=== PATIENT | female | born 1985 | race Caucasian/White ===

== ENCOUNTER 2018-02-13 19:49 | Emergency (ER) | payer MEDICAID, SELFPAY ==
[2018-02-13 19:51] VITALS: BP 155/85; PULSE 111; RESP 18; TEMP 36.6; O2SAT 100
[2018-02-13 19:52] VITALS: BP 155/85; PULSE 109; RESP 18; TEMP 36.6; O2SAT 100; BMI 23.8
[2018-02-13] MEDS: Clindamycin HCl 150 MG Capsule 450 MG PO (20:43)
[2018-02-13] MEDS: HYDROcodone Bitartrate/Apap 5/325 Tablet PO (20:43)
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
[2018-02-13 20:57] VITALS: BP 139/92; PULSE 92; RESP 18; O2SAT 100
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
--- NOTE | 2018-02-13 21:01 | ED.DEP ---
ED Disposition - Plan for ED Patient: Chief Complaint: Dental Instructions: ED Tooth Pain Prescriptions: Naproxen [Naprosyn] 500 mg PO BID #14 tab Clindamycin [Cleocin] 300 mg PO 4X/DAY #80 cap Referrals: Rui Garner DO [Primary Care Provider] -
== END 2018-02-13 21:05 | disposition home or self-care (01) ==
LOC: ED 20:38
PROVIDERS: Emergency Provider Emergency Medicine; Family Provider Student in an Organized Health Care Education/Training Program; PCP Student in an Organized Health Care Education/Training Program
DX: K08.89 Other specified disorders of teeth and supporting structures (principal); R51 Headache; S02.5XXA Fracture of tooth (traumatic), initial encounter for closed fracture; X58.XXXA Exposure to other specified factors, initial encounter; Y93.9 Activity, unspecified; Y92.9 Unspecified place or not applicable; R09.81 Nasal congestion
CPT/HCPCS: 99283

== ENCOUNTER 2018-06-10 18:51 | Emergency (ER) | payer MEDICAID, SELFPAY ==
[2018-06-10 18:52] VITALS: BP 134/77; PULSE 107; RESP 17; TEMP 36.7; O2SAT 97; BMI 28.2
--- NOTE | 2018-06-10 19:17 | ED.DCSUM_ITS ---
- ER Visit Summary Date of Service: 06/10/18 Chief Complaint: Dental pain History of Present Illness: The patient is a 33 F who presents with left lower dental pain that has been getting worse over the past week. Patient states she saw her dentist who prescribed clindamycin and took x-rays. Patient states she has a follow-up appointment on June 27. Patient states the pain has been getting worse. Patient admits to hot and cold sensitivity. Patient admits to some swelling over the gums. Patient denies any fevers or chills. Patient admits to occasional nausea and vomiting due to the pain. Physical Examination: Vital signs are stable. Patient is afebrile. Patient is in no acute distress. Oral mucosa is pink and moist. Oropharynx is clear. Neck is supple. Trachea is midline. There is no JVD noted. There is a large dental carry noted over the left lower second molar. There is tenderness noted over this tooth. There is some gingival edema around this tooth. There is no sublingual edema or erythema. There is no sublingual or submandibular adenopathy noted. Heart was regular rate and rhythm. Lungs are clear and equal bilateral. The remaining physical exam is within normal limits. Emergency Department Course and Treatment: Cavit temporary filling was applied to the cavity on the left lower second molar. Patient felt better after this. Patient was instructed to continue her clindamycin as prescribed. Patient was instructed to follow-up with her dentist as scheduled. Patient understood and was agreeable with the plan. All questions were answered. Disposition: Discharge home Impression: Odontalgia This note was generated with [employer] dictation software. It may contain incorrect words, spelling, and punctuation that were not noted in review of the chart prior to signing ED Disposition - Plan for ED Patient: Disposition: Home or Assisted Living Diagnosis: Odontalgia Instructions: ED Cavity Dental Referrals: Rui Garner DO [Primary Care Provider] -
== END 2018-06-10 20:07 | disposition home or self-care (01) ==
PROVIDERS: Emergency Provider Emergency Medicine; Family Provider Student in an Organized Health Care Education/Training Program; PCP Student in an Organized Health Care Education/Training Program
DX: K02.9 Dental caries, unspecified (principal); J45.909 Unspecified asthma, uncomplicated; Z72.0 Tobacco use
CPT/HCPCS: 99282

== ENCOUNTER 2018-08-12 13:43 | Emergency (ER) | payer MEDICAID, SELFPAY ==
[2018-08-12 13:44] VITALS: BP 141/70; PULSE 86; RESP 16; TEMP 36.4; BMI 28.6
--- NOTE | 2018-08-12 13:56 | ED.VIS.GEN ---
History of Present Illness Chief Complaint: Cold Sx Informant: Patient Onset: Weeks - Onset 1 week ago Context: Sudden Onset Timing: Continuous - With regards to wheezing Quality: Productive cough, posttussive vomiting, dyspnea and wheezing Location: Chest Current Severity: Mild Maximum Severity: Moderate Worsened by: Dyspnea on exertion Relieved by: Nothing Associated Symptoms: Headache with severe cough followed by vomiting Narrative: Patient is a 33-year-old woman who is a smoker 1 pack/day who presents with respiratory symptoms started 1 week ago. She reports productive cough of colored sputum, wheezing, rattling in her chest, rib and chest pain after coughing with severe headache and vomiting. She denies documented fever. She denies ocular, visual or auditory symptoms. She denies rhinorrhea, nasal congestion, postnasal drainage. - Past Medical History (1) No significant past medical history Status: Acute Past Medical History - Allergies and Home Meds Allergies/Adverse Reactions: Allergies Penicillins [PCN] Allergy (Verified 08/12/18 14:20) Swelling tramadol HCl [From [facility]] Adverse Reaction (Verified 08/12/18 14:20) Other Primary Care Physician: Rui Garner DO [Primary Care Provider] - Prior records reviewed: Yes Past Medical History: None Surgical History: noncontributory Lives: Alone Smoking Status: Current every day smoker Alcohol: Rare Drugs: - - Review of old records history of methamphetamine use Review of Systems General: Denies: Chills, Fever, Malaise, Subjective, Sweats Eyes: Denies: Visual changes - bilaterally, Diplopia ENT: Denies: Rhinorrhea, Sore throat Cardiovascular: Denies: Chest pain, Palpitations Respiratory: Reports: Dyspnea, Cough, Sputum, Dyspnea on exertion. Denies: Orthopnea, Paroxysmal nocturnal dyspnea Musculoskeletal: Denies: Myalgias, Arthralgias, Neck pain, Back pain, Swelling, Extremity Pain, -, - Skin: Denies: Rash, Wounds Neurological: Reports: Headache. Denies: Weakness, Parasthesia, Numbness, -, - Hematologic: Denies: Easy bruising, Easy bleeding Allergy: Denies: Uticaria, Swelling of the mouth Physical Exam Vital Signs/Narrative: Vital Signs Temp Pulse Resp BP 08/12/18 13:44 97.6 F L 86 16 141/70 H Inital Vital Signs reviewed: Yes General: Well nourished, Well developed, No Acute Distress Head: Normocephalic, Atraumatic Eyes: Perrl, EOMI. Negative for: Pale conjunctiva, Scleral icterus, - ENT: Moist mucous membranes, No rhinorrhea, TM's clear Neck: Supple, Nontender, No lymphadenopathy, No JVD, - Cardiovascular: Regular rate, Regular rhythm, No murmurs, Normal S1, Normal S2 Respiratory: Chest nontender, Rales - Bilaterally at the bases, Wheezing - Expiratory throughout Abdomen: Soft, Nontender, Nondistended, Normal bowel sounds, No masses. Negative for: Hepatomegaly, Splenomegaly, Mass, Pulsatile mass Rectal: Deferred Extremities: Nontender, No edema Skin: Normal color, No rash Neurological: Alert, Oriented x3, Cranial nerves II-XII grossly intact, Normal Strength, Normal Sensation, Normal DTR, Normal Gait Psychological: Normal affect, Normal Mood Diagnostic/Tx/Re-eval Chest X-Ray - ED: 2 View, Read by ED Physician, Normal, Heart, Lungs, Mediastinum, Bony Structures, No Acute Disease - Medical Decision Making Chest x-ray was obtained to assess for pneumonia. Patient was treated with DuoNeb, albuterol and 60 mill grams of prednisone p.o. Will reassess after treatment and x-ray. Patient was reassessed at 1 4: 2 5. She is wheeze free. Will discharge prescription for Proventil MDI and doxycycline. ED Disposition - Plan for ED Patient: Disposition: Home or Assisted Living Diagnosis: Purulent bronchitis, Acute bronchospasm Instructions: ED Upper Resp Infec Abx Tx Prescriptions: Albuterol Inhaler [Ventolin Hfa] 2 puff INHALATION Q4H PRN PRN #1 inhaler PRN Reason: Wheezing Doxycycline 100 mg PO BID #14 cap Referrals: Rui Garner DO [Primary Care Provider] - 3-5 Days if not improving Additional Instructions: It is in your best interest to quit smoking.
[2018-08-12] MEDS: Albuterol 2.5 MG/3 ML VIAL.NEB. INHALATION (14:08)
[2018-08-12] MEDS: Ipratropium/Albuterol Sulfate 3 ML AMPUL.NEB INHALATION (14:08)
[2018-08-12 14:11] VITALS: PULSE 92; RESP 18
--- NOTE | 2018-08-12 14:21 | RAD_ITS ---
STUDY: X-RAY CHEST REASON FOR EXAM: Female, 33 years old. Productive cough with rales. TECHNIQUE: Frontal and lateral views of the chest. COMPARISON: April 12, 2014 FINDINGS: The lungs are clear and expanded. There is no demonstrated pleural abnormality. Normal size heart. Normal mediastinum and mohan. Normal visualized pulmonary arteries. Normal visualized aortic arch and descending thoracic aorta. Normal visualized thoracic spine. Normal visualized ribs, clavicles, and shoulders. There is no demonstrated abnormality of the visualized soft tissue structures of the upper abdomen. RAD/Chest PA and Lateral IMPRESSION: No interval change and no acute finding. Electronically Signed: Jai Spears MD at 14:39 EDT , Service support ,
[2018-08-12] MEDS: predniSONE 20 MG Tablet 60 MG PO (14:29)
== END 2018-08-12 14:43 | disposition home or self-care (01) ==
LOC: ED 14:37
PROVIDERS: Emergency Provider Emergency Medicine; Family Provider Student in an Organized Health Care Education/Training Program; PCP Student in an Organized Health Care Education/Training Program
DX: J41.1 Mucopurulent chronic bronchitis (principal); J98.01 Acute bronchospasm; F17.200 Nicotine dependence, unspecified, uncomplicated
CPT/HCPCS: 71046; 94640; 99282

== ENCOUNTER 2018-09-12 18:22 | Emergency (ER) | payer MEDICAID, SELFPAY ==
[2018-09-12 18:23] VITALS: BP 110/72; PULSE 85; RESP 16; TEMP 36.6; O2SAT 96; BMI 28.1
--- NOTE | 2018-09-12 18:57 | ED.VIS.GEN ---
History of Present Illness Chief Complaint: Constipation Informant: Patient Onset: Weeks - Onset 2 weeks ago Context: Sudden Onset Timing: Continuous Quality: Trouble moving bowels Location: Not applicable Current Severity: Mild Maximum Severity: Moderate Worsened by: Opiates Relieved by: Improved with laxative Associated Symptoms: no nausea vomiting. Positive flatus Narrative: Patient is a 33-year-old woman who was started on Suboxone 2 weeks ago. She presents because of abdominal discomfort and difficulty moving her bowels. She was taking laxative. She was not prescribed bulking agent. She has no vomiting and positive flatus. No other symptoms. Prior similar symptoms: No Recent Illness/Hospitalization: Yes - Past Medical History (1) History of opiate therapy Status: Acute Past Medical History - Allergies and Home Meds Allergies/Adverse Reactions: Allergies Penicillins [PCN] Allergy (Verified 09/12/18 18:26) Swelling tramadol HCl [From [facility]] Adverse Reaction (Verified 09/12/18 18:26) Other Primary Care Physician: Rui Garner DO [Primary Care Provider] - Prior records reviewed: Yes Surgical History: noncontributory Lives: Alone Smoking Status: Current every day smoker Drugs: - - History of opiate use Review of Systems General: Denies: Chills, Fever, Sweats Cardiovascular: Denies: Chest pain, Palpitations Respiratory: Denies: Dyspnea, Cough, Dyspnea on exertion Gastrointestinal: Reports: Abdominal pain, Diarrhea - Laxative use, Constipation - Since starting Suboxone. Denies: Nausea, Vomiting, Melena, Hematochezia Genitourinary: Denies: Dysuria, Hematuria, Frequency Musculoskeletal: Denies: Myalgias, Arthralgias, Neck pain, Back pain Hematologic: Denies: Easy bruising, Easy bleeding Physical Exam Vital Signs/Narrative: Vital Signs Temp Pulse Resp BP Pulse Ox 09/12/18 18:23 98 F 85 16 110/72 96 Inital Vital Signs reviewed: Yes General: Well nourished, Well developed, No Acute Distress Head: Normocephalic, Atraumatic Eyes: Perrl, EOMI. Negative for: Pale conjunctiva, Scleral icterus, - ENT: Moist mucous membranes, No rhinorrhea Neck: Supple, Nontender, No lymphadenopathy, No JVD, - Cardiovascular: Regular rate, Regular rhythm, No murmurs, Normal S1, Normal S2 Respiratory: No distress, CTA bilaterally, Chest nontender Abdomen: Soft, Nontender, Nondistended, Normal bowel sounds, No masses, - - Healed scars with no evidence of hernia. Rectal: Deferred Back: Nontender, Normal Inspection Skin: Normal color, No rash Neurological: Alert, Oriented x3, Cranial nerves II-XII grossly intact, Normal Strength, Normal Sensation Psychological: Normal affect, Normal Mood Diagnostic/Tx/Re-eval - Medical Decision Making Patient's history and physical consistent with obstipation secondary to opiate use. She was instructed to discontinue the laxative and take MiraLAX 3 times a day. Patient requested prescription since she has an insurance card that will pay for it. ED Disposition - Plan for ED Patient: Disposition: Home or Assisted Living Diagnosis: Constipation due to opioid therapy Instructions: ED Constipation Prescriptions: Polyethylene Glycol 3350 [Miralax] 765 gm PO TID #1 cap Referrals: Rui Garner DO [Primary Care Provider] - As Needed
--- NOTE | 2018-09-12 19:12 | ED.RN ---
DISCHARGE INSTRUCTIONS GIVEN TO AND REVIEWED WITH PATIENT, PATIENT DENIES QUESTIONS OR CONCERNS AND VOICES UNDERSTANDING OF DISCHARGE INSTRUCTIONS. PT AMBULATES OUT OF ROOM WITHOUT DIFFICULTY.
== END 2018-09-12 19:13 | disposition home or self-care (01) ==
LOC: ED 19:10
PROVIDERS: Emergency Provider Emergency Medicine; Family Provider Student in an Organized Health Care Education/Training Program; PCP Student in an Organized Health Care Education/Training Program
DX: K59.00 Constipation, unspecified (principal); T40.2X5A Adverse effect of other opioids, initial encounter; Y92.9 Unspecified place or not applicable; F17.200 Nicotine dependence, unspecified, uncomplicated
CPT/HCPCS: 99282

== ENCOUNTER 2019-06-23 19:03 | Emergency (ER) | payer MEDICAID, SELFPAY ==
[2019-06-23 19:04] VITALS: BP 121/69; PULSE 88; RESP 17; TEMP 36.7; O2SAT 98; BMI 25.9
--- NOTE | 2019-06-23 20:08 | ED.VIS.GEN ---
History of Present Illness Chief Complaint: Med Refill Narrative: Patient presenting for evaluation for medication refill. Patient reports that she is out of her albuterol nebulized treatments, and is unable to get a refill until sometime in the next couple of weeks. She reports that she has been having some wheezing and shortness of breath because of this. She is requesting if we can give her a albuterol inhaler to help with this. She denies any increase in her asthma symptoms, chest pain, fevers, cough. Review of systems otherwise negative. Past Medical History - Allergies and Home Meds Allergies/Adverse Reactions: Allergies Penicillins [PCN] Allergy (Verified 06/23/19 19:03) Swelling tramadol HCl [From [facility]] Adverse Reaction (Verified 06/23/19 19:03) Other Primary Care Physician: Rui Garner DO [Primary Care Provider] - Past Medical History: - - Asthma Surgical History: noncontributory Smoking Status: Current every day smoker Review of Systems General: Denies: Fever ENT: Denies: Bilateral ear pain Cardiovascular: Denies: Chest pain Respiratory: Reports: - - Wheezing. Denies: Dyspnea, Cough Gastrointestinal: Denies: Vomiting Skin: Denies: Rash Physical Exam Vital Signs/Narrative: Vital Signs Temp Pulse Resp BP Pulse Ox 06/23/19 19:04 98.1 F 88 17 121/69 H 98 Inital Vital Signs reviewed: Yes General: Well nourished, Well developed, No Acute Distress Head: Normocephalic, Atraumatic Eyes: EOMI ENT: Moist mucous membranes Neck: Supple Cardiovascular: Regular rate Respiratory: No distress Extremities: Nontender Skin: Normal color Neurological: Alert, Oriented x3 Psychological: Normal affect Diagnostic/Tx/Re-eval - Medical Decision Making Patient presented for a medication refill. She has a benign exam. Patient was provided with albuterol inhaler. ED Disposition - Plan for ED Patient: Disposition: Home or Assisted Living Diagnosis: Medication refill Instructions: Med Refill Referrals: Rui Garner DO [Primary Care Provider] - As Needed
[2019-06-23 20:33] VITALS: RESP 18
== END 2019-06-23 20:34 | disposition home or self-care (01) ==
PROVIDERS: Emergency Provider Emergency Medicine; PCP Student in an Organized Health Care Education/Training Program
DX: Z76.0 Encounter for issue of repeat prescription (principal); J45.909 Unspecified asthma, uncomplicated; F17.200 Nicotine dependence, unspecified, uncomplicated
CPT/HCPCS: 99283

== ENCOUNTER 2019-07-16 14:26 | Emergency (ER) | payer MEDICAID, SELFPAY ==
[2019-07-16 14:28] VITALS: BP 128/84; PULSE 90; RESP 15; TEMP 37.1; O2SAT 98; BMI 26.9
--- NOTE | 2019-07-16 14:38 | ED.VIS.GEN ---
History of Present Illness Chief Complaint: Back Narrative: Patient is a 34-year-old female who presents with lower back pain. This began after lifting some heavy boxes. She complains of pain isolated to the lower back which is worse with movement. She denies fever, abdominal pain, prior back surgery, urinary retention, fecal incontinence, radiation of pain to the legs, paresthesias or weakness. Past Medical History - Allergies and Home Meds Allergies/Adverse Reactions: Allergies Penicillins [PCN] Allergy (Verified 07/16/19 14:27) Swelling tramadol HCl [From Ultram] Adverse Reaction (Verified 07/16/19 14:27) Other Primary Care Physician: Rui Garner DO [Primary Care Provider] - Past Medical History: - - Hypothyroidism Surgical History: noncontributory Smoking Status: Current every day smoker Review of Systems All systems negative except as indicated General: Denies: Fever Eyes: Denies: Visual changes - bilaterally ENT: Denies: Bilateral ear pain Cardiovascular: Denies: Chest pain Respiratory: Denies: Dyspnea Gastrointestinal: Denies: Abdominal pain, Nausea, Vomiting, Diarrhea, Constipation Musculoskeletal: Reports: Back pain. Denies: Myalgias, Arthralgias Skin: Denies: Rash Neurological: Denies: Headache Physical Exam Vital Signs/Narrative: Vital Signs Temp Pulse Resp BP Pulse Ox 07/16/19 14:28 98.8 F 90 15 128/84 H 98 Inital Vital Signs reviewed: Yes General: Well nourished Head: Normocephalic Eyes: EOMI ENT: Moist mucous membranes Cardiovascular: Regular rate Respiratory: No distress Abdomen: Soft, Nontender Back: - - Patient has bilateral paraspinal lumbar tenderness, no midline tenderness, negative straight leg raise bilaterally in the supine position Extremities: Nontender, No edema Skin: Normal color Neurological: Alert, Normal Strength, Normal Sensation Psychological: Normal affect Diagnostic/Tx/Re-eval - Medical Decision Making Patient's presentation is consistent with lumbosacral strain. She was prescribed naproxen and Flexeril. She was advised on supportive care. She understands to return for new or worsening symptoms. Patient was discharged. ED Disposition - Plan for ED Patient: Disposition: Home or Assisted Living Diagnosis: Lumbosacral strain Instructions: ED LUMBAR SPRAIN/STRAIN Prescriptions: cycloBENZAPRine HCl [Flexeril] 10 mg PO TID PRN #20 tab PRN Reason: Muscle Spasm Prescription Printed Naproxen [Naprosyn] 500 mg PO BID #20 tab Prescription Printed Referrals: Rui Garner DO [Primary Care Provider] -
[2019-07-16 15:02] VITALS: RESP 16
== END 2019-07-16 15:04 | disposition home or self-care (01) ==
LOC: ED 14:45
PROVIDERS: Emergency Provider Emergency Medicine; PCP Student in an Organized Health Care Education/Training Program
DX: S39.012A Strain of muscle, fascia and tendon of lower back, initial encounter (principal); X50.0XXA Overexertion from strenuous movement or load, initial encounter; Y93.9 Activity, unspecified; Y99.9 Unspecified external cause status; E03.9 Hypothyroidism, unspecified; F17.200 Nicotine dependence, unspecified, uncomplicated; Z88.0 Allergy status to penicillin; Z79.899 Other long term (current) drug therapy
CPT/HCPCS: 99282

== ENCOUNTER 2019-07-29 23:26 | Emergency (ER) | payer MEDICAID, SELFPAY ==
[2019-07-29 23:27] VITALS: BP 125/79; PULSE 83; RESP 20; TEMP 35.9; O2SAT 95; BMI 25.6
--- NOTE | 2019-07-29 23:46 | ED.VIS.GI ---
History of Present Illness Chief Complaint: Abd Pain Informant: Patient - Abdominal Pain/Flank Pain Onset: Today Timing: Waxes and wanes Location: Epigastric Current Severity: Gone Maximum Severity: Severe Worsened by: Food Relieved by: - - after vomiting, sx resolved - Nausea/Vomiting/Emesis GI Symptom: Nausea, Vomiting Onset: Today Quality: Nonbilious. Negative for: Blood streaks, Coffee ground, Hematemesis - Diarrhea/Melena/Hematochezia GI Symptom: Negative for: Diarrhea, Melena, Hematochezia Associated Symptoms: Negative for: Dysuria, Frequency, Hematuria, Urgency Narrative: Have any epigastric discomfort along with some mild nausea off and on throughout the day today. She has had this a couple of times in the past, but never became as bad as it did tonight after she ate some pizza. After vomiting, her symptoms then slowly resolved. Now she is asymptomatic. Prior similar symptoms: Yes - unk cause - Past Medical History (1) Asthma Status: Chronic (2) History of opiate therapy Status: Chronic (3) Depression with anxiety Status: Chronic (4) Hypothyroidism Status: Chronic Past Medical History - Allergies and Home Meds Allergies/Adverse Reactions: Allergies Penicillins [PCN] Allergy (Verified 07/29/19 23:27) Swelling tramadol HCl [From [facility]] Adverse Reaction (Verified 07/29/19 23:27) Other Primary Care Physician: Rui Garner DO [Primary Care Provider] - Surgical History: noncontributory Lives: Spouse/ Significant Other Smoking Status: Current every day smoker Drugs: None - Ex-IV drug user. Currently on Suboxone. Review of Systems General: Denies: Chills, Fever, Sweats Eyes: Denies: Visual changes - bilaterally, Diplopia ENT: Denies: Rhinorrhea, Sore throat Cardiovascular: Denies: Chest pain, Palpitations Respiratory: Reports: - - Chronic wheezing, unchanged. Denies: Dyspnea, Cough, Dyspnea on exertion Gastrointestinal: Reports: Abdominal pain, Nausea, Vomiting. Denies: Diarrhea, Melena, Hematochezia Genitourinary: Denies: Dysuria, Hematuria, Frequency Musculoskeletal: Denies: Neck pain, Back pain, Extremity Pain Skin: Denies: Rash, Wounds Neurological: Denies: Headache, Weakness, Numbness Physical Exam Vital Signs/Narrative: Vital Signs Temp Pulse Resp BP Pulse Ox 07/29/19 23:27 96.6 F L 83 20 H 125/79 H 95 Inital Vital Signs reviewed: Yes General: Well nourished, Well developed, No Acute Distress Head: Normocephalic, Atraumatic Eyes: Perrl, EOMI ENT: Moist mucous membranes, No rhinorrhea Neck: Supple, Nontender, No lymphadenopathy Cardiovascular: Regular rate, Regular rhythm, No murmurs. Negative for: Tachycardia Respiratory: No distress, Chest nontender, Wheezing. Negative for: Rales, Rhonchi Abdomen: Soft, Nontender, Nondistended, Normal bowel sounds Back: Nontender, Normal Inspection. Negative for: CVA tenderness Extremities: Nontender, No edema Skin: Normal color, No rash, No Trauma Neurological: Alert, Oriented x3, Cranial nerves II-XII grossly intact, Normal Strength, Normal Sensation, Normal Gait Psychological: Normal affect, Normal Mood Diagnostic/Tx/Re-eval Laboratory Results 07/29/19 07/29/19 07/29/19 23:35 23:35 23:35 WBC 9.7 RBC 5.33 Hgb 13.4 Hct 41.6 MCV 78.0 L MCH 25.1 L MCHC 32.2 RDW Std Deviation 43.3 RDW Coeff of Hernandez 15.4 H Plt Count 358 MPV 9.6 Immature Gran % (Auto) 0.200 Neut % (Auto) 51.8 Lymph % (Auto) 33.8 [place] % (Auto) 8.1 Eos % (Auto) 5.6 H Baso % (Auto) 0.5 Absolute Neuts (auto) 5.0 Absolute Lymphs (auto) 3.27 Nucleated RBC % 0 Sodium 139 Potassium 3.7 Chloride 107 Carbon Dioxide 26.0 Anion Gap 6 BUN 11 Creatinine 0.51 L Estim Creat Clear Calc 127.36 Est GFR (MDRD) Af Amer 178 Est GFR (MDRD) Non-Af 147 BUN/Creatinine Ratio 21.7 H Glucose 88 Calcium 8.8 Total Bilirubin 0.30 AST 14 L ALT 15 Alkaline Phosphatase 69 Total Protein 7.1 Albumin 3.5 Globulin 3.6 Albumin/Globulin Ratio 1.0 Lipase 31 L Serum , Qual NEGATIVE - Medical Decision Making Patient was amenable to getting some labs to further stratify her symptoms even though they were gone. Nurses at already drawn blood. It is all unremarkable with no leukocytosis, elevated liver enzymes, elevated lipase, her is negative, and I did a bedside [id number] ultrasound of her gallbladder and right kidney, all of which was unremarkable with a negative sonographic Davis's and no stones, grossly normal gallbladder wall and no pericholecystic fluid. Patient is still asymptomatic after results are obtained and she is discharged on an H2 kenan to empirically treat for a spectrum of [id number] upper GI disorders, and advised to follow-up with her doctor. She is comfortable with that plan. ED Disposition - Plan for ED Patient: Disposition: Home or Assisted Living Diagnosis: Acute gastritis without bleeding Instructions: ED PEPTIC ULCER vs GASTRITIS Prescriptions: Famotidine 40 mg PO DAILY #30 tab Transmission Status: Pending to [employer] [facility] [facility][id number] Referrals: Rui Garner DO [Primary Care Provider] - 1 Week if not improving
[2019-07-29 23:52] LABS: Absolute Lymphocyte Count 3.27 X10^3/uL (0.83-4.51); Basophil# 0.05 X10^3/uL; Basophil% 0.5 % (0-1); Eosinophil# 0.54 X10^3/uL; Eosinophils% 5.6 % (0-5); Hematocrit 41.6 % (37-47); Hemoglobin 13.4 g/dL (12.0-15.0); Lymphocyte # 3.27 X10^3/ul (4.0); Lymphocyte % 33.8 % (19-41); Mean Corp Hgb Conc 32.2 g/dL (32-36); Mean Corpuscular Hgb 25.1 pg (27.0-32.0); Mean Platelet Vol. 9.6 fl (6.2-12.0); Monocyte# 0.78 X10^3/uL; Monocyte% 8.1 % (0-10); NRBC Flagged by Analyzer 0 % (0-5); Neutrophil # 5.02 X10^3/uL (2.7-7.7); Neutrophil % 51.8 % (47-70); Platelet Count 358 K/mm3 (150-450); RBC Distribution Width CV 15.4 % (11.6-14.6); RBC Distribution Width SD 43.3 fl (35.1-43.9); Red Blood Count 5.33 M/mm3 (4.2-5.4); White Blood Count 9.7 K/mm3 (4.4-11.0)
[2019-07-29 23:55] LABS: Internal QC Validated? YES +Cl - CLEAR BKGD
[2019-07-29 23:57] LABS: Pregnancy, Serum, hCG Quali. NEGATIVE Negative
[2019-07-30 00:04] LABS: AST(SGOT) 14 U/L (15-37); Alanine Aminotransfer ALT/SGPT 15 U/L (13-56); Albumin, Serum 3.5 g/dL (3.2-5.0); Alkaline Phosphatase 69 U/L (45-117); Anion Gap 6 (5-15); BUN 11 mg/dL (7-18); BUN/Creat Ratio 21.7 RATIO (10-20); Calcium,Total 8.8 mg/dL (8.5-10.1); Chloride 107 mmol/L (98-107); Creatinine, Serum 0.51 mg/dL (0.55-1.02); EST Glomerular Filtration Rate 147 mL/min (>60); Est Glom Filt Rate - Afr Amer 178 mL/min (>60); Estimated Creatinine Clearance 127.36 ml/min; Globulin 3.6 g/dL (2.2-4.2); Glucose 88 mg/dL (74-106); Lipase 31 U/L (73-393); Potassium 3.7 mmol/L (3.5-5.1); Protein, Total 7.1 g/dL (6.4-8.2); Sodium Level 139 mmol/L (136-145)
[2019-07-30 00:19] VITALS: BP 95/64; PULSE 86; RESP 16; O2SAT 97
[2019-07-30] MEDS: Famotidine 20 MG Tablet 40 MG PO (00:20)
== END 2019-07-30 00:41 | disposition home or self-care (01) ==
PROVIDERS: Emergency Provider Emergency Medicine; PCP Student in an Organized Health Care Education/Training Program
DX: K29.00 Acute gastritis without bleeding (principal); J45.909 Unspecified asthma, uncomplicated; E03.9 Hypothyroidism, unspecified; F32.9 Major depressive disorder, single episode, unspecified; F41.9 Anxiety disorder, unspecified; F17.200 Nicotine dependence, unspecified, uncomplicated; Z88.0 Allergy status to penicillin; Z79.899 Other long term (current) drug therapy
CPT/HCPCS: 80053; 83690; 84703; 85025; 99283; A4216

== ENCOUNTER 2019-09-29 16:16 | Emergency (ER) | payer MEDICAID, SELFPAY ==
[2019-09-29 16:18] VITALS: BP 136/101; PULSE 82; RESP 18; TEMP 36.9; O2SAT 99; BMI 26.9
--- NOTE | 2019-09-29 16:30 | ED.VIS.GEN ---
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 Unknown last tetanus. Past Medical History - Allergies and Home Meds Allergies/Adverse Reactions: Allergies Penicillins [PCN] Allergy (Verified 09/29/19 16:20) Swelling tramadol HCl [From Ultram] Adverse Reaction (Verified 09/29/19 16:20) Other Primary Care Physician: Rui Garner DO [Primary Care Provider] - 1 Week Surgical History: noncontributory Smoking Status: Current every day smoker Review of Systems General: Denies: Chills, Fever, Sweats Eyes: Denies: Visual changes - bilaterally, Diplopia ENT: Denies: Rhinorrhea, Sore throat Cardiovascular: Denies: Chest pain, Palpitations Respiratory: Denies: Dyspnea, Cough, Dyspnea on exertion Gastrointestinal: Denies: Abdominal pain, Nausea, Vomiting, Diarrhea, Melena, Hematochezia Genitourinary: Denies: Dysuria, Hematuria, Frequency Musculoskeletal: Reports: Extremity Pain. Denies: Back pain Skin: Denies: Rash, Wounds Neurological: Denies: Headache, Weakness, Numbness Physical Exam Vital Signs/Narrative: Vital Signs Temp Pulse Resp BP Pulse Ox 09/29/19 16:18 98.5 F 82 18 136/101 H 99 Inital Vital Signs reviewed: Yes General: Well nourished, Well developed, No Acute Distress Head: Normocephalic, Atraumatic Eyes: Perrl, EOMI ENT: Moist mucous membranes, No rhinorrhea Neck: Supple, Nontender Cardiovascular: Regular rate, Regular rhythm, No murmurs Respiratory: No distress, CTA bilaterally, Chest nontender Abdomen: Soft, Nontender, Nondistended, Normal bowel sounds Back: Nontender, Normal Inspection Extremities: No edema, Tenderness - There is a 3.5 cm linear laceration along the medial volar surface of the left thumb. It is gaping. Skin: Normal color, No rash Neurological: Alert, Oriented x3, Cranial nerves II-XII grossly intact, Normal Strength, Normal Sensation Psychological: Normal affect, Normal Mood Diagnostic/Tx/Re-eval - Medical Decision Making Patient is adamant that she not get stitches. She understands the higher risk of poor wound healing and longer duration that it will take to heal. We will put some Steri-Strips on a thumb spica splint. ED Disposition - Plan for ED Patient: Disposition: Home or Assisted Living Diagnosis: Finger laceration Instructions: ED Laceration Hand Referrals: Rui Garner DO [Primary Care Provider] - 1 Week
[2019-09-29] MEDS: Diphth,Pertuss(Acell),Tet Vac 0.5 ML Vial IM (17:27)
== END 2019-09-29 17:34 | disposition home or self-care (01) ==
LOC: ED 16:48
PROVIDERS: Emergency Provider Emergency Medicine; PCP Student in an Organized Health Care Education/Training Program
DX: S61.012A Laceration without foreign body of left thumb without damage to nail, initial encounter (principal); W27.8XXA Contact with other nonpowered hand tool, initial encounter; Y93.9 Activity, unspecified; Y92.9 Unspecified place or not applicable; Y99.9 Unspecified external cause status; Z23 Encounter for immunization; F17.200 Nicotine dependence, unspecified, uncomplicated; Z79.899 Other long term (current) drug therapy; Z88.0 Allergy status to penicillin
CPT/HCPCS: 90715; 99284

== ENCOUNTER → 2020-01-20 17:50 | Outpatient (CLI) | payer MEDICAID, SELFPAY | PROVIDERS: PCP Student in an Organized Health Care Education/Training Program; Referring Provider Registered Nurse; Visit Provider Registered Nurse | DX: Z20.828 Contact with and (suspected) exposure to other viral communicable diseases (principal) | CPT/HCPCS: 87635; C9803; U0003 ==

== ENCOUNTER 2020-08-16 15:17 | Emergency (ER) | payer MEDICAID, SELFPAY ==
[2020-08-16 15:17] VITALS: BP 130/67; PULSE 70; RESP 16; TEMP 37; O2SAT 100
[2020-08-16 15:18] VITALS: BP 130/67; PULSE 81; RESP 16; TEMP 37; O2SAT 100; BMI 27.1
--- NOTE | 2020-08-16 15:39 | EX.ED.DYSGE1 ---
HPI History of Present Illness Chief Complaint: Abd Pain Informant: patient Narrative Narrative: 35-year-old female G3, P2 at 14 weeks intrauterine presents with upper abdominal pain nausea and vomiting. She states that she had some pizza rolls with garlic butter sauce at about 45 minutes later began to have nausea vomiting and pain. She states that she has not had any difficulties eating over the past year. She currently sees Dr. Cote for RN [facility]. No diarrhea. No fevers. No history of pancreatitis. She states this has been going well. She notes that the pain is epigastric right upper quadrant right back right middle back but also a little bit onto the left side PFSH PFSH Home Medications albuterol sulfate [Ventolin Hfa] 2 puff INHALATION Q6H PRN PRN 01/24/13 [History Last Taken 09/13/14 18:00] albuterol sulfate 2.5 mg IH TID 07/29/19 [History Last Taken Unknown] mometasone-formoterol 2 puff IH BID 07/29/19 [History Last Taken Unknown] buprenorphine-naloxone 1 film SUBLINGUAL DAILY 08/16/20 [History Last Taken Unknown] Allergy/AdvReac Type Severity Reaction Status Date / Time Penicillins [PCN] Allergy Swelling Verified 09/29/19 16:20 tramadol HCl [From Ultram] AdvReac Other Verified 09/29/19 16:20 no surgical history (Noncontributory) Social History (Updated 08/16/20 @ 15:[address] Louie Cavanaugh, DO) household members: family Smoking Status: Current every day smoker ROS ROS ED Constitutional Constitutional ED: Denies chills or weight loss Eyes Eyes: Denies change in vision or diplopia ENT ENT ED: Denies ear pain, rhinorrhea or sore throat Cardiovascular Cardiovascular: Denies chest pain, orthopnea, palpitations or racing heartbeat Respiratory/Chest Respiratory/Chest: Denies cough, dyspnea or orthopnea Gastrointestinal Gastrointestinal: Reports abdominal pain, nausea and vomiting; Denies diarrhea Genitourinary Genitourinary ED: Denies dysuria, hematuria or urinary frequency Musculoskeletal Musculoskeletal: Denies arthralgias or myalgias Integumentary Denies abscess or rash Neurologic Neurologic: Denies headache(s) or weakness Psychiatric Psychiatric: Denies anxiety, depression, suicidal ideation or suicidal thoughts Endocrine Endocrinology: Denies polydipsia, polyphagia or polyuria Allergic/Immunologic Allergic/Immunologic ED: Denies mouth swelling, tongue swelling or urticaria EXAM Physical Exam Const Vital Signs: 08/16/20 15:17 08/16/20 15:18 Temperature 98.6 F 98.6 F Temperature Source Temporal Temporal Pulse Rate 70 81 Respiratory Rate 16 16 Blood Pressure 130/67 H 130/67 H Blood Pressure Mean 88 88 Pulse Ox 100 100 Oxygen Delivery Method Room Air Room Air Positive well nourished and well developed General Appearance ED: well developed HEENT Reports normocephalic, head/scalp atraumatic and moist mucous membranes Eyes PERRL and EOMs intact bilaterally Neck no lymphadenopathy, supple and no JVD Resp normal respiratory effort and clear to auscultation bilaterally Cardio regular rate, regular rhythm and no murmurs GI normal to inspection, nondistended, normoactive bowel sounds and non-tender Palpation: soft Back/Spine no CVA tenderness and normal ROM Extremity normal to inspection General Extremety ED: Negative for edema General Extremity: Negative for edema Neuro oriented x3 and CN's II-XII intact bilaterally Sensorium / Orientation: alert Motor Exam: strength 5/5 throughout Psych mental status grossly normal Mood & Affect: Negative for depressed or tearful Skin no rashes or lesions noted and no wounds MDM MDM MDM Narrative Medical decision making narrative: Bedside ultrasound shows a single live intrauterine with a heart rate of 143. Excellent movement. I took a look at her gallbladder I do not see any pericholecystic fluid. The gallbladder is distended. There appears to be some small amount of sludge. There is no tenderness over the gallbladder on ultrasound. Patient's blood work is negative. There was 1+ bacteria in the urine which was sent for culture. Patient's had no further vomiting. No further abdominal pain. I discussed the possibility of developing gallbladder disease. She will observe herself and if she is getting recurrent pain and vomiting with meals she will talk to her doctors or return here. Lab Data Labs: Laboratory Results - last 24 hr 08/16/20 08/16/20 08/16/20 15:28 15:28 16:17 WBC 9.6 RBC 4.82 Hgb 12.2 Hct 39.3 MCV 81.5 MCH 25.3 L MCHC 31.0 L RDW Std Deviation 44.3 H RDW Coeff of Hernandez 14.7 H Plt Count 299 MPV 10.0 Immature Gran % (Auto) 0.300 Neut % (Auto) 73.5 H Lymph % (Auto) 19.9 [place] % (Auto) 3.8 Eos % (Auto) 2.3 Baso % (Auto) 0.2 Absolute Neuts (auto) 7.1 Absolute Lymphs (auto) 1.91 Nucleated RBC % 0 Sodium 138 Potassium 3.6 Chloride 108 H Carbon Dioxide 23.0 Anion Gap 7 BUN 7 Creatinine 0.51 L Estim Creat Clear Calc 120.61 Est GFR (MDRD) Af Amer 174 Est GFR (MDRD) Non-Af 144 BUN/Creatinine Ratio 13.7 Glucose 97 Calcium 8.9 Total Bilirubin 0.60 AST 23 ALT 19 Alkaline Phosphatase 78 Total Protein 6.9 Albumin 3.0 L Globulin 3.9 Albumin/Globulin Ratio 0.8 L Lipase 40 L Urine Color Yellow Urine Clarity Sl. Cloudy Urine pH 8.0 Ur Specific [place] 1.015 Urine Protein Negative Urine Glucose (UA) Normal Urine Ketones Negative Urine Occult Blood Negative Urine Nitrite Negative Urine Bilirubin Negative Urine Urobilinogen 4 H Ur Leukocyte Esterase 100 H Urine RBC 0 SEEN Urine WBC 0-5 SEEN Ur Squamous Epith Cells 0-5 SEEN Urine Bacteria 1+ Urine Mucus 0 SEEN Discharge Plan Triage Chief Complaint: Abd Pain ED Provider: Louie Cavanaugh Dx/Rx/DC Orders Clinical Impression: Abdominal pain affecting , Vomiting Instructions: ED Vomiting (Adult) Prescriptions: No Action albuterol sulfate [Ventolin HFA] 1 INHALER inhaler 2 puff inhalation Q6H PRN PRN (Reason: Bronchodialation) RF: 0 albuterol sulfate 2.5 MG/3 ML solution for nebulization 2.5 mg IH TID RF: 0 mometasone-formoterol 13 GM HFA aerosol inhaler 2 puff IH BID RF: 0 buprenorphine-naloxone 8-2 mg film 1 film sublingual DAILY RF: 0 Primary Care Provider: Rui Garner Referrals: Rui Garner DO [Primary Care Provider] - As Needed Marge Cote MD [STAFF PHYSICIAN] - Keep Ольга appointment Activity Restrictions/Additional Instructions: If you develop recurrent abdominal pain and vomiting with meals you should speak with your doctors regarding possible surgical referral or further gallbladder work-up. Disposition Disposition: Home, self care
[2020-08-16 15:44] LABS: Absolute Lymphocyte Count 1.91 X10^3/uL (0.83-4.51); Absolute Neutrophil Count 7.1 X10^3/uL (2.0-7.7); Basophil# 0.02 X10^3/uL; Basophil% 0.2 % (0-1); Eosinophil# 0.22 X10^3/uL; Eosinophils% 2.3 % (0-5); Hematocrit 39.3 % (37-47); Hemoglobin 12.2 g/dL (12.0-15.0); Lymphocyte # 1.91 X10^3/ul (0.83-4.51); Lymphocyte % 19.9 % (19-41); Mean Corpuscular Hgb 25.3 pg (27.0-32.0); Mean Corpuscular Volume 81.5 fL (81-99); Monocyte# 0.36 X10^3/uL; Monocyte% 3.8 % (0-10); NRBC Flagged by Analyzer 0 % (0-5); Neutrophil # 7.06 X10^3/uL (2.7-7.7); Neutrophil % 73.5 % (47-70); Platelet Count 299 K/mm3 (150-450); RBC Distribution Width CV 14.7 % (11.6-14.6); RBC Distribution Width SD 44.3 fl (35.1-43.9); Red Blood Count 4.82 M/mm3 (4.2-5.4); White Blood Count 9.6 K/mm3 (4.4-11.0)
[2020-08-16] MEDS: Mag Hydrox/Al Hydrox/Simeth 30 ML UDC PO (15:56)
[2020-08-16] MEDS: 0.9% Normal Saline 1,000 ML 1000 ML IV (15:56)
[2020-08-16] MEDS: Ondansetron 4 MG/2 ML Vial IV (15:56)
[2020-08-16 16:01] LABS: ALB/GLOB Ratio 0.8 RATIO (0.9-2.4); AST(SGOT) 23 U/L (15-37); Alanine Aminotransfer ALT/SGPT 19 U/L (13-56); Alkaline Phosphatase 78 U/L (45-117); Anion Gap 7 (5-15); BUN 7 mg/dL (7-18); BUN/Creat Ratio 13.7 RATIO (10-20); Calcium,Total 8.9 mg/dL (8.5-10.1); Chloride 108 mmol/L (98-107); Creatinine, Serum 0.51 mg/dL (0.55-1.02); EST Glomerular Filtration Rate 144 mL/min (>60); Est Glom Filt Rate - Afr Amer 174 mL/min (>60); Estimated Creatinine Clearance 120.61 ml/min; Globulin 3.9 g/dL (2.2-4.2); Glucose 97 mg/dL (74-106); Lipase 40 U/L (73-393); Potassium 3.6 mmol/L (3.5-5.1); Protein, Total 6.9 g/dL (6.4-8.2); Sodium Level 138 mmol/L (136-145)
[2020-08-16 16:23] LABS: Mucous, Urine 0 SEEN /hpf (<or=2+); Red Blood Cells-Urine 0 SEEN /hpf (0-5)
[2020-08-16 16:28] LABS: Color, Urine Yellow (Yellow); Glucose, Dipstick Normal (Normal); Ketone-Dipstick Negative (Negative); Leukocyte Esterase-Dipstick 100 /ul (Negative); Nitrite-Dipstick Negative (Negative); Occult Blood-Urine Negative /ul (Negative); Protein-Dipstick Negative (Negative); Specific Gravity, Urine 1.015 (1.002-1.030); Urine Bilirubin Dipstick Negative (Negative); Urine Clarity Sl. Cloudy (Clear); Urine Urobilinogen 4 mg/dl (Normal)
[2020-08-16 16:35] LABS: Bacteria 1+ /hpf (None Seen); Squamous Epithelial Cells - UA 0-5 SEEN /hpf (5-10); White Blood Cells 0-5 SEEN /hpf (0-5)
[2020-08-16 17:47] VITALS: RESP 14
== END 2020-08-16 17:49 | disposition home or self-care (01) ==
PROVIDERS: Emergency Provider Emergency Medicine; PCP Student in an Organized Health Care Education/Training Program
DX: O26.892 Other specified pregnancy related conditions, second trimester (principal); R10.13 Epigastric pain; R10.11 Right upper quadrant pain; O21.9 Vomiting of pregnancy, unspecified; O09.522 Supervision of elderly multigravida, second trimester; O99.332 Smoking (tobacco) complicating pregnancy, second trimester; F17.200 Nicotine dependence, unspecified, uncomplicated; Z3A.14 14 weeks gestation of pregnancy; Z79.51 Long term (current) use of inhaled steroids
CPT/HCPCS: 80053; 81001; 83690; 85025; 87086; 87088; 96361; 96374; 99283; J7030; A4216; J2405

== ENCOUNTER 2021-01-01 16:00 | Outpatient (CLI) | payer MEDICAID, SELFPAY ==
[2021-01-01 16:11] VITALS: BMI 30.9
[2021-01-01 16:20] VITALS: BP 121/72; PULSE 70; PULSE 75; TEMP 36.4; O2SAT 99
--- NOTE | 2021-01-02 02:42 | OB.TRI.NOTE ---
HPI - General HPI Narrative WILLIE JONES, is a 35 F at 34.4 weeks gestation who presents to triage with decreased movement. Patient reports that she hasn't felt much movement today. Denies any loss of fluid or vaginal bleeding. Maternal Data Information ZULEMA Calculator Estimated Delivery Date Method Current WG Current Estimate 02/08/21 Manual 34w 5d PFSH PFSH Home Medications albuterol sulfate [Ventolin Hfa] 2 puff INHALATION Q6H PRN PRN 01/24/13 [History Last Taken 09/13/14 18:00] albuterol sulfate 2.5 mg IH TID 07/29/19 [History Last Taken Unknown] mometasone-formoterol 2 puff IH BID 07/29/19 [History Last Taken Unknown] buprenorphine-naloxone 1 film SUBLINGUAL DAILY 08/16/20 [History Last Taken 01/01/21 09:00] Allergy/AdvReac Type Severity Reaction Status Date / Time Penicillins [PCN] Allergy Swelling Verified 01/01/21 16:15 tramadol HCl [From Ultram] AdvReac Other Verified 01/01/21 16:15 Social History household members: family Smoking Status: Current every day smoker History Elective abortions Hx Para 1 Spontaneous abortions Hx # Term Pregnancies Ectopic pregnancies Hx # Pregnancies Multiple births # of living children ROS Eyes Eyes: Denies blurry vision Cardiovascular Cardiovascular: Reports none; Denies chest pain at rest, chest pain with activity or dizziness Respiratory/Chest Respiratory/Chest: Denies cough or dyspnea Gastrointestinal Gastrointestinal: Reports none and other; Denies diarrhea or vomiting Genitourinary Genitourinary: Denies dysuria Musculoskeletal Musculoskeletal: Reports none Integumentary Integumentary: Reports none; Denies rash Neurologic Neurologic: Denies dizziness, headache(s) or other visual disturbances Psychiatric Psychiatric: Reports none Physical Exam Const alert and no apparent distress General Appearance: cooperative Orientation / Consciousness: awake Exam Limitations: no limitations HEENT normocephalic Eyes General Eye: normal appearance of both eyes Neck full ROM Chest inspection of chest normal Resp normal respiratory effort and normal air movement Effort and Inspection: symmetric chest movement Auscultation: clear to auscultation bilaterally Cardio regular rate GI soft to palpation, non-tender and non-distended Inspection: and other Back/Spine normal ROM Extremity full ROM, normal capillary refill and no calf tenderness Skin no rashes or lesions noted Neuro oriented x3 and CN's II-XII intact bilaterally Psych mental status grossly normal NST FHR Rate Baby A Baseline: 130 Variability:: Moderate Accelerations:: 15 x 15 Decelerations:: None NST Reactive:: Yes FHR Category:: Category I Uterine Activity:: irritability Assessment & Plan (1) 34 weeks gestation of : (2) Decreased movement: QUALIFIERS: Fetus number: single or unspecified fetus Trimester: third trimester Qualified Code(s): O36.8130 - Decreased movements, third trimester, not applicable or unspecified PLAN: NST reactive Cat. 1 tracing Patient feeling movement upon arrival to unit D/C home with follow up in office PTL and kick counts reviewed
== END 2021-01-01 16:55 | disposition home or self-care (01) ==
LOC: WPOUT 16:06 → WP 16:07
PROVIDERS: PCP Student in an Organized Health Care Education/Training Program; Visit Provider Advanced Practice Midwife
DX: O36.8130 Decreased fetal movements, third trimester, not applicable or unspecified (principal); O09.523 Supervision of elderly multigravida, third trimester; O99.333 Smoking (tobacco) complicating pregnancy, third trimester; F17.200 Nicotine dependence, unspecified, uncomplicated; Z3A.34 34 weeks gestation of pregnancy
CPT/HCPCS: 59025; 59050; 99218; G0378

== ENCOUNTER 2021-01-29 15:16 | Outpatient (CLI) | payer MEDICAID, SELFPAY ==
[2021-01-29 15:30] VITALS: BP 143/83; PULSE 76
[2021-01-29 15:34] VITALS: TEMP 36.4
[2021-01-29 15:42] VITALS: BMI 31.1
--- NOTE | 2021-01-30 17:25 | OB.TRI.HP_ITS ---
HPI - General HPI Narrative WILLIE JONES, is a 35 F 3 para 2 who presented for the office for prolonged monitoring. She had nonreactive nonstress test. She has had good movement. She denies any vaginal bleeding or leaking of fluid. She denied any regular contractions. complicated today by opioid use d isorder and she is being treated with Suboxone. She has a history of depression, abnormal Pap smears, she is of advanced maternal age. Maternal Data Information ZULEMA Calculator Estimated Delivery Date Method Current WG Current Estimate 02/08/21 Manual 38w 5d Final ZULEMA: 02/08/21 Gestational age: 38 4/7 PFSH PFSH Home Medications albuterol sulfate [Ventolin Hfa] 2 puff INHALATION Q6H PRN PRN 01/24/13 [History Last Taken 01/29/21 03:00 2 puffs] albuterol sulfate 2.5 mg IH TID 07/29/19 [History Last Taken Unknown] mometasone-formoterol 2 puff IH BID 07/29/19 [History Last Taken 01/29/21 03:00 2 puffs] buprenorphine HCl [Subutex] 12 mg SUBLINGUAL DAILY 01/29/21 [History Last Taken 01/29/21 07:30] magnesium hydroxide [Milk of Magnesia] 800 mg PO PRN PRN 01/29/21 [History Last Taken 01/29/21 11:30 800 mg] prenat.vits,hilaria,[id number] [ Vitamin] 1 tab PO DAILY 01/29/21 [History Last Taken 01/29/21 07:30 1 tab] Allergy/AdvReac Type Severity Reaction Status Date / Time Penicillins [PCN] Allergy Swelling Verified 01/01/21 16:15 tramadol HCl [From Ultram] AdvReac Other Verified 01/01/21 16:15 Social History household members: family Smoking Status: Current every day smoker History Elective abortions Hx Para 1 Spontaneous abortions Hx # Term Pregnancies Ectopic pregnancies Hx # Pregnancies Multiple births # of living children NST FHR Rate Baby A Baseline: 130 Variability:: Moderate Accelerations:: 15 x 15 Decelerations:: None NST Reactive:: Yes FHR Category:: Category I Uterine Activity:: irreg ctxs Assessment & Plan (1) Opioid use disorder, moderate, dependence: (2) 38 weeks gestation of : (3) Non-reactive NST (non-stress test): PLAN: Nonstress test was nonreactive in the office. Reactive here. Category 1 after prolonged monitoring. Patient was discharged home with kick counts and plan for induction at 39+ gestational weeks. Patient is comfortable this plan. (4) Supervision of other high risk pregnancies, third trimester:
== END 2021-01-29 17:05 | disposition home or self-care (01) ==
LOC: WPOUT 15:27 → WP 15:28
PROVIDERS: PCP Student in an Organized Health Care Education/Training Program; Referring Provider Obstetrics & Gynecology; Visit Provider Obstetrics & Gynecology
DX: O36.8330 Maternal care for abnormalities of the fetal heart rate or rhythm, third trimester, not applicable or unspecified (principal); O09.523 Supervision of elderly multigravida, third trimester; O99.323 Drug use complicating pregnancy, third trimester; F11.20 Opioid dependence, uncomplicated; O99.333 Smoking (tobacco) complicating pregnancy, third trimester; F17.200 Nicotine dependence, unspecified, uncomplicated; Z3A.38 38 weeks gestation of pregnancy
CPT/HCPCS: 59025; 59050; 99218; G0378

== ENCOUNTER 2021-02-03 09:44 | Inpatient (IN) | payer MEDICAID, SELFPAY ==
[2021-02-03] VITALS (30 sets, daily range): BP systolic 104–161; BP diastolic 53–84; PULSE 61–86; RESP 18; TEMP 36.1–37.2; O2SAT 96–100; BMI 30.9
[2021-02-03] MEDS: Lactated Ringers 1,000 ML 50 ML IV (10:30)
[2021-02-03] MEDS: Oxytocin 30 units/NS 500 ml 30 UNITS/500 ML IV.SOLN IV (10:56)
[2021-02-03 11:12] LABS: Absolute Lymphocyte Count 1.79 X10^3/uL (0.83-4.51); Absolute Neutrophil Count 4.9 X10^3/uL (2.0-7.7); Basophil# 0.02 X10^3/uL; Basophil% 0.3 % (0-1); Eosinophil# 0.13 X10^3/uL; Eosinophils% 1.8 % (0-5); Hematocrit 34.7 % (37-47); Hemoglobin 10.7 g/dL (12.0-15.0); Lymphocyte # 1.79 X10^3/ul (0.83-4.51); Lymphocyte % 24.5 % (19-41); Mean Corp Hgb Conc 30.8 g/dL (32-36); Mean Corpuscular Hgb 25.1 pg (27.0-32.0); Mean Corpuscular Volume 81.3 fL (81-99); Mean Platelet Vol. 10.5 fl (6.2-12.0); Monocyte# 0.43 X10^3/uL; Monocyte% 5.9 % (0-10); NRBC Flagged by Analyzer 0 % (0-5); Platelet Count 200 K/mm3 (150-450); RBC Distribution Width SD 43.4 fl (35.1-43.9); Red Blood Count 4.27 M/mm3 (4.2-5.4); White Blood Count 7.3 K/mm3 (4.4-11.0)
[2021-02-03 11:27] LABS: Amphetamine Urine VISTA NEGATIVE (<1000 ng/mL); Barbiturate Urine VISTA NEGATIVE (< 200 ng/mL); Benzodiazepine Urine VISTA NEGATIVE (< 200 ng/mL); Cocaine Urine VISTA NEGATIVE (< 300 ng/mL); Ecstacy Urine VISTA NEGATIVE (< 500 ng/mL); Methadone Urine VISTA NEGATIVE (< 300 ng/mL); PCP Urine VISTA NEGATIVE (< 25 ng/mL); THC Urine VISTA NEGATIVE (< 50 ng/mL); Vista UDS pH Range 6
[2021-02-03] MEDS: Lactated Ringers 500 ML 999 ML IV (12:42)
[2021-02-03] MEDS: fentaNYL-bupivacaine (epidural) 100 ML BAG EPIDURAL (13:53)
[2021-02-03] MEDS: Lactated Ringers 1,000 ML 200 ML IV (15:52)
[2021-02-03] MEDS: Oxytocin 30 units/NS 500 ml 30 UNITS/500 ML IV.SOLN 334 UNITS IV (18:35)
--- NOTE | 2021-02-03 18:57 | EX.PCM.OBRPT ---
Maternal Data Information ZULEMA Calculator Estimated Delivery Date Method Current WG Current Estimate 02/08/21 Manual 39w 2d Final ZULEMA: 02/08/21 Final ZULEMA Source: [place] <20 weeks Gestational age: 39 2/7 Vaginal Delivery Maternal Presentation Maternal Presentation: Medically Indicated Induction Type of Induction: Pitocin and Amniotomy Medical Reason for Induction: - (opiod use disorder) Operative Information Date of Procedure: 02/03/21 Pre-Operative Diagnosis: labor Post-Operative Diagnosis: same Surgery / Procedure Performed: Spontaneous Vaginal Delivery Type of Anesthesia: Epidural Drain: Hendrix to straight drain Estimated Blood Loss: 200 Time of Delivery: 18:33 Findings Description of Procedure: A vigorous [female] infant was delivered [NETTA] over an intact perineum. The remainder the was delivered with maternal pushing and gentle traction only in less than 15 seconds. The Pitocin infusion was initiated for active management of the third stage. The cord was clamped and cut [after 1 minute]. The infant was attended to by the waiting nursing staff. The placenta was delivered spontaneously and intact. The cervix and vagina were intact. Sponge and needle counts were correct. A vaginal sweep was completed by me. Presentation: NETTA Amniotic Membrane Rupture Type: Artificial Amniotic Fluid Description: Clear Placental Delivery Description: Spontaneous Placenta Disposition: [facility] Cord Vessel Description: 3 Vessels Cord Entanglement: None Infant A Gender: Female (Zion vaughn) (1 minute): 8 (5 minute): 9 Delayed Cord Clamping: Yes Post Vaginal Delivery Medications Given After Delivery: IV Pitocin Episiotomy Description: None Laceration: None Complication Complications: None
--- NOTE | 2021-02-03 19:01 | PCM.HP.OB ---
HPI - General General Date of Admission: 02/03/21 HPI Narrative WILLIE JONES, is a 36 F who presents for induction of labor. complicated to date by opiod use disorder, on subutex. She has a history of abnormal Paps, a previous LEEP of the cervix. She has advanced maternal age. She has a history of depression and tobacco and cannabis use. History of asthma and headaches she has a remote history of chlamydia. Maternal Data Information ZULEMA Calculator Estimated Delivery Date Method Current WG Current Estimate 02/08/21 Manual 39w 2d Final ZULEMA: 02/08/21 Gestational age: 39 2/7 PFSH PFS Medical History (Updated 02/03/21 @ 11:33 by Marianne Crook) ADD (attention deficit disorder) Adjustment disorder with mixed anxiety and depressed mood AMA (advanced maternal age) multigravida 35+ Anxiety Asthma Chlamydia Chronic low back pain Depression Dysthymia Fatigue History of gonorrhea History of methamphetamine abuse Insomnia Migraine PCOS (polycystic ovarian syndrome) complicated by subutex maintenance, antepartum Restless leg syndrome Sciatica Thyroid disorder Home Medications albuterol sulfate [Ventolin Hfa] 2 puff INHALATION Q6H PRN PRN 01/24/13 [History Last Taken 01/29/21 03:00 2 puffs] albuterol sulfate 2.5 mg IH TID 07/29/19 [History Last Taken Unknown] mometasone-formoterol 2 puff IH BID 07/29/19 [History Last Taken 01/29/21 03:00 2 puffs] buprenorphine HCl [Subutex] 12 mg SUBLINGUAL DAILY 01/29/21 [History Last Taken 01/29/21 07:30] magnesium hydroxide [Milk of Magnesia] 800 mg PO PRN PRN 01/29/21 [History Last Taken 01/29/21 11:30 800 mg] prenat.vits,hilaria,[id number] [ Vitamin] 1 tab PO DAILY 01/29/21 [History Last Taken 01/29/21 07:30 1 tab] Allergy/AdvReac Type Severity Reaction Status Date / Time Penicillins [PCN] Allergy Swelling Verified 01/01/21 16:15 tramadol HCl [From Ultram] AdvReac Other Verified 01/01/21 16:15 Surgical History (Updated 02/03/21 @ 11:33 by Marianne Crook) H/O Achilles tendon repair H/O carpal tunnel repair H/O LEEP History of abdominal surgery Social History household members: family Smoking Status: Current every day smoker History Elective abortions Hx Para 2 Spontaneous abortions Hx # Term Pregnancies Ectopic pregnancies Hx # Pregnancies Multiple births # of living children NST FHR Rate Baby A Baseline: normal Variability:: Moderate ROS Constitutional Constitutional: Denies fatigue, fever(s) or malaise Eyes Eyes: Denies change in vision ENT HEENT: Denies dizziness or headache(s) Cardiovascular Cardiovascular: Denies chest pain, dyspnea or lightheadedness Respiratory/Chest Respiratory/Chest: Denies cough or dyspnea Gastrointestinal Gastrointestinal: Denies change in bowel habits Genitourinary Genitourinary: Denies burning urination or genital lesions Integumentary Integumentary: Denies rash Neurologic Neurologic: Denies confusion, dizziness, headache(s), numbness or weakness Vital Signs Vital Signs Vital Signs: Weight Weight: 78.5 kg Body Mass Index (BMI) 30.9 Physical Exam Const alert and no apparent distress General Appearance: cooperative HEENT normocephalic Resp normal respiratory effort Cardio regular rate GI soft to palpation GI Narrative: gravid, nontender, appropriate for gestational age Extremity no calf tenderness General Extremity: edema Skin no wounds Rashes: No rashes noted Psych activity/motor behavior normal Labs Labs Labs: Blood Type A POSITIVE Antibody Screen NEGATIVE Hct 34.7 % (37-47) L Hgb 10.7 g/dL (12.0-15.0) L Rhogam given: No
[2021-02-03] MEDS: Albuterol 2.5 MG/3 ML VIAL.NEB. INHALATION (20:24)
--- NOTE | 2021-02-03 21:20 | NURSING ---
report given to Juliana Lake RN who is assuming care of pt at this time
[2021-02-04] VITALS: BP 123/73; PULSE 81; RESP 16; TEMP 36.8
[2021-02-04 03:30] VITALS: BP 130/69; PULSE 90; RESP 16; TEMP 36.6
[2021-02-04] MEDS: Ibuprofen 600 MG Tablet PO (08:14)
[2021-02-04 08:44] VITALS: BP 119/76; PULSE 79; RESP 16; TEMP 36.6
[2021-02-04] MEDS: BUPRENORPHINE HCL 8 MG TAB.SUBL 12 MG SL (09:55)
--- NOTE | 2021-02-04 09:55 | PN.OBGYN_ITS ---
Subjective Subjective C/o some pain in her vagina and vulva. Some cramping. Average lochia Objective Data Objective Data Vital Signs: Vital Signs Temp Pulse Resp BP 97.9 F 79 16 119/76 02/04/21 08:44 02/04/21 08:44 02/04/21 08:44 02/04/21 08:44 Oxygen Delivery Method Room Air Weight: 78.5 kg Body Mass Index (BMI) 30.9 Intake & Output: Intake and Output for Last 24 Hours 02/02/21 02/03/21 02/04/21 23:59 23:59 23:59 Intake Total 2258.96 / 2258.96 Output Total 850 / 850 Balance 1408.96 / 1408.96 Lab / Micro Data Result Diagrams: 02/03/21 10:30 Labs: Laboratory Results - last 24 hr 02/03/21 10:30: WBC 7.3, RBC 4.27, Hgb 10.7 L, Hct 34.7 L, MCV 81.3, MCH 25.1 L, MCHC 30.8 L, RDW Std Deviation 43.4, RDW Coeff of Hernandez 15.0 H, Plt Count 200, MPV 10.5, Immature Gran % (Auto) 0.500, Neut % (Auto) 67.0, Lymph % (Auto) 24.5, [place] % (Auto) 5.9, Eos % (Auto) 1.8, Baso % (Auto) 0.3, Absolute Neuts (auto) 4.9, Absolute Lymphs (auto) 1.79, Nucleated RBC % 0 02/03/21 10:30: Blood Type A POSITIVE, Antibody Screen NEGATIVE 02/03/21 10:35: Urine Opiates Screen NEGATIVE, Urine Methadone Screen NEGATIVE, Ur Barbiturates Screen NEGATIVE, Ur Phencyclidine Scrn NEGATIVE, Ur Amphetamines Screen NEGATIVE, U Methamphetamin-MDMA NEGATIVE, U Benzodiazepines Scrn NEGATIVE, Urine Cocaine Screen NEGATIVE, U Cannabinoids Screen NEGATIVE, Ur Drug Screen Comment Physical Exam Const alert and no apparent distress Narrative: Fundus firm, below umbilicus. day #1. Patient is doing well. is bottlefeeding and doing well. Is getting NAOMI scoring. Routine care.
[2021-02-04] MEDS: FORMOTEROL AD INHALATION ×2 (10:33→21:54)
[2021-02-04] MEDS: MOMETASONE INHALATION ×2 (10:33→21:54)
[2021-02-04 12:35] VITALS: BP 123/67; PULSE 86; RESP 16; TEMP 36.4
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
--- NOTE | 2021-02-04 16:30 | CASEMGMT ---
Social Work Labor and Delivery Unit Called Dr. Iggy Crowley's nurse at [facility]. Message left requesting a phone call back to collaborate and verify mother of baby's adherence to treatment. This com writer would like to be able to let children services know this information. Called [facility] and spoke with Lula Bishop in the intake department, , extension [phone]. Referral due to substance exposed in utero. Reported that Subutex is reported to be prescribed by Dr. Parkinson, and that this com writer has a call into Dr. Parkinson's nurse to verify adherence to treatment. Additional concerns reported regarding the father of baby also having history of addiction issues, and reportedly sober from illicit substances for the last month. Brief maternal and history is provided, including this family having reported history of children services, with children being removed from the home a couple of years ago. Updated that will be monitored for withdrawal for 7 days. Referral will be taken to group screening for determination regarding referral. This com writer requested a call if case is open for investigation, so that can update the mother of baby. Plan: We will continue to follow and assist during mother babies and infants stay in the hospital. Will collaborate with children services as indicated. We will make early Headstart referral prior to, or at time of infant's discharge. -GANESH Paiz, RFID DEVELOPER *This note was generated with [email or web address] software. It may contain incorrect words, spelling, and punctuation that were not noted in review of the chart prior to signing*
[2021-02-04 17:10] VITALS: BP 136/78; PULSE 73; RESP 16; TEMP 36.4
[2021-02-04] MEDS: Acetaminophen 500 MG Tablet 1000 MG PO (17:28)
[2021-02-04 21:13] VITALS: BP 130/66; PULSE 82; RESP 16; TEMP 36.3
[2021-02-05 02:20] VITALS: BP 100/51; PULSE 71; RESP 14; TEMP 36.6
[2021-02-05 08:45] VITALS: BP 113/86; PULSE 77; RESP 12; TEMP 36.6
--- NOTE | 2021-02-05 08:49 | PCM.PN.OB ---
Subjective Subjective Patient seen at bedside. Feeling good. Having some pain in left hip area when ambulating/ weight bearing. Voiding without difficulty. Lochia decreased. Bottle feeding infant. Objective Data Objective Data Vital Signs: Vital Signs Temp Pulse Resp BP 97.9 F 71 14 100/51 L 02/05/21 02:20 02/05/21 02:20 02/05/21 02:20 02/05/21 02:20 Oxygen Delivery Method Room Air Weight: 173 lb 1.006 oz Body Mass Index (BMI) 30.9 Intake & Output: Intake and Output for Last 24 Hours 02/03/21 02/04/21 02/05/21 23:59 23:59 23:59 Intake Total 2258.96 / 2258.96 Output Total 850 / 850 Balance 1408.96 / 1408.96 Lab / Micro Data Result Diagrams: 02/03/21 10:30 ROS Eyes Eyes: Denies blurry vision, change in vision or spots in vision ENT HEENT: Denies dizziness or headache(s) Cardiovascular Cardiovascular: Denies abdominal pain, chest pain or dyspnea Respiratory/Chest Respiratory/Chest: Denies cough, dyspnea, shortness of breath at rest or shortness of breath with exertion Gastrointestinal Gastrointestinal: Denies abdominal pain, diarrhea or vomiting Genitourinary Genitourinary: Denies change in urinary stream, difficulty urinating or dysuria Musculoskeletal Musculoskeletal: Reports none Integumentary Integumentary: Denies rash Neurologic Neurologic: Denies dizziness, headache(s), memory loss or weakness Physical Exam Const alert and no apparent distress General Appearance: cooperative and comfortable Exam Limitations: no limitations HEENT normocephalic Eyes General Eye: normal appearance of both eyes Neck full ROM General: normal visual inspection Chest Chest: symmetrical chest wall rise Resp normal respiratory effort and normal air movement Effort and Inspection: symmetric chest movement Auscultation: clear to auscultation bilaterally Cardio regular rate and regular rhythm GI normal to inspection, nondistended, normoactive bowel sounds Back/Spine normal ROM Extremity full ROM and no calf tenderness General Extremity: normal exam except as noted Skin no rashes or lesions noted Neuro CN's II-XII intact bilaterally Psych mental status grossly normal Assessment & Plan (1) Opioid use disorder, moderate, dependence: (2) (spontaneous vaginal delivery): (3) complicated by subutex maintenance, antepartum: COMMENT: for 01/2021 PLAN: PPD Day 2 Pain control Routine care Subutex PO continued NAOMI scoring- Patient desires hotel status D/C home with follow up in office
[2021-02-05] MEDS: Acetaminophen 500 MG Tablet 1000 MG PO (08:55)
--- NOTE | 2021-02-05 09:19 | CASEMGMT ---
Social Work Labor and Delivery Unit Received phone call from Dr. Iggy Crowley's nurse at [facility], who confirms that the mother of baby has been adherent to outpatient treatment with Dr. Parkinson, has been appropriate, attends all appointments, cooperative, and no concerns about adherence with medication assisted treatment. -GANESH Paiz, RN HOME CARE *This note was generated with [employer] software. It may contain incorrect words, spelling, and punctuation that were not noted in review of the chart prior to signing*
[2021-02-05] MEDS: BUPRENORPHINE HCL 8 MG TAB.SUBL 12 MG SL (10:25)
[2021-02-05 15:00] VITALS: BP 131/73; PULSE 78; RESP 16; TEMP 36.4; O2SAT 98
--- NOTE | 2021-02-05 19:48 | PCM.DC ---
Discharge Instructions Diet Discharge Diet: No restrictions Activity May resume sexual activity in: 6-8 weeks Weight Bearing Status: Weight bearing as tolerated Dressing / Incision Call your doctor if you observe: Fever of 101 or Higher, Inability to urinate, Using more than 1 pad per hour, Shortness of breath, Chest pain, Calf discomfort and Uncontrolled pain Follow Up Care When: 2 weeks virtual visit/ 6 weeks in office Test Results: Test results from this visit will be discussed in further detail at your follow-up appointment, if applicable. Discharge Plan Admission Admit Date/Time: 02/03/21 09:44 Primary Reason for Your Visit: labor and delivery Attending Provider: Marge Cote Primary Care Provider: Rui Garner Instructions Patient Instructions: After a Vaginal Discharge Orders/Prescriptions Prescriptions: No Action albuterol sulfate [Ventolin HFA] 1 INHALER inhaler 2 puff inhalation Q6H PRN PRN (Reason: Bronchodialation) RF: 0 albuterol sulfate 2.5 MG/3 ML solution for nebulization 2.5 mg IH TID RF: 0 mometasone-formoterol 13 GM HFA aerosol inhaler 2 puff IH BID RF: 0 buprenorphine HCl [Subutex] 8 mg Tablet, Sublingual 12 mg SUBLINGUAL DAILY RF: 0 Milk of Magnesia 800 mg/5 mL Suspension 800 mg PO PRN PRN (Reason: Constipation) RF: 0 Vitamin Tablet 1 tab PO DAILY RF: 0 Referrals / Follow Up: Rui Garner DO [Primary Care Provider] - Disposition Disposition (needs filled in before D/C Order can be placed): Home, Self Care
== END 2021-02-05 17:30 | disposition home or self-care (01) | DRG 560 ==
PROVIDERS: Admitting Provider Obstetrics & Gynecology; PCP Student in an Organized Health Care Education/Training Program; Visit Provider Obstetrics & Gynecology
DX: O99.324 Drug use complicating childbirth (principal); F11.20 Opioid dependence, uncomplicated; O99.334 Smoking (tobacco) complicating childbirth; F17.200 Nicotine dependence, unspecified, uncomplicated; J45.909 Unspecified asthma, uncomplicated; Z88.0 Allergy status to penicillin; Z3A.39 39 weeks gestation of pregnancy; Z37.0 Single live birth
CPT/HCPCS: 59025; 59050; 80307; 85025; 86850; 86900; 86901; 94640; 99218; J7120; G0378

== ENCOUNTER 2021-03-29 05:38 | Emergency (ER) | payer MEDICAID, SELFPAY ==
[2021-03-29 05:40] VITALS: BP 118/95; PULSE 96; RESP 16; TEMP 36.7; O2SAT 100; BMI 28.0
--- NOTE | 2021-03-29 05:58 | EDS_ITS ---
HPI HPI - GI History of Present Illness Chief Complaint: Abd Pain Detail of Chief Complaint: Upper abdominal pain Informant: patient Abdominal Pain/Flank Pain Onset: Today Context: Sudden Onset Timing: Continuous Quality: Burning Location: Epigastric Current Severity: Mild Maximum Severity: Mild Worsened by: Nothing Relieved by: Nothing Nausea/Vomiting/Emesis GI Symptom: Negative for Nausea and Vomiting Diarrhea/Melena/Hematochezia GI Symptom: Negative for Diarrhea, Melena and Hematochezia Associated Symptoms Associated Symptoms: Negative for Dysuria, Frequency, Hematuria and Urgency Narrative Narrative: 36-year-old female status post delivery February 03. Patient is a history of drug abuse, anxiety polycystic ovarian syndrome. is a very small baby she had a bowel surgery. She cannot be more specific than that. has been doing well recently. She had no complications of her . She was a vaginal delivery at 39 weeks or so. States that 330 this morning she was awoken with epigastric abdominal pain. Denies nausea or vomiting. Denies diarrhea or fever. Denies dysuria or melena. No constipation. Bowel movement last 24 hours. Said she had similar pain in this before was treated with what sounds like a GI cocktail and improved. States the pain does go into her back. No history of pancreatitis. Believes she still has her gallbladder and her appendix. Denies any dysuria. Prior similar symptoms: Yes Recent Illness/Hospitalization: No PFSH [facility] Medical History ADD (attention deficit disorder) Adjustment disorder with mixed anxiety and depressed mood AMA (advanced maternal age) multigravida 35+ Anxiety Asthma Chlamydia Chronic low back pain Depression Dysthymia Fatigue History of gonorrhea History of methamphetamine abuse Insomnia Migraine Opioid use disorder, moderate, dependence PCOS (polycystic ovarian syndrome) complicated by subutex maintenance, antepartum Restless leg syndrome Sciatica (spontaneous vaginal delivery) Thyroid disorder Home Medications albuterol sulfate [Ventolin Hfa] 2 puff INHALATION Q6H PRN PRN 01/24/13 [History Last Taken 01/29/21 03:00 2 puffs] buprenorphine HCl [Subutex] 12 mg SUBLINGUAL DAILY 01/29/21 [History Last Taken 01/29/21 07:30] prenat.vits,hilaria,[id number] [ Vitamin] 1 tab PO DAILY 01/29/21 [History Last Taken 01/29/21 07:30 1 tab] buprenorphine-naloxone 03/29/21 [History Last Taken Unknown] pantoprazole [Protonix] 40 mg PO DAILY 30 Days #30 tab 03/29/21 [Rx Last Taken Unknown] Allergy/AdvReac Type Severity Reaction Status Date / Time Penicillins [PCN] Allergy Swelling Verified 03/29/21 05:39 tramadol HCl [From Ultram] AdvReac Other Verified 03/29/21 05:39 Surgical History H/O Achilles tendon repair H/O carpal tunnel repair H/O LEEP History of abdominal surgery Social History household members: family Smoking Status: Current every day smoker tobacco type: e-cigarettes ROS ROS ED ROS Narrative Abdominal pain. Review of Systems ROS Unobtainable: Denies due to encephalopathy Constitutional Constitutional ED: Denies fever(s) ENT ENT ED: Denies ear pain Cardiovascular Cardiovascular: Denies chest pain Respiratory/Chest Respiratory/Chest: Denies cough or dyspnea Gastrointestinal Gastrointestinal: Reports abdominal pain; Denies constipation, diarrhea, melena, nausea or vomiting Genitourinary Genitourinary ED: Denies dysuria Musculoskeletal Musculoskeletal: Denies myalgias Integumentary Denies rash Neurologic Neurologic: Denies headache(s) Psychiatric Psychiatric: Denies depression Endocrine Endocrinology: Denies polyuria Hematologic/Lymphatic Hematologic/Lymphatic: Denies easy bruising Allergic/Immunologic Allergic/Immunologic ED: Denies urticaria EXAM Physical Exam Narrative Exam Narrative: 36-year-old female no acute distress. Vital signs stable afebrile. HEENT exam unremarkable. Neck nontender no lymphadenopathy. Lungs clear to auscultation bilaterally. Heart regular rhythm rate about 95 no murmur. Chest wall nontender. Abdomen soft nondistended normal bowel sounds no peritoneal signs. Mild tenderness to epigastric region. No Davis sign. No McBurney's point tenderness. No hernia or mass. No signs of obstruction. Moving all 4 extremities. Calves nontender no edema. Back nontender. Neurologically she is awake and alert. Const Vital Signs: 03/29/21 05:40 Temperature 98.1 F Temperature Source Oral Pulse Rate 96 Respiratory Rate 16 Blood Pressure 118/95 H Blood Pressure Mean 102 Pulse Ox 100 Oxygen Delivery Method Room Air Positive well nourished and well developed; Negative for obese, cachectic, contractures or unkempt General Appearance ED: well developed and NAD; Negative for unkempt, cachectic, contractures or pallor Nutritional Appearance: Negative for cachectic or obese HEENT Reports moist mucous membranes normocephalic and atraumatic Eyes PERRL and EOMs intact bilaterally Neck no lymphadenopathy, supple and no JVD General: Negative for tenderness Resp normal respiratory effort and clear to auscultation bilaterally Auscultation: Negative for rales, rhonchi or wheezes Cardio regular rate, regular rhythm, S1 normal heart sound, S2 normal heart sound and no murmurs GI non-distended and no masses; Negative for non-tender GI Narrative: Epigastric tenderness. Inspection: Negative for abdominal distention Auscultation: normoactive bowel sounds; Negative for hyperactive bowel sounds or hypoactive bowel sounds Palpation: soft and tender; Negative for guarding, rigid or rebound tenderness present Back/Spine no CVA tenderness General Back: Negative for CVA tenderness Cervical Spine: Negative for cervical spine tenderness Extremity full ROM General Extremety ED: Negative for edema or tenderness General Extremity: Negative for edema Neuro moves all extremities Sensorium / Orientation: alert, oriented to person, oriented to place and oriented to time; Negative for orientation impaired, confused, lethargic or mary anne porous Motor Exam: strength 5/5 throughout Psych mental status grossly normal and thought process normal Appearance: Negative for unkempt Skin no wounds General Skin Exam: Negative for jaundice or pallor Lesions: no lesions Rashes: no rashes MDM MDM MDM Narrative Medical decision making narrative: Middle-aged female with epigastric abdominal pain. Treated GI cocktail and Pepcid. Labs are being obtained. This time medically she needs imaging. Repeat exam at 7:25 AM patient doing okay. Abdomen is benign no peritoneal signs. Still epigastric tenderness. She is okay to be discharged home placed on Protonix and outpatient follow-up. Lab Data Attestation: I reviewed the patient's lab results. Lab results narrative: CBC shows a white count 8. Hemoglobin 12.9. Platelets 338. BMP unremarkable. Normal gap. Normal creatinine. Liver enzymes normal. Serum test negative. Lipase unremarkable at 52. Labs: Laboratory Results - last 24 hr 03/29/21 03/29/21 03/29/21 06:35 06:35 06:35 WBC 8.7 RBC 5.28 Hgb 12.9 Hct 42.3 MCV 80.1 L MCH 24.4 L MCHC 30.5 L RDW Std Deviation 41.5 RDW Coeff of Hernandez 14.2 Plt Count 338 MPV 9.5 Immature Gran % (Auto) 0.300 Neut % (Auto) 63.7 Lymph % (Auto) 26.0 [place] % (Auto) 6.7 Eos % (Auto) 2.8 Baso % (Auto) 0.5 Absolute Neuts (auto) 5.5 Absolute Lymphs (auto) 2.25 Nucleated RBC % 0 Sodium 140 Potassium 3.9 Chloride 108 H Carbon Dioxide 26.0 Anion Gap 6 BUN 11 Creatinine 0.70 Estim Creat Clear Calc 87.03 Est GFR (MDRD) Af Amer 121 Est GFR (MDRD) Non-Af 100 BUN/Creatinine Ratio 15.8 Glucose 108 H Calcium 9.4 Total Bilirubin 0.40 AST 61 H ALT 36 Alkaline Phosphatase 72 Total Protein 7.3 Albumin 3.3 Globulin 4.0 Albumin/Globulin Ratio 0.8 L Lipase 52 L Serum , Qual NEGATIVE Discharge Plan Triage Chief Complaint: Abd Pain ED Provider: Ariel Longo Dx/Rx/DC Orders Clinical Impression: Abdominal pain, Gastritis Instructions: ED Gastritis (Adult) Prescriptions: New pantoprazole [Protonix] 40 mg tablet,delayed release (DR/EC) 40 mg PO DAILY 30 Days Qty: 30 RF: 0 No Action albuterol sulfate [Ventolin HFA] 1 INHALER inhaler 2 puff inhalation Q6H PRN PRN (Reason: Bronchodialation) RF: 0 buprenorphine HCl [Subutex] 8 mg Tablet, Sublingual 12 mg SUBLINGUAL DAILY RF: 0 Vitamin Tablet 1 tab PO DAILY RF: 0 buprenorphine-naloxone 8-2 mg film RF: 0 Primary Care Provider: Rui Garner Referrals: Rui Garner DO [Primary Care Provider] - 1-2 Days if not improving Activity Restrictions/Additional Instructions: Protonix daily. This should help decrease the pain and acid in your stomach. Your labs are normal today. This may be secondary to gastritis which is inflammation in your stomach. Return if increasing pain, fever intractable vomiting or black or bloody stool or throwing up blood. Follow-up with your doctor if not improving. Disposition Disposition: Home, Self Care
[2021-03-29] MEDS: Mag Hydrox/Al Hydrox/Simeth 30 ML UDC PO (06:12)
[2021-03-29] MEDS: Famotidine 20 MG Tablet 40 MG PO (06:12)
--- NOTE | 2021-03-29 06:45 | ED.RN ---
While DENNY Mathew was in patients room starting IV, patient had been requesting another GI cocktail due to pain being so bad. Upon walking into room, patient was vomiting. This RN notified Dr. Longo. Patient not given 2nd GI cocktail at this time.
[2021-03-29 06:47] LABS: Absolute Lymphocyte Count 2.25 X10^3/uL (0.83-4.51); Absolute Neutrophil Count 5.5 X10^3/uL (2.0-7.7); Basophil# 0.04 X10^3/uL; Basophil% 0.5 % (0-1); Eosinophil# 0.24 X10^3/uL; Eosinophils% 2.8 % (0-5); Hematocrit 42.3 % (37-47); Hemoglobin 12.9 g/dL (12.0-15.0); Lymphocyte # 2.25 X10^3/ul (0.83-4.51); Mean Corp Hgb Conc 30.5 g/dL (32-36); Mean Corpuscular Hgb 24.4 pg (27.0-32.0); Mean Corpuscular Volume 80.1 fL (81-99); Mean Platelet Vol. 9.5 fl (6.2-12.0); Monocyte# 0.58 X10^3/uL; Monocyte% 6.7 % (0-10); NRBC Flagged by Analyzer 0 % (0-5); Neutrophil # 5.51 X10^3/uL (2.7-7.7); Neutrophil % 63.7 % (47-70); Platelet Count 338 K/mm3 (150-450); RBC Distribution Width CV 14.2 % (11.6-14.6); RBC Distribution Width SD 41.5 fl (35.1-43.9); Red Blood Count 5.28 M/mm3 (4.2-5.4); White Blood Count 8.7 K/mm3 (4.4-11.0)
[2021-03-29 06:58] LABS: ALB/GLOB Ratio 0.8 RATIO (0.9-2.4); AST(SGOT) 61 U/L (15-37); Alanine Aminotransfer ALT/SGPT 36 U/L (13-56); Albumin, Serum 3.3 g/dL (3.2-5.0); Alkaline Phosphatase 72 U/L (45-117); Anion Gap 6 (5-15); BUN 11 mg/dL (7-18); BUN/Creat Ratio 15.8 RATIO (10-20); Calcium,Total 9.4 mg/dL (8.5-10.1); Chloride 108 mmol/L (98-107); EST Glomerular Filtration Rate 100 mL/min (>60); Est Glom Filt Rate - Afr Amer 121 mL/min (>60); Estimated Creatinine Clearance 87.03 ml/min; Glucose 108 mg/dL (74-106); Lipase 52 U/L (73-393); Potassium 3.9 mmol/L (3.5-5.1); Protein, Total 7.3 g/dL (6.4-8.2); Sodium Level 140 mmol/L (136-145)
[2021-03-29 07:18] LABS: Internal QC Validated? YES +Cl - CLEAR BKGD; Pregnancy, Serum, hCG Quali. NEGATIVE Negative
== END 2021-03-29 07:36 | disposition home or self-care (01) ==
PROVIDERS: Emergency Provider Emergency Medicine; PCP Student in an Organized Health Care Education/Training Program
DX: K29.70 Gastritis, unspecified, without bleeding (principal); R10.13 Epigastric pain; J45.909 Unspecified asthma, uncomplicated; F19.11 Other psychoactive substance abuse, in remission; E28.2 Polycystic ovarian syndrome; F43.23 Adjustment disorder with mixed anxiety and depressed mood; F41.9 Anxiety disorder, unspecified; F17.290 Nicotine dependence, other tobacco product, uncomplicated; Z79.899 Other long term (current) drug therapy
CPT/HCPCS: 80053; 83690; 84703; 85025; 99283; A4216

== ENCOUNTER 2021-05-28 10:06 | Emergency (ER) | payer MEDICAID, SELFPAY ==
[2021-05-28 10:07] VITALS: BP 130/81; PULSE 87; RESP 17; TEMP 35.6; O2SAT 97; BMI 29.2
--- NOTE | 2021-05-28 10:35 | EDS_ITS ---
HPI History of Present Illness Chief Complaint: Foreign Body Narrative Narrative: 36-year-old female presenting with a splinter in her right index finger on the distal palmar surface.Patient states she tried soaking it until it was soft and tried to remove it. She has tried digging at it without being able to remove it. She states it is painful. She is not any bleeding. No erythema. There are some mild swelling. [facility] Medical History ADD (attention deficit disorder) Adjustment disorder with mixed anxiety and depressed mood AMA (advanced maternal age) multigravida 35+ Anxiety Asthma Chlamydia Chronic low back pain Depression Dysthymia Fatigue History of gonorrhea History of methamphetamine abuse Insomnia Migraine Opioid use disorder, moderate, dependence PCOS (polycystic ovarian syndrome) complicated by subutex maintenance, antepartum Restless leg syndrome Sciatica (spontaneous vaginal delivery) Thyroid disorder Home Medications albuterol sulfate [Ventolin Hfa] 2 puff INHALATION Q6H PRN PRN 01/24/13 [History Last Taken 01/29/21 03:00 2 puffs] buprenorphine HCl [Subutex] 12 mg SUBLINGUAL DAILY 01/29/21 [History Last Taken 01/29/21 07:30] prenat.vits,hilaria,[id number] [ Vitamin] 1 tab PO DAILY 01/29/21 [History Last Taken 01/29/21 07:30 1 tab] buprenorphine-naloxone 03/29/21 [History Last Taken Unknown] pantoprazole [Protonix] 40 mg PO DAILY 30 Days #30 tab 03/29/21 [Rx Last Taken Unknown] Allergy/AdvReac Type Severity Reaction Status Date / Time Penicillins [PCN] Allergy Swelling Verified 05/28/21 10:06 tramadol HCl [From Ultram] AdvReac Other Verified 05/28/21 10:06 Surgical History H/O Achilles tendon repair H/O carpal tunnel repair H/O LEEP History of abdominal surgery Social History household members: family Smoking Status: Current every day smoker tobacco type: cigarettes and e- cigarettes ROS ROS ED Constitutional Constitutional ED: Denies chills or fever(s) Eyes Eyes: Denies blurry vision or diplopia ENT ENT ED: Denies rhinorrhea or sore throat Cardiovascular Cardiovascular: Denies chest pain or palpitations Respiratory/Chest Respiratory/Chest: Denies cough, dyspnea or sputum Gastrointestinal Gastrointestinal: Denies abdominal pain, nausea or vomiting Genitourinary Genitourinary ED: Denies dysuria or hematuria Musculoskeletal Musculoskeletal: Denies myalgias or neck pain Integumentary Reports other Details: Splinter in right index finger Neurologic Neurologic: Denies headache(s) or paresthesias Psychiatric Psychiatric: Denies anxiety or depression EXAM Physical Exam Const Vital Signs: 05/28/21 10:07 Temperature 96.0 F L Temperature Source Temporal Pulse Rate 87 Respiratory Rate 17 Blood Pressure 130/81 H Blood Pressure Mean 97 Pulse Ox 97 Oxygen Delivery Method Room Air Positive well nourished General Appearance ED: NAD HEENT Reports moist mucous membranes normocephalic and atraumatic Eyes PERRL and EOMs intact bilaterally Resp normal respiratory effort and clear to auscultation bilaterally Cardio regular rate and regular rhythm Skin Skin Narrative: There is a small splinter in the distal aspect of the index finger. There is no surrounding erythema or induration. There is a superficial abrasion lateral to this on the tip of the finger which is not associated with the splinter. Right hand neurovascular intact brisk cap refill to all 5 fingers. MDM MDM MDM Narrative Medical decision making narrative: Patient's thumb was cleaned and I attempted to inject lidocaine without epinephrine into index finger at which point the patient became very nervous and did not want to have the splinter removed. She states that she does not like needles. She states that she will soak her finger and monitor for signs of infection. I counseled her that this would likely come out on its own without intervention. She is counseled that if she has worsening of her pain or starts to have infection to come back to emergency room. Impression: 1. Foreign body right index finger Discharge Plan Triage Chief Complaint: Foreign Body ED Provider: Dinesh Hawkins Dx/Rx/DC Orders Instructions: ED Foreign Body Soft Tissue Prescriptions: No Action albuterol sulfate [Ventolin HFA] 1 INHALER inhaler 2 puff inhalation Q6H PRN PRN (Reason: Bronchodialation) RF: 0 buprenorphine HCl [Subutex] 8 mg Tablet, Sublingual 12 mg SUBLINGUAL DAILY RF: 0 Vitamin Tablet 1 tab PO DAILY RF: 0 buprenorphine-naloxone 8-2 mg film RF: 0 pantoprazole [Protonix] 40 mg tablet,delayed release (DR/EC) 40 mg PO DAILY 30 Days Qty: 30 RF: 0 Primary Care Provider: Rui Garner Referrals: Rui Garner DO [Primary Care Provider] - Disposition Disposition: Home, Self Care
[2021-05-28] MEDS: Lidocaine 1% (20 ml mdv) 20 ML Vial INFILT (10:40)
== END 2021-05-28 11:50 | disposition home or self-care (01) ==
PROVIDERS: Emergency Provider Student in an Organized Health Care Education/Training Program; PCP Student in an Organized Health Care Education/Training Program; Visit Provider Student in an Organized Health Care Education/Training Program
DX: S60.450A Superficial foreign body of right index finger, initial encounter (principal); W45.8XXA Other foreign body or object entering through skin, initial encounter; J45.909 Unspecified asthma, uncomplicated; F17.210 Nicotine dependence, cigarettes, uncomplicated
CPT/HCPCS: 99283

== ENCOUNTER 2021-07-18 06:30 | Emergency (ER) | payer MEDICAID, SELFPAY ==
[2021-07-18 06:30] VITALS: BP 124/76; PULSE 78; RESP 18; TEMP 36.4; O2SAT 100; BMI 28.9
--- NOTE | 2021-07-18 06:43 | EDS_ITS ---
HPI HPI - GI History of Present Illness Chief Complaint: Nausea/Vomiting/Diarrhea Informant: patient Abdominal Pain/Flank Pain Onset: Today Context: Sudden Onset Timing: Continuous Quality: Cramping Location: Epigastric Worsened by: Movement Relieved by: Nothing Nausea/Vomiting/Emesis GI Symptom: Positive for Nausea and Vomiting Onset: Today Quality: Positive for Nonbilious; Negative for Blood streaks, Coffee ground and Hematemesis Diarrhea/Melena/Hematochezia GI Symptom: Positive for Diarrhea; Negative for Melena and Hematochezia Onset: Today Stool Quality: Positive for Watery Narrative Narrative: Patient presents with nausea, vomiting, and diarrhea that began today. Patient states it began when she woke up at 5 AM today. Patient states her pain is over the epigastric area and radiates into her back. Patient describes her pain as cramping. Patient states it is worse whenever she moves. Patient states that she is just vomiting of stomach contents. Patient denies any hematemesis or coffee-ground emesis. Patient states her diarrhea is watery. Patient denies any melena or hematochezia. Patient denies any urinary complaints. Patient admits to some subjective chills and sweats. Patient denies any fevers. [facility] Medical History ADD (attention deficit disorder) Adjustment disorder with mixed anxiety and depressed mood AMA (advanced maternal age) multigravida 35+ Anxiety Asthma Chlamydia Chronic low back pain Depression Dysthymia Fatigue History of gonorrhea History of methamphetamine abuse Insomnia Migraine Opioid use disorder, moderate, dependence PCOS (polycystic ovarian syndrome) complicated by subutex maintenance, antepartum Restless leg syndrome Sciatica (spontaneous vaginal delivery) Thyroid disorder Home Medications albuterol sulfate [Ventolin Hfa] 2 puff INHALATION Q6H PRN PRN 01/24/13 [History Last Taken 01/29/21 03:00 2 puffs] buprenorphine HCl [Subutex] 12 mg SUBLINGUAL DAILY 01/29/21 [History Last Taken 01/29/21 07:30] pantoprazole [Protonix] 40 mg PO DAILY 30 Days #30 tab 03/29/21 [Rx Last Taken Unknown] ondansetron 4 mg PO Q8H PRN PRN #10 tab 07/18/21 [Rx Last Taken Unknown] Allergy/AdvReac Type Severity Reaction Status Date / Time Penicillins [PCN] Allergy Swelling Verified 07/18/21 06:34 tramadol HCl [From Ultram] AdvReac Other Verified 07/18/21 06:34 Surgical History H/O Achilles tendon repair H/O carpal tunnel repair H/O LEEP History of abdominal surgery Social History household members: family Smoking Status: Current every day smoker tobacco type: cigarettes and e- cigarettes ROS ROS ED Constitutional Constitutional ED: Reports chills, subjective and sweats; Denies fever(s) Eyes Eyes: Denies blurry vision or change in vision ENT ENT ED: Denies rhinorrhea or sore throat Cardiovascular Cardiovascular: Denies chest pain or palpitations Respiratory/Chest Respiratory/Chest: Denies cough or dyspnea Gastrointestinal Gastrointestinal: Reports abdominal pain, diarrhea, nausea and vomiting Genitourinary Genitourinary ED: Denies dysuria or hematuria Musculoskeletal Musculoskeletal: Denies back pain or neck pain Integumentary Denies abscess or rash Neurologic Neurologic: Denies headache(s) or weakness Allergic/Immunologic Allergic/Immunologic ED: Denies mouth swelling or urticaria EXAM Physical Exam Const Vital Signs: 07/18/21 06:30 Temperature 97.6 F L Temperature Source Temporal Pulse Rate 78 Respiratory Rate 18 Blood Pressure 124/76 H Blood Pressure Mean 92 Pulse Ox 100 Oxygen Delivery Method Room Air Positive well nourished and well developed General Appearance ED: well developed and NAD HEENT Reports moist mucous membranes Neck supple and no JVD Resp normal respiratory effort and clear to auscultation bilaterally Cardio regular rate, regular rhythm and no murmurs GI normal to inspection, nondistended, normoactive bowel sounds and non-distended Auscultation: normoactive bowel sounds Palpation: soft and tender epigastric; Negative for guarding or rebound tenderness present Extremity normal to inspection and full ROM General Extremety ED: Negative for edema or tenderness General Extremity: Negative for edema Neuro oriented x3, CN's II-XII intact bilaterally and no sensory deficits noted Sensorium / Orientation: alert Motor Exam: strength 5/5 throughout Psych mental status grossly normal Skin no rashes or lesions noted MDM MDM MDM Narrative Medical decision making narrative: Patient was given IV fluids, morphine, and Zofran. CBC was within normal limits. Comprehensive metabolic profile was essentially within normal limits. Lipase was normal. Urinalysis is ordered and is pending. Lab Data Attestation: I reviewed the patient's lab results. Labs: Laboratory Results - last 24 hr 07/18/21 07/18/21 06:47 06:47 WBC 9.8 RBC 5.14 Hgb 12.5 Hct 39.1 MCV 76.1 L MCH 24.3 L MCHC 32.0 RDW Std Deviation 40.3 RDW Coeff of Hernandez 14.6 Plt Count 328 MPV 10.3 Immature Gran % (Auto) 0.200 Neut % (Auto) 57.1 Lymph % (Auto) 34.8 [place] % (Auto) 5.6 Eos % (Auto) 2.0 Baso % (Auto) 0.3 Absolute Neuts (auto) 5.6 Absolute Lymphs (auto) 3.42 Nucleated RBC % 0 Differential Comment SCANNED Sodium 140 Potassium 4.1 Chloride 113 H Carbon Dioxide 24.0 Anion Gap 3 L BUN 12 Creatinine 0.66 Estim Creat Clear Calc 92.30 Est GFR (MDRD) Af Amer 130 Est GFR (MDRD) Non-Af 108 BUN/Creatinine Ratio 18.3 Glucose 96 Calcium 8.9 Total Bilirubin 0.40 AST 53 H ALT 29 Alkaline Phosphatase 69 Total Protein 7.1 Albumin 3.2 Globulin 3.9 Albumin/Globulin Ratio 0.8 L Lipase 92 Discharge Plan Triage Chief Complaint: Nausea/Vomiting/Diarrhea ED Provider: Sergio Sanford Dx/Rx/DC Orders Clinical Impression: Epigastric abdominal pain, Nausea vomiting and diarrhea Instructions: ED Epigastric Pain Uncertain Cause, ED Vomiting and Diarrhea ... Prescriptions: New ondansetron [ondansetron] 4 MG tablet 4 mg PO Q8H PRN PRN (Reason: Nausea) Qty: 10 RF: 0 No Action albuterol sulfate [Ventolin HFA] 1 INHALER inhaler 2 puff inhalation Q6H PRN PRN (Reason: Bronchodialation) RF: 0 buprenorphine HCl [Subutex] 8 mg Tablet, Sublingual 12 mg SUBLINGUAL DAILY RF: 0 pantoprazole [Protonix] 40 mg tablet,delayed release (DR/EC) 40 mg PO DAILY 30 Days Qty: 30 RF: 0 Stand Alone Forms: ED Work / School Excuse Primary Care Provider: Rui Garner Referrals: Rui Garner DO [Primary Care Provider] - 3-5 Days Disposition Disposition: Home, Self Care
[2021-07-18 06:58] LABS: Absolute Lymphocyte Count 3.42 X10^3/uL (0.83-4.51); Absolute Neutrophil Count 5.6 X10^3/uL (2.0-7.7); Basophil# 0.03 X10^3/uL; Basophil% 0.3 % (0-1); Hematocrit 39.1 % (37-47); Hemoglobin 12.5 g/dL (12.0-15.0); Lymphocyte # 3.42 X10^3/ul (0.83-4.51); Lymphocyte % 34.8 % (19-41); Mean Corpuscular Hgb 24.3 pg (27.0-32.0); Mean Corpuscular Volume 76.1 fL (81-99); Mean Platelet Vol. 10.3 fl (6.2-12.0); Monocyte# 0.55 X10^3/uL; Monocyte% 5.6 % (0-10); NRBC Flagged by Analyzer 0 % (0-5); Neutrophil # 5.62 X10^3/uL (2.7-7.7); Neutrophil % 57.1 % (47-70); POSITIVE COUNT YES; Platelet Count 328 K/mm3 (150-450); RBC Distribution Width CV 14.6 % (11.6-14.6); RBC Distribution Width SD 40.3 fl (35.1-43.9); Red Blood Count 5.14 M/mm3 (4.2-5.4); White Blood Count 9.8 K/mm3 (4.4-11.0)
[2021-07-18 07:07] LABS: Differential Indicated SCAN CRITERIA MET
[2021-07-18] MEDS: Ondansetron 4 MG/2 ML Vial IV (07:12)
[2021-07-18] MEDS: 0.9% Normal Saline 1,000 ML 1000 ML IV (07:12)
[2021-07-18 07:22] LABS: Differential Comment SCANNED
[2021-07-18 07:26] LABS: ALB/GLOB Ratio 0.8 RATIO (0.9-2.4); AST(SGOT) 53 U/L (15-37); Alanine Aminotransfer ALT/SGPT 29 U/L (13-56); Albumin, Serum 3.2 g/dL (3.2-5.0); Alkaline Phosphatase 69 U/L (45-117); Anion Gap 3 (5-15); BUN 12 mg/dL (7-18); BUN/Creat Ratio 18.3 RATIO (10-20); Calcium,Total 8.9 mg/dL (8.5-10.1); Chloride 113 mmol/L (98-107); Creatinine, Serum 0.66 mg/dL (0.55-1.02); EST Glomerular Filtration Rate 108 mL/min (>60); Est Glom Filt Rate - Afr Amer 130 mL/min (>60); Globulin 3.9 g/dL (2.2-4.2); Glucose 96 mg/dL (74-106); Lipase 92 U/L (73-393); Potassium 4.1 mmol/L (3.5-5.1); Protein, Total 7.1 g/dL (6.4-8.2); Sodium Level 140 mmol/L (136-145)
[2021-07-18 08:46] LABS: Bacteria 0 SEEN /hpf (None Seen); Mucous, Urine 0 SEEN /hpf (<or=2+)
[2021-07-18 09:03] LABS: Color, Urine Yellow (Yellow); Glucose, Dipstick Normal (Normal); Ketone-Dipstick Negative (Negative); Leukocyte Esterase-Dipstick 100 /ul (Negative); Nitrite-Dipstick Negative (Negative); Occult Blood-Urine 250 /ul (Negative); Protein-Dipstick 15 mg/dl (Negative); Urine Clarity Sl. Cloudy (Clear); Urine Urobilinogen 4 mg/dl (Normal)
[2021-07-18 09:10] LABS: Urine Bilirubin Dipstick 1 mg/dL (Negative)
[2021-07-18 09:12] LABS: Calcium Oxalate Crystals Ur 1+ /hpf (<or=2+); Red Blood Cells-Urine 5-10 SEEN /hpf (0-5); Squamous Epithelial Cells - UA 5-10 SEEN /hpf (5-10); White Blood Cells 0-5 SEEN /hpf (0-5)
[2021-07-18 09:30] VITALS: RESP 16
== END 2021-07-18 09:31 | disposition home or self-care (01) ==
PROVIDERS: Emergency Provider Emergency Medicine; PCP Student in an Organized Health Care Education/Training Program; Visit Provider Emergency Medicine
DX: R11.2 Nausea with vomiting, unspecified (principal); R19.7 Diarrhea, unspecified; R10.13 Epigastric pain; J45.909 Unspecified asthma, uncomplicated; F17.210 Nicotine dependence, cigarettes, uncomplicated; Z79.899 Other long term (current) drug therapy
CPT/HCPCS: 80053; 81001; 83690; 85025; 96361; 96374; 96375; 99282; J7030; A4216; J2405

== ENCOUNTER 2021-08-30 05:12 | Emergency (ER) | payer MEDICAID, SELFPAY ==
[2021-08-30 05:13] VITALS: BP 143/93; PULSE 77; RESP 15; TEMP 36.1; O2SAT 99; BMI 28.8
--- NOTE | 2021-08-30 05:31 | EDS_ITS ---
HPI History of Present Illness Chief Complaint: Abd Pain Informant: patient Narrative Narrative: Patient presents with epigastric abdominal pain. She has dry heaves but no actual vomiting. No diarrhea. She states the pain is burning. This is her gastritis that is acting up. She states its acted up 5 or 6 times. She is on Protonix in the morning and 40 mg but forgot to take it this day. She did not eat any foods that she thinks bothered it. No chest pain or trouble breathing. She has been moving her bowels normally. No blood in the stool. She does not have anything for nausea or vomiting at home now. [facility] Medical History ADD (attention deficit disorder) Adjustment disorder with mixed anxiety and depressed mood AMA (advanced maternal age) multigravida 35+ Anxiety Asthma Chlamydia Chronic low back pain Depression Dysthymia Fatigue History of gonorrhea History of methamphetamine abuse Insomnia Migraine Opioid use disorder, moderate, dependence PCOS (polycystic ovarian syndrome) complicated by subutex maintenance, antepartum Restless leg syndrome Sciatica (spontaneous vaginal delivery) Thyroid disorder Home Medications albuterol sulfate [Ventolin Hfa] 2 puff INHALATION Q6H PRN PRN 01/24/13 [History Last Taken 01/29/21 03:00 2 puffs] buprenorphine HCl [Subutex] 12 mg SUBLINGUAL DAILY 01/29/21 [History Last Taken 01/29/21 07:30] pantoprazole [Protonix] 40 mg PO DAILY 30 Days #30 tab 03/29/21 [Rx Last Taken Unknown] ondansetron 4 mg PO Q8H PRN PRN #10 tab 07/18/21 [Rx Last Taken Unknown] ondansetron 4 mg PO Q8H PRN #10 tab 08/30/21 [Rx Last Taken Unknown] sucralfate [Carafate] 1 g PO TID #15 tab 08/30/21 [Rx Last Taken Unknown] Allergy/AdvReac Type Severity Reaction Status Date / Time Penicillins [PCN] Allergy Swelling Verified 08/30/21 05:16 tramadol HCl [From Ultram] AdvReac Other Verified 08/30/21 05:16 Surgical History H/O Achilles tendon repair H/O carpal tunnel repair H/O LEEP History of abdominal surgery Social History household members: family Smoking Status: Former smoker ROS ROS ED Constitutional Constitutional ED: Denies chills or fever(s) Eyes Eyes: Denies blurry vision ENT ENT ED: Denies rhinorrhea or sore throat Cardiovascular Cardiovascular: Denies chest pain or palpitations Respiratory/Chest Respiratory/Chest: Denies cough or dyspnea Gastrointestinal Gastrointestinal: Reports abdominal pain, nausea and other Details: See history of present illness. Positive dry heaves but no actual vomiting so far. ; Denies constipation, diarrhea, melena or vomiting Genitourinary Genitourinary ED: Denies dysuria Musculoskeletal Musculoskeletal: Denies back pain Integumentary Denies rash Neurologic Neurologic: Denies headache(s) Endocrine Endocrinology: Denies polyuria Allergic/Immunologic Allergic/Immunologic ED: Denies urticaria EXAM Physical Exam Const Vital Signs: 08/30/21 05:13 Temperature 96.9 F L Temperature Source Oral Pulse Rate 77 Respiratory Rate 15 Blood Pressure 143/93 H Blood Pressure Mean 109 Pulse Ox 99 Oxygen Delivery Method Room Air Positive well nourished General Appearance ED: NAD; Negative for cyanotic or diaphoretic HEENT Reports moist mucous membranes Eyes General Eye ED: Negative for pale conjunctiva or scleral icterus Neck no JVD Chest Wall inspection of chest normal Resp normal respiratory effort Auscultation: Negative for rales, rhonchi or wheezes Cardio regular rate and regular rhythm GI normal to inspection, nondistended, normoactive bowel sounds and non-distended GI Narrative: Very minimal epigastric isolated tenderness but no rebound or guarding. Well-healed prior scars. Palpation: soft Back/Spine no CVA tenderness Extremity General Extremety ED: Negative for tenderness Neuro Sensorium / Orientation: alert Psych mental status grossly normal Skin no rashes or lesions noted MDM MDM MDM Narrative Medical decision making narrative: Patient has had these episodes multiple times. She did miss medications that help keep them calm. We initially tried just to give IM meds to see if we can get her better. She still felt bad. At this point were going to give IV meds and IV fluids. She is on Suboxone. I verified with online prescribing reference that she is still currently on that. Therefore, I do not think narcotics will be of benefit for her. We will send off blood work at this time to make sure we do not see any marked abnormalities. We will try to get her better. We are pending these results at this time. If I do not get these back, patient will be turned over to the oncoming physician pending results. I think if her results are overall normal, she is stable to go home. Certainly, if there are abnormalities or clinical change worsening the patient is possible she may need to stay. Discharge Plan Triage Chief Complaint: Abd Pain ED Provider: Baldo Roberts Dx/Rx/DC Orders Clinical Impression: Acute epigastric pain, History of gastritis Instructions: ED Gastritis (Adult), ED Epigastric Pain Uncertain Cause Prescriptions: New ondansetron 4 mg tablet,disintegrating 4 mg PO Q8H PRN (Reason: nausea and vomiting) Qty: 10 RF: 0 sucralfate [Carafate] 1 gram tablet 1 g PO TID Qty: 15 RF: 0 No Action albuterol sulfate [Ventolin HFA] 1 INHALER inhaler 2 puff inhalation Q6H PRN PRN (Reason: Bronchodialation) RF: 0 buprenorphine HCl [Subutex] 8 mg Tablet, Sublingual 12 mg SUBLINGUAL DAILY RF: 0 pantoprazole [Protonix] 40 mg tablet,delayed release (DR/EC) 40 mg PO DAILY 30 Days Qty: 30 RF: 0 ondansetron [ondansetron] 4 MG tablet 4 mg PO Q8H PRN PRN (Reason: Nausea) Qty: 10 RF: 0 Primary Care Provider: Rui Garner Referrals: Rui Garner, [Primary Care Provider] - 1-2 Days if not improving
[2021-08-30] MEDS: Mag Hydrox/Al Hydrox/Simeth 30 ML UDC PO ×2 (05:49→07:46)
[2021-08-30] MEDS: proMETHazine 25 MG/ML Syringe 12.5 MG IM (05:51)
[2021-08-30] MEDS: Dicyclomine 20 MG/2 ML Vial IM (05:53)
[2021-08-30 07:12] LABS: Absolute Lymphocyte Count 1.11 X10^3/uL (0.83-4.51); Absolute Neutrophil Count 9.1 X10^3/uL (2.0-7.7); Basophil# 0.03 X10^3/uL; Basophil% 0.3 % (0-1); Eosinophil# 0.12 X10^3/uL; Eosinophils% 1.1 % (0-5); Hematocrit 38.4 % (37-47); Hemoglobin 11.6 g/dL (12.0-15.0); Lymphocyte # 1.11 X10^3/ul (0.83-4.51); Lymphocyte % 10.2 % (19-41); Mean Corp Hgb Conc 30.2 g/dL (32-36); Mean Corpuscular Volume 79.3 fL (81-99); Mean Platelet Vol. 9.6 fl (6.2-12.0); Monocyte# 0.44 X10^3/uL; NRBC Flagged by Analyzer 0 % (0-5); Neutrophil # 9.13 X10^3/uL (2.7-7.7); Platelet Count 306 K/mm3 (150-450); RBC Distribution Width CV 14.6 % (11.6-14.6); RBC Distribution Width SD 42.2 fl (35.1-43.9); Red Blood Count 4.84 M/mm3 (4.2-5.4); White Blood Count 10.9 K/mm3 (4.4-11.0)
[2021-08-30 07:29] LABS: ALB/GLOB Ratio 0.9 RATIO (0.9-2.4); AST(SGOT) 43 U/L (15-37); Alanine Aminotransfer ALT/SGPT 33 U/L (13-56); Albumin, Serum 3.3 g/dL (3.2-5.0); Alkaline Phosphatase 97 U/L (45-117); Anion Gap 7 (5-15); BUN 11 mg/dL (7-18); BUN/Creat Ratio 18.3 RATIO (10-20); Calcium,Total 8.7 mg/dL (8.5-10.1); Chloride 109 mmol/L (98-107); EST Glomerular Filtration Rate 119 mL/min (>60); Est Glom Filt Rate - Afr Amer 144 mL/min (>60); Estimated Creatinine Clearance 101.53 ml/min; Globulin 3.6 g/dL (2.2-4.2); Glucose 127 mg/dL (74-106); Lipase 52 U/L (73-393); Potassium 3.4 mmol/L (3.5-5.1); Protein, Total 6.9 g/dL (6.4-8.2); Sodium Level 141 mmol/L (136-145)
--- NOTE | 2021-08-30 07:33 | ED.RN ---
Attempt x 2 for an iv from this nurse attempt x [address] Roberts aware and is changing pts meds to PO
[2021-08-30] MEDS: Pantoprazole Sodium 40 MG Tablet PO (07:41)
[2021-08-30] MEDS: Ondansetron ODT 4 MG Tablet PO (07:41)
[2021-08-30] MEDS: LORazepam 0.5 MG Tablet PO (08:22)
== END 2021-08-30 08:37 | disposition home or self-care (01) ==
PROVIDERS: Emergency Provider Emergency Medicine; PCP Student in an Organized Health Care Education/Training Program; Visit Provider Emergency Medicine
DX: R10.13 Epigastric pain (principal); J45.909 Unspecified asthma, uncomplicated; F41.9 Anxiety disorder, unspecified; Z79.899 Other long term (current) drug therapy; Z87.891 Personal history of nicotine dependence; Z87.19 Personal history of other diseases of the digestive system
CPT/HCPCS: 80053; 83690; 85025; 96372; 99283; J7030; A4216; J2405; J3490

== ENCOUNTER 2021-11-07 16:36 | Emergency (ER) | payer MEDICAID, SELFPAY ==
[2021-11-07 16:37] VITALS: BP 115/86; PULSE 88; RESP 16; TEMP 36.2; O2SAT 98; BMI 29.7
--- NOTE | 2021-11-07 17:07 | ED.VIS.DENTA ---
HPI History of Present Illness Chief Complaint: Dental Informant: patient Onset/Context/Timing Onset: Days (2) Context: Gradual Onset (After tooth broke while eating) Timing: Continuous Quality: Throbbing Location: Right mandibular molar Current Severity: Moderate Maximum Severity: Moderate Worsened by: Eating Relieved by: - (Nothing has not tried medicines) Associated Symptoms Assocated Symptom - Dental: Negative for fever, jaw swelling or face swelling Narrative Narrative: Patient had a root canal and a right mandibular molar, a cap was advised but she could not afford it and insurance would not cover it. This was remotely. Now that tooth fractured, and something possibly the filling came out, couple days ago. Ever since then it has been really hurting. She denies any discharge, bleeding, swelling, abscess, fevers or chills. Cannot get into see her dentist until January. Additionally, she feels like in the last day or 2 she has had a white discharge and some vaginal itching and feel like she has a yeast infection. No recent antibiotics or steroids. [facility] Medical History ADD (attention deficit disorder) Adjustment disorder with mixed anxiety and depressed mood AMA (advanced maternal age) multigravida 35+ Anxiety Asthma Chlamydia Chronic low back pain Depression Dysthymia Fatigue History of gonorrhea History of methamphetamine abuse Insomnia Migraine Opioid use disorder, moderate, dependence PCOS (polycystic ovarian syndrome) complicated by subutex maintenance, antepartum Restless leg syndrome Sciatica (spontaneous vaginal delivery) Thyroid disorder Home Medications albuterol sulfate 90 mcg/actuation aerosol inhaler (Ventolin HFA) 2 puff inhalation Q6H PRN PRN Bronchodialation 01/24/13 [History Last Taken 01/29/21 03:00 2 puffs] buprenorphine HCl 8 mg sublingual tablet 12 mg sublingual DAILY Check with primary doctor 01/29/21 [History Last Taken 01/29/21 07:30] pantoprazole 40 mg tablet,delayed release (Protonix) 40 mg PO DAILY 30 days #30 tabs 03/29/21 [Rx Last Taken Unknown] sucralfate 1 gram tablet (Carafate) 1 g PO TID #15 tabs 08/30/21 [Rx Last Taken Unknown] clindamycin HCl 150 mg capsule 300 mg PO 4X/DAY #80 CAPSULES 11/07/21 [Rx Last Taken Unknown] fluconazole 150 mg tablet 150 mg PO .once #1 TAB 11/07/21 [Rx Last Taken Unknown] Allergy/AdvReac Type Severity Reaction Status Date / Time Penicillins [PCN] Allergy Swelling Verified 11/07/21 16:37 tramadol HCl [From Ultram] AdvReac Other Verified 11/07/21 16:37 Surgical History H/O Achilles tendon repair H/O carpal tunnel repair H/O LEEP History of abdominal surgery Social History household members: family Smoking Status: Former smoker ROS ROS ED Constitutional Constitutional ED: Denies chills or fever(s) Eyes Eyes: Denies change in vision or double vision ENT ENT ED: Reports dental pain; Denies sinus pain or throat swelling Cardiovascular Cardiovascular: Denies chest pain or palpitations Respiratory/Chest Respiratory/Chest: Denies cough or dyspnea Gastrointestinal Gastrointestinal: Denies abdominal pain, diarrhea, melena, nausea or vomiting Genitourinary Genitourinary ED: Reports vaginal discharge; Denies dysuria or vaginal bleeding Integumentary Denies abscess or rash Neurologic Neurologic: Denies headache(s), paresthesias or weakness EXAM Physical Exam Const Vital Signs: 11/07/21 16:37 Temperature 97.2 F L Temperature Source Temporal Pulse Rate 88 Respiratory Rate 16 Blood Pressure 115/86 H Blood Pressure Mean 95 Pulse Ox 98 Oxygen Delivery Method Room Air Positive well nourished and well developed General Appearance ED: well developed and NAD HEENT HEENT Narrative: Fractured tooth #31, which is tender. Most of the tooth is down to the gumline, there is no blood or discharge. There is no associated abscess or gingivitis. No trismus. Face and Sinus: sinuses nontender Throat: posterior oropharynx normal Eyes PERRL and EOMs intact bilaterally Neck no lymphadenopathy and supple Resp normal respiratory effort Speculum Exam - Vagina: vaginal discharge; Negative for vaginal bleeding Neuro oriented x3 and CN's II-XII intact bilaterally Sensorium / Orientation: alert Gait (Neuro): normal gait Psych mental status grossly normal and thought process normal Skin no rashes or lesions noted and no wounds MDM MDM MDM Narrative Medical decision making narrative: Allergic to penicillin. Will prescribe her clindamycin. She knows the increase chances of antibiotic associated diarrhea. She eats yogurt every day which should help prevent that. Will prescribe her fluconazole, I checked her medications and it should not interact, in addition to the antibiotics. Given Naprosyn here for pain. Discharge Plan Triage Chief Complaint: Dental ED Provider: Ronal Muhammad Dx/Rx/DC Orders Clinical Impression: Fracture of tooth, Odontalgia Instructions: ED Dental Pain Prescriptions: New clindamycin HCl 150 MG capsule 300 mg PO 4X/DAY Qty: 80 0RF fluconazole 150 mg tablet 150 mg PO .once Qty: 1 0RF Continued albuterol sulfate [Ventolin HFA] 1 INHALER inhaler 2 puff inhalation Q6H PRN PRN (Reason: Bronchodialation) buprenorphine HCl 8 mg Tablet, Sublingual 12 mg SUBLINGUAL DAILY pantoprazole [Protonix] 40 mg tablet,delayed release (DR/EC) 40 mg PO DAILY 30 Days Qty: 30 0RF sucralfate [Carafate] 1 gram tablet 1 g PO TID Qty: 15 0RF Discontinued ondansetron [ondansetron] 4 MG tablet 4 mg PO Q8H PRN PRN (Reason: Nausea) Qty: 10 0RF ondansetron 4 mg tablet,disintegrating 4 mg PO Q8H PRN (Reason: nausea and vomiting) Qty: 10 0RF Primary Care Provider: Rui Garner Referrals: Rui Garner, [Primary Care Provider] - Dentist,Your [STAFF PHYSICIAN] - As soon as possible Disposition Disposition: Home, Self Care
[2021-11-07] MEDS: Naproxen 250 MG Tablet 500 MG PO (17:18)
[2021-11-07] MEDS: Clindamycin HCl 150 MG Capsule 300 MG PO (17:19)
== END 2021-11-07 17:20 | disposition home or self-care (01) ==
PROVIDERS: Emergency Provider Emergency Medicine; PCP Student in an Organized Health Care Education/Training Program; Visit Provider Emergency Medicine
DX: S02.5XXA Fracture of tooth (traumatic), initial encounter for closed fracture (principal); X58.XXXA Exposure to other specified factors, initial encounter; N89.8 Other specified noninflammatory disorders of vagina; F98.8 Other specified behavioral and emotional disorders with onset usually occurring in childhood and adolescence; F43.23 Adjustment disorder with mixed anxiety and depressed mood; J45.909 Unspecified asthma, uncomplicated; Z79.899 Other long term (current) drug therapy; Z87.891 Personal history of nicotine dependence
CPT/HCPCS: 99283

== ENCOUNTER 2021-12-27 12:58 | Emergency (ER) | payer MEDICAID, SELFPAY ==
[2021-12-27 12:59] VITALS: BP 129/84; PULSE 75; RESP 16; TEMP 36.8; O2SAT 98; BMI 29.5
--- NOTE | 2021-12-27 13:51 | US_ITS ---
STUDY: ABDOMINAL ULTRASOUND - RIGHT UPPER QUADRANT REASON FOR VISIT: Female, 36 years old RUQ pain -- CHRONIC EPIGASTRIC PAIN, WORSE TODAY TECHNIQUE: Ultrasound evaluation of the right upper quadrant was performed with real-time and static suazo-scale imaging. TECHNICAL QUALITY: Adequate. COMPARISON: None. FINDINGS: Liver: The liver measures 16 cm. There is normal echogenicity of the liver. The bile ducts are within normal limits. There is hepatic color flow. The direction of portal flow is hepatopetal. There is no demonstrated mass lesion. Gallbladder: Normal distended gallbladder. The gallbladder wall measures 2.0 mm. There is a negative sonographic Davis''s sign. There is no pericholecystic fluid. There are no gallstones. Common Bile Duct (C.B.D.): The common bile duct measures 5 mm. Pancreas: Normal size of the head, body and tail of the pancreas. There is normal echogenicity of the pancreas. There is no demonstrated pancreatic mass or cyst. Right Kidney: Normal size of the right kidney. The right kidney measures 11 cm x 6 cm x 4.3 cm. Normal renal cortex. The right cortex measures 1.8 cm. There is no demonstrated renal mass or cyst. There is no right hydronephrosis. US/Gallbladder IMPRESSION: Normal right upper quadrant ultrasound examination. Electronically Signed: Samm Russo MD at 15:03 EDT ,
[2021-12-27 13:55] LABS: Mucous, Urine 0 SEEN /hpf (<or=2+); Red Blood Cells-Urine 0 SEEN /hpf (0-5)
[2021-12-27 13:57] LABS: Color, Urine Yellow (Yellow); Glucose, Dipstick Normal (Normal); Ketone-Dipstick 50 mg/dl (Negative); Leukocyte Esterase-Dipstick 500 /ul (Negative); Nitrite-Dipstick Negative (Negative); Occult Blood-Urine Negative /ul (Negative); Protein-Dipstick 15 mg/dl (Negative); Urine Bilirubin Dipstick Negative (Negative); Urine Clarity Sl. Cloudy (Clear); Urine Urobilinogen Normal (Normal)
[2021-12-27] MEDS: Mag Hydrox/Al Hydrox/Simeth 30 ML UDC PO (14:01)
[2021-12-27 14:03] LABS: Bacteria 1+ /hpf (None Seen); Internal QC Validated? YES +Cl - CLEAR BKGD; Pregnancy, Urine Negative Negative; Squamous Epithelial Cells - UA 0-5 SEEN /hpf (5-10); White Blood Cells 25-50 SEEN /hpf (0-5)
[2021-12-27 14:12] LABS: AST(SGOT) 15 U/L (15-37); Alanine Aminotransfer ALT/SGPT 18 U/L (13-56); Albumin, Serum 3.4 g/dL (3.2-5.0); Alkaline Phosphatase 72 U/L (45-117); Anion Gap 8 (5-15); BUN 15 mg/dL (7-18); BUN/Creat Ratio 24.4 RATIO (10-20); Chloride 108 mmol/L (98-107); Creatinine, Serum 0.61 mg/dL (0.55-1.02); EST Glomerular Filtration Rate 116 mL/min (>60); Est Glom Filt Rate - Afr Amer 140 mL/min (>60); Estimated Creatinine Clearance 99.87 ml/min; Globulin 3.5 g/dL (2.2-4.2); Glucose 101 mg/dL (74-106); Lipase 67 U/L (73-393); Potassium 4.1 mmol/L (3.5-5.1); Protein, Total 6.9 g/dL (6.4-8.2); Sodium Level 138 mmol/L (136-145)
[2021-12-27 14:50] LABS: Absolute Lymphocyte Count 1.91 X10^3/uL (0.83-4.51); Absolute Neutrophil Count 11.4 X10^3/uL (2.0-7.7); Basophil# 0.02 X10^3/uL; Basophil% 0.1 % (0-1); Eosinophils% 0.7 % (0-5); Hematocrit 38.7 % (37-47); Lymphocyte # 1.91 X10^3/ul (0.83-4.51); Lymphocyte % 13.5 % (19-41); Mean Corpuscular Hgb 23.6 pg (27.0-32.0); Mean Platelet Vol. 9.1 fl (6.2-12.0); Monocyte# 0.65 X10^3/uL; Monocyte% 4.6 % (0-10); NRBC Flagged by Analyzer 0 % (0-5); Neutrophil # 11.36 X10^3/uL (2.7-7.7); Neutrophil % 80.7 % (47-70); Platelet Count 347 K/mm3 (150-450); RBC Distribution Width CV 15.1 % (11.6-14.6); RBC Distribution Width SD 41.7 fl (35.1-43.9); Red Blood Count 5.09 M/mm3 (4.2-5.4); White Blood Count 14.1 K/mm3 (4.4-11.0)
--- NOTE | 2021-12-27 15:08 | EDS_ITS ---
HPI HPI - GI History of Present Illness Chief Complaint: Abd Pain Informant: patient Narrative Narrative: Patient is a 36-year-old female with history of recurrent episodes of epigastric abdominal pain presenting with worsening epigastric abdominal pain. Patient states it started last night around 10 PM after she ate beef jerky. She states she has been compliant with her Prilosec, Pepcid and Carafate. She notes that she has a burning pain in her epigastric region and then gets cramping and gurgling/bubbling sounds in her upper abdomen. She has some associated nausea but no vomiting. She had a normal bowel movement yesterday. She denies any blood in her stool. She is never seen GI. She states that when she was in the ER about a year ago she was diagnosed with sludge and does not know that associated with anything. Patient's had multiple ER visits for this pain. She denies any caffeine use. She denies any marijuana use. She uses a vape pen. Has a history of a surgery as a baby where her got was twisted and they had to take out a section and put it back in. [facility] Medical History ADD (attention deficit disorder) Adjustment disorder with mixed anxiety and depressed mood AMA (advanced maternal age) multigravida 35+ Anxiety Asthma Chlamydia Chronic low back pain Depression Dysthymia Fatigue History of gonorrhea History of methamphetamine abuse Insomnia Migraine Opioid use disorder, moderate, dependence PCOS (polycystic ovarian syndrome) complicated by subutex maintenance, antepartum Restless leg syndrome Sciatica (spontaneous vaginal delivery) Thyroid disorder Home Medications albuterol sulfate 90 mcg/actuation aerosol inhaler (Ventolin HFA) 2 puff inhalation Q6H PRN PRN Bronchodialation 01/24/13 [History Last Taken 01/29/21 03:00 2 puffs] buprenorphine HCl 8 mg sublingual tablet 12 mg sublingual DAILY Check with primary doctor 01/29/21 [History Last Taken 01/29/21 07:30] pantoprazole 40 mg tablet,delayed release (Protonix) 40 mg PO DAILY 30 days #30 tabs 03/29/21 [Rx Last Taken Unknown] sucralfate 1 gram tablet (Carafate) 1 g PO TID #15 tabs 08/30/21 [Rx Last Taken Unknown] clindamycin HCl 150 mg capsule 300 mg PO 4X/DAY #80 CAPSULES 11/07/21 [Rx Last Taken Unknown] fluconazole 150 mg tablet 150 mg PO .once #1 TAB 11/07/21 [Rx Last Taken Unknown] nitrofurantoin monohydrate/macrocrystals 100 mg capsule (Macrobid) 100 mg PO Q12H 5 days #10 caps 12/27/21 [Rx Last Taken Unknown] Allergy/AdvReac Type Severity Reaction Status Date / Time Penicillins [PCN] Allergy Swelling Verified 12/27/21 12:59 tramadol HCl [From Ultram] AdvReac Other Verified 12/27/21 12:59 Surgical History H/O Achilles tendon repair H/O carpal tunnel repair H/O LEEP History of abdominal surgery Social History household members: family Smoking Status: Former smoker ROS ROS ED Constitutional Constitutional ED: Denies chills or fever(s) ENT ENT ED: Denies sore throat Cardiovascular Cardiovascular: Denies chest pain Respiratory/Chest Respiratory/Chest: Denies cough Gastrointestinal Gastrointestinal: Reports abdominal pain and nausea; Denies constipation, diarrhea or vomiting Musculoskeletal Musculoskeletal: Denies arthralgias or myalgias Integumentary Denies rash Neurologic Neurologic: Denies headache(s) or weakness EXAM Physical Exam Const Vital Signs: 12/27/21 12:59 Temperature 98.3 F Temperature Source Temporal Pulse Rate 75 Respiratory Rate 16 Blood Pressure 129/84 H Blood Pressure Mean 99 Pulse Ox 98 Oxygen Delivery Method Nasal Cannula Positive well nourished and well developed General Appearance ED: well developed and NAD HEENT Reports moist mucous membranes Eyes PERRL and EOMs intact bilaterally Neck supple Resp normal respiratory effort and clear to auscultation bilaterally Cardio regular rate, regular rhythm and no murmurs GI non-distended and no masses Auscultation: normoactive bowel sounds Palpation: soft and tender epigastric, RUQ and Davis's sign; Negative for guarding or rigid Extremity full ROM Neuro moves all extremities Motor Exam: Negative for general weakness Psych mental status grossly normal and thought process normal Skin no wounds MDM MDM MDM Narrative Medical decision making narrative: Patient is evaluated for worsening epigastric abdominal pain. She has an ongoing issue with what sounds like stomach acid. She is never seen GI so is not clear if she truly has GERD versus H. pylori versus gastritis/peptic ulcer disease. Patient is given a GI cocktail with significant provement of her symptoms. Her vital signs are normal. Her CBC is remarkable for a leukocytosis of 14.1 but no left shift and her CMP is normal. Urinalysis does show 500 leukoesterase with 25-50 white blood cells and 1+ bacteria. On further discus natalie patient notes that she been having increased nocturnal urination and some burning with urination. She will be treated with Macrobid and urine culture sent. Right upper quadrant ultrasound obtained which is normal. Patient is given referral for GI. She is counseled that she can try taking Maalox at home on top of her regular regiment. Counseled to follow-up with her primary care doctor about possible H. pylori studies until she can see GI. She verbalizes agreement of this plan. Discharged home in stable condition. Lab Data Labs: Laboratory Results - last 24 hr 12/27/21 12/27/21 12/27/21 13:30 13:30 13:30 WBC Cancelled Corrected WBC Cancelled RBC Cancelled Hgb Cancelled Hct Cancelled MCV Cancelled MCH Cancelled MCHC Cancelled RDW Std Deviation Cancelled RDW Coeff of Hernandez Cancelled Plt Count Cancelled MPV Cancelled Immature Gran % (Auto) Cancelled Neut % (Auto) Cancelled Lymph % (Auto) Cancelled [place] % (Auto) Cancelled Eos % (Auto) Cancelled Baso % (Auto) Cancelled Absolute Neuts (auto) Cancelled Absolute Lymphs (auto) Cancelled Total Counted Cancelled Neutrophils % (Manual) Cancelled Band Neutrophils % Cancelled Lymphocytes % (Manual) Cancelled Monocytes % (Manual) Cancelled Eosinophils % (Manual) Cancelled Basophils % (Manual) Cancelled Metamyelocytes % Cancelled Myelocytes % Cancelled Promyelocytes % Cancelled Blast Cells % Cancelled Plasma Cell % (Manual) Cancelled Other Cells % Cancelled Nucleated RBC % Cancelled Nucleated RBCs/100 WBC Cancelled Differential Comment Cancelled Diff Path Review Cancelled Hypersegmented Neuts Cancelled Atypical Lymphocytes Cancelled Reactive Lymphocytes Cancelled Smudge Cells Cancelled Toxic Granulation Cancelled Toxic Vacuolation Cancelled Dohle Bodies Cancelled Lazarus Rods Cancelled Platelet Estimate Cancelled Plt Morphology Comment Cancelled RBC Morphology Cancelled Polychromasia Cancelled Hypochromasia Cancelled Poikilocytosis Cancelled Basophilic Stippling Cancelled Anisocytosis Cancelled Microcytosis Cancelled Macrocytosis Cancelled Spherocytes Cancelled Sickle Cells Cancelled Target Cells Cancelled Tear Drop Cells Cancelled Ovalocytes Cancelled Stomatocytes Cancelled [place] Bodies Cancelled Pradeep Cells Cancelled Bite Cells Cancelled Crenated Cell Cancelled Acanthocytes (Spur) Cancelled Rouleaux Cancelled Schistocytes Cancelled Sodium 138 Potassium 4.1 Chloride 108 H Carbon Dioxide 22.0 Anion Gap 8 BUN 15 Creatinine 0.61 Estim Creat Clear Calc 99.87 Est GFR (MDRD) Af Amer 140 Est GFR (MDRD) Non-Af 116 BUN/Creatinine Ratio 24.4 H Glucose 101 Calcium 9.0 Total Bilirubin 0.30 AST 15 ALT 18 Alkaline Phosphatase 72 Total Protein 6.9 Albumin 3.4 Globulin 3.5 Albumin/Globulin Ratio 1.0 Lipase 67 L Urine Color Yellow Urine Clarity Sl. Cloudy Urine pH 6.0 Ur Specific [place] 1.020 Urine Protein 15 H Urine Glucose (UA) Normal Urine Ketones 50 H Urine Occult Blood Negative Urine Nitrite Negative Urine Bilirubin Negative Urine Urobilinogen Normal Ur Leukocyte Esterase 500 H Urine RBC 0 SEEN Urine WBC 25-50 SEEN Ur Squamous Epith Cells 0-5 SEEN Urine Bacteria 1+ Urine Mucus 0 SEEN Urine Test Negative 12/27/21 14:44 WBC 14.1 H Corrected WBC RBC 5.09 Hgb 12.0 Hct 38.7 MCV 76.0 L MCH 23.6 L MCHC 31.0 L RDW Std Deviation 41.7 RDW Coeff of Hernandez 15.1 H Plt Count 347 MPV 9.1 Immature Gran % (Auto) 0.400 Neut % (Auto) 80.7 H Lymph % (Auto) 13.5 L [place] % (Auto) 4.6 Eos % (Auto) 0.7 Baso % (Auto) 0.1 Absolute Neuts (auto) 11.4 H Absolute Lymphs (auto) 1.91 Total Counted Neutrophils % (Manual) Band Neutrophils % Lymphocytes % (Manual) Monocytes % (Manual) Eosinophils % (Manual) Basophils % (Manual) Metamyelocytes % Myelocytes % Promyelocytes % Blast Cells % Plasma Cell % (Manual) Other Cells % Nucleated RBC % 0 Nucleated RBCs/100 WBC Differential Comment Diff Path Review Hypersegmented Neuts Atypical Lymphocytes Reactive Lymphocytes Smudge Cells Toxic Granulation Toxic Vacuolation Dohle Bodies Lazarus Rods Platelet Estimate Plt Morphology Comment RBC Morphology Polychromasia Hypochromasia Poikilocytosis Basophilic Stippling Anisocytosis Microcytosis Macrocytosis Spherocytes Sickle Cells Target Cells Tear Drop Cells Ovalocytes Stomatocytes [place] Bodies [place] Cells Bite Cells Crenated Cell Acanthocytes (Spur) Rouleaux Schistocytes Sodium Potassium Chloride Carbon Dioxide Anion Gap BUN Creatinine Estim Creat Clear Calc Est GFR (MDRD) Af Amer Est GFR (MDRD) Non-Af BUN/Creatinine Ratio Glucose Calcium Total Bilirubin AST ALT Alkaline Phosphatase Total Protein Albumin Globulin Albumin/Globulin Ratio Lipase Urine Color Urine Clarity Urine pH Ur Specific [place] Urine Protein Urine Glucose (UA) Urine Ketones Urine Occult Blood Urine Nitrite Urine Bilirubin Urine Urobilinogen Ur Leukocyte Esterase Urine RBC Urine WBC Ur Squamous Epith Cells Urine Bacteria Urine Mucus Urine Test Radiography Diagnostic Testing: Clinical Impression(s) from Imaging Studies Gallbladder Ultrasound 12/27/21 13:51 IMPRESSION: Normal right upper quadrant ultrasound examination. Electronically Signed: Samm Russo MD at 15:03 EDT , Discharge Plan Triage Chief Complaint: Abd Pain ED Provider: Adriana Elias Dx/Rx/DC Orders Clinical Impression: Abdominal pain, epigastric, Urinary tract infection Instructions: ED Cystitis Female Adult, ED Epigastric Pain Uncertain Cause Prescriptions: New nitrofurantoin monohyd/m-cryst [Macrobid] 100 mg capsule 100 mg PO Q12H 5 Days Qty: 10 0RF Rx Instructions: must administer with a meal/food No Action albuterol sulfate [Ventolin HFA] 1 INHALER inhaler 2 puff inhalation Q6H PRN PRN (Reason: Bronchodialation) buprenorphine HCl 8 mg Tablet, Sublingual 12 mg SUBLINGUAL DAILY pantoprazole [Protonix] 40 mg tablet,delayed release (DR/EC) 40 mg PO DAILY 30 Days Qty: 30 0RF sucralfate [Carafate] 1 gram tablet 1 g PO TID Qty: 15 0RF clindamycin HCl 150 MG capsule 300 mg PO 4X/DAY Qty: 80 0RF fluconazole 150 mg tablet 150 mg PO .once Qty: 1 0RF Primary Care Provider: Rui Garner Referrals: Rui Garner DO [Primary Care Provider] - Friend,DO Khang [Med Staff - Active Staff] - As soon as possible Activity Restrictions/Additional Instructions: Maalox is one of the medications that is in a GI cocktail he can get ove [id number]. Please follow-up with your primary care doctor if you cannot get into GI within a reasonable time to discuss further testing and evaluation for your ongoing upper abdominal pain. Disposition Disposition: Home, Self Care
[2021-12-27 15:31] VITALS: RESP 16
== END 2021-12-27 15:31 | disposition home or self-care (01) ==
PROVIDERS: Emergency Provider Emergency Medicine; PCP Student in an Organized Health Care Education/Training Program; Visit Provider Emergency Medicine
DX: N39.0 Urinary tract infection, site not specified (principal); R10.13 Epigastric pain; R11.0 Nausea; Z87.891 Personal history of nicotine dependence
CPT/HCPCS: 76705; 80053; 81001; 81025; 83690; 85025; 87086; 87088; 99283; A4216

== ENCOUNTER 2021-12-31 13:45 | Emergency (ER) | payer MEDICAID, SELFPAY ==
[2021-12-31 13:46] VITALS: BP 120/77; PULSE 79; RESP 16; TEMP 36.3; O2SAT 99; BMI 28.7
[2021-12-31] MEDS: predniSONE 20 MG Tablet 60 MG PO (14:43)
[2021-12-31] MEDS: DiphenhydrAMINE 25 MG Capsule 50 MG PO (14:43)
--- NOTE | 2021-12-31 14:56 | EDS_ITS ---
HPI History of Present Illness Chief Complaint: Rash Narrative Narrative: 36-year-old female who denies significant past medical history presents with pain, swelling, and redness to her left inner thigh that began yesterday morning. She felt sharp pain in her left thigh, almost as if an insect had stung or bit her. She then started complaining of burning pain in her left thigh. She has not taken anything for it. She did not actually see an insect or centipede, or spider. She has had increasing redness to her left inner thigh along with swelling and tenderness to palpation. She denies any fevers or chills. No nausea or vomiting. No other symptoms. No shortness of breath or throat closing. [facility] Medical History ADD (attention deficit disorder) Adjustment disorder with mixed anxiety and depressed mood AMA (advanced maternal age) multigravida 35+ Anxiety Asthma Chlamydia Chronic low back pain Depression Dysthymia Fatigue History of gonorrhea History of methamphetamine abuse Insomnia Migraine Opioid use disorder, moderate, dependence PCOS (polycystic ovarian syndrome) complicated by subutex maintenance, antepartum Restless leg syndrome Sciatica (spontaneous vaginal delivery) Thyroid disorder Home Medications albuterol sulfate 90 mcg/actuation aerosol inhaler (Ventolin HFA) 2 puff inhalation Q6H PRN PRN Bronchodialation 01/24/13 [History Last Taken 01/29/21 03:00 2 puffs] buprenorphine HCl 8 mg sublingual tablet 12 mg sublingual DAILY Check with primary doctor 01/29/21 [History Last Taken 01/29/21 07:30] pantoprazole 40 mg tablet,delayed release (Protonix) 40 mg PO DAILY 30 days #30 tabs 03/29/21 [Rx Last Taken Unknown] sucralfate 1 gram tablet (Carafate) 1 g PO TID #15 tabs 08/30/21 [Rx Last Taken Unknown] clindamycin HCl 150 mg capsule 300 mg PO 4X/DAY #80 CAPSULES 11/07/21 [Rx Last Taken Unknown] fluconazole 150 mg tablet 150 mg PO .once #1 TAB 11/07/21 [Rx Last Taken Unknown] nitrofurantoin monohydrate/macrocrystals 100 mg capsule (Macrobid) 100 mg PO Q12H 5 days #10 caps 12/27/21 [Rx Last Taken Unknown] prednisone 20 mg tablet 40 mg PO DAILY #14 tabs 12/31/21 [Rx Last Taken Unknown] Allergy/AdvReac Type Severity Reaction Status Date / Time Penicillins [PCN] Allergy Swelling Verified 12/31/21 13:45 tramadol HCl [From Ultram] AdvReac Other Verified 12/31/21 13:45 Surgical History H/O Achilles tendon repair H/O carpal tunnel repair H/O LEEP History of abdominal surgery Social History household members: family Smoking Status: Former smoker ROS ROS ED ROS Narrative Constitutional: No fever, no chills. HEENT: No sore throat. No neck pain. No loss of vision. No rhinorrhea. Cardiovascular: No chest pain. No palpitations. No pedal edema. Respiratory: No cough, no shortness of breath. Abdominal: No abdominal pain. No nausea. No vomiting. Genitourinary: No dysuria. No hematuria. Musculoskeletal: No myalgias. No arthralgias. Redness, swelling, and burning p ain in left inner thigh. Neurologic: No headaches. No dizziness. No lightheadedness. Skin: No rash. No change in color. Psychiatric: No depression. No anxiety. EXAM Physical Exam Narrative Exam Narrative: Afebrile. Vital signs noted. HEENT: Normocephalic. Atraumatic. PERRL, EOMI. Neck soft and supple. No point tenderness or step off. Cardiovascular: Regular rate and rhythm. No murmurs, rubs, or gallops appreciated. Respiratory: No tachypnea. Lungs clear to auscultation bilaterally. Gastrointestinal: Abdomen soft, nontender, with normoactive bowel sounds. No rebound or guarding. Neurological: Awake. Alert. Nonfocal, nonlateralizing. Skin: No rash. Mild erythema consistent with localized reaction/allergic reaction to insect sting. Mild tenderness. No fluctuance. No pallor. Musculoskeletal: No pedal edema. Full range of motion extremities. Const Vital Signs: 12/31/21 13:46 Temperature 97.4 F L Temperature Source Temporal Pulse Rate 79 Respiratory Rate 16 Blood Pressure 120/77 Blood Pressure Mean 91 Pulse Ox 99 Oxygen Delivery Method Room Air MDM MDM MDM Narrative Medical decision making narrative: I do feel that this is more of a localized allergic reaction to an insect bite/sting. I do not feel that it is a cellulitic process that requires antibiotics. She was given her first dose of Benadryl 50 mg orally here along with a loading dose of prednisone 60 mg orally. She was given a prescription for prednisone and a burst for the next week. She will use [id number] Benadryl as needed. Follow-up with her primary care provider. I feel she be discharged safely home. I do not feel epinephrine is indicated and as this is a localized reaction, I feel that she can be discharged without a prescription for an epinephrine pen. Disposition is discharged home in stable condition. Return instructions are reviewed. Discharge Plan Triage Chief Complaint: Rash ED Provider: Mark Love Dx/Rx/DC Orders Clinical Impression: Allergic reaction to insect bite, Pain in left thigh Instructions: ED BEE STING General Allergic Rxn, ED Erythema Prescriptions: New prednisone 20 mg tablet 40 mg PO DAILY Qty: 14 0RF No Action albuterol sulfate [Ventolin HFA] 1 INHALER inhaler 2 puff inhalation Q6H PRN PRN (Reason: Bronchodialation) buprenorphine HCl 8 mg Tablet, Sublingual 12 mg SUBLINGUAL DAILY pantoprazole [Protonix] 40 mg tablet,delayed release (DR/EC) 40 mg PO DAILY 30 Days Qty: 30 0RF sucralfate [Carafate] 1 gram tablet 1 g PO TID Qty: 15 0RF clindamycin HCl 150 MG capsule 300 mg PO 4X/DAY Qty: 80 0RF fluconazole 150 mg tablet 150 mg PO .once Qty: 1 0RF nitrofurantoin monohyd/m-cryst [Macrobid] 100 mg capsule 100 mg PO Q12H 5 Days Qty: 10 0RF Rx Instructions: must administer with a meal/food Primary Care Provider: Rui Garner Referrals: Rui Garner DO [Primary Care Provider] - 3-5 Days if not improving Disposition Disposition: Home, Self Care
[2021-12-31 15:04] VITALS: BP 120/77; PULSE 79; RESP 18
== END 2021-12-31 15:06 | disposition home or self-care (01) ==
PROVIDERS: Emergency Provider Emergency Medicine; PCP Student in an Organized Health Care Education/Training Program; Visit Provider Emergency Medicine
DX: T78.49XA Other allergy, initial encounter (principal); S70.362A Insect bite (nonvenomous), left thigh, initial encounter; W57.XXXA Bitten or stung by nonvenomous insect and other nonvenomous arthropods, initial encounter; M79.652 Pain in left thigh; E07.9 Disorder of thyroid, unspecified; F43.23 Adjustment disorder with mixed anxiety and depressed mood; J45.909 Unspecified asthma, uncomplicated; Z79.899 Other long term (current) drug therapy; Z87.891 Personal history of nicotine dependence
CPT/HCPCS: 99283

== ENCOUNTER 2022-07-21 10:24 | Emergency (ER) | payer MEDICAID, SELFPAY ==
[2022-07-21 10:25] VITALS: BP 144/102; PULSE 96; RESP 16; TEMP 35.5; O2SAT 100; BMI 26.5
--- NOTE | 2022-07-21 10:33 | RAD_ITS ---
STUDY: X-RAY - RIGHT FOOT CLINICAL: Female, 37 years old. Foot pain following recent injury. TECHNIQUE: 3 view(s) of the foot. COMPARISON: None. FINDINGS: Calcaneal spurs. Normal visualized subtalar, talonavicular, calcaneocuboid, tarsal and tarsometatarsal articulations. Normal metatarsi. Normal metatarsophalangeal joint of the great toe. Normal tibial and fibular sesamoid bones. Normal interphalangeal joint of the great toe. Normal phalanges of the great toe. Normal second through fifth metatarsophalangeal joints. Normal interphalangeal joints and phalanges of the lesser toes. Diffuse dorsal soft tissue swelling. RAD/Foot min 3 Views IMPRESSION: Soft tissue swelling. Electronically Signed: Samm Russo MD at 11:34 EDT ,
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
[2022-07-21] MEDS: Ibuprofen 600 MG Tablet PO (10:47)
== END 2022-07-21 11:54 | disposition home or self-care (01) ==
PROVIDERS: Emergency Provider Emergency Medicine; PCP Student in an Organized Health Care Education/Training Program; Referring Provider Emergency Medicine; Visit Provider Emergency Medicine
DX: S90.31XA Contusion of right foot, initial encounter (principal); W22.09XA Striking against other stationary object, initial encounter; Z79.899 Other long term (current) drug therapy; Z87.891 Personal history of nicotine dependence
CPT/HCPCS: 73630; 99283

== ENCOUNTER 2023-04-24 18:41 | Emergency (ER) | payer MEDICAID, SELFPAY ==
[2023-04-24 18:41] VITALS: BP 130/90; PULSE 92; RESP 18; TEMP 35.5; O2SAT 100; BMI 24.7
--- OUTSIDE RECORDS SUMMARY | 2023-04-24 20:28 | XMS RPT_ITS | CCD ---
Author Name Unknown Address [id number] [place] [address] Organization [facility] Care Team Providers Care Screen Machine Operator Name Role Phone Rui Magaña DO Primary Care Provider [phone] RUI MAGAÑA Primary Care Unavailable RUI MAGAÑA Primary Care Unavailable SAMIRA BOUDREAUX Attending Unavailable RUI MAGAÑA Primary Care Unavailable RUI MAGAÑA Primary Care Unavailable RUI MAGAÑA Primary Care Unavailable ANDRESSA BAUTISTA Attending Unavailable RUI MAGAÑA Primary Care Unavailable Allergies Allergy Classification Reported Allergen(s) Allergy Type Date of Onset Reaction(s) Facility (11 sources) Penicillins; Translations: [PENICILLINS] Propensity to adverse reactions to drug 200 5 Swelling, Itching [facility] Work Phone: (20 sources) traMADol; Translations: [TRAMADOL HCL] Drug Allergy 6 [facility] Work Phone: (20 sources) Penicillins Propensity to adverse reactions to drug 200 5 Swelling, Itching [facility] Work Phone: Medications Current Medications Medication Drug Class(es) Dates Sig (Normalized) Sig (Original) azithromycin 250 mg oral tablet (3 sources) Macrolide Antimicrobial Start: 03-04-2022 End: 03-09-2022 azithromycin (ZITHROMAX Z-PATRICK) 250 mg tablet Indications: Sore throat , Persistent cough , Wheezing , Myalgia Take 2 tablets day one, then, 1 tablet daily until gone. 6 tablet 0 03/04/2022 03/09/2022 Active Completed/Discontinued Medications Medication Drug Class(es) Dates Sig (Normalized) Sig (Original) [id number] 200 actuat albuterol 0.09 mg/actuat metered dose inhaler (20 sources) beta2-Adrenergic Agonist Start: 03-14-2023 take 2 puff(s) by inhalation every four hours as needed for wheezing albuterol HFA (PROVENTIL HFA) 90 mcg/actuation inhaler Indications: COVID-19 virus infection , Mild intermittent asthma, uncomplicated Inhale 2 Puffs as instructed every 4 hours as needed for wheezing/shortness of breath for up to 5 days. 6.7 g 0 03/14/2023 Active Problems Active Problems Problem Classification Problem Date Documented Da te Episodic/Chronic Adjustment disorders (20 sources) Adjustment disorder; Translations: [Adjustment disorder with other symptoms] Onset: 06-30-2010 06-30-2010 Chronic Anxiety disorders (20 sources) Mixed anxiety and depressive disorder; Translations: [Other specified anxiety disorders] Onset: 02-08-2006 06-02-2021 Chronic Asthma (20 sources) Unspecified asthma, uncomplicated; Translations: [Asthma, unspecified type, unspecified] Onset: 01-19-2005 01-19-2005 Chronic Chronic obstructive pulmonary disease and bronchiectasis (2 sources) Asthma-chronic obstructive pulmonary disease overlap syndrome; Translations: [Chronic obstructive pulmonary disease, unspecified] Chronic Disorders usually diagnosed in infancy, childhood, or adolescence (20 sources) Attention deficit hyperactivity disorder, predominantly inattentive type; Translations: [Other specified behavioral and emotional disorders with onset usually occurring in childhood and adolescence] Onset: 01-19-2005 04-12-2021 Chronic Gastritis and duodenitis (11 sources) Chronic gastritis; Translations: [Unspecified chronic gastritis without bleeding] Chronic Headache; including migraine (20 sources) Migraine; Translations: [Migraine, unspecified, not intractable, without status migrainosus] Onset: 02-13-2007 02-13-2007 Chronic Immunizations and screening for infectious disease (2 sources) Patient encounter status; Translations: [Encounter for immunization] Episodic Mood disorders (20 sources) Dysthymia; Translations: [Dysthymic disorder] Onset: 06-20-2018 06-20-2018 Chronic Nutritional deficiencies (20 sources) Vitamin D deficiency; Translations: [Vitamin D deficiency, unspecified] Onset: 08-04-2021 Chronic Other connective tissue disease (1 source) Muscle pain; Translations: [Myalgia, unspecified site] Episodic Other ear and sense organ disorders (1 source) Bilateral earache; Translations: [Otalgia, bilateral] Episodic Other endocrine disorders (20 sources) Polycystic ovary syndrome; Translations: [Polycystic ovarian syndrome] Onset: 06-08-2009 06-08-2009 Chronic Other female genital disorders (1 source) Vulval irritation; Translations: [Other specified noninflammatory disorders of vulva and perineum] Episodic Other gastrointestinal disorders (1 source) Chronic constipation; Translations: [Other constipation] Episodic Other hereditary and degenerative nervous system conditions (20 sources) Restless legs; Translations: [Restless legs syndrome] Onset: 08-27-2013 08-27-2013 Chronic Other lower respiratory disease (2 sources) Persistent cough; Translations: [Persistent cough] Episodic Other lower respiratory disease (1 source) Wheezing; Translations: [Wheezing] Episodic Other nervous system disorders (20 sources) Disturbance of attention; Translations: [Attention and concentration deficit] Onset: 06-02-2021 06-02-2021 Chronic Other upper respiratory infections (3 sources) Sore throat symptom; Translations: [Acute pharyngitis, unspecified] Episodic Skin and subcutaneous tissue infections (1 source) Abscess of face; Translations: [Cutaneous abscess of face] Episodic Substance-related disorders (20 sources) History of methamphetamine abuse; Translations: [Other stimulant abuse, in remission] Onset: 06-20-2018 06-20-2018 Chronic Thyroid disorders (20 sources) Acquired hypothyroidism; Translations: [Hypothyroidism, unspecified] Onset: 08-04-2021 Chronic Unclassified (1 source) APPOINTMENT CANCELLED Viral infection (1 source) Disease caused by 2019-nCoV; Translations: [COVID-19] Episodic Past or Other Problems Problem Classification Problem Date Documented Da te Episodic/Chronic Disorders of teeth and jaw (20 sources) Dental caries; Translations: [Dental caries, unspecified] Onset: 06-02-2021 06-02-2021 Episodic Malaise and fatigue (20 sources) Fatigue; Translations: [Other fatigue] Onset: 08-27-2013 08-27-2013 Episodic Other infections; including parasitic (20 sources) History of chlamydial infection; Translations: [Personal history of other infectious and parasitic diseases] Onset: 02-27-2014 04-12-2021 Episodic Other nutritional; endocrine; and metabolic disorders (20 sources) H/O: thyroid disorder; Translations: [Personal history of other endocrine, nutritional and metabolic disease] Onset: 06-18-2020 06-18-2020 Episodic Residual codes; unclassified (20 sources) Insomnia; Translations: [Insomnia, unspecified] Onset: 05-09-2006 05-09-2006 Episodic Screening and history of mental health and substance abuse codes (20 sources) H/O: depression; Translations: [Personal history of other mental and behavioral disorders] Onset: 06-18-2020 06-18-2020 Episodic Spondylosis; intervertebral disc disorders; other back problems (20 sources) Chronic low back pain; Translations: [Chronic low back pain] Onset: 09-23-2014 09-23-2014 Episodic Results Test Name Value Interpretation Reference Range Facil ity Vital Signs Date Time Vital Sign Value Performing Clinician Winteri ritesh 05-13-2022 13:41-0500 Diastolic blood pressure 82 mm[Hg] Samira Boudreaux APRN.SULFIDE HEAD OPERATOR Work Phone: [facility] 05-13-2022 13:41-0500 Heart rate 93 /min Samira Boudreaux ORDER MANAGER.SULFIDE HEAD OPERATOR Work Phone: [facility] 05-13-2022 13:41-0500 Respiratory rate 18 /min Samira Boudreaux APRN.SULFIDE HEAD OPERATOR Work Phone: [facility] 05-13-2022 13:41-0500 SaO2% (BldA) [Mass fraction] 99 % Samira Boudreaux ORDER MANAGER.SULFIDE HEAD OPERATOR Work Phone: [facility] 05-13-2022 13:41-0500 Systolic blood pressure 124 mm[Hg] Samira Boudreaux ORDER MANAGER.SULFIDE HEAD OPERATOR Work Phone: [facility] 03-04-2022 14:46-0500 Body temperature 97.9 [degF] Andressa Bautista ORDER MANAGER.SULFIDE HEAD OPERATOR Work Phone: [facility] 03-04-2022 14:46-0500 Diastolic blood pressure 64 mm[Hg] Andressa Bautista ORDER MANAGER.SULFIDE HEAD OPERATOR Work Phone: [facility] 03-04-2022 14:46-0500 Heart rate 110 /min Andressa Michele ORDER MANAGER.SULFIDE HEAD OPERATOR Work Phone: [facility] 03-04-2022 14:46-0500 SaO2% (BldA) [Mass fraction] 97 % Andressa Michele ORDER MANAGER.SULFIDE HEAD OPERATOR Work Phone: [facility] 03-04-2022 14:46-0500 Systolic blood pressure 100 mm[Hg] Andressa Pulidoman ORDER MANAGER.SULFIDE HEAD OPERATOR Work Phone: [facility] 10-19-2021 10:25-0400 Body temperature 97.7 [degF] Rui Magaña DO Work Phone: [facility] 10-19-2021 10:25-0400 Body weight 72.58 kg Rui Magaña DO Work Phone: [facility] 10-19-2021 10:25-0400 Diastolic blood pressure 56 mm[Hg] Rui Magaña DO Work Phone: [facility] 10-19-2021 10:25-0400 Heart rate 76 /min Rui Magaña DO Work Phone: [facility] 10-19-2021 10:25-0400 Respiratory rate 16 /min Rui Magaña DO Work Phone: [facility] 10-19-2021 10:25-0400 Systolic blood pressure 96 mm[Hg] Rui Magaña DO Work Phone: [facility] 10-01-2021 10:17-0400 Body weight 70.31 kg Samira Hakushal ORDER MANAGER.SULFIDE HEAD OPERATOR Work Phone: [facility] 10-01-2021 10:17-0400 Diastolic blood pressure 82 mm[Hg] Samira Haagen ORDER MANAGER.SULFIDE HEAD OPERATOR Work Phone: [facility] 10-01-2021 10:17-0400 Heart rate 93 /min Samira Haagen ORDER MANAGER.SULFIDE HEAD OPERATOR Work Phone: [facility] 10-01-2021 10:17-0400 Respiratory rate 18 /min Samira Haagen ORDER MANAGER.SULFIDE HEAD OPERATOR Work Phone: [facility] 10-01-2021 10:17-0400 SaO2% (BldA) [Mass fraction] 98 % Samira Boudreaux ORDER MANAGER.SULFIDE HEAD OPERATOR Work Phone: [facility] 10-01-2021 10:17-0400 Systolic blood pressure 110 mm[Hg] Samira Boudreaux ORDER MANAGER.SULFIDE HEAD OPERATOR Work Phone: [facility] 08-02-2021 10:35-0400 Body temperature 99 [degF] Rui Magaña DO Work Phone: [facility] 08-02-2021 10:35-0400 Body weight 70.76 kg Rui Magaña DO Work Phone: [facility] 08-02-2021 10:35-0400 Diastolic blood pressure 60 mm[Hg] Rui Magaña DO Work Phone: [facility] 08-02-2021 10:35-0400 Heart rate 64 /min Rui Magaña DO Work Phone: [facility] 08-02-2021 10:35-0400 Respiratory rate 16 /min Rui Magaña DO Work Phone: [facility] 08-02-2021 10:35-0400 Systolic blood pressure 100 mm[Hg] Rui Magaña DO Work Phone: [facility] Encounters Encounter Date Encounter Type Care Provider Facility Start: 04-14-2023 ambulatory RUI L MAGAÑA Facil ity:[facility] Start: 04-05-2023 End: 04-05-2023 ambulatory RUI L MAGAÑA Facility:[facility] Start: 04-05-2023 End: 04-05-2023 ambulatory Jolie Avrey ORDER MANAGER.SULFIDE HEAD OPERATOR Work Phone: Telemedicine Procedures Date Procedure Procedure Detail Performing Clinician Start: 03-04-2022 STREP A MOLECULAR (POC) Andressa Bautista ORDER MANAGER.SULFIDE HEAD OPERATOR Work Phone: Start: 11-17-2021 [employer] COVI D-19 VACCINE, AGE 12+ YR (SUÁREZ TOP) Jessica Bernardo MD Work Phone: Start: 08-24-2021 [employer] COVI D-19 VACCINE, AGE 12+ YR (SUÁREZ TOP) Jessica Bernardo MD Work Phone: Plan of Treatment Date Care Activity Detail Author Start: 12-09-2030 Urine microalbumin profile [facility] Start: 06-08-2025 HPV TESTING HPV TESTING [facility] Start: 06-08-2025 PAP TESTING PAP TESTING [facility] Start: 06-08-2025 Screening for malign ant neoplasm of cervix [facility] Start: 05-13-2023 ANNUAL PCP TEAM EXHAUST AND MUFFLER FITTER NELIA DISEASE VISIT ANNUAL PCP TEAM CHRONIC DISEASE VISIT [facility] Start: 03-04-2023 ANNUAL PCP TEAM EXHAUST AND MUFFLER FITTER NELIA DISEASE VISIT ANNUAL PCP TEAM CHRONIC DISEASE VISIT [facility] Start: 01-12-2023 ANNUAL PCP TEAM EXHAUST AND MUFFLER FITTER NELIA DISEASE VISIT ANNUAL PCP TEAM CHRONIC DISEASE VISIT [facility] Start: 12-20-2022 End: 09-15-2023 Basic metabolic 2000 panel - Serum or Plasma BASIC METABOLIC PNL Lab Routine Hypothyroidism, acquired Expected: 12/20/2022 (Approximate), Expires: 09/15/2023 [facility] Work Phone: Immunizations Immunization Date Immunization Notes Care Provider Shaquille nash 11-17-2021 COVID-19 vaccine, ag e 12+ yr ([facility]BIONTE[employer] - SUÁREZ TOP) Nurse [facility] 08-24-2021 COVID-19 vaccine, ag e 12+ yr (PFIZER-BIONTECH - SUÁREZ TOP) Nurse [facility] 12-09-2020 tetanus toxoid, redu moreno diphtheria toxoid, and acellular pertussis vaccine, adsorbed Frank Zurawick ORDER MANAGER.SULFIDE HEAD OPERATOR Work Phone: [facility] Work Phone: 09-29-2019 tetanus toxoid, redu moreno diphtheria toxoid, and acellular pertussis vaccine, adsorbed Frank Zurawick ORDER MANAGER.SULFIDE HEAD OPERATOR Work Phone: [facility] Work Phone: 07-10-2014 tetanus toxoid, redu moreno diphtheria toxoid, and acellular pertussis vaccine, adsorbed Frank Zurawick ORDER MANAGER.SULFIDE HEAD OPERATOR Work Phone: [facility] Work Phone: 02-27-2006 influenza virus vaccine, unspecified formulation Frank Gregoryelza ORDER MANAGER.SULFIDE HEAD OPERATOR Work Phone: [facility] Work Phone: 08-28-2005 tetanus and diphther ia toxoids, adsorbed, preservative free, for adult use (2 Lf of tetanus toxoid and 2 Lf of diphtheria toxoid) Frank Marques ORDER MANAGER.SULFIDE HEAD OPERATOR Work Phone: [facility] Work Phone: Payers Date Payer Category Payer Medicaid [id number] 2007 Medicaid [employer] [facility] MEDICAID [id number] 2007-Present [phone] [address] [place] [address] Medicaid [id number] 2007 Medicaid [id number] 2007 Medicaid [id number] Social History Date Type Detail Facility Start: 09-08-2020 End: 03-04-2022 Tobacco smoking status NHIS Ex-smoker [facility] History of tobacco use Cigarette Smoker [facility] Start: 09-08-2020 End: 03-04-2022 Tobacco use and exposure Smokeless tobacco non-user [facility] Start: 04-27-2021 End: 05-13-2022 Alcohol intake Ex-drinker (finding) [facility] Start: 01-20-2020 End: 01-11-2022 History SDOH Alcohol Frequency 1 [facility] Start: 06-18-2020 History SDOH Alcohol Comment quit drinking 5 years ago [facility] Start: 01-20-2020 End: 02-03-2020 History SDOH Social Connections Phone 5 [facility] Start: 01-20-2020 End: 02-03-2020 History SDOH Social Connections Yazdanism 3 [facility] Start: 02-03-2020 End: 01-11-2022 History SDOH Social Connections Meetings 2 [facility] Start: 02-03-2020 History SDOH Physica l Activity DPW 4 [facility] Start: 01-20-2020 Education 10 [facility] Start: 06-18-2020 End: 03-04-2022 Tobacco Comment vaping with Nicotine [facility] Start: 1985 Sex Assigned At Female [facility] Start: 06-14-2021 End: 03-04-2022 Exposure to SARS-CoV-2 (event) Not sure [facility] History of tobacco use Current smoker [facility] Start: 01-01-2022 End: 01-11-2022 Exposure to SARS-CoV-2 (event) Unable to assess [facility] Work Phone: Start: 05-13-2022 End: 03-30-2023 History of Social function [facility] Start: 05-13-2022 End: 03-30-2023 Tobacco use panel [facility] Adult Depression Screening Assessment 6 [facility] In the past 12 month s, was there a time when you were not able to pay the mortgage or rent on time? No [facility] The thought of shiv alejandra myself has occurred to me Never [facility] Work Phone: Start: 08-12-2018 Gender identity Identifies as female gender (finding) [facility] Start: 06-11-2020 Sexual orientation Heterosexual (jose valdivia) [facility] How many standard drinks containing alcohol do you have on a typical day? 1 or 2 [facility] How hard is it for y ou to pay for the very basics like food, housing, medical care, and heating Somewhat hard [facility] Work Phone: Do you feel stress - tense, restless, nervous, or anxious, or unable to sleep at night because your mind is troubled all the time - these days [OSQ] Very much [facility] (I/We) worried lukas er (my/our) food would run out before (I/we) got money to buy more. Often true [facility] Work Phone: The food that (I/we) bought just didn't last, and (I/we) didn't have money to get more. Sometimes true [facility] Work Phone: Clinical Notes 11-25-2020 to 04-05-2023 Patient InstructionsJolie Avery APRN.SULFIDE HEAD OPERATOR - 04/05/2023 12:18 PM ESTTelephone Encounter - Monet Wilkins LPN - 02/23/2023 9:53 AM ESTTelephone Encounter - Monet Wilkins LPN - 02/22/2023 7:05 PM EST Note Date & Type Note Facility 04-05-2023 Note HNO ID: [id number] Author: Jolie Avery APRN.SARAI Service: ? Author Type: Nurse Practitioner Type: Progress Notes Filed: 04/05/2023 12:29 PM Note Text: Telemedicine Visit - Distance Health Virtual Visit Note Patient seen on [employer] Video Visit platform. Location of patient: [place] I have communicated my name and active licensure. The patient's identity and physical location were verified at the time of this visit. Either the patient or their legal service liaison representative has been informed of the risks and benefits of -- and alternatives to -- treatment through a remote evaluation and consents to proceed with the evaluation remotely. History of Present Illness Bijal Johnston is a 38 year old year old female who presents for the past 3 days with symptoms that are:constant. Symptoms include: Positive for Cough, PND, and Sore throat, Negative for Fever Oral intake: Yes Tobacco use: No Second hand smoke exposure: No Recent exposure to strep:No Sick contacts: NA Recent travel: NA OTC meds/remedies that patient has tried: Inhalers. PAST MEDICAL HISTORY Diagnosis Date abnormal pap Abn. 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 mention of hyperactivity 01/19/2005 Chlamydia Chronic low back pain Depression Encounter for insertion or removal of intrauterine contraceptive device 03/17/2006 Mirena Gonorrhea History of methamphetamine use + urine tox and pain panel 10/01/15 and 10/20/2015, no longer RX controlled Rx see phone note 10/28/2015 Hypothyroidism, acquired 08/04/2021 Infertility, female Migraine PMH - PAST MEDICAL HISTORY OF HGSIL Trauma Unspecified asthma(493.90) 01/19/2005 PAST SURGICAL HISTORY Procedure Laterality Date CONIZATION CERVIX W/WO DANDC RPR ELTRD EXC 11/18 LEEP-Cervix INSERT INTRAUTERINE DEVICE 03/17/2006 Mirena, removed 11/2011 NEUROPLASTY AND/TRANSPOS MEDIAN NRV CARPAL TUNNE 06/2011 Carpal tunnel decomp left PAST SURGICAL HISTORY OF 1984 BOWEL BLOCKAGE PAST SURGICAL HISTORY OF 1991 SPASTIC HEEL CORD LEFT CALF PAST SURGICAL HISTORY OF toe nail removed REPAIR PRIMARY OPEN/PRQ RUPTURED ACHILLES TENDON 05/01/2009 left achilles FAMILY HISTORY Problem Relation Age of Onset Psychiatry Mother schizophrenia/Bipolar No Known Problems Father No Known Problems Sister Diabetes Maternal Grandmother Cancer Maternal Grandfather Schizophrenia Maternal Grandfather Dementia Paternal Grandmother Cancer Paternal Grandfather ADD/ADHD Son Depression Son ADD/ADHD Son Social History Tobacco Use Smoking status: Former Years: 15 Types: Cigarettes Smokeless tobacco: Never Tobacco comments: vaping with Nicotine Vaping Use Vaping Use: current everyday user Substance Use Topics Alcohol use: Not Currently Comment: quit drinking 5 years ago Drug use: Not Currently Comment: Past history of marijuana, crack, and cocaine Current Outpatient Medications Medication Sig predniSONE (DELTASONE) 20 mg tablet Take 2 tablets by mouth once daily for 5 days. benzonatate (TESSALON PERLES) 100 mg capsule Take 1 capsule by mouth three times a day as needed for cough. guaiFENesin (MUCINEX) 600 mg 12 hr tablet Take 1 tablet by mouth two times a day. cetirizine (ZYRTEC) 10 mg tablet Take 1 tablet by mouth once daily. fluticasone (FLONASE ALLERGY RELIEF) 50 mcg/actuation nasal spray Use 1 [place] in each nostril once daily. benzocaine-menthol (CEPACOL) 15-3.6 mg lozg Use 1 Lozenge as instructed every 2 hours as needed. ipratropium-albuterol (DUONEB) 0.5 mg-3 mg(2.5 mg base)/3 mL nebu Inhale 3 mL as instructed every 4 hours as needed for wheezing/shortness of breath for up to 10 days. albuterol HFA (PROVENTIL HFA) 90 mcg/actuation inhaler Inhale 2 Puffs as instructed every 4 hours as needed for wheezing/shortness of breath for up to 5 days. rOPINIRole (REQUIP) 1 mg tablet Take 1 tablet by mouth three times a day. omeprazole (PRILOSEC) 20 mg capsule take 2 capsules by mouth once daily , 1/2 HOUR BEFORE BREAKFAST levothyroxine (SYNTHROID) 112 mcg tablet Take 1 tablet by mouth daily before breakfast. FLUoxetine (PROZAC) 40 mg capsule Take 1 capsule by mouth once daily. cholecalciferol, Vitamin D3, (VITAMIN D3) 1,250 mcg (50,000 unit) cap capsule Take 1 capsule by mouth one time a week. tiotropium bromide (SPIRIVA RESPIMAT) 2.5 mcg/actuation inhaler Inhale 2 Puffs as instructed once daily. sucralfate (CARAFATE) 1 gram tablet Take 1 tablet by mouth before meals and at bedtime. mometasone-formoterol (DULERA) 200-5 mcg/actuation inhaler inhale 2 puffs as directed twice a day ipratropium-albuterol (DUONEB) 0.5 mg-3 mg(2.5 mg base)/3 mL nebu Inhale 3 mL as instructed every 6 hours as needed (dyspnea or wheezing). albuterol (PROVENTIL) 2.5 mg /3 mL (0.083 %) nebulizer solution Use 3 mL via nebulizer every 4 hours as needed for wheezing/shortness of breath. Use over 5-15minutes. JENCYCLA 0.35 mg (more content not included)... [facility] 04-05-2023 Instructions Jolie Avery APRN.[facility] - 04/05/2023 12:29 PM EST I Feel So Sick, Don t I Need Antibiotics? Did you know. . . There s only a 1 in 4000 chance that an antibiotic will help most acute upper respiratory infections. But there s a 1 in 4 chance of diarrhea and a 1 in 50 chance of a skin reaction and a 1 in 1000 chance it ll cause an ER visit due to some side effect. Antibiotics can also lead to more resistant infections that are harder to treat. Bottom line: There s little to no benefit to taking antibiotics for most acute upper respiratory tract infections...and the downsides are real. Viruses cannot be treated by antibiotics. Viruses cause most upper respiratory infections, which include head colds, sore throats, bronchitis, and sinus infections. The common cold and influenza do not respond to antibiotics. Less than 10 percent of acute bronchitis cases are caused by bacteria. Most cases of acute ear infections also resolve without antibiotics. Sore throats (pharyngitis) are usually caused by viruses as well. Antibiotics are not recommended unless you have strep throat and only about 15 to 30 percent of pharyngitis cases in children and up to 10 percent of cases in adults are due to strep throat. Almost all cases of acute bacterial sinusitis resolve without antibiotics. There are a few situations in which antibiotics are needed, however. See your health care provider if you have a decreased immune system due to cancer, or if you are taking steroids, have HIV, or have had an organ transplant, or if your symptoms worsen or last longer than 7 to 10 days. Most often you should use the [id number] symptomatic treatment/s that your health care provider has recommended. These would include analgesic products such as acetaminophen (Tylenol ), decongestants, antihistamines, salt water gargles, drinking warm tea, and other methods to help treat the symptoms. Also remember that your best defense against getting the flu is to get a flu shot, but this does not, unfortunately, protect you against the many other viruses out in the environment that cause the other kinds of illnesses other than the actual influenza. documented in this encounter [facility] 04-05-2023 History of Present illness Narrative Telemedicine Visit - Distance Health Virtual Visit Note Patient seen on [employer] Video Visit platform. Location of patient: [place] I have communicated my name and active licensure. The patient's identity and physical location were verified at the time of this visit. Either the patient or their legal service liaison representative has been informed of the risks and benefits of -- and alternatives to -- treatment through a remote evaluation and consents to proceed with the evaluation remotely. History of Present Illness Bijal Johnston is a 38 year old year old female who presents for the past 3 days with symptoms that are:constant. Symptoms include: Positive for Cough, PND, and Sore throat, Negative for Fever Oral intake: Yes Tobacco use: No Second hand smoke exposure: No Recent exposure to strep:No Sick contacts: NA Recent travel: NA OTC meds/remedies that patient has tried: Inhalers. PAST MEDICAL HISTORY Diagnosis Date abnormal pap Abn. 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 mention of hyperactivity 01/19/2005 Chlamydia Chronic low back pain Depression Encounter for insertion or removal of intrauterine contraceptive device 03/17/2006 Mirena Gonorrhea History of methamphetamine use + urine tox and pain panel 10/01/15 and 10/20/2015, no longer RX controlled Rx see phone note 10/28/2015 Hypothyroidism, acquired 08/04/2021 Infertility, female Migraine PMH - PAST MEDICAL HISTORY OF HGSIL Trauma Unspecified asthma(493.90) 01/19/2005 PAST SURGICAL HISTORY Procedure Laterality Date CONIZATION CERVIX W/WO D&C RPR ELTRD EXC 11/18 LEEP-Cervix INSERT INTRAUTERINE DEVICE 03/17/2006 Mirena, removed 11/2011 NEUROPLASTY &/TRANSPOS MEDIAN NRV CARPAL TUNNE 06/2011 Carpal tunnel decomp left PAST SURGICAL HISTORY OF 1984 BOWEL BLOCKAGE PAST SURGICAL HISTORY OF 1991 SPASTIC HEEL CORD LEFT CALF PAST SURGICAL HISTORY OF toe nail removed REPAIR PRIMARY OPEN/PRQ RUPTURED ACHILLES TENDON 05/01/2009 left achilles FAMILY HISTORY Problem Relation Age of Onset Psychiatry Mother schizophrenia/Bipolar No Known Problems Father No Known Problems Sister Diabetes Maternal Grandmother Cancer Maternal Grandfather Schizophrenia Maternal Grandfather Dementia Paternal Grandmother Cancer Paternal Grandfather ADD/ADHD Son Depression Son ADD/ADHD Son Social History Tobacco Use Smoking status: Former Years: 15 Types: Cigarettes Smokeless tobacco: Never Tobacco comments: vaping with Nicotine Vaping Use Vaping Use: current everyday user Substance Use Topics Alcohol use: Not Currently Comment: quit drinking 5 years ago Drug use: Not Currently Comment: Past history of marijuana, crack, and cocaine Current Outpatient Medications Medication Sig predniSONE (DELTASONE) 20 mg tablet Take 2 tablets by mouth once daily for 5 days. benzonatate (TESSALON PERLES) 100 mg capsule Take 1 capsule by mouth three times a day as needed for cough. guaiFENesin (MUCINEX) 600 mg 12 hr tablet Take 1 tablet by mouth two times a day. cetirizine (ZYRTEC) 10 mg tablet Take 1 tablet by mouth once daily. fluticasone (FLONASE ALLERGY RELIEF) 50 mcg/actuation nasal spray Use 1 [place] in each nostril once daily. benzocaine-menthol (CEPACOL) 15-3.6 mg lozg Use 1 Lozenge as instructed every 2 hours as needed. ipratropium-albuterol (DUONEB) 0.5 mg-3 mg(2.5 mg base)/3 mL nebu Inhale 3 mL as instructed every 4 hours as needed for wheezing/shortness of breath for up to 10 days. albuterol HFA (PROVENTIL HFA) 90 mcg/actuation inhaler Inhale 2 Puffs as instructed every 4 hours as needed for wheezing/shortness of breath for up to 5 days. rOPINIRole (REQUIP) 1 mg tablet Take 1 tablet by mouth three times a day. omeprazole (PRILOSEC) 20 mg capsule take 2 capsules by mouth once daily , 1/2 HOUR BEFORE BREAKFAST levothyroxine (SYNTHROID) 112 mcg tablet Take 1 tablet by mouth daily before breakfast. FLUoxetine (PROZAC) 40 mg capsule Take 1 capsule by mouth once daily. cholecalciferol, Vitamin D3, (VITAMIN D3) 1,250 mcg (50,000 unit) cap capsule Take 1 capsule by mouth one time a week. tiotropium bromide (SPIRIVA RESPIMAT) 2.5 mcg/actuation inhaler Inhale 2 Puffs as instructed once daily. sucralfate (CARAFATE) 1 gram tablet Take 1 tablet by mouth before meals and at bedtime. mometasone-formoterol (DULERA) 200-5 mcg/actuation inhaler inhale 2 puffs as directed twice a day ipratropium-albuterol (DUONEB) 0.5 mg-3 mg(2.5 mg base)/3 mL nebu Inhale 3 mL as instructed every 6 hours as needed (dyspnea or wheezing). albuterol (PROVENTIL) 2.5 mg /3 mL (0.083 %) nebulizer solution Use 3 mL via nebulizer every 4 hours as needed for wheezing/shortness of breath. Use over 5-15minutes. JENCYCLA 0.35 mg tablet take 1 tablet by mouth once daily mometasone-formoterol (DULERA) 200-5 mcg/actuation inhaler inhale 2 puffs as directed twice a day SUMAtriptan (IMITREX) 20 mg/actuation nasal spray Use 1 [place] in the nose once daily as needed for migraine headache (see administration instructions). famotidine (PEPCID) 20 mg tablet Take 1 tablet by mouth once daily as needed. ondansetron orally disintegrating (ZOFRAN ODT) 4 mg disintegrating tablet Take 1 tablet by mouth every 6 hours as needed for nausea/vomiting. fluticasone-salmeterol (ADVAIR DISKUS) 250-50 mcg/dose inhaler Inhale 1 Puff as instructed twice daily. Rinse and gargle mouth with water after each use. fluticasone (FLONASE) 50 mcg/actuation nasal spray Use 2 Sprays in each nostril once daily. Rinse mouth after use. No current facility-administered medications for this visit. ALLERGIES Allergen Reactions Penicillins Swelling, Itching Ultram [Tramadol Hc* made me paranoid Video Exam (Examination performed via Video enabled technology) General appearance: Alert, oriented, pleasant, in NAD :Yes Ill appearing :No Lethargic appearing :No Eyes: Sclera clear :Yes Conjunctiva without erythema :Yes Ears: Tragus / outer ear tenderness by self palpation :No Oropharynx: normal, no erythema Frontal sinus tenderness by self palpation;No Maxillary sinus tenderness by self palpation :No Tender cervical adenopathy by self palpation :No Respiratory distress :No Coughing noted :Yes Audible wheezing noted :No ASSESSMENT/PLAN: 1. Viral URI with cough - ICD9: 465.9, ICD10: J06.9 - Discussed viral etiology and rationale for treatment. - Symptomatic treatment with prn analgesia - Supportive care with fluids and rest - Follow up in 7 days if symptoms persist or sooner if worsening of symptoms IN PERSON - PREDNISONE 20 MG TABLET - BENZONATATE 100 MG CAPSULE - GUAIFENESIN ER 600 MG TABLET, EXTENDED RELEASE 12 HR - CETIRIZINE 10 MG TABLET -Allergy medication (Claritin, Zyrtec, Falguni-generic is fine) to dry up drainage -Nasal saline to flush out bacteria -Mucinex (generic is fine) 1200 mg twice daily to help with cough and to thin out mucus -http://[email or web address]/pa [email or web address]-[email or web address]/. This link shares information about when antibiotics may help and when they may not. - Red flags discussed for need for in person care - All questions answered Jolie Avery APRN.SULFIDE HEAD OPERATOR If you let us know who your primary care provider is, we will send them a notification of today s visit through our electronic medical records system. Since not all providers have access to our notifications, we strongly encourage you to share the following record of today s visit with your primary care provider at your next visit. This will help in providing you the best care. If you do not have an established Primary Care physician and would like to continue care with a [facility] Virtual Primary Care physician, please ask your provider to place a Establish Primary Care order. Use [employer] to manage your care, wherever you are, 07/11, on your mobile device or computer. [facility] connects you to [facility] so you can access all your health information in one place and also schedule and request virtual appointments with primary care providers. documented in this encounter [facility] 03-14-2023 Note HNO ID: [id number] Author: Mahsa Mcwilliams APRN.CNP Service: ? Author Type: Nurse Practitioner Type: Progress Notes Filed: 03/14/2023 1:30 PM Note Text: Telemedicine Evaluation for COVID-19 Infection [employer] was used for evaluation of this patient. Location of patient: [place] I have communicated my name and active licensure. The patient's identity and physical location were verified at the time of this visit. Either the patient or their legal service liaison representative has been informed of the risks and benefits of -- and alternatives to -- treatment through a remote evaluation and consents to proceed with the evaluation remotely. SUBJECTIVE Bijal Johnston is a 38 year old female who presents with POSITIVE COVID TEST 03/13/2023 COVID SXS STARTED:03/11/2023 SXS INCLUDE:sinus congestion, flu like, cloudy head, no taste, cough, ?fever feels hot and cold, SOME SOB W/ ACTIVITY OTC meds/remedies that patient has tried: ADVIL . COVID test: YES COVID VACCINE YES High risk category assessment ASTHMA DEPRESSION Exposures: Sick contacts? No Contact with anyone confirmed or probable COVID-19 infection in the last 14 days? No Family with confirmed COVID-19 infection? No Traveled or resided in an area with sustained or ongoing community transmission of COVID-19? No OBJECTIVE VIDEO EXAM (if available) GENERAL APPEARANCE Alert, oriented, pleasant, in NAD :Yes Ill appearing :Yes Lethargic appearing :No HEENT: Eyes: Sclera clear :Yes Conjunctiva without erythema :Yes Frontal sinus tenderness by self palpation;Yes Maxillary sinus tenderness by self palpation :No Ears: Tragus / outer ear tenderness by self palpation :Yes Tender cervical adenopathy by self palpation :Yes Oropharynx: normal, no erythema PULMONARY Respiratory distress :No Coughing noted: WET/ HARSH Audible wheezing noted: YES, ASTHMA MEDS ARE OUT --------- ------- LABS: Glucose (mg/dL) Date Value 06/01/2021 79 Potassium (mmol/L) Date Value 06/01/2021 4.6 Sodium (mmol/L) Date Value 06/01/2021 138 Chloride (mmol/L) Date Value 06/01/2021 105 CO2 (mmol/L) Date Value 06/01/2021 21 Creatinine (mg/dL) Date Value 06/01/2021 0.75 BUN (mg/dL) Date Value 06/01/2021 14 Anion Gap (mmol/L) Date Value 06/01/2021 12 Calcium (mg/dL) Date Value 06/01/2021 9.6 Protein, Total (g/dL) Date Value 06/01/2021 6.8 Albumin (g/dL) Date Value 06/01/2021 4.4 Bilirubin, Total (mg/dL) Date Value 06/01/2021 0.2 Alkaline Phosphatase (U/L) Date Value 06/01/2021 60 AST (U/L) Date Value 06/01/2021 17 ALT (U/L) Date Value 06/01/2021 11 Glucose (mg/dL) Date Value 06/01/2021 79 Potassium (mmol/L) Date Value 06/01/2021 4.6 Sodium (mmol/L) Date Value 06/01/2021 138 Chloride (mmol/L) Date Value 06/01/2021 105 CO2 (mmol/L) Date Value 06/01/2021 21 Creatinine (mg/dL) Date Value 06/01/2021 0.75 BUN (mg/dL) Date Value 06/01/2021 14 Anion Gap (mmol/L) Date Value 06/01/2021 12 Calcium (mg/dL) Date Value 06/01/2021 9.6 GFR: >60 HX OF LIVER DISEASE: NONE ASSESSMENT/PLAN ASSESSMENT/PLAN: 1. COVID-19 virus infection - ICD9: 079.89, ICD10: U07.1 (primary diagnosis) LABS REVIEWED PT MEETS ANTI-VIRAL TX GUIDELINES - NIRMATRELVIR 300 MG (150 MG X2)-RITONAVIR 100 MG TABLET,DOSE PACK - BENZONATATE 100 MG CAPSULE - IPRATROPIUM BROMIDE 42 MCG (0.06 %) NASAL SPRAY - FLUTICASONE PROPIONATE 50 MCG/ACTUATION NASAL SPRAY,SUSPENSION - BENZOCAINE 15 MG-MENTHOL 3.6 MG LOZENGES - [id number] M 2 MG-30 MG-10 MG/5 ML ORAL SYRUP - IPRATROPIUM 0.5 MG-ALBUTEROL 3 MG (2.5 MG BASE)/3 ML NEBULIZATION SOLN - ALBUTEROL SULFATE HFA 90 MCG/ACTUATION AEROSOL INHALER 2. Acute cough - ICD9: 786.2, ICD10: R05.1 - BENZONATATE 100 MG CAPSULE - IPRATROPIUM BROMIDE 42 MCG (0.06 %) NASAL SPRAY - BENZOCAINE 15 MG-MENTHOL 3.6 MG LOZENGES - [id number] M 2 MG-30 MG-10 MG/5 ML ORAL SYRUP 3. Mild intermittent asthma, uncomplicated - ICD9: 493.90, ICD10: J45.20 - Mild persistent asthma MEDS REFILLED - IPRATROPIUM 0.5 MG-ALBUTEROL 3 MG (2.5 MG BASE)/3 ML NEBULIZATION SOLN - ALBUTEROL SULFATE HFA 90 MCG/ACTUATION AEROSOL INHALER Discussed three main options with patient with known COVID-19: Supportive and symptomatic care with increased fluids, rest, and OTC measures to control symptoms. Oral Antiviral therapies for COVID-19 plus Supportive and symptomatic care with increased fluids, rest, and OTC measures to control symptoms. s/e discussed; contraindications discussed; fact sheet attached Monoclonal Antibodies plus Supportive and symptomatic care with increased fluids, rest, and OTC measures to control symptoms. Pt selects option: 1-2 (more content not included)... [facility] 02-23-2023 Miscellaneous Notes Letter sent to pts home address needs appointment before script can be filled. Attempted to call p[t again one number states all curcuits are busy now ,other number has been disconnected. Will try one more time hen sent letter. Venkata--05/13/22 Nov--nothing scheduled Last refill--08/31/22 8.8g with 5 refills Last labs--10/04/21 Attempted to call pt states subscriber in no longer in service. Other number states all cercuits are busy now. Will need to try back patient needs an appointment prior to filling. Patient has been identified by name and date of : Yes Requested Prescriptions Pending Prescriptions Disp Refills mometasone-formoterol (DULERA) 200-5 mcg/actuation inhaler 8.8 g 5 Sig: inhale 2 puffs as directed twice a day RX INSTRUCTIONS: Pharmacy initiated this request. No need to notify patient. Ale Morin documented in this encounter [facility] 02-10-2023 Miscellaneous Notes VENKATA 05/13/22 NOV no upcoming appt Patient has been identified by name and date of : Yes Requested Prescriptions Pending Prescriptions Disp Refills rOPINIRole (REQUIP) 1 mg tablet 90 tablet 2 Sig: Take 1 tablet by mouth three times a day. omeprazole (PRILOSEC) 20 mg capsule 60 capsule 0 Sig: take 2 capsules by mouth once daily , 1/2 HOUR BEFORE BREAKFAST levothyroxine (SYNTHROID) 112 mcg tablet 30 tablet 0 Sig: Take 1 tablet by mouth daily before breakfast. FLUoxetine (PROZAC) 40 mg capsule 90 capsule 1 Sig: Take 1 capsule by mouth once daily. cholecalciferol, Vitamin D3, (VITAMIN D3) 1,250 mcg (50,000 unit) cap capsule 4 capsule 3 Sig: Take 1 capsule by mouth one time a week. RX INSTRUCTIONS: Pharmacy initiated this request. No need to notify patient. Angelica Parnell documented in this encounter [facility] 12-20-2022 Miscellaneous Notes The following approved medication requests have been transmitted electronically. Requested Prescriptions Signed Prescriptions Disp Refills levothyroxine (SYNTHROID) 112 mcg tablet 30 tablet 0 Sig: Take 1 tablet by mouth daily before breakfast. Authorizing Provider: ELLA DAHL omeprazole (PRILOSEC) 20 mg capsule 60 capsule 0 Sig: take 2 capsules by mouth once daily , 1/2 HOUR BEFORE BREAKFAST Authorizing Provider: ELLA DAHL PA-C Patient has been identified by name and date of : Pharmacy phones for refill(s): Requested Prescriptions Pending Prescriptions Disp Refills levothyroxine (SYNTHROID) 112 mcg tablet 30 tablet 0 Sig: Take 1 tablet by mouth daily before breakfast. omeprazole (PRILOSEC) 20 mg capsule 60 capsule 0 Sig: take 2 capsules by mouth once daily , 1/2 HOUR BEFORE BREAKFAST Date of last office visit in primary care: 03/04/2022, no future appt scheduled , pharmacy aware patient needs to schedule appt Last 2 Encounter Wt Readings: Date: Wt: 03/04/2022 0 kg () 10/19/2021 72.6 kg (160 lb) Previous labs/tests for medication: Thyroid: TSH Date Value 08/02/2021 4.420 mIU/L 06/01/2021 41.400 uU/mL Please advise. Thank you. Lorenza Doan LPN documented in this encounter [facility] 11-23-2022 Miscellaneous Notes Venkata--05/13/22 Nov--nothing scheduled Last refill--levothyroxin- 10/20/22 30 with 0 refills Omeprazole--10/20/22 60 with 0 refills Ropinirole--08/31/22 90 with 2 refills Last labs--08/02/21 [facility] called and is requesting medications for patient. Patient is overdue on labs. Patient notified on 10/03/2022 that she was overdue on labs and that she needed to come in and get labs done for further refills. TC patient to remind patient to come and get labs done. Left a voicemail for patient to call back and speak with a triage nurse regarding labs. Last Office Visit: 03/04/2022 Future Office Visit: None Requested Prescriptions Pending Prescriptions Disp Refills rOPINIRole (REQUIP) 1 mg tablet 90 tablet 2 Sig: Take 1 tablet by mouth three times daily. omeprazole (PRILOSEC) 20 mg capsule 60 capsule 0 Sig: take 2 capsules by mouth once daily , 1/2 HOUR BEFORE BREAKFAST levothyroxine (SYNTHROID) 112 mcg tablet 30 tablet 0 Sig: Take 1 tablet by mouth daily before breakfast. Date of Last Labs: 08/02/2021 documented in this encounter [facility] 10-25-2022 Miscellaneous Notes The following approved medication requests have been transmitted electronically. Requested Prescriptions Pending Prescriptions Disp Refills cholecalciferol, Vitamin D3, (VITAMIN D3) 1,250 mcg (50,000 unit) cap capsule 4 capsule 3 Sig: Take 1 capsule by mouth one time a week. tiotropium bromide (SPIRIVA RESPIMAT) 2.5 mcg/actuation inhaler 1 Each 11 Sig: Inhale 2 Puffs as instructed once daily. Elbert Go APRN.SARAI Patient has been identified by name and date of : Pharmacy phones for refill(s): Requested Prescriptions Pending Prescriptions Disp Refills cholecalciferol, Vitamin D3, (VITAMIN D3) 1,250 mcg (50,000 unit) cap capsule 4 capsule 3 Sig: Take 1 capsule by mouth one time a week. tiotropium bromide (SPIRIVA RESPIMAT) 2.5 mcg/actuation inhaler 1 Each 11 Sig: Inhale 2 Puffs as instructed once daily. Date of last office visit in primary care: 05/13/2022, no future appt scheduled Last 2 Encounter Wt Readings: Date: Wt: 03/04/2022 0 kg () 10/19/2021 72.6 kg (160 lb) Previous labs/tests for medication: Blood Pressure: BUN (mg/dL) Date Value 06/01/2021 14 Sodium (mmol/L) Date Value 06/01/2021 138 Last 1 Encounter BP Readings: Date: BP: 05/13/2022 124/82 Please advise. Thank you. Lorenza Doan LPN documented in this encounter [facility] 10-20-2022 Miscellaneous Notes Patient last visit 03/04/22 Follow up appointment scheduled none Lor Elliott Ma Patient has been identified by name and date of : Yes, Provider [place] Date 10-20-22 Time 4:56 pm Pharmacy phones for refill(s): Requested Prescriptions Pending Prescriptions Disp Refills omeprazole (PRILOSEC) 20 mg capsule 60 capsule 0 Sig: take 2 capsules by mouth once daily , 1/2 HOUR BEFORE BREAKFAST levothyroxine (SYNTHROID) 112 mcg tablet 30 tablet 0 Sig: Take 1 tablet by mouth daily before breakfast. Date of last office visit with pcp: 05-13-22. Next appt: none. Phoned patient on both phone numbers to schedule appt and labs. No answer. Message states service unavailable, please try calling again later. Last 2 Encounter Wt Readings: Date: Wt: 03/04/2022 0 kg () 10/19/2021 72.6 kg (160 lb) Previous labs/tests for medication: Thyroid: TSH Date Value 08/02/2021 4.420 mIU/L 06/01/2021 41.400 uU/mL Blood Pressure: BUN (mg/dL) Date Value 06/01/2021 14 Sodium (mmol/L) Date Value 06/01/2021 138 Last 1 Encounter BP Readings: Date: BP: 05/13/2022 124/82 Blood Counts: WBC (k/uL) Date Value 06/01/2021 9.25 RBC (m/uL) Date Value 06/01/2021 5.08 Hematocrit (%) Date Value 06/01/2021 40.5 Hemoglobin (g/dL) Date Value 06/01/2021 12.2 Platelet Count (k/uL) Date Value 06/01/2021 343 Liver Function: ALT (U/L) Date Value 06/01/2021 11 AST (U/L) Date Value 06/01/2021 17 Please advise. Thank you. Dipesh Thompson RN documented in this encounter [facility] 10-03-2022 Miscellaneous Notes Notified pt of such. Left a message for pt to call the office and ask to speak to a nurse. Keyanna Brooke LPN She is overdue for labs by over a year. Only receiving 30 days of medication with no refills. The following approved medication requests have been transmitted electronically. Requested Prescriptions Signed Prescriptions Disp Refills sucralfate (CARAFATE) 1 gram tablet 120 tablet 5 Sig: Take 1 tablet by mouth before meals and at bedtime. Authorizing Provider: RUI MAGAÑA Ordering User: ANDRESSA BAUTISTA levothyroxine (SYNTHROID) 112 mcg tablet 30 tablet 0 Sig: Take 1 tablet by mouth daily before breakfast. Authorizing Provider: RUI MAGAÑA Ordering User: ANDRESSA BAUTISTA APRN.SULFIDE HEAD OPERATOR Patient has been identified by name and date of : Yes, Provider Date Time Pharmacy phones for refill(s): Requested Prescriptions Pending Prescriptions Disp Refills sucralfate (CARAFATE) 1 gram tablet 120 tablet 5 Sig: Take 1 tablet by mouth before meals and at bedtime. levothyroxine (SYNTHROID) 112 mcg tablet 30 tablet 5 Sig: Take 1 tablet by mouth daily before breakfast. Date of last office visit with pcp: 10/19/21 No future OV scheduled Date of last office visit in primary care: 03/04/22 Last 2 Encounter Wt Readings: Date: Wt: 03/04/2022 0 kg () 10/19/2021 72.6 kg (160 lb) Previous labs/tests for medication: Thyroid: TSH Date Value 08/02/2021 4.420 mIU/L 06/01/2021 41.400 uU/mL Please advise. Thank you. Mile Salas RN documented in this encounter [facility] 08-04-2022 Miscellaneous Notes Patient has been identified by name and date of : Yes, Dionne Magaña Date 08-04-22 Time 4:55 pm Pharmacy phones for refill(s): Requested Prescriptions Pending Prescriptions Disp Refills omeprazole (PRILOSEC) 20 mg capsule 90 capsule 1 Sig: take 2 capsules by mouth once daily , 1/2 HOUR BEFORE BREAKFAST Date of last office visit with pcp: 05-13-22. Next appt: none Last 2 Encounter Wt Readings: Date: Wt: 03/04/2022 0 kg () 10/19/2021 72.6 kg (160 lb) Previous labs/tests for medication: Blood Pressure: BUN (mg/dL) Date Value 06/01/2021 14 Sodium (mmol/L) Date Value 06/01/2021 138 Last 1 Encounter BP Readings: Date: BP: 05/13/2022 124/82 Liver Function: ALT (U/L) Date Value 06/01/2021 11 AST (U/L) Date Value 06/01/2021 17 Please advise. Thank you. Dipesh Thompson RN documented in this encounter [facility] 07-08-2022 Miscellaneous Notes Patient has been identified by name and date of : Yes, Inna Potter RN Date 07/08/2022 Time 10:21 am Pharmacy phones for refill(s): Requested Prescriptions Pending Prescriptions Disp Refills cholecalciferol, Vitamin D3, (VITAMIN D3) 1,250 mcg (50,000 unit) cap capsule 4 capsule 3 Sig: Take 1 capsule by mouth one time a week. Date of last office visit with pcp: 05/13/2022 Future appt: 07/13/2022 Last 2 Encounter Wt Readings: Date: Wt: 03/04/2022 0 kg () 10/19/2021 72.6 kg (160 lb) Previous labs/tests for medication: Blood Pressure: BUN (mg/dL) Date Value 06/01/2021 14 Sodium (mmol/L) Date Value 06/01/2021 138 Last 1 Encounter BP Readings: Date: BP: 05/13/2022 124/82 Liver Function: ALT (U/L) Date Value 06/01/2021 11 AST (U/L) Date Value 06/01/2021 17 Please advise. Thank you. Inna Potter RN documented in this encounter [facility] 06-09-2022 Miscellaneous Notes Patient has been identified by name and date of : Yes, Provider Dr. Magaña Date 06-09-22 Time 4:31 pm Pharmacy phones for refill(s): Requested Prescriptions Pending Prescriptions Disp Refills rOPINIRole (REQUIP) 1 mg tablet 90 tablet 2 Sig: Take 1 tablet by mouth three times daily. Date of last office visit with pcp: 05-13-22. Next appt: 07-13-22 Last 2 Encounter Wt Readings: Date: Wt: 03/04/2022 0 kg () 10/19/2021 72.6 kg (160 lb) Previous labs/tests for medication: Blood Pressure: BUN (mg/dL) Date Value 06/01/2021 14 Sodium (mmol/L) Date Value 06/01/2021 138 Last 1 Encounter BP Readings: Date: BP: 05/13/2022 124/82 Liver Function: ALT (U/L) Date Value 06/01/2021 11 AST (U/L) Date Value 06/01/2021 17 Please advise. Thank you. Dipesh Thompson RN documented in this encounter [facility] 05-13-2022 Note HNO ID: [id number] Author: Samira Boudreaux APRN.SULFIDE HEAD OPERATOR Service: ? Author Type: Nurse Practitioner Type: Progress Notes Filed: 05/13/2022 3:54 PM Note Text: This is a 37 year old female who presents today with: Patient presents with: Acute Visit: Vaginal irritation x 1 week; recently changed soaps HISTORY OF PRESENT ILLNESS: Bijal Johnston is a 37 year old female. Patient presents with: Acute Visit: Vaginal irritation x 1 week; recently changed soaps Pt presents today with complaint of vulvar itching. Started about a week ago. Refers that vulva is sore/raw. + itch. Denies any vaginal discharge/odor. No internal itching. No new sexual partners. No concerns of STDs. Admits that she did change products. Usually uses sensitive skin products, but did change to a scented summer's cheng about a week ago. PAST MEDICAL HISTORY: PAST MEDICAL HISTORY Diagnosis Date abnormal pap Abn. 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 mention of hyperactivity 01/19/2005 Chlamydia Chronic low back pain Depression Encounter for insertion or removal of intrauterine contraceptive device 03/17/2006 Mirena Gonorrhea History of methamphetamine use + urine tox and pain panel 10/01/15 and 10/20/2015, no longer RX controlled Rx see phone note 10/28/2015 Hypothyroidism, acquired 08/04/2021 Infertility, female Migraine PMH - PAST MEDICAL HISTORY OF HGSIL Trauma Unspecified asthma(493.90) 01/19/2005 PAST SURGICAL HISTORY Procedure Laterality Date CONIZATION CERVIX W/WO DANDC RPR ELTRD EXC 11/18 LEEP-Cervix INSERT INTRAUTERINE DEVICE 03/17/2006 Mirena, removed 11/2011 NEUROPLASTY AND/TRANSPOS MEDIAN NRV CARPAL TUNNE 06/2011 Carpal tunnel decomp left PAST SURGICAL HISTORY OF 1984 BOWEL BLOCKAGE PAST SURGICAL HISTORY OF 1991 SPASTIC HEEL CORD LEFT CALF PAST SURGICAL HISTORY OF toe nail removed REPAIR PRIMARY OPEN/PRQ RUPTURED ACHILLES TENDON 05/01/2009 left achilles ALLERGIES Penicillins and Ultram [Tramadol Hcl] MEDICATIONS Current Outpatient Medications Medication Sig sucralfate (CARAFATE) 1 gram tablet Take 1 tablet by mouth before meals and at bedtime. levothyroxine (SYNTHROID) 112 mcg tablet Take 1 tablet by mouth daily before breakfast. omeprazole (PRILOSEC) 20 mg capsule take 2 capsules by mouth once daily , 1/2 HOUR BEFORE BREAKFAST cholecalciferol, Vitamin D3, (VITAMIN D3) 1,250 mcg (50,000 unit) cap capsule Take 1 capsule by mouth one time a week. FLUoxetine (PROZAC) 40 mg capsule Take 1 capsule by mouth once daily. rOPINIRole (REQUIP) 1 mg tablet Take 1 tablet by mouth three times daily. ipratropium-albuterol (DUONEB) 0.5 mg-3 mg(2.5 mg base)/3 mL nebu Inhale 3 mL as instructed every 6 hours as needed (dyspnea or wheezing). albuterol (PROVENTIL) 2.5 mg /3 mL (0.083 %) nebulizer solution Use 3 mL via nebulizer every 4 hours as needed for wheezing/shortness of breath. Use over 5-15minutes. JENCYCLA 0.35 mg tablet take 1 tablet by mouth once daily mometasone-formoterol (DULERA) 200-5 mcg/actuation inhaler inhale 2 puffs as directed twice a day mometasone-formoterol (DULERA) 200-5 mcg/actuation inhaler inhale 2 puffs as directed twice a day SUMAtriptan (IMITREX) 20 mg/actuation nasal spray Use 1 [place] in the nose once daily as needed for migraine headache (see administration instructions). tiotropium bromide (SPIRIVA RESPIMAT) 2.5 mcg/actuation inhaler Inhale 2 Puffs as instructed once daily. famotidine (PEPCID) 20 mg tablet Take 1 tablet by mouth once daily as needed. ondansetron orally disintegrating (ZOFRAN ODT) 4 mg disintegrating tablet Take 1 tablet by mouth every 6 hours as needed for nausea/vomiting. fluticasone-salmeterol (ADVAIR DISKUS) 250-50 mcg/dose inhaler Inhale 1 Puff as instructed twice daily. Rinse and gargle mouth with water after each use. fluticasone (FLONASE) 50 mcg/actuation nasal spray Use 2 Sprays in each nostril once daily. Rinse mouth after use. No current facility-administered medications for this visit. FAMILY HISTORY Problem Relation Age of Onset Psychiatry Mother schizophrenia/Bipolar No Known Problems Father No Known Problems Sister Diabetes Maternal Grandmother Cancer Maternal Grandfather Schizophrenia Maternal Grandfather Dementia Paternal Grandmother Cancer Paternal Grandfather ADD/ADHD Son Depression Son ADD/ADHD Son Social History Tobacco Use Smoking status: Former Years: 16.00 Types: Cigarettes Smokeless tobacco: Never Tobacco comments: vaping with Nicotine Vaping Use Vaping Use: current everyday user Substance Use Topics Alcohol use: Not Currently Comment: quit drinking 5 years ago Drug use: Not Currently Comment: Past history of marijuana, crack, and cocaine EXAM: BP 124/82 Pulse 93 Resp 18 LMP 10/11/2021 (Exact Date) SpO2 99% PHYSICAL EXAM: General Appearance: Well appearing, alert, in no acute distress, well-hydrat (more content not included)... [facility] 05-13-2022 Instructions Samira Boudreaux APRN.SARAI - 05/13/2022 2:00 PM EST Go back to the sensitive products. Hydrocortisone as needed. documented in this encounter [facility] 05-13-2022 History of Present illness Narrative This is a 37 year old female who presents today with: Patient presents with: Acute Visit: Vaginal irritation x 1 week; recently changed soaps HISTORY OF PRESENT ILLNESS: Bijal Johnston is a 37 year old female. Patient presents with: Acute Visit: Vaginal irritation x 1 week; recently changed soaps Pt presents today with complaint of vulvar itching. Started about a week ago. Refers that vulva is sore/raw. + itch. Denies any vaginal discharge/odor. No internal itching. No new sexual partners. No concerns of STDs. Admits that she did change products. Usually uses sensitive skin products, but did change to a scented summer's cheng about a week ago. PAST MEDICAL HISTORY: PAST MEDICAL HISTORY Diagnosis Date abnormal pap Abn. 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 mention of hyperactivity 01/19/2005 Chlamydia Chronic low back pain Depression Encounter for insertion or removal of intrauterine contraceptive device 03/17/2006 Mirena Gonorrhea History of methamphetamine use + urine tox and pain panel 10/01/15 and 10/20/2015, no longer RX controlled Rx see phone note 10/28/2015 Hypothyroidism, acquired 08/04/2021 Infertility, female Migraine PMH - PAST MEDICAL HISTORY OF HGSIL Trauma Unspecified asthma(493.90) 01/19/2005 PAST SURGICAL HISTORY Procedure Laterality Date CONIZATION CERVIX W/WO D&C RPR ELTRD EXC 11/18 LEEP-Cervix INSERT INTRAUTERINE DEVICE 03/17/2006 Mirena, removed 11/2011 NEUROPLASTY &/TRANSPOS MEDIAN NRV CARPAL TUNNE 06/2011 Carpal tunnel decomp left PAST SURGICAL HISTORY OF 1984 BOWEL BLOCKAGE PAST SURGICAL HISTORY OF 1991 SPASTIC HEEL CORD LEFT CALF PAST SURGICAL HISTORY OF toe nail removed REPAIR PRIMARY OPEN/PRQ RUPTURED ACHILLES TENDON 05/01/2009 left achilles ALLERGIES Penicillins and Ultram [Tramadol Hcl] MEDICATIONS Current Outpatient Medications Medication Sig sucralfate (CARAFATE) 1 gram tablet Take 1 tablet by mouth before meals and at bedtime. levothyroxine (SYNTHROID) 112 mcg tablet Take 1 tablet by mouth daily before breakfast. omeprazole (PRILOSEC) 20 mg capsule take 2 capsules by mouth once daily , 1/2 HOUR BEFORE BREAKFAST cholecalciferol, Vitamin D3, (VITAMIN D3) 1,250 mcg (50,000 unit) cap capsule Take 1 capsule by mouth one time a week. FLUoxetine (PROZAC) 40 mg capsule Take 1 capsule by mouth once daily. rOPINIRole (REQUIP) 1 mg tablet Take 1 tablet by mouth three times daily. ipratropium-albuterol (DUONEB) 0.5 mg-3 mg(2.5 mg base)/3 mL nebu Inhale 3 mL as instructed every 6 hours as needed (dyspnea or wheezing). albuterol (PROVENTIL) 2.5 mg /3 mL (0.083 %) nebulizer solution Use 3 mL via nebulizer every 4 hours as needed for wheezing/shortness of breath. Use over 5-15minutes. JENCYCLA 0.35 mg tablet take 1 tablet by mouth once daily mometasone-formoterol (DULERA) 200-5 mcg/actuation inhaler inhale 2 puffs as directed twice a day mometasone-formoterol (DULERA) 200-5 mcg/actuation inhaler inhale 2 puffs as directed twice a day SUMAtriptan (IMITREX) 20 mg/actuation nasal spray Use 1 [place] in the nose once daily as needed for migraine headache (see administration instructions). tiotropium bromide (SPIRIVA RESPIMAT) 2.5 mcg/actuation inhaler Inhale 2 Puffs as instructed once daily. famotidine (PEPCID) 20 mg tablet Take 1 tablet by mouth once daily as needed. ondansetron orally disintegrating (ZOFRAN ODT) 4 mg disintegrating tablet Take 1 tablet by mouth every 6 hours as needed for nausea/vomiting. fluticasone-salmeterol (ADVAIR DISKUS) 250-50 mcg/dose inhaler Inhale 1 Puff as instructed twice daily. Rinse and gargle mouth with water after each use. fluticasone (FLONASE) 50 mcg/actuation nasal spray Use 2 Sprays in each nostril once daily. Rinse mouth after use. No current facility-administered medications for this visit. FAMILY HISTORY Problem Relation Age of Onset Psychiatry Mother schizophrenia/Bipolar No Known Problems Father No Known Problems Sister Diabetes Maternal Grandmother Cancer Maternal Grandfather Schizophrenia Maternal Grandfather Dementia Paternal Grandmother Cancer Paternal Grandfather ADD/ADHD Son Depression Son ADD/ADHD Son Social History Tobacco Use Smoking status: Former Years: 16.00 Types: Cigarettes Smokeless tobacco: Never Tobacco comments: vaping with Nicotine Vaping Use Vaping Use: current everyday user Substance Use Topics Alcohol use: Not Currently Comment: quit drinking 5 years ago Drug use: Not Currently Comment: Past history of marijuana, crack, and cocaine EXAM: BP 124/82 Pulse 93 Resp 18 LMP 10/11/2021 (Exact Date) SpO2 99% PHYSICAL EXAM: General Appearance: Well appearing, alert, in no acute distress, well-hydrated, well nourished.. Skin: Skin color, texture, turgor normal, no suspicious rashes or lesions. Head: Normocephalic, no masses, lesions, tenderness or abnormalities. Eyes: Anicteric sclera. Extraocular movements are intact. . Neurologic: Gait normal. - mild scattered redness over vulva. No open areas/lesions. No discharge noted. ASSESSMENT/PLAN: 1. Vulvar irritation - ICD9: 624.8, ICD10: N90.89 Likely from change in products. She has already discontinued the new product. Continue sensitive skin products. Hydrocortisone prn. Discussed treatment plan and patient voices understanding. Patient's questions answered appropriately. Medications and potential side effects were discussed and patient voices understanding. Return to the office as scheduled or as needed for worsening/no improvement. Samira Boudreaux APRN.CNP The patient indicates understanding of these issues and agrees with the plan. This note was partially generated using [employer] recognition system. Note was reviewed for accuracy. There may be minor misspellings or grammar miscues with [employer] voice recognition. documented in this encounter [facility] 03-21-2022 Miscellaneous Notes Last Office Visit: 03/04/2022 Requested Prescriptions Pending Prescriptions Disp Refills omeprazole (PRILOSEC) 20 mg capsule 90 capsule 1 Sig: take 2 capsules by mouth once daily , 1/2 HOUR BEFORE BREAKFAST cholecalciferol, Vitamin D3, (VITAMIN D3) 1,250 mcg (50,000 unit) cap capsule 4 capsule 3 Sig: Take 1 capsule by mouth one time a week. FLUoxetine (PROZAC) 40 mg capsule 90 capsule 1 Sig: Take 1 capsule by mouth once daily. rOPINIRole (REQUIP) 1 mg tablet 90 tablet 2 Sig: Take 1 tablet by mouth three times daily. sucralfate (CARAFATE) 1 gram tablet 120 tablet 0 Sig: Take 1 tablet by mouth before meals and at bedtime. Date of Last Labs: documented in this encounter [facility] 03-04-2022 History of Present illness Narrative Chief Complaint Patient presents with: Cough Sore Throat HPI Bijal Johnston is a 37 year old female who presents here today for Above Complaints.. Per virtual appointment with myself this morning 03/04/2022: Had COVID at the end of December. Hasn't slept very well for the past 4 days. Is coughing a lot, worse at nighttime. Throat and ears hurt from coughing so much. Productive cough-mucous greenish yellow and is thick. Took Robitussin-not helpful at all. No fever. Willing to come into the office today for in-person assessment. Now: Most of the same sx. Notices some wheezing at times. Past medical history, appointments, medications, allergies reviewed. Previous Medical History PAST MEDICAL HISTORY Diagnosis Date abnormal pap Abn. 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 mention of hyperactivity 01/19/2005 Chlamydia Chronic low back pain Depression Encounter for insertion or removal of intrauterine contraceptive device 03/17/2006 Mirena Gonorrhea History of methamphetamine use + urine tox and pain panel 10/01/15 and 10/20/2015, no longer RX controlled Rx see phone note 10/28/2015 Hypothyroidism, acquired 08/04/2021 Infertility, female Migraine PMH - PAST MEDICAL HISTORY OF HGSIL Trauma Unspecified asthma(493.90) 01/19/2005 Previous Surgical History PAST SURGICAL HISTORY Procedure Laterality Date CONIZATION CERVIX W/WO D&C RPR ELTRD EXC 11/18 LEEP-Cervix INSERT INTRAUTERINE DEVICE 03/17/2006 Mirena, removed 11/2011 NEUROPLASTY &/TRANSPOS MEDIAN NRV CARPAL TUNNE 06/2011 Carpal tunnel decomp left PAST SURGICAL HISTORY OF 1984 BOWEL BLOCKAGE PAST SURGICAL HISTORY OF 1991 SPASTIC HEEL CORD LEFT CALF PAST SURGICAL HISTORY OF toe nail removed REPAIR PRIMARY OPEN/PRQ RUPTURED ACHILLES TENDON 05/01/2009 left achilles Family History FAMILY HISTORY Problem Relation Age of Onset Psychiatry Mother schizophrenia/Bipolar No Known Problems Father No Known Problems Sister Diabetes Maternal Grandmother Cancer Maternal Grandfather Schizophrenia Maternal Grandfather Dementia Paternal Grandmother Cancer Paternal Grandfather ADD/ADHD Son Depression Son ADD/ADHD Son Patient Allergies ALLERGIES Allergen Reactions Penicillins Swelling, Itching Ultram [Tramadol Hc* made me paranoid Current Medications Current Outpatient Medications on File Prior to Visit Medication Sig ipratropium-albuterol (DUONEB) 0.5 mg-3 mg(2.5 mg base)/3 mL nebu Inhale 3 mL as instructed every 6 hours as needed (dyspnea or wheezing). sucralfate (CARAFATE) 1 gram tablet Take 1 tablet by mouth before meals and at bedtime. JENCYCLA 0.35 mg tablet take 1 tablet by mouth once daily mometasone-formoterol (DULERA) 200-5 mcg/actuation inhaler inhale 2 puffs as directed twice a day albuterol HFA (VENTOLIN HFA) 90 mcg/actuation inhaler Inhale 2 Puffs as instructed every 4 hours as needed for wheezing/shortness of breath. rOPINIRole (REQUIP) 1 mg tablet Take 1 tablet by mouth three times daily. levothyroxine (SYNTHROID) 112 mcg tablet Take 1 tablet by mouth daily before breakfast. omeprazole (PRILOSEC) 20 mg capsule take 2 capsules by mouth once daily , 1/2 HOUR BEFORE BREAKFAST mometasone-formoterol (DULERA) 200-5 mcg/actuation inhaler inhale 2 puffs as directed twice a day cholecalciferol, Vitamin D3, (VITAMIN D3) 1,250 mcg (50,000 unit) cap capsule Take 1 capsule by mouth one time a week. SUMAtriptan (IMITREX) 20 mg/actuation nasal spray Use 1 [place] in the nose once daily as needed for migraine headache (see administration instructions). tiotropium bromide (SPIRIVA RESPIMAT) 2.5 mcg/actuation inhaler Inhale 2 Puffs as instructed once daily. FLUoxetine (PROZAC) 40 mg capsule Take 1 capsule by mouth once daily. famotidine (PEPCID) 20 mg tablet Take 1 tablet by mouth once daily as needed. ondansetron orally disintegrating (ZOFRAN ODT) 4 mg disintegrating tablet Take 1 tablet by mouth every 6 hours as needed for nausea/vomiting. fluticasone-salmeterol (ADVAIR DISKUS) 250-50 mcg/dose inhaler Inhale 1 Puff as instructed twice daily. Rinse and gargle mouth with water after each use. fluticasone (FLONASE) 50 mcg/actuation nasal spray Use 2 Sprays in each nostril once daily. Rinse mouth after use. No current facility-administered medications on file prior to visit. Social History Social History Tobacco Use Smoking status: Former Years: 16.00 Types: Cigarettes Smokeless tobacco: Never Tobacco comments: vaping with Nicotine Vaping Use Vaping Use: current everyday user Substance Use Topics Alcohol use: Not Currently Comment: quit drinking 5 years ago Drug use: Not Currently Comment: Past history of marijuana, crack, and cocaine Review of Symptoms REVIEW OF SYSTEMS See HPI, otherwise negative EXAM: BP 100/64 (BP Site: Left Arm, BP Position: Sitting, BP Cuff Size: Regular Adult) Pulse 110 Temp 36.6 C (97.9 F) (Temporal) LMP 10/11/2021 (Exact Date) SpO2 97% General Appearance: ill-appearing, alert, in no acute distress, well-hydrated, well nourished. Head: Normocephalic, no masses, lesions, tenderness or abnormalities. Eyes: Anicteric sclera. Pupils are equally round and reactive to light. Extraocular movements are intact. . Ears: External ears normal, canals clear. Nose/Sinuses: Nares normal, septum midline, mucosa normal, no drainage or sinus tenderness. Oropharynx: Lips, mucosa, and tongue normal, teeth and gums normal, oropharynx normal. Neck: Supple, no adenopathy; thyroid symmetric, normal size, no bruits. Lungs: wheezing throughout all lung light, persistent cough with dark yellow sputum. Heart: RRR without murmur, gallop, or rubs. No ectopy. Health Maintenance List HEPATITIS B(1 of 3 - 3-dose series) Never done PNEUMOCOCCAL(1 - PCV) Never done ALPHA-1 ANTITRYPSIN DEFICIENCY SCREENING Never done INFLUENZA(1) due on 12/16/2021 COVID-19 VACCINE(3 - Booster for Pfizer series) due on 01/12/2022 ANNUAL PCP TEAM CHRONIC DISEASE VISIT due on 03/04/2023 PAP TESTING due on 06/08/2025 HPV TESTING due on 06/08/2025 DTAP,TDAP,TD(4 - Td or Tdap) due on 12/09/2030 SPIROMETRY Completed HEPATITIS C SCREENING Completed HIV SCREENING Completed Data reviewed Previous records, office notes ASSESSMENT/PLAN: 1. Sore throat - ICD9: 462, ICD10: J02.9 (primary diagnosis) - Discussed supportive care treatment with fluids, rest and analgesia. - RAPID STREP TEST B/O - XR CHEST 2V FRONTAL/LAT - PREDNISONE 10 MG TABLET - AZITHROMYCIN 250 MG TABLET - CODEINE 10 MG-GUAIFENESIN 100 MG/5 ML ORAL LIQUID - NEBULIZER - NEBULIZER ADMINISTRATION SET - ALBUTEROL SULFATE 2.5 MG/3 ML (0.083 %) SOLUTION FOR NEBULIZATION - PREDNISONE 10 MG TABLET - AZITHROMYCIN 250 MG TABLET - CODEINE 10 MG-GUAIFENESIN 100 MG/5 ML ORAL LIQUID - ALBUTEROL SULFATE 2.5 MG/3 ML (0.083 %) SOLUTION FOR NEBULIZATION - ALBUTEROL SULFATE 2.5 MG/3 ML (0.083 %) SOLUTION FOR NEBULIZATION - CODEINE 10 MG-GUAIFENESIN 100 MG/5 ML ORAL LIQUID - AZITHROMYCIN 250 MG TABLET - PREDNISONE 10 MG TABLET 2. Persistent cough - ICD9: 786.2, ICD10: R05.3 - RAPID STREP TEST B/O - XR CHEST 2V FRONTAL/LAT - PREDNISONE 10 MG TABLET - AZITHROMYCIN 250 MG TABLET - CODEINE 10 MG-GUAIFENESIN 100 MG/5 ML ORAL LIQUID - NEBULIZER - NEBULIZER ADMINISTRATION SET - ALBUTEROL SULFATE 2.5 MG/3 ML (0.083 %) SOLUTION FOR NEBULIZATION - PREDNISONE 10 MG TABLET - AZITHROMYCIN 250 MG TABLET - CODEINE 10 MG-GUAIFENESIN 100 MG/5 ML ORAL LIQUID - ALBUTEROL SULFATE 2.5 MG/3 ML (0.083 %) SOLUTION FOR NEBULIZATION - ALBUTEROL SULFATE 2.5 MG/3 ML (0.083 %) SOLUTION FOR NEBULIZATION - CODEINE 10 MG-GUAIFENESIN 100 MG/5 ML ORAL LIQUID - AZITHROMYCIN 250 MG TABLET - PREDNISONE 10 MG TABLET 3. Wheezing - ICD9: 786.07, ICD10: R06.2 - XR CHEST 2V FRONTAL/LAT - PREDNISONE 10 MG TABLET - AZITHROMYCIN 250 MG TABLET - CODEINE 10 MG-GUAIFENESIN 100 MG/5 ML ORAL LIQUID - NEBULIZER - NEBULIZER ADMINISTRATION SET - ALBUTEROL SULFATE 2.5 MG/3 ML (0.083 %) SOLUTION FOR NEBULIZATION - PREDNISONE 10 MG TABLET - AZITHROMYCIN 250 MG TABLET - CODEINE 10 MG-GUAIFENESIN 100 MG/5 ML ORAL LIQUID - ALBUTEROL SULFATE 2.5 MG/3 ML (0.083 %) SOLUTION FOR NEBULIZATION - ALBUTEROL SULFATE 2.5 MG/3 ML (0.083 %) SOLUTION FOR NEBULIZATION - CODEINE 10 MG-GUAIFENESIN 100 MG/5 ML ORAL LIQUID - AZITHROMYCIN 250 MG TABLET - PREDNISONE 10 MG TABLET 4. Myalgia - ICD9: 729.1, ICD10: M79.10 - XR CHEST 2V FRONTAL/LAT - PREDNISONE 10 MG TABLET - AZITHROMYCIN 250 MG TABLET - CODEINE 10 MG-GUAIFENESIN 100 MG/5 ML ORAL LIQUID - NEBULIZER - NEBULIZER ADMINISTRATION SET - ALBUTEROL SULFATE 2.5 MG/3 ML (0.083 %) SOLUTION FOR NEBULIZATION - PREDNISONE 10 MG TABLET - AZITHROMYCIN 250 MG TABLET - CODEINE 10 MG-GUAIFENESIN 100 MG/5 ML ORAL LIQUID - ALBUTEROL SULFATE 2.5 MG/3 ML (0.083 %) SOLUTION FOR NEBULIZATION - ALBUTEROL SULFATE 2.5 MG/3 ML (0.083 %) SOLUTION FOR NEBULIZATION - CODEINE 10 MG-GUAIFENESIN 100 MG/5 ML ORAL LIQUID - AZITHROMYCIN 250 MG TABLET - PREDNISONE 10 MG TABLET Andressa Bautista APRN.CNP documented in this encounter [facility] 03-04-2022 History of Present illness Narrative VIRTUAL VISIT PROGRESS NOTE This is a virtual visit using [facility] video visit. It required patient-provider interaction for the medical decision making as documented below. Bijal Johnston is a 37 year old female seen for persistent cough. Today: Had COVID at the end of December. Hasn't slept very well for the past 4 days. Is coughing a lot, worse at nighttime. Throat and ears hurt from coughing so much. Productive cough-mucous greenish yellow and is thick. Took Robitussin-not helpful at all. No fever. Willing to come into the office today for in-person assessment. HISTORY REVIEWED (electronic chart updated): PAST MEDICAL HISTORY Diagnosis Date abnormal pap Abn. 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 mention of hyperactivity 01/19/2005 Chlamydia Chronic low back pain Depression Encounter for insertion or removal of intrauterine contraceptive device 03/17/2006 Mirena Gonorrhea History of methamphetamine use + urine tox and pain panel 10/01/15 and 10/20/2015, no longer RX controlled Rx see phone note 10/28/2015 Hypothyroidism, acquired 08/04/2021 Infertility, female Migraine PMH - PAST MEDICAL HISTORY OF HGSIL Trauma Unspecified asthma(493.90) 01/19/2005 PAST SURGICAL HISTORY Procedure Laterality Date CONIZATION CERVIX W/WO D&C RPR ELTRD EXC 11/18 LEEP-Cervix INSERT INTRAUTERINE DEVICE 03/17/2006 Mirena, removed 11/2011 NEUROPLASTY &/TRANSPOS MEDIAN NRV CARPAL TUNNE 06/2011 Carpal tunnel decomp left PAST SURGICAL HISTORY OF 1984 BOWEL BLOCKAGE PAST SURGICAL HISTORY OF 1991 SPASTIC HEEL CORD LEFT CALF PAST SURGICAL HISTORY OF toe nail removed REPAIR PRIMARY OPEN/PRQ RUPTURED ACHILLES TENDON 05/01/2009 left achilles FAMILY HISTORY Problem Relation Age of Onset Psychiatry Mother schizophrenia/Bipolar No Known Problems Father No Known Problems Sister Diabetes Maternal Grandmother Cancer Maternal Grandfather Schizophrenia Maternal Grandfather Dementia Paternal Grandmother Cancer Paternal Grandfather ADD/ADHD Son Depression Son ADD/ADHD Son Social History Tobacco Use Smoking status: Former Years: 16.00 Types: Cigarettes Smokeless tobacco: Never Tobacco comments: vaping with Nicotine Vaping Use Vaping Use: current everyday user Substance Use Topics Alcohol use: Not Currently Comment: quit drinking 5 years ago Drug use: Not Currently Comment: Past history of marijuana, crack, and cocaine Current Outpatient Medications Medication Sig sucralfate (CARAFATE) 1 gram tablet Take 1 tablet by mouth before meals and at bedtime. JENCYCLA 0.35 mg tablet take 1 tablet by mouth once daily SUMAtriptan (IMITREX) 50 mg tablet Take 1 tablet by mouth at first sign of migraine, may repeat in 2 hours if necessary. mometasone-formoterol (DULERA) 200-5 mcg/actuation inhaler inhale 2 puffs as directed twice a day albuterol HFA (VENTOLIN HFA) 90 mcg/actuation inhaler Inhale 2 Puffs as instructed every 4 hours as needed for wheezing/shortness of breath. rOPINIRole (REQUIP) 1 mg tablet Take 1 tablet by mouth three times daily. levothyroxine (SYNTHROID) 112 mcg tablet Take 1 tablet by mouth daily before breakfast. omeprazole (PRILOSEC) 20 mg capsule take 2 capsules by mouth once daily , 1/2 HOUR BEFORE BREAKFAST mometasone-formoterol (DULERA) 200-5 mcg/actuation inhaler inhale 2 puffs as directed twice a day cholecalciferol, Vitamin D3, (VITAMIN D3) 1,250 mcg (50,000 unit) cap capsule Take 1 capsule by mouth one time a week. SUMAtriptan (IMITREX) 20 mg/actuation nasal spray Use 1 [place] in the nose once daily as needed for migraine headache (see administration instructions). tiotropium bromide (SPIRIVA RESPIMAT) 2.5 mcg/actuation inhaler Inhale 2 Puffs as instructed once daily. FLUoxetine (PROZAC) 40 mg capsule Take 1 capsule by mouth once daily. famotidine (PEPCID) 20 mg tablet Take 1 tablet by mouth once daily as needed. ondansetron orally disintegrating (ZOFRAN ODT) 4 mg disintegrating tablet Take 1 tablet by mouth every 6 hours as needed for nausea/vomiting. clindamycin (CLEOCIN) 300 mg capsule Take 1 capsule by mouth four times daily. fluticasone-salmeterol (ADVAIR DISKUS) 250-50 mcg/dose inhaler Inhale 1 Puff as instructed twice daily. Rinse and gargle mouth with water after each use. fluticasone (FLONASE) 50 mcg/actuation nasal spray Use 2 Sprays in each nostril once daily. Rinse mouth after use. ipratropium-albuterol (DUONEB) 0.5 mg-3 mg(2.5 mg base)/3 mL nebu Inhale 3 mL as instructed every 6 hours as needed (dyspnea or wheezing). No current facility-administered medications for this visit. ALLERGIES Allergen Reactions Penicillins Swelling, Itching Ultram [Tramadol Hc* made me paranoid REVIEW OF SYSTEMS: All other ROS: negative As noted in HPI PHYSICAL EXAMINATION: VIDEO EXAM: (if completed, performed via video enabled technology) No exam performed ASSESSMENT: (R05.3) Persistent cough (primary encounter diagnosis) (J02.9) Sore throat (H92.03) Ear pain, bilateral PLAN: Patient will come to the office this afternoon for in-person assessment. Andressa Bautista APRN.SARAI documented in this encounter [facility] 03-04-2022 Miscellaneous Notes Patient phones requesting refills as follows: Requested Prescriptions Pending Prescriptions Disp Refills ipratropium-albuterol (DUONEB) 0.5 mg-3 mg(2.5 mg base)/3 mL nebu 60 mL 0 Sig: Inhale 3 mL as instructed every 6 hours as needed (dyspnea or wheezing). VENKATA 01/12/22 NOV 04/26/2022 Please review and advise. STEPH Acevedo documented in this encounter [facility] 02-18-2022 Miscellaneous Notes Patient has been identified by name and date of : Yes Pharmacy phones for refill(s): Requested Prescriptions Pending Prescriptions Disp Refills sucralfate (CARAFATE) 1 gram tablet 120 tablet 0 Sig: Take 1 tablet by mouth before meals and at bedtime. Date of last office visit in primary care: 01/12/2022, no future appt scheduled Last 2 Encounter Wt Readings: Date: Wt: 10/19/2021 72.6 kg (160 lb) 10/01/2021 70.3 kg (155 lb) Previous labs/tests for medication: Not applicable Please advise. Thank you. Lorenza Doan LPN documented in this encounter [facility] 01-21-2022 Miscellaneous Notes Patient has been identified by name and date of : Yes Pharmacy phones for refill(s): Requested Prescriptions Pending Prescriptions Disp Refills sucralfate (CARAFATE) 1 gram tablet 120 tablet 0 Sig: Take 1 tablet by mouth before meals and at bedtime. Date of last office visit in primary care: 01/12/22 Last 2 Encounter Wt Readings: Date: Wt: 10/19/2021 72.6 kg (160 lb) 10/01/2021 70.3 kg (155 lb) Previous labs/tests for medication: Not applicable Please advise. Thank you. Savannah Lutz LPN documented in this encounter [facility] 01-18-2022 Miscellaneous Notes Left message for patient to return phone call.Patient delivered 02/03/2021. Was not seen for visit. Previous refills of this medication it was requested patient make appointment for annual. documented in this encounter [facility] 01-12-2022 Miscellaneous Notes The following approved medication requests have been transmitted electronically. Requested Prescriptions Signed Prescriptions Disp Refills rOPINIRole (REQUIP) 1 mg tablet 90 tablet 2 Sig: Take 1 tablet by mouth three times daily. Authorizing Provider: RUI MAGAÑA Ordering User: ANDRESSA BAUTISTA nirmatrelvir tablet 300 mg (150 mg x 2) and ritonavir tablet 100 mg in a dose pack (PAXLOVID) 30 tablet 0 Sig: Administer TWO pink nirmatrelvir 150 mg tablets and ONE white ritonavir 100 mg tablet for a total of three tablets twice daily. Authorizing Provider: RUI MAGAÑA Ordering User: ANDRESSA BAUTISTA APRN.CNP Tata from [facility] called and was asking if we could get the Ropinirole for 90 tables to equal a 30 day supply. She also reports they are not able to fill the Paxlovid order. Called Pt and she would like Paxlovid sent to [facility]. Patient has been identified by name and date of : Yes Pharmacy phones for refill(s): Requested Prescriptions Pending Prescriptions Disp Refills rOPINIRole (REQUIP) 1 mg tablet 90 tablet 2 Sig: Take 1 tablet by mouth three times daily. nirmatrelvir tablet 300 mg (150 mg x 2) and ritonavir tablet 100 mg in a dose pack (PAXLOVID) 30 tablet 0 Sig: Administer TWO pink nirmatrelvir 150 mg tablets and ONE white ritonavir 100 mg tablet for a total of three tablets twice daily. Date of last office visit in primary care: 01/12/22 Future visit: none Last 2 Encounter Wt Readings: Date: Wt: 10/19/2021 72.6 kg (160 lb) 10/01/2021 70.3 kg (155 lb) Previous labs/tests for medication: Blood Pressure: BUN (mg/dL) Date Value 06/01/2021 14 Sodium (mmol/L) Date Value 06/01/2021 138 Last 1 Encounter BP Readings: Date: BP: 10/19/2021 96/56 Liver Function: ALT (U/L) Date Value 06/01/2021 11 AST (U/L) Date Value 06/01/2021 17 Please advise. Thank you. Janice Hermosillo RN documented in this encounter [facility] 01-12-2022 Miscellaneous Notes Seen in the office this morning by myself. 01/12/2022. Andressa Bautista APRN.CNP Patient has an appointment 01/12/22 at 9am documented in this encounter [facility] 01-12-2022 Miscellaneous Notes Looks like pt has virtual appt with RS this morning Debbie Corona Ma I agree needs appointment if wanting paxlovid. I recommend tylenol for fevers, mucinex and OTC cold/flu medication for cough/congestion. Stay hydrated and rest. Thank you, Frank Marques APRN.CNP Pt advised that an appointment would be needed if she wants to discuss possible treatment. Any further advise? Romina Armstrong Ma documented in this encounter [facility] 12-27-2021 History of Present illness Narrative Patient presented to express care for evaluation of ongoing stomach gurgling and pain. Prefers to be seen by PCP but no appointment available until 12/29. Discussed her options for care today which include Express Care, ER, or primary care appointment available at 2:20 pm. She elects the 2:20 appointment. Gale Olivares APRN.SARAI documented in this encounter [facility] 12-06-2021 Miscellaneous Notes RX INSTRUCTIONS: Patient aware RX will be sent to pharmacy. No need to notify patient. Last OV: 10/19/21 with PCP Last refill: Vit D 10/27/21 With 4 and 3 refills Dulera 10/27/21 With 8.8g and 0 refills Follow up: 12/24/21- 2 month F/U with RS Capri Lomas MA documented in this encounter [facility] 10-27-2021 Miscellaneous Notes This was addressed at recent visit with Dr. Magaña on 10/19/21. Closing this encounter. Frank Marques APRN.SARAI documented in this encounter [facility] 10-26-2021 Miscellaneous Notes Last office visit: 12/24/21 F/u scheduled: 10/19/21 Patient Comment: Inhaler that they gave me only came with 65 puffs but it says take two puffs twice a day so I need another one of these as well Romina Armstrong Ma documented in this encounter [facility] 10-26-2021 Miscellaneous Notes Patient delivered 02/03/21 and did not follow up for PP visit. Wayna message sent to patient. Pending Prescriptions Disp Refills NORETHINDRONE (CONTRACEPTIVE) 0.35 MG TABLET 28 tablet 1 Sig: Take 1 tablet by mouth once daily. KARIME: No RX INSTRUCTIONS: Mychart request. Akilah Galindo RN documented in this encounter [facility] 10-19-2021 History of Present illness Narrative CC: Bijal Johnston is a 36 year old female who presents to the office for follow up. HPI: Hypothyroidism, taking 112 mcg synthroid. Tolerating rx well. Still having some fatigue symptoms and weight gain symptoms that she has noticed recently. Is frustrated by this. Anxiety, depressive disorder, long standing, taking prozac 20 mg a day, tolerating well. Feels needs to have a dose adjustment since still sometimes having anxiety symptoms. No self harm or SI or HI concerns. States that she will be stopping her subutex/suboxone treatment after 4 more doses, has been tapering off with Dr. Parkinson. Hasn't had any relapse concerns for methamphetamine and would like to try back on Vyvanse that she was taking previously. Willing to have pneumonia vaccine today PAST MEDICAL HISTORY Diagnosis Date abnormal pap Abn. 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 mention of hyperactivity 01/19/2005 Chlamydia Chronic low back pain Depression Encounter for insertion or removal of intrauterine contraceptive device 03/17/2006 Mirena Gonorrhea History of methamphetamine use + urine tox and pain panel 10/01/15 and 10/20/2015, no longer RX controlled Rx see phone note 10/28/2015 Hypothyroidism, acquired 08/04/2021 Infertility, female Migraine PMH - PAST MEDICAL HISTORY OF HGSIL Trauma Unspecified asthma(493.90) 01/19/2005 PAST SURGICAL HISTORY Procedure Laterality Date CONIZATION CERVIX W/WO D&C RPR ELTRD EXC 11/18 LEEP-Cervix INSERT INTRAUTERINE DEVICE 03/17/2006 Mirena, removed 11/2011 NEUROPLASTY &/TRANSPOS MEDIAN NRV CARPAL TUNNE 06/2011 Carpal tunnel decomp left PAST SURGICAL HISTORY OF 1984 BOWEL BLOCKAGE PAST SURGICAL HISTORY OF 1991 SPASTIC HEEL CORD LEFT CALF PAST SURGICAL HISTORY OF toe nail removed REPAIR PRIMARY OPEN/PRQ RUPTURED ACHILLES TENDON 05/01/2009 left achilles Social History: Social History Tobacco Use Smoking status: Former Smoker Years: 16.00 Types: Cigarettes Smokeless tobacco: Never Used Tobacco comment: vaping with Nicotine Vaping Use Vaping Use: current everyday user Substance Use Topics Alcohol use: Not Currently Comment: quit drinking 5 years ago Drug use: Not Currently Comment: Past history of marijuana, crack, and cocaine FAMILY HISTORY Problem Relation Age of Onset Psychiatry Mother schizophrenia/Bipolar No Known Problems Father No Known Problems Sister Diabetes Maternal Grandmother Cancer Maternal Grandfather Schizophrenia Maternal Grandfather Dementia Paternal Grandmother Cancer Paternal Grandfather ADD/ADHD Son Depression Son ADD/ADHD Son Current Outpatient prescriptions: omeprazole (PRILOSEC) 20 mg capsule take 2 capsules by mouth once daily , 1/2 HOUR BEFORE BREAKFAST albuterol HFA (VENTOLIN HFA) 90 mcg/actuation inhaler Inhale 2 Puffs as instructed every 4 hours as needed for wheezing/shortness of breath. tiotropium bromide (SPIRIVA RESPIMAT) 2.5 mcg/actuation inhaler Inhale 2 Puffs as instructed once daily. FLUoxetine (PROZAC) 40 mg capsule Take 1 capsule by mouth once daily. mometasone-formoterol (DULERA) 200-5 mcg/actuation inhaler inhale 2 puffs as directed twice a day famotidine (PEPCID) 20 mg tablet Take 1 tablet by mouth once daily as needed. ondansetron orally disintegrating (ZOFRAN ODT) 4 mg disintegrating tablet Take 1 tablet by mouth every 6 hours as needed for nausea/vomiting. sucralfate (CARAFATE) 1 gram tablet Take 1 tablet by mouth before meals and at bedtime. albuterol (PROVENTIL) 2.5 mg /3 mL (0.083 %) nebulizer solution Use 3 mL via nebulizer every 4 hours as needed for wheezing/shortness of breath. Use over 5-15minutes. levothyroxine (SYNTHROID) 112 mcg tablet Take 1 tablet by mouth daily before breakfast. Norethindrone, Contraceptive, 0.35 mg tablet take 1 tablet by mouth once daily cholecalciferol, Vitamin D3, (VITAMIN D3) 1,250 mcg (50,000 unit) cap capsule Take 1 capsule by mouth one time a week. clindamycin (CLEOCIN) 300 mg capsule Take 1 capsule by mouth four times daily. SUMAtriptan (IMITREX) 20 mg/actuation nasal spray Use 1 [place] in the nose once daily as needed for migraine headache (see administration instructions). fluticasone-salmeterol (ADVAIR DISKUS) 250-50 mcg/dose inhaler Inhale 1 Puff as instructed twice daily. Rinse and gargle mouth with water after each use. fluticasone (FLONASE) 50 mcg/actuation nasal spray Use 2 Sprays in each nostril once daily. Rinse mouth after use. ipratropium-albuterol (DUONEB) 0.5 mg-3 mg(2.5 mg base)/3 mL nebu Inhale 3 mL as instructed every 6 hours as needed (dyspnea or wheezing). buprenorphine SL (SUBUTEX) 8 mg subl DISSOLVE 1 (ONE) AND ONE-HALF TABLET UNDER THE TONGUE DAILY mupirocin (BACTROBAN) 2 % ointment Apply to affected area three times daily for 14 days. On skin sore on face sulfamethoxazole-trimethoprim (BACTRIM DS) 800-160 mg per tablet Take 1 tablet by mouth twice daily for 10 days. magnesium hydroxide (VEGA MILK OF MAGNESIA) 400 mg/5 mL suspension Take 30 mL by mouth daily at bedtime. just until BM occurs. Use 1-2 times a month. [id number] acid ( 19) 29 mg iron- 1 mg Take 1 tablet by mouth once daily. Allergies: ALLERGIES Allergen Reactions Penicillins Swelling, Itching Ultram [Tramadol Hc* made me paranoid ROS: See HPI PE: 10/19/21 1025 BP: 96/56 Pulse: 76 Resp: 16 Temp: 36.5 C (97.7 F) TempSrc: Right Tympanic Weight: 72.6 kg (160 lb) Gen: A&O, NAD, non-toxic appearing, Pleasant, cooperative HEENT: NT/AC, PERRLA, EOMs intact b/l, nares clear and patent b/l, pharynx without erythema, exudate or lesions. Uvula midline. MMM, poor dentition Neck: supple, No cervical LAD, no thyromegaly, no carotid bruits CV: RRR, normal S1 and S2, no murmurs, no gallops, no rubs, Pulses 2+ and symmetric in UE and LE b/l Lungs: normal respiratory effort, CTA b/l, no wheezing or rhonchi or rales Abd: soft, NT, ND, +BS, no hepatosplenomegaly MS: FROM all 4 extremities Neuro: CN II-XII intact b/l Skin: warm, dry, abscess without fluctuance with mild surrounding cellulitis changes and tenderness on right mid cheek ASSESSMENT/PLAN: 1. Cutaneous abscess of face - ICD9: 682.0, ICD10: L02.01 (primary diagnosis) - Begin treatment with Trimethoprim-sulfamethozazole (Bactrim) 2 DS PO BID - f/u in office if symptoms aren't improving as d/w her today - MUPIROCIN 2 % TOPICAL OINTMENT - SULFAMETHOXAZOLE 800 MG-TRIMETHOPRIM 160 MG TABLET 2. Asthma with chronic obstructive pulmonary disease (COPD) (HCC) - ICD9: 493.20, ICD10: J44.9 Moderate persistent Asthma stable - Continue current meds - Avoidance of triggers recommended - ALBUTEROL SULFATE HFA 90 MCG/ACTUATION AEROSOL INHALER - SPIRIVA RESPIMAT 2.5 MCG/ACTUATION SOLUTION FOR INHALATION - PNEUMOCOCCAL IMMUNIZATION PPSV 23 3. Chronic gastritis without bleeding, unspecified gastritis type - ICD9: 535.10, ICD10: K29.50 - rx refilled. - OMEPRAZOLE 20 MG CAPSULE,DELAYED RELEASE 4. Hypothyroidism, acquired - ICD9: 244.9, ICD10: E03.9 - Instructed patient on importance of taking on an empty stomach either first thing in the morning or at bedtime. - check TSH, free T4 and Free T3 today Stable - Behavioral intervention and - Pharmacological intervention - TSH BLD - T4 FREE/FREE THYROX - T3 FREE BLD 5. Anxiety with depression - ICD9: 300.4, ICD10: F41.8 - increase dose of prozac as ordered, has several situational stressors, she denies SI or HI concerns. - FLUOXETINE 40 MG CAPSULE Rui Magaña DO To ER if develops chest pain, shortness of breath, or severe worsening of symptoms. Discussed risks, benefits, alternatives, and potential side effects of medications. Patient expressed understanding and agreed with the plan. Rui Magaña DO [address] [place] [address] documented in this encounter [facility] 10-01-2021 Instructions Samira Boudreaux APRN.CNP - 10/01/2021 10:40 AM EDT 1. Continue the same medications. (prilosec in the morning; pepcid at bedtime. You can use the carafate up to 4 times daily as needed). 2. Follow-up with Dr. Anglin, as scheduled. 3. Scheduled with pulmonology. 4. Keep follow-up appt with Dr. Magaña. documented in this encounter [facility] 10-01-2021 History of Present illness Narrative This is a 36 year old female who presents today with: Patient presents with: ER F/U: [facility] ER follow up dx: gastritis Refill Request: dulera and carafate HISTORY OF PRESENT ILLNESS: Bijal Johnston is a 36 year old female. Patient presents with: ER F/U: [facility] ER follow up dx: gastritis Refill Request: dulera and carafate Patient presents today for emergency room follow-up. She presented to the emergency room on 08/30/2021 with complaints of epigastric abdominal pain. She had dry heaves but no actual vomiting. No diarrhea. Prior to her emergency room presentation she admits to forgetting to take her routine PPI. They initially tried some iron medications, however was not effective. Therefore they did give her IV medications and IV fluids. She did have dose of [place] and Ativan at the emergency room. Gets a belt of pain around her abdomen. Sometimes will vomit from the pain. She currently is taking prilosec -- 40 mg daily. Reports that she was also taking an H2 kenan and carafate. Requesting refills. She also requesting zofran refill as needed. She does have an appt w/ GI -- Dr. Anglin on 10/31. She does reports that she only stools once weekly and that is usually after a suppository. She reports she has to strain to stool. Admits to not much water intake. Endorses that she has miralax, and usually takes about every other day. PAST MEDICAL HISTORY: PAST MEDICAL HISTORY Diagnosis Date abnormal pap Abn. 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 mention of hyperactivity 01/19/2005 Chlamydia Chronic low back pain Depression Encounter for insertion or removal of intrauterine contraceptive device 03/17/2006 Mirena Gonorrhea History of methamphetamine use + urine tox and pain panel 10/01/15 and 10/20/2015, no longer RX controlled Rx see phone note 10/28/2015 Hypothyroidism, acquired 08/04/2021 Infertility, female Migraine PMH - PAST MEDICAL HISTORY OF HGSIL Trauma Unspecified asthma(493.90) 01/19/2005 PAST SURGICAL HISTORY Procedure Laterality Date CONIZATION CERVIX W/WO D&C RPR ELTRD EXC 11/18 LEEP-Cervix INSERT INTRAUTERINE DEVICE 03/17/2006 Mirena, removed 11/2011 NEUROPLASTY &/TRANSPOS MEDIAN NRV CARPAL TUNNE 06/2011 Carpal tunnel decomp left PAST SURGICAL HISTORY OF 1984 BOWEL BLOCKAGE PAST SURGICAL HISTORY OF 1991 SPASTIC HEEL CORD LEFT CALF PAST SURGICAL HISTORY OF toe nail removed REPAIR PRIMARY OPEN/PRQ RUPTURED ACHILLES TENDON 05/01/2009 left achilles ALLERGIES Penicillins and Ultram [Tramadol Hcl] MEDICATIONS Current Outpatient Medications Medication Sig omeprazole (PRILOSEC) 20 mg capsule take 2 capsules by mouth once daily , 1/2 HOUR BEFORE BREAKFAST FLUoxetine (PROZAC) 20 mg capsule Take 1 capsule by mouth once daily. albuterol HFA (VENTOLIN HFA) 90 mcg/actuation inhaler Inhale 2 Puffs as instructed every 4 hours as needed for wheezing/shortness of breath. albuterol (PROVENTIL) 2.5 mg /3 mL (0.083 %) nebulizer solution Use 3 mL via nebulizer every 4 hours as needed for wheezing/shortness of breath. Use over 5-15minutes. levothyroxine (SYNTHROID) 112 mcg tablet Take 1 tablet by mouth daily before breakfast. FLUoxetine (PROZAC) 20 mg capsule Take 1 capsule by mouth once daily. Norethindrone, Contraceptive, 0.35 mg tablet take 1 tablet by mouth once daily DULERA 200-5 mcg/actuation inhaler inhale 2 puffs as directed twice a day cholecalciferol, Vitamin D3, (VITAMIN D3) 1,250 mcg (50,000 unit) cap capsule Take 1 capsule by mouth one time a week. clindamycin (CLEOCIN) 300 mg capsule Take 1 capsule by mouth four times daily. SUMAtriptan (IMITREX) 20 mg/actuation nasal spray Use 1 [place] in the nose once daily as needed for migraine headache (see administration instructions). fluticasone-salmeterol (ADVAIR DISKUS) 250-50 mcg/dose inhaler Inhale 1 Puff as instructed twice daily. Rinse and gargle mouth with water after each use. fluticasone (FLONASE) 50 mcg/actuation nasal spray Use 2 Sprays in each nostril once daily. Rinse mouth after use. ipratropium-albuterol (DUONEB) 0.5 mg-3 mg(2.5 mg base)/3 mL nebu Inhale 3 mL as instructed every 6 hours as needed (dyspnea or wheezing). magnesium hydroxide (VEGA MILK OF MAGNESIA) 400 mg/5 mL suspension Take 30 mL by mouth daily at bedtime. just until BM occurs. Use 1-2 times a month. buprenorphine SL (SUBUTEX) 8 mg subl DISSOLVE 1 (ONE) AND ONE-HALF TABLET UNDER THE TONGUE DAILY [id number] ( 19) 29 mg iron- 1 mg Take 1 tablet by mouth once daily. tiotropium bromide (SPIRIVA RESPIMAT) 2.5 mcg/actuation inhaler Inhale 2 Puffs as instructed once daily. famotidine (PEPCID) 20 mg tablet take 1 tablet by mouth once daily if needed No current facility-administered medications for this visit. FAMILY HISTORY Problem Relation Age of Onset Psychiatry Mother schizophrenia/Bipolar No Known Problems Father No Known Problems Sister Diabetes Maternal Grandmother Cancer Maternal Grandfather Schizophrenia Maternal Grandfather Dementia Paternal Grandmother Cancer Paternal Grandfather ADD/ADHD Son Depression Son ADD/ADHD Son Social History Tobacco Use Smoking status: Former Smoker Years: 16.00 Types: Cigarettes Smokeless tobacco: Never Used Tobacco comment: vaping with Nicotine Vaping Use Vaping Use: current everyday user Substance Use Topics Alcohol use: Not Currently Comment: quit drinking 5 years ago Drug use: Not Currently Comment: Past history of marijuana, crack, and cocaine EXAM: BP 110/82 Pulse 93 Resp 18 Wt 70.3 kg (155 lb) LMP 09/09/2021 SpO2 98% BMI 27.46 kg/m PHYSICAL EXAM: General Appearance: Well appearing, alert, in no acute distress, well-hydrated, well nourished.. Skin: Skin color, texture, turgor normal, no suspicious rashes or lesions. Head: Normocephalic, no masses, lesions, tenderness or abnormalities. Eyes: Anicteric sclera. Extraocular movements are intact. . Lungs: Lungs clear to auscultation. No wheezing, rhonchi, rales.. Heart: RRR without murmur, gallop, or rubs. No ectopy. Abdomen: Abdomen soft, non-tender. Bowel sounds normal. No masses, organomegaly. Extremities: No deformities, edema, skin discoloration, clubbing or cyanosis. Good capillary refill. . Neurologic: Gait normal. ASSESSMENT/PLAN: 1. Chronic gastritis without bleeding, unspecified gastritis type - ICD9: 535.10, ICD10: K29.50 (primary diagnosis) Continue PPI daily in the mornings, can take pepcid at bedtime. She can use the carafate four times daily as needed. She should follow-up w/ GI, as planned. Likely will need scope. - FAMOTIDINE 20 MG TABLET - ONDANSETRON 4 MG DISINTEGRATING TABLET - SUCRALFATE 1 GRAM TABLET 2. Moderate persistent asthma, uncomplicated - ICD9: 493.90, ICD10: J45.40 Requests refill: - DULERA 200 MCG-5 MCG/ACTUATION HFA AEROSOL INHALER Encouraged to follow-up w/ pulmonology. 3. Chronic constipation - ICD9: 564.00, ICD10: K59.09 Encouraged to take miralax more regularly. Increase water intake. Discussed treatment plan and patient voices understanding. Patient's questions answered appropriately. Medications and potential side effects were discussed and patient voices understanding. Return to the office as scheduled or as needed for worsening/no improvement. Samira Boudreaux APRN.SULFIDE HEAD OPERATOR This note was partially generated using [employer] voice recognition system. Note was reviewed for accuracy. There may be minor misspellings or grammar miscues with [employer] voice recognition. documented in this encounter [facility] 09-27-2021 Miscellaneous Notes Patient phones requesting refills as follows: Pending Prescriptions Disp Refills FAMOTIDINE 20 MG TABLET 30 tablet 0 Sig: take 1 tablet by mouth once daily if needed KARIME: Yes VENKATA-08/02/21 Labs-08/02/21 NOV-10/19/21 med filled 09/15/21 ends 10/15/21 Please review and advise. Kat Flores LPN documented in this encounter [facility] 09-02-2021 Miscellaneous Notes Patient has been identified by name and date of : Yes Pending Prescriptions Disp Refills OMEPRAZOLE 20 MG CAPSULE,DELAYED RELEASE 90 capsule 0 Sig: take 2 capsules by mouth once daily , 1/2 HOUR BEFORE BREAKFAST KARIME: Yes Prilosec 07/19/2021 qty 90 no r/f Last OV 08/02/2021 Next OV 10/19/2021 RX INSTRUCTIONS: Shae Brooke LPN documented in this encounter [facility] 08-25-2021 Miscellaneous Notes Noted. Thank you. Frank Marques APRN.CNP See pt message. Jewell Navarrete Ma Please see mychart message documented in this encounter [facility] 08-09-2021 Miscellaneous Notes The following approved medication requests have been transmitted electronically. Pending Prescriptions Disp Refills ALBUTEROL SULFATE 2.5 MG/3 ML (0.083 %) SOLUTION FOR NEBULIZATION 3 mL 11 Sig: Use 3 mL via nebulizer every 4 hours as needed for wheezing/shortness of breath. Use over 5-15minutes. KARIME: No Frank Marques APRN.CNP documented in this encounter [facility] 08-09-2021 Miscellaneous Notes Message sent via my chart. Medication refused. Please have patient follow-up with dentist if concerned for dental infection. Frank Marques APRN.CNP The following approved medication requests have been transmitted electronically. Refused Prescriptions Disp Refills clindamycin (CLEOCIN) 300 mg capsule 40 capsule 0 Sig: Take 1 capsule by mouth four times daily. KARIME: No Refused By: FRANK MARQUES Reason for Refusal: A Refill not appropriate Frank Marques APRN.SULFIDE HEAD OPERATOR venkata-- 08/02/21 Last refill 06/01/21 40 with 0 refills Last labs--08/06/21 documented in this encounter [facility] 08-04-2021 History of Present illness Narrative CC: Bijal Johnston is a 36 year old female who presents to the office for follow up HPI: Seen in office on 06/01/21, at that time: Dental concerns, left upper molar, left lower molar, concerns for dental judy and infection. Had appt with dentist canceled due to her job. Is going to reschedule. No fevers or chills. Asthma/tobacco use hx, prn use of her albuterol, using her Advair medication, no new changes in symptoms. Migraine headaches, stable, taking imitrex Depressive disorder, long standing, is 4 months post after the of her daughter Zion Yanes. She is noticing that she is feeling a little overwhelmed and sometimes feeling down. States she has good support from her . She is working at [employer] at this time and enjoying it. No SI Or HI. She is wanting to restart her medication for mood. She also complains of concerns with ADD symptoms- difficulty with concentrating on 1 task at a time at work as well as around the home, starting 1 job then moving on and not ever completing it. Has been on Wellbutrin and Strattera for this in the past with SE to medication. She was restarted on Cymbalta, which she has recently stopped due to intolerance Currently Mood, depressive symptoms, improved with use of Prozac at 10 mg a day, does feel the dose could be increased to help her manage some of her stressors otherwise with her son and his adjustment difficulty after his siter Zion Yanes was born. 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 Would like to restart Stimulant. Is taking Subutex per Dr. Parkinson through [facility] and unsure if able to restart this type of medication. Hypothyroidism, wasn't taking her levothyroxine consistently before, now is taking the 100 mcg daily dose regularly PAST MEDICAL HISTORY Diagnosis Date abnormal pap Abn. 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 mention of hyperactivity 01/19/2005 Chlamydia Chronic low back pain Depression Encounter for insertion or removal of intrauterine contraceptive device 03/17/2006 Mirena Gonorrhea History of methamphetamine use + urine tox and pain panel 10/01/15 and 10/20/2015, no longer RX controlled Rx see phone note 10/28/2015 Infertility, female Migraine PMH - PAST MEDICAL HISTORY OF HGSIL Trauma Unspecified asthma(493.90) 01/19/2005 PAST SURGICAL HISTORY Procedure Laterality Date CONIZATION CERVIX W/WO D&C RPR ELTRD EXC 11/18 LEEP-Cervix INSERT INTRAUTERINE DEVICE 03/17/2006 Mirena, removed 11/2011 NEUROPLASTY &/TRANSPOS MEDIAN NRV CARPAL TUNNE 06/2011 Carpal tunnel decomp left PAST SURGICAL HISTORY OF 1984 BOWEL BLOCKAGE PAST SURGICAL HISTORY OF 1991 SPASTIC HEEL CORD LEFT CALF PAST SURGICAL HISTORY OF toe nail removed REPAIR PRIMARY OPEN/PRQ RUPTURED ACHILLES TENDON 05/01/2009 left achilles Current Outpatient Medications Medication Sig FLUoxetine (PROZAC) 20 mg capsule Take 1 capsule by mouth once daily. omeprazole (PRILOSEC) 20 mg capsule Take 2 capsules by mouth daily before breakfast. 1/2 hr before meal. DULERA 200-5 mcg/actuation inhaler inhale 2 puffs as directed twice a day levothyroxine (SYNTHROID) 100 mcg tablet Take 1 tablet by mouth daily before breakfast. cholecalciferol, Vitamin D3, (VITAMIN D3) 1,250 mcg (50,000 unit) cap capsule Take 1 capsule by mouth one time a week. clindamycin (CLEOCIN) 300 mg capsule Take 1 capsule by mouth four times daily. SUMAtriptan (IMITREX) 20 mg/actuation nasal spray Use 1 [place] in the nose once daily as needed for migraine headache (see administration instructions). fluticasone-salmeterol (ADVAIR DISKUS) 250-50 mcg/dose inhaler Inhale 1 Puff as instructed twice daily. Rinse and gargle mouth with water after each use. fluticasone (FLONASE) 50 mcg/actuation nasal spray Use 2 Sprays in each nostril once daily. Rinse mouth after use. albuterol (PROVENTIL) 2.5 mg /3 mL (0.083 %) nebulizer solution Use 3 mL via nebulizer every 4 hours as needed for wheezing/shortness of breath. Use over 5-15minutes. albuterol HFA (VENTOLIN HFA) 90 mcg/actuation inhaler Inhale 2 Puffs as instructed every 4 hours as needed for wheezing/shortness of breath. buprenorphine SL (SUBUTEX) 8 mg subl DISSOLVE 1 (ONE) AND ONE-HALF TABLET UNDER THE TONGUE DAILY tiotropium bromide (SPIRIVA RESPIMAT) 2.5 mcg/actuation inhaler Inhale 2 Puffs as instructed once daily. Norethindrone, Contraceptive, 0.35 mg tablet take 1 tablet by mouth once daily DULoxetine (CYMBALTA) 20 mg capsule Take 1 capsule by mouth once daily. For mood ipratropium-albuterol (DUONEB) 0.5 mg-3 mg(2.5 mg base)/3 mL nebu Inhale 3 mL as instructed every 6 hours as needed (dyspnea or wheezing). magnesium hydroxide (VEGA MILK OF MAGNESIA) 400 mg/5 mL suspension Take 30 mL by mouth daily at bedtime. just until BM occurs. Use 1-2 times a month. [id number] acid ( 19) 29 mg iron- 1 mg Take 1 tablet by mouth once daily. No current facility-administered medications for this visit. ALLERGIES Allergen Reactions Penicillins Swelling, Itching Ultram [Tramadol Hc* made me paranoid Social History Tobacco Use Smoking status: Former Smoker Years: 16.00 Types: Cigarettes Smokeless tobacco: Never Used Tobacco comment: vaping with Nicotine Vaping Use Vaping Use: current everyday user Substance Use Topics Alcohol use: Not Currently Comment: quit drinking 5 years ago Drug use: Not Currently Comment: Past history of marijuana, crack, and cocaine ROS: See HPI PE: BP 100/60 Pulse 64 Temp (Src) 99 (Left Tympanic) Resp 16 Wt 156 lb (70.8kg) LMP 05/07/2021 Gen: A&OX3, NAD, non-toxic appearing HEENT: PERRLA, EOMs intact b/l, nares without drainage, pharynx without erythema, exudate, lesions, or drainage. Uvula midline. Neck: No LAD, no thyromegaly, no meningismus. CV: RRR, no murmur Lungs: CTA b/l, no wheezing Skin: No rashes, lesions, or wounds on exposed skin. No edema, normal peripheral pulses ASSESSMENT/PLAN: 1. Anxiety with depression - ICD9: 300.4, ICD10: F41.8 (primary diagnosis) - increase dose of prozac from 10 mg to 20 mg a day, likely multifactorial with social situation and stressors as a parent and working at [employer]. - FLUOXETINE 20 MG CAPSULE - FLUOXETINE 20 MG CAPSULE 2. Hypothyroidism, acquired - ICD9: 244.9, ICD10: E03.9 - Instructed patient on importance of taking on an empty stomach either first thing in the morning or at bedtime. - continue current dose of Synthroid 0.100 mg Stable - Behavioral intervention, - Eat well program and - Continue current medications - TSH BLD - T4 FREE/FREE THYROX - T3 FREE BLD 3. Attention deficit disorder (ADD) without hyperactivity - ICD9: 314.00, ICD10: F98.8 - check urine tox screen today, will need to d/w Dr. Parkinson regarding if she is able to even consider trial of a stimulant medication with her history of methamphetamine abuse and being on Subutex currently - TOX SCREEN ROUT UR - PAIN PANEL, UR QUANT 4. Vitamin D deficiency - ICD9: 268.9, ICD10: E55.9 - VITAMIN D 25 HYDROXY 5. Concentration deficit - ICD9: 799.51, ICD10: R41.840 - check urine tox screen today, will need to d/w Dr. Parkinson regarding if she is able to even consider trial of a stimulant medication with her history of methamphetamine abuse and being on Subutex currently 6. History of methamphetamine abuse (HCC) - ICD9: 305.73, ICD10: F15.11 - check urine tox screen today, will need to d/w Dr. Parkinson regarding if she is able to even consider trial of a stimulant medication with her history of methamphetamine abuse and being on Subutex currently Rui Magaña DO Return if no improvement. Follow up with Rui Magaña DO. To ER if develops chest pain, shortness of breath Discussed risks, benefits, alternatives, and potential side effects of medications. Patient/Guardian expressed understanding and agreed with the plan. See patient instructions. Rui Magaña DO [address] [place] [address] documented in this encounter [facility] 07-19-2021 Miscellaneous Notes The following approved medication requests have been transmitted electronically. Signed Prescriptions Disp Refills omeprazole (PRILOSEC) 20 mg capsule 90 capsule 0 Sig: Take 2 capsules by mouth daily before breakfast. 1/2 hr before meal. KARIME: No Authorizing Provider: FRANK MARQUES APRN.SARAI Patient has been identified by name and date of : Yes Patient phones for refill(s): Pending Prescriptions Disp Refills OMEPRAZOLE 20 MG CAPSULE,DELAYED RELEASE 90 capsule 0 Sig: Take 1 capsule by mouth daily before breakfast. 1/2 hr before meal. KARIME: No Date of last office visit in primary care: 06/01/21 next apt 08/02/21 Last 2 Encounter Wt Readings: Date: Wt: 06/01/2021 71.7 kg (158 lb) 04/27/2021 72.8 kg (160 lb 6.4 oz) Previous labs/tests for medication: Not applicable Please advise. Thank you. Keyanna Brooke LPN documented in this encounter [facility] documented as of this encounter (statuses as of 07/19/2021) [facility] History of Past illness Narrative* Problem Noted Date Resolved Date Supervision of high risk in [facility] 11/25/2020 04/21/2021 Depression during 11/11/202008/2021 Antepartum multigravida of advanced maternal age 0306/18/2020 04/21/2021 Overview: 06/18/2020atient is 35 years old. Advanced Maternal age discussed. Pt refused information on Genetic Amniocentesis and [facility]. Patient desires nuchal ultrasound and [id number] testing. 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 She is currently on Suboxone and is treated by Dr. Parkinson at [facility]. She states she has been sober for over 2 years. She states she has had custody of both of her children for the past year. I have advised patient that we may do random drug screens during and when she presents to the hospital in labor and delivery. I have also discussed with her the risks of using drugs during . She states that her has relapsed recently and is currently in intensive outpatient treatment at [facility]. She states that he does not think that this is his baby. She desires paternity testing at .[facility] Patient request for diagnostic testing 04/21/2021 Overview: 06/18/2020 Patient requests paternity testing at . [facility] Quit smoking 06/18/2020 04/21/2021 Overview: 06/18/2020t recently quit smoking May 17. She stopped vaping when she found out she was . Discussed risks of smoking during and advised pt to continue not smoking. TKRN Nausea and vomiting in 06/18/2020 04/21/2021 Overview: 06/18/2020atient is complaining of nausea and occasional vomiting in . Dietary considerations discussed . Patient has been taking the Vitamin B6 recommended and states she gets little relief. See phone note dated June 18. Advised patient to call/come in if she is unable to keep any food or fluids down in a 24-hour period. Graciela Dixon RN Positive GBS test 09/10/2014 06/08/2020 Overview: Swelling in face with pcn, will most likely need vanc in labor- JV Supervision of high-risk 02/27/2014 06/08/2020 Overview: 08/18/14 - Sterilization consult - Title 19 signed, filed in chartroom. Cheyanne Skinner confidential investigator exposure during first trimester of pr egnancy 02/27/2014 10/06/2020 Overview: 02/27/14 - patient has used xanax, vicodin, adderall & imitrex in the , will stop all those meds except the vicodin which she was encouraged to use sparingly to avoid addiction - KJ History of cervical LEEP bio psy affecting care of mother, antepartum 02/27/2014 04/21/2021 Overview: 06/18/2020.Pt has a history of Leep done in 2004. She states she did not have any labor with her prior pregnancies. Discussed increased risk of labor and importance of reporting any symptoms should they develop.Signs and symptoms of PTL discussed. TKRN Tobacco use complicating 02/27/2014 10/06/2020 Overview: 07/10/14: smoking 5 cig per day. Danisha Miller CNP 02/27/14 - discussed risks & encouraged cessation - KJ Controlled substance agreement signed 12/02/2013 06/08/2020 Overview: Urine pain panel and tox screen deviation. We will no longer prescribe controlled substances for her. See phone note 10/28/2015. Lumbago 02/13/2013 04/21/2021 Sciatica 09/14/2012 04/21/2021 Routine general medical exam ination at a health care facility 06/08/2009 11/23/2011 Overview: 06/08/2009, from Dr. Smith Routine gynecological examination 06/08/2009 11/23/2011 Restless legs syndrome 06/08/2009 Overview: Requip -- with good response most nights Pain in limb 11/12/2008 06/08/2009 Nontraumatic rupture of other tendons of foot an d ankle 11/12/2008 10/13/2011 Onychia and paronychia of toe 06/06/2005 documented as of this encounter (statuses as of 08/04/2021) [facility] History of Past illness Narrative* Problem Noted Date Resolved Date Supervision of high risk in [facility] 11/25/2020 04/21/2021 Depression during 11/11/202008/2021 Antepartum multigravida of advanced maternal age 0306/18/2020 04/21/2021 Overview: 06/18/2020atient is 35 years old. Advanced Maternal age discussed. Pt refused information on Genetic Amniocentesis and CVS. Patient desires nuchal ultrasound and [id number] testing. RN complicated by Suboxone maintenance, a ntepartum 06/18/2020 04/21/2021 Overview: 06/18/2020atient has a history of methamphetamine use. She is currently on Suboxone and is treated by Dr. Parkinson at [facility]. She states she has been sober for over 2 years. She states she has had custody of both of her children for the past year. I have advised patient that we may do random drug screens during and when she presents to the hospital in labor and delivery. I have also discussed with her the risks of using drugs during . She states that her has relapsed recently and is currently in intensive outpatient treatment at [facility]. She states that he does not think that this is his baby. She desires paternity testing at [facility] Patient request for diagnostic testing 04/21/2021 Overview: 06/18/2020 Patient requests paternity testing at . [facility] Quit smoking 06/18/2020 04/21/2021 Overview: 06/18/2020t recently quit smoking May 17. She stopped vaping when she found out she was . Discussed risks of smoking during and advised pt to continue not smoking. TKRN Nausea and vomiting in 06/18/2020 04/21/2021 Overview: 06/18/2020atient is complaining of nausea and occasional vomiting in . Dietary considerations discussed . Patient has been taking the Vitamin B6 recommended and states she gets little relief. See phone note dated June 18. Advised patient to call/come in if she is unable to keep any food or fluids down in a 24-hour period. Graciela Dixon RN Positive GBS test 09/10/2014 06/08/2020 Overview: Swelling in face with pcn, will most likely need vanc in labor- JV Supervision of high-risk 02/27/2014 06/08/2020 Overview: 08/18/14 - Sterilization consult - Title 19 signed, filed in chartroom. Cheyanne Skinner RN Medication exposure during first trimester of pr egnancy 02/27/2014 10/06/2020 Overview: 02/27/14 - patient has used xanax, vicodin, adderall & imitrex in the , will stop all those meds except the vicodin which she was encouraged to use sparingly to avoid addiction - KJ History of cervical LEEP bio psy affecting care of mother, antepartum 02/27/2014 04/21/2021 Overview: 06/18/2020.Pt has a history of Leep done in 2003. She states she did not have any labor with her prior pregnancies. Discussed increased risk of labor and importance of reporting any symptoms should they develop.Signs and symptoms of PTL discussed. TKRN Tobacco use complicating 02/27/2014 10/06/2020 Overview: 07/10/14: smoking 5 cig per day. Danisha Miller CNP 02/27/14 - discussed risks & encouraged cessation - KJ Controlled substance agreement signed 12/02/2013 06/08/2020 Overview: Urine pain panel and tox screen deviation. We will no longer prescribe controlled substances for her. See phone note 10/28/2015. Lumbago 02/13/2013 04/21/2021 Sciatica 09/14/2012 04/21/2021 Routine general medical exam ination at a health care facility 06/08/2009 11/23/2011 Overview: 06/08/2009, from Dr. Smith Routine gynecological examination 06/08/2009 11/23/2011 Restless legs syndrome 06/08/2009 6 Overview: Requip -- with good response most nights Pain in limb 11/12/2008 06/08/2009 Nontraumatic rupture of other tendons of foot an d ankle 11/12/2008 10/13/2011 Onychia and paronychia of toe 06/06/2005 documented as of this encounter (statuses as of 08/09/2021) [facility] History of Past illness Narrative* Problem Noted Date Resolved Date Supervision of [facility] risk in [facility] 11/25/2020 04/21/2021 Depression during 11/11/2020/08/2021 Antepartum multigravida of advanced maternal age 0306/18/2020 04/21/2021 Overview: 06/18/2020atient is 35 years old. Advanced Maternal age discussed. Pt refused information on Genetic Amniocentesis and CVS. Patient desires nuchal ultrasound and [id number] testing. 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 She is currently on Suboxone and is treated by Dr. Parkinson at [facility]. She states she has been sober for over 2 years. She states she has had custody of both of her children for the past year. I have advised patient that we may do random drug screens during and when she presents to the hospital in labor and delivery. I have also discussed with her the risks of using drugs during . She states that her has relapsed recently and is currently in intensive outpatient treatment at [facility]. She states that he does not think that this is his baby. She desires paternity testing at .[facility] Patient request for diagnostic testing 04/21/2021 Overview: 06/18/2020 Patient requests paternity testing at . [facility] Quit smoking 06/18/2020 04/21/2021 Overview: 06/18/2020t recently quit smoking May 17. She stopped vaping when she found out she was . Discussed risks of smoking during and advised pt to continue not smoking. TKRN Nausea and vomiting in 06/18/2020 04/21/2021 Overview: 06/18/2020atient is complaining of nausea and occasional vomiting in . Dietary considerations discussed . Patient has been taking the Vitamin B6 recommended and states she gets little relief. See phone note dated June 18. Advised patient to call/come in if she is unable to keep any food or fluids down in a 24-hour period. Graciela Dixon RN Positive GBS test 09/10/2014 06/08/2020 Overview: Swelling in face with pcn, will most likely need vanc in labor- JV Supervision of high-risk 02/27/2014 06/08/2020 Overview: 08/18/14 - Sterilization consult - Title 19 signed, filed in chartroom. Cheyanne Skinner RN Medication exposure during first trimester of pr egnancy 02/27/2014 10/06/2020 Overview: 02/27/14 - patient has used xanax, vicodin, adderall & imitrex in the , will stop all those meds except the vicodin which she was encouraged to use sparingly to avoid addiction - KJ History of cervical LEEP bio psy affecting care of mother, antepartum 02/27/2014 04/21/2021 Overview: 06/18/2020.Pt has a history of Leep done in 2004. She states she did not have any labor with her prior pregnancies. Discussed increased risk of labor and importance of reporting any symptoms should they develop.Signs and symptoms of PTL discussed. TKRN Tobacco use complicating 02/27/2014 10/06/2020 Overview: 07/10/14: smoking 5 cig per day. Danisha Miller CNP 02/27/14 - discussed risks & encouraged cessation - KJ Controlled substance agreement signed 12/02/2013 06/08/2020 Overview: Urine pain panel and tox screen deviation. We will no longer prescribe controlled substances for her. See phone note 10/28/2015. Lumbago 02/13/2013 04/21/2021 Sciatica 09/14/2012 04/21/2021 Routine general medical exam ination at a health care facility 06/08/2009 11/23/2011 Overview: 06/08/2009, from Dr. Smith Routine gynecological examination 06/08/2009 11/23/2011 Restless legs syndrome 06/08/2009 6 Overview: Requip -- with good response most nights Pain in limb 11/12/2008 06/08/2009 Nontraumatic rupture of other tendons of foot an d ankle 11/12/2008 10/13/2011 Onychia and paronychia of toe 06/06/2005 documented as of this encounter (statuses as of 08/09/2021) [facility] History of Past illness Narrative* Problem Noted Date Resolved Date Supervision of high risk in [facility] 11/25/2020 04/21/2021 Depression during 11/11/2020 01/0 08/2021 Antepartum multigravida of advanced maternal age 0306/18/2020 04/21/2021 Overview: 06/18/2020atient is 35 years old. Advanced Maternal age discussed. Pt refused information on Genetic Amniocentesis and CVS. Patient desires nuchal ultrasound and [id number] testing. 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 She is currently on Suboxone and is treated by Dr. Parkinson at [facility]. She states she has been sober for over 2 years. She states she has had custody of both of her children for the past year. I have advised patient that we may do random drug screens during and when she presents to the hospital in labor and delivery. I have also discussed with her the risks of using drugs during . She states that her has relapsed recently and is currently in intensive outpatient treatment at [facility]. She states that he does not think that this is his baby. She desires paternity testing at .[facility] Patient request for diagnostic testing 04/21/2021 Overview: 06/18/2020 Patient requests paternity testing at . [facility] Quit smoking 06/18/2020 04/21/2021 Overview: 06/18/2020t recently quit smoking May 17. She stopped vaping when she found out she was . Discussed risks of smoking during and advised pt to continue not smoking. TKRN Nausea and vomiting in 06/18/2020 04/21/2021 Overview: 06/18/2020atient is complaining of nausea and occasional vomiting in . Dietary considerations discussed . Patient has been taking the Vitamin B6 recommended and states she gets little relief. See phone note dated June 18. Advised patient to call/come in if she is unable to keep any food or fluids down in a 24-hour period. Graciela Dixon RN Positive GBS test 09/10/2014 06/08/2020 Overview: Swelling in face with pcn, will most likely need vanc in labor- JV Supervision of high-risk 02/27/2014 06/08/2020 Overview: 08/18/14 - Sterilization consult - Title 19 signed, filed in chartroom. Cheyanne Skinner confidential investigator exposure during first trimester of pr egnancy 02/27/2014 10/06/2020 Overview: 02/27/14 - patient has used xanax, vicodin, adderall & imitrex in the , will stop all those meds except the vicodin which she was encouraged to use sparingly to avoid addiction - KJ History of cervical LEEP bio psy affecting care of mother, antepartum 02/27/2014 04/21/2021 Overview: 06/18/2020.Pt has a history of Leep done in 2004. She states she did not have any labor with her prior pregnancies. Discussed increased risk of labor and importance of reporting any symptoms should they develop.Signs and symptoms of PTL discussed. TKRN Tobacco use complicating 02/27/2014 10/06/2020 Overview: 07/10/14: smoking 5 cig per day. Danisha Miller CNP 02/27/14 - discussed risks & encouraged cessation - KJ Controlled substance agreement signed 12/02/2013 06/08/2020 Overview: Urine pain panel and tox screen deviation. We will no longer prescribe controlled substances for her. See phone note 10/28/2015. Lumbago 02/13/2013 04/21/2021 Sciatica 09/14/2012 04/21/2021 Routine general medical exam ination at a health care facility 06/08/2009 11/23/2011 Overview: 06/08/2009, from Dr. Smith Routine gynecological examination 06/08/2009 11/23/2011 Restless legs syndrome 06/08/2009 6 Overview: Requip -- with good response most nights Pain in limb 11/12/2008 06/08/2009 Nontraumatic rupture of other tendons of foot an d ankle 11/12/2008 10/13/2011 Onychia and paronychia of toe 06/06/2005 documented as of this encounter (statuses as of 08/09/2021) [facility]08-11-2021 History of Past illness Narrative* Problem Noted Date Resolved Date Supervision of high risk in [facility] 11/25/2020 04/21/2021 Depression during 11/11/202008/2021 Antepartum multigravida of advanced maternal age 0306/18/2020 04/21/2021 Overview: 06/18/2020atient is 35 years old. Advanced Maternal age discussed. Pt refused information on Genetic Amniocentesis and [facility]. Patient desires nuchal ultrasound and [id number] testing. 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 She is currently on Suboxone and is treated by Dr. Parkinson at [facility]. She states she has been sober for over 2 years. She states she has had custody of both of her children for the past year. I have advised patient that we may do random drug screens during and when she presents to the hospital in labor and delivery. I have also discussed with her the risks of using drugs during . She states that her has relapsed recently and is currently in intensive outpatient treatment at [facility]. She states that he does not think that this is his baby. She desires paternity testing at .TKRN Patient request for diagnostic testing 04/21/2021 Overview: 06/18/2020 Patient requests paternity testing at . TKRN Quit smoking 06/18/2020 04/21/2021 Overview: 06/18/2020t recently quit smoking May 17. She stopped vaping when she found out she was . Discussed risks of smoking during and advised pt to continue not smoking. TKRN Nausea and vomiting in 06/18/2020 04/21/2021 Overview: 06/18/2020atient is complaining of nausea and occasional vomiting in . Dietary considerations discussed . Patient has been taking the Vitamin B6 recommended and states she gets little relief. See phone note dated June 18. Advised patient to call/come in if she is unable to keep any food or fluids down in a 24-hour period. Graciela Dixon RN Positive GBS test 09/10/2014 06/08/2020 Overview: Swelling in face with pcn, will most likely need vanc in labor- JV Supervision of high-risk 02/27/2014 06/08/2020 Overview: 08/18/14 - Sterilization consult - Title 19 signed, filed in chartroom. Cheyanne Skinner RN Medication exposure during first trimester of pr egnancy 02/27/2014 10/06/2020 Overview: 02/27/14 - patient has used xanax, vicodin, adderall & imitrex in the , will stop all those meds except the vicodin which she was encouraged to use sparingly to avoid addiction - KJ History of cervical LEEP bio psy affecting care of mother, antepartum 02/27/2014 04/21/2021 Overview: 06/18/2020.Pt has a history of Leep done in 2004. She states she did not have any labor with her prior pregnancies. Discussed increased risk of labor and importance of reporting any symptoms should they develop.Signs and symptoms of PTL discussed. TKRN Tobacco use complicating 02/27/2014 10/06/2020 Overview: 07/10/14: smoking 5 cig per day. Danisha Miller CNP 02/27/14 - discussed risks & encouraged cessation - KJ Controlled substance agreement signed 12/02/2013 06/08/2020 Overview: Urine pain panel and tox screen deviation. We will no longer prescribe controlled substances for her. See phone note 10/28/2015. Lumbago 02/13/2013 04/21/2021 Sciatica 09/14/2012 04/21/2021 Routine general medical exam ination at a health care facility 06/08/2009 11/23/2011 Overview: 06/08/2009, from Dr. Smith Routine gynecological examination 06/08/2009 11/23/2011 Restless legs syndrome 06/08/2009 6 Overview: Requip -- with good response most nights Pain in limb 11/12/2008 06/08/2009 Nontraumatic rupture of other tendons of foot an d ankle 11/12/2008 10/13/2011 Onychia and paronychia of toe 06/06/2005 documented as of this encounter (statuses as of 08/24/2021) [facility]08-[facility]21 History of Past illness Narrative* Problem Noted Date Resolved Date Supervision of high risk in [facility] 11/25/2020 04/21/2021 Depression during 11/11/202008/2021 Antepartum multigravida of advanced maternal age 0306/18/2020 04/21/2021 Overview: 06/18/2020atient is 35 years old. Advanced Maternal age discussed. Pt refused information on Genetic Amniocentesis and [facility]. Patient desires nuchal ultrasound and [id number] testing. 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 She is currently on Suboxone and is treated by Dr. Parkinson at [facility]. She states she has been sober for over 2 years. She states she has had custody of both of her children for the past year. I have advised patient that we may do random drug screens during and when she presents to the hospital in labor and delivery. I have also discussed with her the risks of using drugs during . She states that her has relapsed recently and is currently in intensive outpatient treatment at [facility]. She states that he does not think that this is his baby. She desires paternity testing at .TKRN Patient request for diagnostic testing 04/21/2021 Overview: 06/18/2020 Patient requests paternity testing at . TKRN Quit smoking 06/18/2020 04/21/2021 Overview: 06/18/2020t recently quit smoking May 17. She stopped vaping when she found out she was . Discussed risks of smoking during and advised pt to continue not smoking. TKRN Nausea and vomiting in 06/18/2020 04/21/2021 Overview: 06/18/2020atient is complaining of nausea and occasional vomiting in . Dietary considerations discussed . Patient has been taking the Vitamin B6 recommended and states she gets little relief. See phone note dated June 18. Advised patient to call/come in if she is unable to keep any food or fluids down in a 24-hour period. Graciela Dixon RN Positive GBS test 09/10/2014 06/08/2020 Overview: Swelling in face with pcn, will most likely need vanc in labor- JV Supervision of high-risk 02/27/2014 06/08/2020 Overview: 08/18/14 - Sterilization consult - Title 19 signed, filed in chartroom. Cheyanne Skinner RN Medication exposure during first trimester of pr egnancy 02/27/2014 10/06/2020 Overview: 02/27/14 - patient has used xanax, vicodin, adderall & imitrex in the , will stop all those meds except the vicodin which she was encouraged to use sparingly to avoid addiction - KJ History of cervical LEEP bio psy affecting care of mother, antepartum 02/27/2014 04/21/2021 Overview: 06/18/2020.Pt has a history of Leep done in 2004. She states she did not have any labor with her prior pregnancies. Discussed increased risk of labor and importance of reporting any symptoms should they develop.Signs and symptoms of PTL discussed. TKRN Tobacco use complicating 02/27/2014 10/06/2020 Overview: 07/10/14: smoking 5 cig per day. Danisha Miller CNP 02/27/14 - discussed risks & encouraged cessation - KJ Controlled substance agreement signed 12/02/2013 06/08/2020 Overview: Urine pain panel and tox screen deviation. We will no longer prescribe controlled substances for her. See phone note 10/28/2015. Lumbago 02/13/2013 04/21/2021 Sciatica 09/14/2012 04/21/2021 Routine general medical exam ination at a health care facility 06/08/2009 11/23/2011 Overview: 06/08/2009, from Dr. Smith Routine gynecological examination 06/08/2009 11/23/2011 Restless legs syndrome 06/08/2009 6 Overview: Requip -- with good response most nights Pain in limb 11/12/2008 06/08/2009 Nontraumatic rupture of other tendons of foot an d ankle 11/12/2008 10/13/2011 Onychia and paronychia of toe 06/06/2005 documented as of this encounter (statuses as of 08/25/2021) [facility]08-11-2021 History of Past illness Narrative* Problem Noted Date Resolved Date Supervision of high risk in [facility] 11/25/2020 04/21/2021 Depression during 11/11/202008/2021 Antepartum multigravida of advanced maternal age 0306/18/2020 04/21/2021 Overview: 06/18/2020atient is 35 years old. Advanced Maternal age discussed. Pt refused information on Genetic Amniocentesis and [facility]. Patient desires nuchal ultrasound and [id number] testing. 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 She is currently on Suboxone and is treated by Dr. Parkinson at [facility]. She states she has been sober for over 2 years. She states she has had custody of both of her children for the past year. I have advised patient that we may do random drug screens during and when she presents to the hospital in labor and delivery. I have also discussed with her the risks of using drugs during . She states that her has relapsed recently and is currently in intensive outpatient treatment at [facility]. She states that he does not think that this is his baby. She desires paternity testing at .TKRN Patient request for diagnostic testing 04/21/2021 Overview: 06/18/2020 Patient requests paternity testing at . TKRN Quit smoking 06/18/2020 04/21/2021 Overview: 06/18/2020t recently quit smoking May 17. She stopped vaping when she found out she was . Discussed risks of smoking during and advised pt to continue not smoking. TKRN Nausea and vomiting in 06/18/2020 04/21/2021 Overview: 06/18/2020atient is complaining of nausea and occasional vomiting in . Dietary considerations discussed . Patient has been taking the Vitamin B6 recommended and states she gets little relief. See phone note dated June 18. Advised patient to call/come in if she is unable to keep any food or fluids down in a 24-hour period. Graciela Dixon RN Positive GBS test 09/10/2014 06/08/2020 Overview: Swelling in face with pcn, will most likely need vanc in labor- JV Supervision of high-risk 02/27/2014 06/08/2020 Overview: 08/18/14 - Sterilization consult - Title 19 signed, filed in chartroom. Cheyanne Skinner confidential investigator exposure during first trimester of pr egnancy 02/27/2014 10/06/2020 Overview: 02/27/14 - patient has used xanax, vicodin, adderall & imitrex in the , will stop all those meds except the vicodin which she was encouraged to use sparingly to avoid addiction - KJ History of cervical LEEP bio psy affecting care of mother, antepartum 02/27/2014 04/21/2021 Overview: 06/18/2020.Pt has a history of Leep done in 2003. She states she did not have any labor with her prior pregnancies. Discussed increased risk of labor and importance of reporting any symptoms should they develop.Signs and symptoms of PTL discussed. TKRN Tobacco use complicating 02/27/2014 10/06/2020 Overview: 07/10/14: smoking 5 cig per day. Danisha Miller CNP 02/27/14 - discussed risks & encouraged cessation - KJ Controlled substance agreement signed 12/02/2013 06/08/2020 Overview: Urine pain panel and tox screen deviation. We will no longer prescribe controlled substances for her. See phone note 10/28/2015. Lumbago 02/13/2013 04/21/2021 Sciatica 09/14/2012 04/21/2021 Routine general medical exam ination at a health care facility 06/08/2009 11/23/2011 Overview: 06/08/2009, from Dr. Smith Routine gynecological examination 06/08/2009 11/23/2011 Restless legs syndrome 06/08/2009 6 Overview: Requip -- with good response most nights Pain in limb 11/12/2008 06/08/2009 Nontraumatic rupture of other tendons of foot an d ankle 11/12/2008 10/13/2011 Onychia and paronychia of toe 06/06/2005 documented as of this encounter (statuses as of 09/03/2021) [facility]08-[facility]21 History of Past illness Narrative* Problem Noted Date Resolved Date Supervision of high risk in [facility] 11/25/2020 04/21/2021 Depression during 11/11/202008/2021 Antepartum multigravida of advanced maternal age 0306/18/2020 04/21/2021 Overview: 06/18/2020atient is 35 years old. Advanced Maternal age discussed. Pt refused information on Genetic Amniocentesis and [facility]. Patient desires nuchal ultrasound and testing. 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 She is currently on Suboxone and is treated by Dr. Parkinson at [facility]. She states she has been sober for over 2 years. She states she has had custody of both of her children for the past year. I have advised patient that we may do random drug screens during and when she presents to the hospital in labor and delivery. I have also discussed with her the risks of using drugs during . She states that her has relapsed recently and is currently in intensive outpatient treatment at [facility]. She states that he does not think that this is his baby. She desires paternity testing at .TKRN Patient request for diagnostic testing 04/21/2021 Overview: 06/18/2020 Patient requests paternity testing at . TKRN Quit smoking 06/18/2020 04/21/2021 Overview: 06/18/2020t recently quit smoking May 17. She stopped vaping when she found out she was . Discussed risks of smoking during and advised pt to continue not smoking. TKRN Nausea and vomiting in 06/18/2020 04/21/2021 Overview: 03/04/2021Patient is complaining of nausea and occasional vomiting in . Dietary considerations discussed . Patient has been taking the Vitamin B6 recommended and states she gets little relief. See phone note dated June 18. Advised patient to call/come in if she is unable to keep any food or fluids down in a 24-hour period. Graciela Dixon RN Positive GBS test 09/10/2014 06/08/2020 Overview: Swelling in face with pcn, will most likely need vanc in labor- JV Supervision of high-risk 02/27/2014 06/08/2020 Overview: 08/18/14 - Sterilization consult - Title 19 signed, filed in chartroom. Cheyanne Skinner confidential investigator exposure during first trimester of pr egnancy 02/27/2014 10/06/2020 Overview: 02/27/14 - patient has used xanax, vicodin, adderall & imitrex in the , will stop all those meds except the vicodin which she was encouraged to use sparingly to avoid addiction - KJ History of cervical LEEP bio psy affecting care of mother, antepartum 02/27/2014 04/21/2021 Overview: 06/18/2020.Pt has a history of Leep done in 2004. She states she did not have any labor with her prior pregnancies. Discussed increased risk of labor and importance of reporting any symptoms should they develop.Signs and symptoms of PTL discussed. TKRN Tobacco use complicating 02/27/2014 10/06/2020 Overview: 07/10/14: smoking 5 cig per day. Danisha Miller CNP 02/27/14 - discussed risks & encouraged cessation - KJ Controlled substance agreement signed 12/02/2013 06/08/2020 Overview: Urine pain panel and tox screen deviation. We will no longer prescribe controlled substances for her. See phone note 10/28/2015. Lumbago 02/13/2013 04/21/2021 Sciatica 09/14/2012 04/21/2021 Routine general medical exam ination at a health care facility 06/08/2009 11/23/2011 Overview: 06/08/2009, from Dr. Smith Routine gynecological examination 06/08/2009 11/23/2011 Restless legs syndrome 06/08/2009 6 Overview: Requip -- with good response most nights Pain in limb 11/12/2008 06/08/2009 Nontraumatic rupture of other tendons of foot an d ankle 11/12/2008 10/13/2011 Onychia and paronychia of toe 06/06/2005 documented as of this encounter (statuses as of 09/27/2021) [facility]08-[facility] History of Past illness Narrative* Problem Noted Date Resolved Date Supervision of high risk in [facility] 11/25/2020 04/21/2021 Depression during 11/11/202008/2021 Antepartum multigravida of advanced maternal age 0306/18/2020 04/21/2021 Overview: 06/18/2020atient is 35 years old. Advanced Maternal age discussed. Pt refused information on Genetic Amniocentesis and [facility]. Patient desires nuchal ultrasound and [id number] testing. 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 She is currently on Suboxone and is treated by Dr. Parkinosn at [facility]. She states she has been sober for over 2 years. She states she has had custody of both of her children for the past year. I have advised patient that we may do random drug screens during and when she presents to the hospital in labor and delivery. I have also discussed with her the risks of using drugs during . She states that her has relapsed recently and is currently in intensive outpatient treatment at [facility]. She states that he does not think that this is his baby. She desires paternity testing at [facility] Patient request for diagnostic testing 04/21/2021 Overview: 06/18/2020 Patient requests paternity testing at . TKRN Quit smoking 06/18/2020 04/21/2021 Overview: 06/18/2020t recently quit smoking May 17. She stopped vaping when she found out she was . Discussed risks of smoking during and advised pt to continue not smoking. TKRN Nausea and vomiting in 06/18/2020 04/21/2021 Overview: 06/18/2020atient is complaining of nausea and occasional vomiting in . Dietary considerations discussed . Patient has been taking the Vitamin B6 recommended and states she gets little relief. See phone note dated June 18. Advised patient to call/come in if she is unable to keep any food or fluids down in a 24-hour period. Graciela Dixon RN Positive GBS test 09/10/2014 06/08/2020 Overview: Swelling in face with pcn, will most likely need vanc in labor- JV Supervision of high-risk 02/27/2014 06/08/2020 Overview: 08/18/14 - Sterilization consult - Title 19 signed, filed in chartroom. Cheyanne Skinner RN Medication exposure during first trimester of pr egnancy 02/27/2014 10/06/2020 Overview: 02/27/14 - patient has used xanax, vicodin, adderall & imitrex in the , will stop all those meds except the vicodin which she was encouraged to use sparingly to avoid addiction - KJ History of cervical LEEP bio psy affecting care of mother, antepartum 02/27/2014 04/21/2021 Overview: 06/18/2020.Pt has a history of Leep done in 2003. She states she did not have any labor with her prior pregnancies. Discussed increased risk of labor and importance of reporting any symptoms should they develop.Signs and symptoms of PTL discussed. TKRN Tobacco use complicating 02/27/2014 10/06/2020 Overview: 07/10/14: smoking 5 cig per day. Danisha Miller CNP 02/27/14 - discussed risks & encouraged cessation - Controlled substance agreement signed 12/02/2013 06/08/2020 Overview: Urine pain panel and tox screen deviation. We will no longer prescribe controlled substances for her. See phone note 10/28/2015. Lumbago 02/13/2013 04/21/2021 Sciatica 09/14/2012 04/21/2021 Routine general medical exam ination at a health care facility 06/08/2009 11/23/2011 Overview: 06/08/2009, from Dr. Smith Routine gynecological examination 06/08/2009 11/23/2011 Restless legs syndrome 06/08/2009 6 Overview: Requip -- with good response most nights Pain in limb 11/12/2008 06/08/2009 Nontraumatic rupture of other tendons of foot an d ankle 11/12/2008 10/13/2011 Onychia and paronychia of toe 06/06/2005 documented as of this encounter (statuses as of 10/01/2021) [facility] History of Past illness Narrative* Problem Noted Date Resolved Date Supervision of high risk in [facility] 11/25/2020 04/21/2021 Depression during 11/11/202008/2021 Antepartum multigravida of advanced maternal age 0306/18/2020 04/21/2021 Overview: 06/18/2020atient is 35 years old. Advanced Maternal age discussed. Pt refused information on Genetic Amniocentesis and [facility]. Patient desires nuchal ultrasound and [id number] testing. 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 She is currently on Suboxone and is treated by Dr. Parkinson at [facility]. She states she has been sober for over 2 years. She states she has had custody of both of her children for the past year. I have advised patient that we may do random drug screens during and when she presents to the hospital in labor and delivery. I have also discussed with her the risks of using drugs during . She states that her has relapsed recently and is currently in intensive outpatient treatment at [facility]. She states that he does not think that this is his baby. She desires paternity testing at .TKRN Patient request for diagnostic testing 04/21/2021 Overview: 06/18/2020 Patient requests paternity testing at . TKRN Quit smoking 06/18/2020 04/21/2021 Overview: 06/18/2020t recently quit smoking May 17. She stopped vaping when she found out she was . Discussed risks of smoking during and advised pt to continue not smoking. TKRN Nausea and vomiting in 06/18/2020 04/21/2021 Overview: 06/18/2020atient is complaining of nausea and occasional vomiting in . Dietary considerations discussed . Patient has been taking the Vitamin B6 recommended and states she gets little relief. See phone note dated June 18. Advised patient to call/come in if she is unable to keep any food or fluids down in a 24-hour period. Graciela Dixon RN Positive GBS test 09/10/2014 06/08/2020 Overview: Swelling in face with pcn, will most likely need vanc in labor- JV Supervision of high-risk 02/27/2014 06/08/2020 Overview: 08/18/14 - Sterilization consult - Title 19 signed, filed in chartroom. Cheyanne Skinner RN Medication exposure during first trimester of pr egnancy 02/27/2014 10/06/2020 Overview: 02/27/14 - patient has used xanax, vicodin, adderall & imitrex in the , will stop all those meds except the vicodin which she was encouraged to use sparingly to avoid addiction - KJ History of cervical LEEP bio psy affecting care of mother, antepartum 02/27/2014 04/21/2021 Overview: 06/18/2020.Pt has a history of Leep done in 2003. She states she did not have any labor with her prior pregnancies. Discussed increased risk of labor and importance of reporting any symptoms should they develop.Signs and symptoms of PTL discussed. TKRN Tobacco use complicating 02/27/2014 10/06/2020 Overview: 07/10/14: smoking 5 cig per day. Danisha Miller CNP 02/27/14 - discussed risks & encouraged cessation - KJ Controlled substance agreement signed 12/02/2013 06/08/2020 Overview: Urine pain panel and tox screen deviation. We will no longer prescribe controlled substances for her. See phone note 10/28/2015. Lumbago 02/13/2013 04/21/2021 Sciatica 09/14/2012 04/21/2021 Routine general medical exam ination at a health care facility 06/08/2009 11/23/2011 Overview: 06/08/2009, from Dr. Smith Routine gynecological examination 06/08/2009 11/23/2011 Restless legs syndrome 06/08/2009 6 Overview: Requip -- with good response most nights Pain in limb 11/12/2008 06/08/2009 Nontraumatic rupture of other tendons of foot an d ankle 11/12/2008 10/13/2011 Onychia and paronychia of toe 06/06/2005 documented as of this encounter (statuses as of 10/26/2021) [facility] History of Past illness Narrative* Problem Noted Date Resolved Date Supervision of high risk [facility] 11/25/2020 04/21/2021 Depression during 11/11/202008/2021 Antepartum multigravida of advanced maternal age 0306/18/2020 04/21/2021 Overview: 06/18/2020atient is 35 years old. Advanced Maternal age discussed. Pt refused information on Genetic Amniocentesis and [facility]. Patient desires nuchal ultrasound and [id number] testing. 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 She is currently on Suboxone and is treated by Dr. Parkinson at [facility]. She states she has been sober for over 2 years. She states she has had custody of both of her children for the past year. I have advised patient that we may do random drug screens during and when she presents to the hospital in labor and delivery. I have also discussed with her the risks of using drugs during . She states that her has relapsed recently and is currently in intensive outpatient treatment at [facility]. She states that he does not think that this is his baby. She desires paternity testing at .[facility] Patient request for diagnostic testing 04/21/2021 Overview: 06/18/2020 Patient requests paternity testing at . [facility] Quit smoking 06/18/2020 04/21/2021 Overview: 06/18/2020t recently quit smoking May 17. She stopped vaping when she found out she was . Discussed risks of smoking during and advised pt to continue not smoking. TKR[facility] Nausea and vomiting in 06/18/2020 04/21/2021 Overview: 06/18/2020atient is complaining of nausea and occasional vomiting in . Dietary considerations discussed . Patient has been taking the Vitamin B6 recommended and states she gets little relief. See phone note dated June 18. Advised patient to call/come in if she is unable to keep any food or fluids down in a 24-hour period. Graciela Dixon RN Positive GBS test 09/10/2014 06/08/2020 Overview: Swelling in face with pcn, will most likely need vanc in labor- JV Supervision of high-risk 02/27/2014 06/08/2020 Overview: 08/18/14 - Sterilization consult - Title 19 signed, filed in chartroom. Cheyanne Skinner RN Medication exposure during first trimester of pr egnancy 02/27/2014 10/06/2020 Overview: 02/27/14 - patient has used xanax, vicodin, adderall & imitrex in the , will stop all those meds except the vicodin which she was encouraged to use sparingly to avoid addiction - KJ History of cervical LEEP bio psy affecting care of mother, antepartum 02/27/2014 04/21/2021 Overview: 06/18/2020.Pt has a history of Leep done in 2004. She states she did not have any labor with her prior pregnancies. Discussed increased risk of labor and importance of reporting any symptoms should they develop.Signs and symptoms of PTL discussed. TKRN Tobacco use complicating 02/27/2014 10/06/2020 Overview: 07/10/14: smoking 5 cig per day. Danisha Miller CNP 02/27/14 - discussed risks & encouraged cessation - KJ Controlled substance agreement signed 12/02/2013 06/08/2020 Overview: Urine pain panel and tox screen deviation. We will no longer prescribe controlled substances for her. See phone note 10/28/2015. Lumbago 02/13/2013 04/21/2021 Sciatica 09/14/2012 04/21/2021 Routine general medical exam ination at a health care facility 06/08/2009 11/23/2011 Overview: 06/08/2009, from Dr. Smith Routine gynecological examination 06/08/2009 11/23/2011 Restless legs syndrome 06/08/2009 6 Overview: Requip -- with good response most nights Pain in limb 11/12/2008 06/08/2009 Nontraumatic rupture of other tendons of foot an d ankle 11/12/2008 10/13/2011 Onychia and paronychia of toe 06/06/2005 documented as of this encounter (statuses as of 10/27/2021) [facility]08-11-2021 History of Past illness Narrative* Problem Noted Date Resolved Date Supervision of high risk in [facility] 11/25/2020 04/21/2021 Depression during 11/11/202008/2021 Antepartum multigravida of advanced maternal age 0306/18/2020 04/21/2021 Overview: 06/18/2020atient is 35 years old. Advanced Maternal age discussed. Pt refused information on Genetic Amniocentesis and [facility]. Patient desires nuchal ultrasound and [id number] testing. 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 She is currently on Suboxone and is treated by Dr. Parkinson at [facility]. She states she has been sober for over 2 years. She states she has had custody of both of her children for the past year. I have advised patient that we may do random drug screens during and when she presents to the hospital in labor and delivery. I have also discussed with her the risks of using drugs during . She states that her has relapsed recently and is currently in intensive outpatient treatment at [facility]. She states that he does not think that this is his baby. She desires paternity testing at .[facility] Patient request for diagnostic testing 04/21/2021 Overview: 06/18/2020 Patient requests paternity testing at . [facility] Quit smoking 06/18/2020 04/21/2021 Overview: 06/18/2020t recently quit smoking May 17. She stopped vaping when she found out she was . Discussed risks of smoking during and advised pt to continue not smoking. TKRN Nausea and vomiting in 06/18/2020 04/21/2021 Overview: 06/18/2020atient is complaining of nausea and occasional vomiting in . Dietary considerations discussed . Patient has been taking the Vitamin B6 recommended and states she gets little relief. See phone note dated June 18. Advised patient to call/come in if she is unable to keep any food or fluids down in a 24-hour period. Graciela Dixon RN Positive GBS test 09/10/2014 06/08/2020 Overview: Swelling in face with pcn, will most likely need vanc in labor- JV Supervision of high-risk 02/27/2014 06/08/2020 Overview: 08/18/14 - Sterilization consult - Title 19 signed, filed in chartroom. Cheyanne Skinner RN Medication exposure during first trimester of pr egnancy 02/27/2014 10/06/2020 Overview: 02/27/14 - patient has used xanax, vicodin, adderall & imitrex in the , will stop all those meds except the vicodin which she was encouraged to use sparingly to avoid addiction - KJ History of cervical LEEP bio psy affecting care of mother, antepartum 02/27/2014 04/21/2021 Overview: 06/18/2020.Pt has a history of Leep done in 2003. She states she did not have any labor with her prior pregnancies. Discussed increased risk of labor and importance of reporting any symptoms should they develop.Signs and symptoms of PTL discussed. TKRN Tobacco use complicating 02/27/2014 10/06/2020 Overview: 07/10/14: smoking 5 cig per day. Danisha Miller CNP 02/27/14 - discussed risks & encouraged cessation - KJ Controlled substance agreement signed 12/02/2013 06/08/2020 Overview: Urine pain panel and tox screen deviation. We will no longer prescribe controlled substances for her. See phone note 10/28/2015. Lumbago 02/13/2013 04/21/2021 Sciatica 09/14/2012 04/21/2021 Routine general medical exam ination at a health care facility 06/08/2009 11/23/2011 Overview: 06/08/2009, from Dr. Smith Routine gynecological examination 06/08/2009 11/23/2011 Restless legs syndrome 06/08/2009 6 Overview: Requip -- with good response most nights Pain in limb 11/12/2008 06/08/2009 Nontraumatic rupture of other tendons of foot an d ankle 11/12/2008 10/13/2011 Onychia and paronychia of toe 06/06/2005 documented as of this encounter (statuses as of 10/27/2021) [facility]08-11-2021 History of Past illness Narrative* Problem Noted Date Resolved Date Supervision of high risk in [facility] 11/25/2020 04/21/2021 Depression during 11/11/202008/2021 Antepartum multigravida of advanced maternal age 0306/18/2020 04/21/2021 Overview: 06/18/2020atient is 35 years old. Advanced Maternal age discussed. Pt refused information on Genetic Amniocentesis and [facility]. Patient desires nuchal ultrasound and [id number] testing. 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 She is currently on Suboxone and is treated by Dr. Parkinson at [facility]. She states she has been sober for over 2 years. She states she has had custody of both of her children for the past year. I have advised patient that we may do random drug screens during and when she presents to the hospital in labor and delivery. I have also discussed with her the risks of using drugs during . She states that her has relapsed recently and is currently in intensive outpatient treatment at [facility]. She states that he does not think that this is his baby. She desires paternity testing at .[facility] Patient request for diagnostic testing 04/21/2021 Overview: 06/18/2020 Patient requests paternity testing at . [facility] Quit smoking 06/18/2020 04/21/2021 Overview: 06/18/2020t recently quit smoking May 17. She stopped vaping when she found out she was . Discussed risks of smoking during and advised pt to continue not smoking. TKR[facility] Nausea and vomiting in 06/18/2020 04/21/2021 Overview: 06/18/2020atient is complaining of nausea and occasional vomiting in . Dietary considerations discussed . Patient has been taking the Vitamin B6 recommended and states she gets little relief. See phone note dated June 18. Advised patient to call/come in if she is unable to keep any food or fluids down in a 24-hour period. Graciela Dixon RN Positive GBS test 09/10/2014 06/08/2020 Overview: Swelling in face with pcn, will most likely need vanc in labor- JV Supervision of high-risk 02/27/2014 06/08/2020 Overview: 08/18/14 - Sterilization consult - Title 19 signed, filed in chartroom. Cheyanne Skinner RN Medication exposure during first trimester of pr egnancy 02/27/2014 10/06/2020 Overview: 02/27/14 - patient has used xanax, vicodin, adderall & imitrex in the , will stop all those meds except the vicodin which she was encouraged to use sparingly to avoid addiction - KJ History of cervical LEEP bio psy affecting care of mother, antepartum 02/27/2014 04/21/2021 Overview: 06/18/2020.Pt has a history of Leep done in 2004. She states she did not have any labor with her prior pregnancies. Discussed increased risk of labor and importance of reporting any symptoms should they develop.Signs and symptoms of PTL discussed. TKRN Tobacco use complicating 02/27/2014 10/06/2020 Overview: 07/10/14: smoking 5 cig per day. Danisha Miller CNP 02/27/14 - discussed risks & encouraged cessation - KJ Controlled substance agreement signed 12/02/2013 06/08/2020 Overview: Urine pain panel and tox screen deviation. We will no longer prescribe controlled substances for her. See phone note 10/28/2015. Lumbago 02/13/2013 04/21/2021 Sciatica 09/14/2012 04/21/2021 Routine general medical exam ination at a health care facility 06/08/2009 11/23/2011 Overview: 06/08/2009, from Dr. Smith Routine gynecological examination 06/08/2009 11/23/2011 Restless legs syndrome 06/08/2009 6 Overview: Requip -- with good response most nights Pain in limb 11/12/2008 06/08/2009 Nontraumatic rupture of other tendons of foot an d ankle 11/12/2008 10/13/2011 Onychia and paronychia of toe 06/06/2005 documented as of this encounter (statuses as of 10/27/2021) [facility]08-11-2021 History of Past illness Narrative* Problem Noted Date Resolved Date Supervision of high risk in [facility] 11/25/2020 04/21/2021 Depression during 11/11/2020/08/2021 Antepartum multigravida of advanced maternal age 0306/18/2020 04/21/2021 Overview: 06/18/2020atient is 35 years old. Advanced Maternal age discussed. Pt refused information on Genetic Amniocentesis and [facility]. Patient desires nuchal ultrasound and [id number] testing. 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 She is currently on Suboxone and is treated by Dr. Parkinson at [facility]. She states she has been sober for over 2 years. She states she has had custody of both of her children for the past year. I have advised patient that we may do random drug screens during and when she presents to the hospital in labor and delivery. I have also discussed with her the risks of using drugs during . She states that her has relapsed recently and is currently in intensive outpatient treatment at [facility]. She states that he does not think that this is his baby. She desires paternity testing at .[facility] Patient request for diagnostic testing 04/21/2021 Overview: 06/18/2020 Patient requests paternity testing at . [facility] Quit smoking 06/18/2020 04/21/2021 Overview: 06/18/2020t recently quit smoking May 17. She stopped vaping when she found out she was . Discussed risks of smoking during and advised pt to continue not smoking. TKRN Nausea and vomiting in 06/18/2020 04/21/2021 Overview: 06/18/2020atient is complaining of nausea and occasional vomiting in . Dietary considerations discussed . Patient has been taking the Vitamin B6 recommended and states she gets little relief. See phone note dated June 18. Advised patient to call/come in if she is unable to keep any food or fluids down in a 24-hour period. Graciela Dixon RN Positive GBS test 09/10/2014 06/08/2020 Overview: Swelling in face with pcn, will most likely need vanc in labor- JV Supervision of high-risk 02/27/2014 06/08/2020 Overview: 08/18/14 - Sterilization consult - Title 19 signed, filed in chartroom. Cheyanne Skinner confidential investigator exposure during first trimester of pr egnancy 02/27/2014 10/06/2020 Overview: 02/27/14 - patient has used xanax, vicodin, adderall & imitrex in the , will stop all those meds except the vicodin which she was encouraged to use sparingly to avoid addiction - KJ History of cervical LEEP bio psy affecting care of mother, antepartum 02/27/2014 04/21/2021 Overview: 06/18/2020.Pt has a history of Leep done in 2003. She states she did not have any labor with her prior pregnancies. Discussed increased risk of labor and importance of reporting any symptoms should they develop.Signs and symptoms of PTL discussed. TKRN Tobacco use complicating 02/27/2014 10/06/2020 Overview: 07/10/14: smoking 5 cig per day. Danisha Miller CNP 02/27/14 - discussed risks & encouraged cessation - KJ Controlled substance agreement signed 12/02/2013 06/08/2020 Overview: Urine pain panel and tox screen deviation. We will no longer prescribe controlled substances for her. See phone note 10/28/2015. Lumbago 02/13/2013 04/21/2021 Sciatica 09/14/2012 04/21/2021 Routine general medical exam ination at a health care facility 06/08/2009 11/23/2011 Overview: 06/08/2009, from Dr. Smith Routine gynecological examination 06/08/2009 11/23/2011 Restless legs syndrome 06/08/2009 6 Overview: Requip -- with good response most nights Pain in limb 11/12/2008 06/08/2009 Nontraumatic rupture of other tendons of foot an d ankle 11/12/2008 10/13/2011 Onychia and paronychia of toe 06/06/2005 documented as of this encounter (statuses as of 11/17/2021) [facility]08-11-2021 History of Past illness Narrative* Problem Noted Date Resolved Date Supervision of high risk in [facility] 11/25/2020 04/21/2021 Depression during 11/11/202008/2021 Antepartum multigravida of advanced maternal age 0306/18/2020 04/21/2021 Overview: 06/18/2020atient is 35 years old. Advanced Maternal age discussed. Pt refused information on Genetic Amniocentesis and [facility]. Patient desires nuchal ultrasound and [id number] testing. 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 She is currently on Suboxone and is treated by Dr. Parkinson at [facility]. She states she has been sober for over 2 years. She states she has had custody of both of her children for the past year. I have advised patient that we may do random drug screens during and when she presents to the hospital in labor and delivery. I have also discussed with her the risks of using drugs during . She states that her has relapsed recently and is currently in intensive outpatient treatment at [facility]. She states that he does not think that this is his baby. She desires paternity testing at .[facility] Patient request for diagnostic testing 04/21/2021 Overview: 06/18/2020 Patient requests paternity testing at . [facility] Quit smoking 06/18/2020 04/21/2021 Overview: 06/18/2020t recently quit smoking May 17. She stopped vaping when she found out she was . Discussed risks of smoking during and advised pt to continue not smoking. TKRN Nausea and vomiting in 06/18/2020 04/21/2021 Overview: 06/18/2020atient is complaining of nausea and occasional vomiting in . Dietary considerations discussed . Patient has been taking the Vitamin B6 recommended and states she gets little relief. See phone note dated June 18. Advised patient to call/come in if she is unable to keep any food or fluids down in a 24-hour period. Graciela Dixon RN Positive GBS test 09/10/2014 06/08/2020 Overview: Swelling in face with pcn, will most likely need vanc in labor- JV Supervision of high-risk 02/27/2014 06/08/2020 Overview: 08/18/14 - Sterilization consult - Title 19 signed, filed in chartroom. Cheyanne Skinner RN Medication exposure during first trimester of pr egnancy 02/27/2014 10/06/2020 Overview: 02/27/14 - patient has used xanax, vicodin, adderall & imitrex in the , will stop all those meds except the vicodin which she was encouraged to use sparingly to avoid addiction - KJ History of cervical LEEP bio psy affecting care of mother, antepartum 02/27/2014 04/21/2021 Overview: 06/18/2020.Pt has a history of Leep done in 2004. She states she did not have any labor with her prior pregnancies. Discussed increased risk of labor and importance of reporting any symptoms should they develop.Signs and symptoms of PTL discussed. TKRN Tobacco use complicating 02/27/2014 10/06/2020 Overview: 07/10/14: smoking 5 cig per day. Danisha Miller CNP 02/27/14 - discussed risks & encouraged cessation - KJ Controlled substance agreement signed 12/02/2013 06/08/2020 Overview: Urine pain panel and tox screen deviation. We will no longer prescribe controlled substances for her. See phone note 10/28/2015. Lumbago 02/13/2013 04/21/2021 Sciatica 09/14/2012 04/21/2021 Routine general medical exam ination at a health care facility 06/08/2009 11/23/2011 Overview: 06/08/2009, from Dr. Smith Routine gynecological examination 06/08/2009 11/23/2011 Restless legs syndrome 06/08/2009 6 Overview: Requip -- with good response most nights Pain in limb 11/12/2008 06/08/2009 Nontraumatic rupture of other tendons of foot an d ankle 11/12/2008 10/13/2011 Onychia and paronychia of toe 06/06/2005 documented as of this encounter (statuses as of 12/08/2021) [facility]08-11-[facility]21 History of Past illness Narrative* Problem Noted Date Resolved Date Supervision of high risk in [facility] 11/25/2020 04/21/2021 Depression during 11/11/202008/2021 Antepartum multigravida of advanced maternal age 0306/18/2020 04/21/2021 Overview: 06/18/2020atient is 35 years old. Advanced Maternal age discussed. Pt refused information on Genetic Amniocentesis and [facility]. Patient desires nuchal ultrasound and [id number] testing. 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 She is currently on Suboxone and is treated by Dr. Parkinson at [facility]. She states she has been sober for over 2 years. She states she has had custody of both of her children for the past year. I have advised patient that we may do random drug screens during and when she presents to the hospital in labor and delivery. I have also discussed with her the risks of using drugs during . She states that her has relapsed recently and is currently in intensive outpatient treatment at [facility]. She states that he does not think that this is his baby. She desires paternity testing at .[facility] Patient request for diagnostic testing 04/21/2021 Overview: 06/18/2020 Patient requests paternity testing at . [facility] Quit smoking 06/18/2020 04/21/2021 Overview: 06/18/2020t recently quit smoking May 17. She stopped vaping when she found out she was . Discussed risks of smoking during and advised pt to continue not smoking. TKRN Nausea and vomiting in 06/18/2020 04/21/2021 Overview: 06/18/2020atient is complaining of nausea and occasional vomiting in . Dietary considerations discussed . Patient has been taking the Vitamin B6 recommended and states she gets little relief. See phone note dated June 18. Advised patient to call/come in if she is unable to keep any food or fluids down in a 24-hour period. Graciela Dixon RN Positive GBS test 09/10/2014 06/08/2020 Overview: Swelling in face with pcn, will most likely need vanc in labor- JV Supervision of high-risk 02/27/2014 06/08/2020 Overview: 08/18/14 - Sterilization consult - Title 19 signed, filed in chartroom. Cheyanne Skinner RN Medication exposure during first trimester of pr egnancy 02/27/2014 10/06/2020 Overview: 02/27/14 - patient has used xanax, vicodin, adderall & imitrex in the , will stop all those meds except the vicodin which she was encouraged to use sparingly to avoid addiction - KJ History of cervical LEEP bio psy affecting care of mother, antepartum 02/27/2014 04/21/2021 Overview: 06/18/2020.Pt has a history of Leep done in 2003. She states she did not have any labor with her prior pregnancies. Discussed increased risk of labor and importance of reporting any symptoms should they develop.Signs and symptoms of PTL discussed. TKRN Tobacco use complicating 02/27/2014 10/06/2020 Overview: 07/10/14: smoking 5 cig per day. Danisha Miller CNP 02/27/14 - discussed risks & encouraged cessation - KJ Controlled substance agreement signed 12/02/2013 06/08/2020 Overview: Urine pain panel and tox screen deviation. We will no longer prescribe controlled substances for her. See phone note 10/28/2015. Lumbago 02/13/2013 04/21/2021 Sciatica 09/14/2012 04/21/2021 Routine general medical exam ination at a health care facility 06/08/2009 11/23/2011 Overview: 06/08/2009, from Dr. Smith Routine gynecological examination 06/08/2009 11/23/2011 Restless legs syndrome 06/08/2009 6 Overview: Requip -- with good response most nights Pain in limb 11/12/2008 06/08/2009 Nontraumatic rupture of other tendons of foot an d ankle 11/12/2008 10/13/2011 Onychia and paronychia of toe 06/06/2005 documented as of this encounter (statuses as of 12/27/2021) [facility] History of Past illness Narrative* Problem Noted Date Resolved Date Supervision of high risk in [facility] 11/25/2020 04/21/2021 Depression during 11/11/202008/2021 Antepartum multigravida of advanced maternal age 0306/18/2020 04/21/2021 Overview: 06/18/2020atient is 35 years old. Advanced Maternal age discussed. Pt refused information on Genetic Amniocentesis and [facility]. Patient desires nuchal ultrasound and [id number] testing. 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 She is currently on Suboxone and is treated by Dr. Parkinson at [facility]. She states she has been sober for over 2 years. She states she has had custody of both of her children for the past year. I have advised patient that we may do random drug screens during and when she presents to the hospital in labor and delivery. I have also discussed with her the risks of using drugs during . She states that her has relapsed recently and is currently in intensive outpatient treatment at [facility]. She states that he does not think that this is his baby. She desires paternity testing at .[facility] Patient request for diagnostic testing 04/21/2021 Overview: 06/18/2020 Patient requests paternity testing at . [facility] Quit smoking 06/18/2020 04/21/2021 Overview: 06/18/2020t recently quit smoking May 17. She stopped vaping when she found out she was . Discussed risks of smoking during and advised pt to continue not smoking. TKRN Nausea and vomiting in 06/18/2020 04/21/2021 Overview: 06/18/2020atient is complaining of nausea and occasional vomiting in . Dietary considerations discussed . Patient has been taking the Vitamin B6 recommended and states she gets little relief. See phone note dated June 18. Advised patient to call/come in if she is unable to keep any food or fluids down in a 24-hour period. Graciela Dixon RN Positive GBS test 09/10/2014 06/08/2020 Overview: Swelling in face with pcn, will most likely need vanc in labor- JV Supervision of high-risk 02/27/2014 06/08/2020 Overview: 08/18/14 - Sterilization consult - Title 19 signed, filed in chartroom. Cheyanne Skinner confidential investigator exposure during first trimester of pr egnancy 02/27/2014 10/06/2020 Overview: 02/27/14 - patient has used xanax, vicodin, adderall & imitrex in the , will stop all those meds except the vicodin which she was encouraged to use sparingly to avoid addiction - KJ History of cervical LEEP bio psy affecting care of mother, antepartum 02/27/2014 04/21/2021 Overview: 06/18/2020.Pt has a history of Leep done in 2003. She states she did not have any labor with her prior pregnancies. Discussed increased risk of labor and importance of reporting any symptoms should they develop.Signs and symptoms of PTL discussed. TKRN Tobacco use complicating 02/27/2014 10/06/2020 Overview: 07/10/14: smoking 5 cig per day. Danisha Miller CNP 02/27/14 - discussed risks & encouraged cessation - KJ Controlled substance agreement signed 12/02/2013 06/08/2020 Overview: Urine pain panel and tox screen deviation. We will no longer prescribe controlled substances for her. See phone note 10/28/2015. Lumbago 02/13/2013 04/21/2021 Sciatica 09/14/2012 04/21/2021 Routine general medical exam ination at a health care facility 06/08/2009 11/23/2011 Overview: 06/08/2009, from Dr. Smith Routine gynecological examination 06/08/2009 11/23/2011 Restless legs syndrome 06/08/2009 6 Overview: Requip -- with good response most nights Pain in limb 11/12/2008 06/08/2009 Nontraumatic rupture of other tendons of foot an d ankle 11/12/2008 10/13/2011 Onychia and paronychia of toe 06/06/2005 documented as of this encounter (statuses as of 01/12/2022) [facility]08-11-2021 History of Past illness Narrative* Problem Noted Date Resolved Date Supervision of high risk in third [facility] 11/25/2020 04/21/2021 Depression during 11/11/202008/2021 Antepartum multigravida of advanced maternal age 0306/18/2020 04/21/2021 Overview: 06/18/2020atient is 35 years old. Advanced Maternal age discussed. Pt refused information on Genetic Amniocentesis and [facility]. Patient desires nuchal ultrasound and [id number] testing. 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 She is currently on Suboxone and is treated by Dr. Parkinson at [facility]. She states she has been sober for over 2 years. She states she has had custody of both of her children for the past year. I have advised patient that we may do random drug screens during and when she presents to the hospital in labor and delivery. I have also discussed with her the risks of using drugs during . She states that her has relapsed recently and is currently in intensive outpatient treatment at [facility]. She states that he does not think that this is his baby. She desires paternity testing at .[facility] Patient request for diagnostic testing 04/21/2021 Overview: 06/18/2020 Patient requests paternity testing at . TKRN Quit smoking 06/18/2020 04/21/2021 Overview: 06/18/2020t recently quit smoking May 17. She stopped vaping when she found out she was . Discussed risks of smoking during and advised pt to continue not smoking. TKRN Nausea and vomiting in 06/18/2020 04/21/2021 Overview: 06/18/2020atient is complaining of nausea and occasional vomiting in . Dietary considerations discussed . Patient has been taking the Vitamin B6 recommended and states she gets little relief. See phone note dated June 18. Advised patient to call/come in if she is unable to keep any food or fluids down in a 24-hour period. Graciela Dixon RN Positive GBS test 09/10/2014 06/08/2020 Overview: Swelling in face with pcn, will most likely need vanc in labor- JV Supervision of high-risk 02/27/2014 06/08/2020 Overview: 08/18/14 - Sterilization consult - Title 19 signed, filed in chartroom. Cheyanne Skinner RN Medication exposure during first trimester of pr egnancy 02/27/2014 10/06/2020 Overview: 02/27/14 - patient has used xanax, vicodin, adderall & imitrex in the , will stop all those meds except the vicodin which she was encouraged to use sparingly to avoid addiction - KJ History of cervical LEEP bio psy affecting care of mother, antepartum 02/27/2014 04/21/2021 Overview: 06/18/2020.Pt has a history of Leep done in 2004. She states she did not have any labor with her prior pregnancies. Discussed increased risk of labor and importance of reporting any symptoms should they develop.Signs and symptoms of PTL discussed. TKRN Tobacco use complicating 02/27/2014 10/06/2020 Overview: 07/10/14: smoking 5 cig per day. Danisha Miller CNP 02/27/14 - discussed risks & encouraged cessation - KJ Controlled substance agreement signed 12/02/2013 06/08/2020 Overview: Urine pain panel and tox screen deviation. We will no longer prescribe controlled substances for her. See phone note 10/28/2015. Lumbago 02/13/2013 04/21/2021 Sciatica 09/14/2012 04/21/2021 Routine general medical exam ination at a health care facility 06/08/2009 11/23/2011 Overview: 06/08/2009, from Dr. Smith Routine gynecological examination 06/08/2009 11/23/2011 Restless legs syndrome 06/08/2009 6 Overview: Requip -- with good response most nights Pain in limb 11/12/2008 06/08/2009 Nontraumatic rupture of other tendons of foot an d ankle 11/12/2008 10/13/2011 Onychia and paronychia of toe 06/06/2005 documented as of this encounter (statuses as of 01/12/2022) [facility]08-11-2021 History of Past illness Narrative* Problem Noted Date Resolved Date Supervision of high risk in third [facility] 11/25/2020 04/21/2021 Depression during 11/11/202008/2021 Antepartum multigravida of advanced maternal age 0306/18/2020 04/21/2021 Overview: 06/18/2020atient is 35 years old. Advanced Maternal age discussed. Pt refused information on Genetic Amniocentesis and [facility]. Patient desires nuchal ultrasound and [id number] testing. 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 She is currently on Suboxone and is treated by Dr. Parkinson at [facility]. She states she has been sober for over 2 years. She states she has had custody of both of her children for the past year. I have advised patient that we may do random drug screens during and when she presents to the hospital in labor and delivery. I have also discussed with her the risks of using drugs during . She states that her has relapsed recently and is currently in intensive outpatient treatment at [facility]. She states that he does not think that this is his baby. She desires paternity testing at .[facility] Patient request for diagnostic testing 03/04/202 1 04/21/2021 Overview: 06/18/2020 Patient requests paternity testing at . TKRN Quit smoking 06/18/2020 04/21/2021 Overview: 06/18/2020t recently quit smoking May 17. She stopped vaping when she found out she was . Discussed risks of smoking during and advised pt to continue not smoking. TKRN Nausea and vomiting in 06/18/2020 04/21/2021 Overview: 06/18/2020atient is complaining of nausea and occasional vomiting in . Dietary considerations discussed . Patient has been taking the Vitamin B6 recommended and states she gets little relief. See phone note dated June 18. Advised patient to call/come in if she is unable to keep any food or fluids down in a 24-hour period. Graciela Dixon RN Positive GBS test 09/10/2014 06/08/2020 Overview: Swelling in face with pcn, will most likely need vanc in labor- JV Supervision of high-risk 02/27/2014 06/08/2020 Overview: 08/18/14 - Sterilization consult - Title 19 signed, filed in chartroom. Cheyanne Skinner RN Medication exposure during first trimester of pr egnancy 02/27/2014 10/06/2020 Overview: 02/27/14 - patient has used xanax, vicodin, adderall & imitrex in the , will stop all those meds except the vicodin which she was encouraged to use sparingly to avoid addiction - KJ History of cervical LEEP bio psy affecting care of mother, antepartum 02/27/2014 04/21/2021 Overview: 06/18/2020.Pt has a history of Leep done in 2003. She states she did not have any labor with her prior pregnancies. Discussed increased risk of labor and importance of reporting any symptoms should they develop.Signs and symptoms of PTL discussed. TKRN Tobacco use complicating 02/27/2014 10/06/2020 Overview: 07/10/14: smoking 5 cig per day. Danisha Miller CNP 02/27/14 - discussed risks & encouraged cessation - KJ Controlled substance agreement signed 12/02/2013 06/08/2020 Overview: Urine pain panel and tox screen deviation. We will no longer prescribe controlled substances for her. See phone note 10/28/2015. Lumbago 02/13/2013 04/21/2021 Sciatica 09/14/2012 04/21/2021 Routine general medical exam ination at a health care facility 06/08/2009 11/23/2011 Overview: 06/08/2009, from Dr. Smith Routine gynecological examination 06/08/2009 11/23/2011 Restless legs syndrome 06/08/2009 6 Overview: Requip -- with good response most nights Pain in limb 11/12/2008 06/08/2009 Nontraumatic rupture of other tendons of foot an d ankle 11/12/2008 10/13/2011 Onychia and paronychia of toe 06/06/2005 documented as of this encounter (statuses as of 01/18/2022) [facility]08-11-2021 History of Past illness Narrative* Problem Noted Date Resolved Date Supervision of high risk in third [facility] 11/25/2020 04/21/2021 Depression during 11/11/2020/08/2021 Antepartum multigravida of advanced maternal age 0306/18/2020 04/21/2021 Overview: 06/18/2020atient is 35 years old. Advanced Maternal age discussed. Pt refused information on Genetic Amniocentesis and [facility]. Patient desires nuchal ultrasound and [id number] testing. 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 She is currently on Suboxone and is treated by Dr. Parkinson at [facility]. She states she has been sober for over 2 years. She states she has had custody of both of her children for the past year. I have advised patient that we may do random drug screens during and when she presents to the hospital in labor and delivery. I have also discussed with her the risks of using drugs during . She states that her has relapsed recently and is currently in intensive outpatient treatment at [facility]. She states that he does not think that this is his baby. She desires paternity testing at .[facility] Patient request for diagnostic testing 04/21/2021 Overview: 06/18/2020 Patient requests paternity testing at . TKRN Quit smoking 06/18/2020 04/21/2021 Overview: 06/18/2020t recently quit smoking May 17. She stopped vaping when she found out she was . Discussed risks of smoking during and advised pt to continue not smoking. TKRN Nausea and vomiting in 06/18/2020 04/21/2021 Overview: 06/18/2020atient is complaining of nausea and occasional vomiting in . Dietary considerations discussed . Patient has been taking the Vitamin B6 recommended and states she gets little relief. See phone note dated June 18. Advised patient to call/come in if she is unable to keep any food or fluids down in a 24-hour period. Graciela Dixon RN Positive GBS test 09/10/2014 06/08/2020 Overview: Swelling in face with pcn, will most likely need vanc in labor- JV Supervision of high-risk 02/27/2014 06/08/2020 Overview: 08/18/14 - Sterilization consult - Title 19 signed, filed in chartroom. Cheyanne Skinner RN Medication exposure during first trimester of pr egnancy 02/27/2014 10/06/2020 Overview: 02/27/14 - patient has used xanax, vicodin, adderall & imitrex in the , will stop all those meds except the vicodin which she was encouraged to use sparingly to avoid addiction - KJ History of cervical LEEP bio psy affecting care of mother, antepartum 02/27/2014 04/21/2021 Overview: 06/18/2020.Pt has a history of Leep done in 2004. She states she did not have any labor with her prior pregnancies. Discussed increased risk of labor and importance of reporting any symptoms should they develop.Signs and symptoms of PTL discussed. TKRN Tobacco use complicating 02/27/2014 10/06/2020 Overview: 07/10/14: smoking 5 cig per day. Danisha Miller CNP 02/27/14 - discussed risks & encouraged cessation - KJ Controlled substance agreement signed 12/02/2013 06/08/2020 Overview: Urine pain panel and tox screen deviation. We will no longer prescribe controlled substances for her. See phone note 10/28/2015. Lumbago 02/13/2013 04/21/2021 Sciatica 09/14/2012 04/21/2021 Routine general medical exam ination at a health care facility 06/08/2009 11/23/2011 Overview: 06/08/2009, from Dr. Smith Routine gynecological examination 06/08/2009 11/23/2011 Restless legs syndrome 06/08/2009 6 Overview: Requip -- with good response most nights Pain in limb 11/12/2008 06/08/2009 Nontraumatic rupture of other tendons of foot an d ankle 11/12/2008 10/13/2011 Onychia and paronychia of toe 06/06/2005 documented as of this encounter (statuses as of 01/26/2022) [facility]08-11-2021 History of Past illness Narrative* Problem Noted Date Resolved Date Supervision of high risk in third [facility] 11/25/2020 04/21/2021 Depression during 11/11/202008/2021 Antepartum multigravida of advanced maternal age 0306/18/2020 04/21/2021 Overview: 06/18/2020atient is 35 years old. Advanced Maternal age discussed. Pt refused information on Genetic Amniocentesis and [facility]. Patient desires nuchal ultrasound and [id number] testing. 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 She is currently on Suboxone and is treated by Dr. Parkinson at [facility]. She states she has been sober for over 2 years. She states she has had custody of both of her children for the past year. I have advised patient that we may do random drug screens during and when she presents to the hospital in labor and delivery. I have also discussed with her the risks of using drugs during . She states that her has relapsed recently and is currently in intensive outpatient treatment at [facility]. She states that he does not think that this is his baby. She desires paternity testing at .[facility] Patient request for diagnostic testing 04/21/2021 Overview: 06/18/2020 Patient requests paternity testing at . TKRN Quit smoking 06/18/2020 04/21/2021 Overview: 06/18/2020t recently quit smoking May 17. She stopped vaping when she found out she was . Discussed risks of smoking during and advised pt to continue not smoking. TKRN Nausea and vomiting in 06/18/2020 04/21/2021 Overview: 06/18/2020atient is complaining of nausea and occasional vomiting in . Dietary considerations discussed . Patient has been taking the Vitamin B6 recommended and states she gets little relief. See phone note dated June 18. Advised patient to call/come in if she is unable to keep any food or fluids down in a 24-hour period. Graciela Dixon RN Positive GBS test 09/10/2014 06/08/2020 Overview: Swelling in face with pcn, will most likely need vanc in labor- JV Supervision of high-risk 02/27/2014 06/08/2020 Overview: 08/18/14 - Sterilization consult - Title 19 signed, filed in chartroom. Cheyanne Skinner confidential investigator exposure during first trimester of pr egnancy 02/27/2014 10/06/2020 Overview: 02/27/14 - patient has used xanax, vicodin, adderall & imitrex in the , will stop all those meds except the vicodin which she was encouraged to use sparingly to avoid addiction - KJ History of cervical LEEP bio psy affecting care of mother, antepartum 02/27/2014 04/21/2021 Overview: 06/18/2020.Pt has a history of Leep done in 2004. She states she did not have any labor with her prior pregnancies. Discussed increased risk of labor and importance of reporting any symptoms should they develop.Signs and symptoms of PTL discussed. TKRN Tobacco use complicating 02/27/2014 10/06/2020 Overview: 07/10/14: smoking 5 cig per day. Danisha Miller CNP 02/27/14 - discussed risks & encouraged cessation - KJ Controlled substance agreement signed 12/02/2013 06/08/2020 Overview: Urine pain panel and tox screen deviation. We will no longer prescribe controlled substances for her. See phone note 10/28/2015. Lumbago 02/13/2013 04/21/2021 Sciatica 09/14/2012 04/21/2021 Routine general medical exam ination at a health care facility 06/08/2009 11/23/2011 Overview: 06/08/2009, from Dr. Smith Routine gynecological examination 06/08/2009 11/23/2011 Restless legs syndrome 06/08/2009 6 Overview: Requip -- with good response most nights Pain in limb 11/12/2008 06/08/2009 Nontraumatic rupture of other tendons of foot an d ankle 11/12/2008 10/13/2011 Onychia and paronychia of toe 06/06/2005 documented as of this encounter (statuses as of 02/18/2022) [facility]08-11-[facility]21 History of Past illness Narrative* Problem Noted Date Resolved Date Supervision of high risk in third [facility] 11/25/2020 04/21/2021 Depression during 11/11/202008/2021 Antepartum multigravida of advanced maternal age 0306/18/2020 04/21/2021 Overview: 06/18/2020atient is 35 years old. Advanced Maternal age discussed. Pt refused information on Genetic Amniocentesis and [facility]. Patient desires nuchal ultrasound and [id number] testing. 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 She is currently on Suboxone and is treated by Dr. Parkinson at [facility]. She states she has been sober for over 2 years. She states she has had custody of both of her children for the past year. I have advised patient that we may do random drug screens during and when she presents to the hospital in labor and delivery. I have also discussed with her the risks of using drugs during . She states that her has relapsed recently and is currently in intensive outpatient treatment at [facility]. She states that he does not think that this is his baby. She desires paternity testing at .[facility] Patient request for diagnostic testing 04/21/2021 Overview: 06/18/2020 Patient requests paternity testing at . [facility] Quit smoking 06/18/2020 04/21/2021 Overview: 06/18/2020t recently quit smoking May 17. She stopped vaping when she found out she was . Discussed risks of smoking during and advised pt to continue not smoking. TKRN Nausea and vomiting in 06/18/2020 04/21/2021 Overview: 06/18/2020atient is complaining of nausea and occasional vomiting in . Dietary considerations discussed . Patient has been taking the Vitamin B6 recommended and states she gets little relief. See phone note dated June 18. Advised patient to call/come in if she is unable to keep any food or fluids down in a 24-hour period. Graciela Dixon RN Positive GBS test 09/10/2014 06/08/2020 Overview: Swelling in face with pcn, will most likely need vanc in labor- JV Supervision of high-risk 02/27/2014 06/08/2020 Overview: 08/18/14 - Sterilization consult - Title 19 signed, filed in chartroom. Cheyanne Skinner RN Medication exposure during first trimester of pr egnancy 02/27/2014 10/06/2020 Overview: 02/27/14 - patient has used xanax, vicodin, adderall & imitrex in the , will stop all those meds except the vicodin which she was encouraged to use sparingly to avoid addiction - KJ History of cervical LEEP bio psy affecting care of mother, antepartum 02/27/2014 04/21/2021 Overview: 06/18/2020.Pt has a history of Leep done in 2003. She states she did not have any labor with her prior pregnancies. Discussed increased risk of labor and importance of reporting any symptoms should they develop.Signs and symptoms of PTL discussed. TKRN Tobacco use complicating 02/27/2014 10/06/2020 Overview: 07/10/14: smoking 5 cig per day. Danisha Miller CNP 02/27/14 - discussed risks & encouraged cessation - KJ Controlled substance agreement signed 12/02/2013 06/08/2020 Overview: Urine pain panel and tox screen deviation. We will no longer prescribe controlled substances for her. See phone note 10/28/2015. Lumbago 02/13/2013 04/21/2021 Sciatica 09/14/2012 04/21/2021 Routine general medical exam ination at a health care facility 06/08/2009 11/23/2011 Overview: 06/08/2009, from Dr. Smith Routine gynecological examination 06/08/2009 11/23/2011 Restless legs syndrome 06/08/2009 6 Overview: Requip -- with good response most nights Pain in limb 11/12/2008 06/08/2009 Nontraumatic rupture of other tendons of foot an d ankle 11/12/2008 10/13/2011 Onychia and paronychia of toe 06/06/2005 documented as of this encounter (statuses as of 03/04/2022) [facility] History of Past illness Narrative* Problem Noted Date Resolved Date Supervision of high risk in third [facility] 11/25/2020 04/21/2021 Depression during 11/11/202008/2021 Antepartum multigravida of advanced maternal age 0306/18/2020 04/21/2021 Overview: 06/18/2020atient is 35 years old. Advanced Maternal age discussed. Pt refused information on Genetic Amniocentesis and [facility]. Patient desires nuchal ultrasound and [id number] testing. 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 She is currently on Suboxone and is treated by Dr. Parkinson at [facility]. She states she has been sober for over 2 years. She states she has had custody of both of her children for the past year. I have advised patient that we may do random drug screens during and when she presents to the hospital in labor and delivery. I have also discussed with her the risks of using drugs during . She states that her has relapsed recently and is currently in intensive outpatient treatment at [facility]. She states that he does not think that this is his baby. She desires paternity testing at .[facility] Patient request for diagnostic testing 04/21/2021 Overview: 06/18/2020 Patient requests paternity testing at . [facility] Quit smoking 06/18/2020 04/21/2021 Overview: 06/18/2020t recently quit smoking May 17. She stopped vaping when she found out she was . Discussed risks of smoking during and advised pt to continue not smoking. TKRN Nausea and vomiting in 06/18/2020 04/21/2021 Overview: 06/18/2020atient is complaining of nausea and occasional vomiting in . Dietary considerations discussed . Patient has been taking the Vitamin B6 recommended and states she gets little relief. See phone note dated June 18. Advised patient to call/come in if she is unable to keep any food or fluids down in a 24-hour period. Graciela Dixon RN Positive GBS test 09/10/2014 06/08/2020 Overview: Swelling in face with pcn, will most likely need vanc in labor- JV Supervision of high-risk 02/27/2014 06/08/2020 Overview: 08/18/14 - Sterilization consult - Title 19 signed, filed in chartroom. Cheyanne Skinner RN Medication exposure during first trimester of pr egnancy 02/27/2014 10/06/2020 Overview: 02/27/14 - patient has used xanax, vicodin, adderall & imitrex in the , will stop all those meds except the vicodin which she was encouraged to use sparingly to avoid addiction - KJ History of cervical LEEP bio psy affecting care of mother, antepartum 02/27/2014 04/21/2021 Overview: 06/18/2020.Pt has a history of Leep done in 2004. She states she did not have any labor with her prior pregnancies. Discussed increased risk of labor and importance of reporting any symptoms should they develop.Signs and symptoms of PTL discussed. TKRN Tobacco use complicating 02/27/2014 10/06/2020 Overview: 07/10/14: smoking 5 cig per day. Danisha Miller CNP 02/27/14 - discussed risks & encouraged cessation - KJ Controlled substance agreement signed 12/02/2013 06/08/2020 Overview: Urine pain panel and tox screen deviation. We will no longer prescribe controlled substances for her. See phone note 10/28/2015. Lumbago 02/13/2013 04/21/2021 Sciatica 09/14/2012 04/21/2021 Routine general medical exam ination at a health care facility 06/08/2009 11/23/2011 Overview: 06/08/2009, from Dr. Smith Routine gynecological examination 06/08/2009 11/23/2011 Restless legs syndrome 06/08/2009 6 Overview: Requip -- with good response most nights Pain in limb 11/12/2008 06/08/2009 Nontraumatic rupture of other tendons of foot an d ankle 11/12/2008 10/13/2011 Onychia and paronychia of toe 06/06/2005 documented as of this encounter (statuses as of 03/04/2022) [facility]08-11-2021 History of Past illness Narrative* Problem Noted Date Resolved Date Supervision of high risk in third [facility] 11/25/2020 04/21/2021 Depression during 11/11/202008/2021 Antepartum multigravida of advanced maternal age 0306/18/2020 04/21/2021 Overview: 1Patient is 35 years old. Advanced Maternal age discussed. Pt refused information on Genetic Amniocentesis and [facility]. Patient desires nuchal ultrasound and [id number] testing. 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 She is currently on Suboxone and is treated by Dr. Parkinson at [facility]. She states she has been sober for over 2 years. She states she has had custody of both of her children for the past year. I have advised patient that we may do random drug screens during and when she presents to the hospital in labor and delivery. I have also discussed with her the risks of using drugs during . She states that her has relapsed recently and is currently in intensive outpatient treatment at [facility]. She states that he does not think that this is his baby. She desires paternity testing at .TKRN Patient request for diagnostic testing 04/21/2021 Overview: 06/18/2020 Patient requests paternity testing at . TKRN Quit smoking 06/18/2020 04/21/2021 Overview: 06/18/2020t recently quit smoking May 17. She stopped vaping when she found out she was . Discussed risks of smoking during and advised pt to continue not smoking. TKRN Nausea and vomiting in 06/18/2020 04/21/2021 Overview: 06/18/2020atient is complaining of nausea and occasional vomiting in . Dietary considerations discussed . Patient has been taking the Vitamin B6 recommended and states she gets little relief. See phone note dated June 18. Advised patient to call/come in if she is unable to keep any food or fluids down in a 24-hour period. Graciela Dixon RN Positive GBS test 09/10/2014 06/08/2020 Overview: Swelling in face with pcn, will most likely need vanc in labor- JV Supervision of high-risk 02/27/2014 06/08/2020 Overview: 08/18/14 - Sterilization consult - Title 19 signed, filed in chartroom. Cheyanne Skinner confidential investigator exposure during first trimester of pr egnancy 02/27/2014 10/06/2020 Overview: 02/27/14 - patient has used xanax, vicodin, adderall & imitrex in the , will stop all those meds except the vicodin which she was encouraged to use sparingly to avoid addiction - KJ History of cervical LEEP bio psy affecting care of mother, antepartum 02/27/2014 04/21/2021 Overview: 06/18/2020.Pt has a history of Leep done in 2003. She states she did not have any labor with her prior pregnancies. Discussed increased risk of labor and importance of reporting any symptoms should they develop.Signs and symptoms of PTL discussed. TKRN Tobacco use complicating 02/27/2014 10/06/2020 Overview: 07/10/14: smoking 5 cig per day. Danisha Miller CNP 02/27/14 - discussed risks & encouraged cessation - KJ Controlled substance agreement signed 12/02/2013 06/08/2020 Overview: Urine pain panel and tox screen deviation. We will no longer prescribe controlled substances for her. See phone note 10/28/2015. Lumbago 02/13/2013 04/21/2021 Sciatica 09/14/2012 04/21/2021 Routine general medical exam ination at a health care facility 06/08/2009 11/23/2011 Overview: 06/08/2009, from Dr. Smith Routine gynecological examination 06/08/2009 11/23/2011 Restless legs syndrome 06/08/2009 6 Overview: Requip -- with good response most nights Pain in limb 11/12/2008 06/08/2009 Nontraumatic rupture of other tendons of foot an d ankle 11/12/2008 10/13/2011 Onychia and paronychia of toe 06/06/2005 documented as of this encounter (statuses as of 03/04/2022) [facility]08-11-[facility]21 History of Past illness Narrative* Problem Noted Date Resolved Date Supervision of high risk in third [facility] 11/25/2020 04/21/2021 Depression during 11/11/202008/2021 Antepartum multigravida of advanced maternal age 0306/18/2020 04/21/2021 Overview: 06/18/2020atient is 35 years old. Advanced Maternal age discussed. Pt refused information on Genetic Amniocentesis and [facility]. Patient desires nuchal ultrasound and [id number] testing. 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 She is currently on Suboxone and is treated by Dr. Parkinson at [facility]. She states she has been sober for over 2 years. She states she has had custody of both of her children for the past year. I have advised patient that we may do random drug screens during and when she presents to the hospital in labor and delivery. I have also discussed with her the risks of using drugs during . She states that her has relapsed recently and is currently in intensive outpatient treatment at [facility]. She states that he does not think that this is his baby. She desires paternity testing at .TKRN Patient request for diagnostic testing 04/21/2021 Overview: 06/18/2020 Patient requests paternity testing at . TKRN Quit smoking 06/18/2020 04/21/2021 Overview: 06/18/2020t recently quit smoking May 17. She stopped vaping when she found out she was . Discussed risks of smoking during and advised pt to continue not smoking. TKRN Nausea and vomiting in 06/18/2020 04/21/2021 Overview: 06/18/2020atient is complaining of nausea and occasional vomiting in . Dietary considerations discussed . Patient has been taking the Vitamin B6 recommended and states she gets little relief. See phone note dated June 18. Advised patient to call/come in if she is unable to keep any food or fluids down in a 24-hour period. Graciela Dixon RN Positive GBS test 09/10/2014 06/08/2020 Overview: Swelling in face with pcn, will most likely need vanc in labor- JV Supervision of high-risk 02/27/2014 06/08/2020 Overview: 08/18/14 - Sterilization consult - Title 19 signed, filed in chartroom. Cheyanne Skinner RN Medication exposure during first trimester of pr egnancy 02/27/2014 10/06/2020 Overview: 02/27/14 - patient has used xanax, vicodin, adderall & imitrex in the , will stop all those meds except the vicodin which she was encouraged to use sparingly to avoid addiction - KJ History of cervical LEEP bio psy affecting care of mother, antepartum 02/27/2014 04/21/2021 Overview: 06/18/2020.Pt has a history of Leep done in 2004. She states she did not have any labor with her prior pregnancies. Discussed increased risk of labor and importance of reporting any symptoms should they develop.Signs and symptoms of PTL discussed. TKRN Tobacco use complicating 02/27/2014 10/06/2020 Overview: 07/10/14: smoking 5 cig per day. Danisha Miller CNP 02/27/14 - discussed risks & encouraged cessation - KJ Controlled substance agreement signed 12/02/2013 06/08/2020 Overview: Urine pain panel and tox screen deviation. We will no longer prescribe controlled substances for her. See phone note 10/28/2015. Lumbago 02/13/2013 04/21/2021 Sciatica 09/14/2012 04/21/2021 Routine general medical exam ination at a health care facility 06/08/2009 11/23/2011 Overview: 06/08/2009, from Dr. Smith Routine gynecological examination 06/08/2009 11/23/2011 Restless legs syndrome 06/08/2009 6 Overview: Requip -- with good response most nights Pain in limb 11/12/2008 06/08/2009 Nontraumatic rupture of other tendons of foot an d ankle 11/12/2008 10/13/2011 Onychia and paronychia of toe 06/06/2005 documented as of this encounter (statuses as of 03/24/2022) [facility]08-11-[facility]21 History of Past illness Narrative* Problem Noted Date Resolved Date Supervision of high risk in third [facility] 11/25/2020 04/21/2021 Depression during 11/11/202008/2021 Antepartum multigravida of advanced maternal age 0306/18/2020 04/21/2021 Overview: 06/18/2020atient is 35 years old. Advanced Maternal age discussed. Pt refused information on Genetic Amniocentesis and [facility]. Patient desires nuchal ultrasound and [id number] testing. 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 She is currently on Suboxone and is treated by Dr. Parkinson at [facility]. She states she has been sober for over 2 years. She states she has had custody of both of her children for the past year. I have advised patient that we may do random drug screens during and when she presents to the hospital in labor and delivery. I have also discussed with her the risks of using drugs during . She states that her has relapsed recently and is currently in intensive outpatient treatment at [facility]. She states that he does not think that this is his baby. She desires paternity testing at .TKRN Patient request for diagnostic testing 04/21/2021 Overview: 06/18/2020 Patient requests paternity testing at . TKRN Quit smoking 06/18/2020 04/21/2021 Overview: 06/18/2020t recently quit smoking May 17. She stopped vaping when she found out she was . Discussed risks of smoking during and advised pt to continue not smoking. TKRN Nausea and vomiting in 06/18/2020 04/21/2021 Overview: 06/18/2020atient is complaining of nausea and occasional vomiting in . Dietary considerations discussed . Patient has been taking the Vitamin B6 recommended and states she gets little relief. See phone note dated June 18. Advised patient to call/come in if she is unable to keep any food or fluids down in a 24-hour period. Graciela Dixon RN Positive GBS test 09/10/2014 06/08/2020 Overview: Swelling in face with pcn, will most likely need vanc in labor- JV Supervision of high-risk 02/27/2014 06/08/2020 Overview: 08/18/14 - Sterilization consult - Title 19 signed, filed in chartroom. Cheyanne Skinner RN Medication exposure during first trimester of pr egnancy 02/27/2014 10/06/2020 Overview: 02/27/14 - patient has used xanax, vicodin, adderall & imitrex in the , will stop all those meds except the vicodin which she was encouraged to use sparingly to avoid addiction - KJ History of cervical LEEP bio psy affecting care of mother, antepartum 02/27/2014 04/21/2021 Overview: 06/18/2020.Pt has a history of Leep done in 2003. She states she did not have any labor with her prior pregnancies. Discussed increased risk of labor and importance of reporting any symptoms should they develop.Signs and symptoms of PTL discussed. TKRN Tobacco use complicating 02/27/2014 10/06/2020 Overview: 07/10/14: smoking 5 cig per day. Danisha Miller CNP 02/27/14 - discussed risks & encouraged cessation - KJ Controlled substance agreement signed 12/02/2013 06/08/2020 Overview: Urine pain panel and tox screen deviation. We will no longer prescribe controlled substances for her. See phone note 10/28/2015. Lumbago 02/13/2013 04/21/2021 Sciatica 09/14/2012 04/21/2021 Routine general medical exam ination at a health care facility 06/08/2009 11/23/2011 Overview: 06/08/2009, from Dr. Smith Routine gynecological examination 06/08/2009 11/23/2011 Restless legs syndrome 06/08/2009 6 Overview: Requip -- with good response most nights Pain in limb 11/12/2008 06/08/2009 Nontraumatic rupture of other tendons of foot an d ankle 11/12/2008 10/13/2011 Onychia and paronychia of toe 06/06/2005 documented as of this encounter (statuses as of 05/13/2022) [facility]08-[facility]21 History of Past illness Narrative* Problem Noted Date Resolved Date Supervision of high risk in third [facility] 11/25/2020 04/21/2021 Depression during 11/11/2020/08/2021 Antepartum multigravida of advanced maternal age 0306/18/2020 04/21/2021 Overview: 06/18/2020atient is 35 years old. Advanced Maternal age discussed. Pt refused information on Genetic Amniocentesis and [facility]. Patient desires nuchal ultrasound and [id number] testing. 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 She is currently on Suboxone and is treated by Dr. Parkinson at [facility]. She states she has been sober for over 2 years. She states she has had custody of both of her children for the past year. I have advised patient that we may do random drug screens during and when she presents to the hospital in labor and delivery. I have also discussed with her the risks of using drugs during . She states that her has relapsed recently and is currently in intensive outpatient treatment at [facility]. She states that he does not think that this is his baby. She desires paternity testing at .TKRN Patient request for diagnostic testing 04/21/2021 Overview: 06/18/2020 Patient requests paternity testing at . TKRN Quit smoking 06/18/2020 04/21/2021 Overview: 06/18/2020t recently quit smoking May 17. She stopped vaping when she found out she was . Discussed risks of smoking during and advised pt to continue not smoking. TKRN Nausea and vomiting in 06/18/2020 04/21/2021 Overview: 06/18/2020atient is complaining of nausea and occasional vomiting in . Dietary considerations discussed . Patient has been taking the Vitamin B6 recommended and states she gets little relief. See phone note dated June 18. Advised patient to call/come in if she is unable to keep any food or fluids down in a 24-hour period. Graciela Dixon RN Positive GBS test 09/10/2014 06/08/2020 Overview: Swelling in face with pcn, will most likely need vanc in labor- JV Supervision of high-risk 02/27/2014 06/08/2020 Overview: 08/18/14 - Sterilization consult - Title 19 signed, filed in chartroom. Cheyanne Skinner RN Medication exposure during first trimester of pr egnancy 02/27/2014 10/06/2020 Overview: 02/27/14 - patient has used xanax, vicodin, adderall & imitrex in the , will stop all those meds except the vicodin which she was encouraged to use sparingly to avoid addiction - KJ History of cervical LEEP bio psy affecting care of mother, antepartum 02/27/2014 04/21/2021 Overview: 06/18/2020.Pt has a history of Leep done in 2003. She states she did not have any labor with her prior pregnancies. Discussed increased risk of labor and importance of reporting any symptoms should they develop.Signs and symptoms of PTL discussed. TKRN Tobacco use complicating 02/27/2014 10/06/2020 Overview: 07/10/14: smoking 5 cig per day. Danisha Miller CNP 02/27/14 - discussed risks & encouraged cessation - KJ Controlled substance agreement signed 12/02/2013 06/08/2020 Overview: Urine pain panel and tox screen deviation. We will no longer prescribe controlled substances for her. See phone note 10/28/2015. Lumbago 02/13/2013 04/21/2021 Sciatica 09/14/2012 04/21/2021 Routine general medical exam ination at a health care facility 06/08/2009 11/23/2011 Overview: 06/08/2009, from Dr. Smith Routine gynecological examination 06/08/2009 11/23/2011 Restless legs syndrome 06/08/2009 6 Overview: Requip -- with good response most nights Pain in limb 11/12/2008 06/08/2009 Nontraumatic rupture of other tendons of foot an d ankle 11/12/2008 10/13/2011 Onychia and paronychia of toe 06/06/2005 documented as of this encounter (statuses as of 06/10/2022) [facility] History of Past illness Narrative* Problem Noted Date Resolved Date Supervision of high risk in third [facility] 11/25/2020 04/21/2021 Depression during 11/11/202008/2021 Antepartum multigravida of advanced maternal age 0306/18/2020 04/21/2021 Overview: 06/18/2020atient is 35 years old. Advanced Maternal age discussed. Pt refused information on Genetic Amniocentesis and [facility]. Patient desires nuchal ultrasound and [id number] testing. 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 She is currently on Suboxone and is treated by Dr. Parkinson at [facility]. She states she has been sober for over 2 years. She states she has had custody of both of her children for the past year. I have advised patient that we may do random drug screens during and when she presents to the hospital in labor and delivery. I have also discussed with her the risks of using drugs during . She states that her has relapsed recently and is currently in intensive outpatient treatment at [facility]. She states that he does not think that this is his baby. She desires paternity testing at .TKRN Patient request for diagnostic testing 04/21/2021 Overview: 06/18/2020 Patient requests paternity testing at . TKRN Quit smoking 06/18/2020 04/21/2021 Overview: 06/18/2020t recently quit smoking May 17. She stopped vaping when she found out she was . Discussed risks of smoking during and advised pt to continue not smoking. TKRN Nausea and vomiting in 06/18/2020 04/21/2021 Overview: 06/18/2020atient is complaining of nausea and occasional vomiting in . Dietary considerations discussed . Patient has been taking the Vitamin B6 recommended and states she gets little relief. See phone note dated June 18. Advised patient to call/come in if she is unable to keep any food or fluids down in a 24-hour period. Graciela Dixon RN Positive GBS test 09/10/2014 06/08/2020 Overview: Swelling in face with pcn, will most likely need vanc in labor- JV Supervision of high-risk 02/27/2014 06/08/2020 Overview: 08/18/14 - Sterilization consult - Title 19 signed, filed in chartroom. Cheyanne Skinner RN Medication exposure during first trimester of pr egnancy 02/27/2014 10/06/2020 Overview: 02/27/14 - patient has used xanax, vicodin, adderall & imitrex in the , will stop all those meds except the vicodin which she was encouraged to use sparingly to avoid addiction - KJ History of cervical LEEP bio psy affecting care of mother, antepartum 02/27/2014 04/21/2021 Overview: 06/18/2020.Pt has a history of Leep done in 2004. She states she did not have any labor with her prior pregnancies. Discussed increased risk of labor and importance of reporting any symptoms should they develop.Signs and symptoms of PTL discussed. TKRN Tobacco use complicating 02/27/2014 10/06/2020 Overview: 07/10/14: smoking 5 cig per day. Danisha Miller CNP 02/27/14 - discussed risks & encouraged cessation - KJ Controlled substance agreement signed 12/02/2013 06/08/2020 Overview: Urine pain panel and tox screen deviation. We will no longer prescribe controlled substances for her. See phone note 10/28/2015. Lumbago 02/13/2013 04/21/2021 Sciatica 09/14/2012 04/21/2021 Routine general medical exam ination at a health care facility 06/08/2009 11/23/2011 Overview: 06/08/2009, from Dr. Smith Routine gynecological examination 06/08/2009 11/23/2011 Restless legs syndrome 06/08/2009 Overview: Requip -- with good response most nights Pain in limb 11/12/2008 06/08/2009 Nontraumatic rupture of other tendons of foot an d ankle 11/12/2008 10/13/2011 Onychia and paronychia of toe 06/06/2005 documented as of this encounter (statuses as of 07/08/2022) [facility] History of Past illness Narrative* Problem Noted Date Resolved Date Supervision of high risk in third [facility] 11/25/2020 04/21/2021 Depression during 11/11/202008/2021 Antepartum multigravida of advanced maternal age 0306/18/2020 04/21/2021 Overview: 06/18/2020atient is 35 years old. Advanced Maternal age discussed. Pt refused information on Genetic Amniocentesis and [facility]. Patient desires nuchal ultrasound and [id number] testing. 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 She is currently on Suboxone and is treated by Dr. Parkinson at [facility]. She states she has been sober for over 2 years. She states she has had custody of both of her children for the past year. I have advised patient that we may do random drug screens during and when she presents to the hospital in labor and delivery. I have also discussed with her the risks of using drugs during . She states that her has relapsed recently and is currently in intensive outpatient treatment at [facility]. She states that he does not think that this is his baby. She desires paternity testing at [facility] Patient request for diagnostic testing 04/21/2021 Overview: 06/18/2020 Patient requests paternity testing at . TKRN Quit smoking 06/18/2020 04/21/2021 Overview: 06/18/2020t recently quit smoking May 17. She stopped vaping when she found out she was . Discussed risks of smoking during and advised pt to continue not smoking. TKRN Nausea and vomiting in 06/18/2020 04/21/2021 Overview: 06/18/2020atient is complaining of nausea and occasional vomiting in . Dietary considerations discussed . Patient has been taking the Vitamin B6 recommended and states she gets little relief. See phone note dated June 18. Advised patient to call/come in if she is unable to keep any food or fluids down in a 24-hour period. Graciela Dixon RN Positive GBS test 09/10/2014 06/08/2020 Overview: Swelling in face with pcn, will most likely need vanc in labor- JV Supervision of high-risk 02/27/2014 06/08/2020 Overview: 08/18/14 - Sterilization consult - Title 19 signed, filed in chartroom. Cheyanne Skinner RN Medication exposure during first trimester of pr egnancy 02/27/2014 10/06/2020 Overview: 02/27/14 - patient has used xanax, vicodin, adderall & imitrex in the , will stop all those meds except the vicodin which she was encouraged to use sparingly to avoid addiction - KJ History of cervical LEEP bio psy affecting care of mother, antepartum 02/27/2014 04/21/2021 Overview: 06/18/2020.Pt has a history of Leep done in 2003. She states she did not have any labor with her prior pregnancies. Discussed increased risk of labor and importance of reporting any symptoms should they develop.Signs and symptoms of PTL discussed. TKRN Tobacco use complicating 02/27/2014 10/06/2020 Overview: 07/10/14: smoking 5 cig per day. Danisha Miller CNP 02/27/14 - discussed risks & encouraged cessation - KJ Controlled substance agreement signed 12/02/2013 06/08/2020 Overview: Urine pain panel and tox screen deviation. We will no longer prescribe controlled substances for her. See phone note 10/28/2015. Lumbago 02/13/2013 04/21/2021 Sciatica 09/14/2012 04/21/2021 Routine general medical exam ination at a health care facility 06/08/2009 11/23/2011 Overview: 06/08/2009, from Dr. Smith Routine gynecological examination 06/08/2009 11/23/2011 Restless legs syndrome 06/08/2009 6 Overview: Requip -- with good response most nights Pain in limb 11/12/2008 06/08/2009 Nontraumatic rupture of other tendons of foot an d ankle 11/12/2008 10/13/2011 Onychia and paronychia of toe 06/06/2005 documented as of this encounter (statuses as of 08/05/2022) [facility] History of Past illness Narrative* Problem Noted Date Resolved Date Supervision of high risk in third trim genie 11/25/2020 04/21/2021 Depression during 11/11/2020/08/2021 Antepartum multigravida of advanced maternal age 0306/18/2020 04/21/2021 Overview: 06/18/2020atient is 35 years old. Advanced Maternal age discussed. Pt refused information on Genetic Amniocentesis and [facility]. Patient desires nuchal ultrasound and [id number] testing. 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 She is currently on Suboxone and is treated by Dr. Parkinson at [facility]. She states she has been sober for over 2 years. She states she has had custody of both of her children for the past year. I have advised patient that we may do random drug screens during and when she presents to the hospital in labor and delivery. I have also discussed with her the risks of using drugs during . She states that her has relapsed recently and is currently in intensive outpatient treatment at [facility]. She states that he does not think that this is his baby. She desires paternity testing at .TKRN Patient request for diagnostic testing 04/21/2021 Overview: 06/18/2020 Patient requests paternity testing at . TKRN Quit smoking 06/18/2020 04/21/2021 Overview: 06/18/2020t recently quit smoking May 17. She stopped vaping when she found out she was . Discussed risks of smoking during and advised pt to continue not smoking. TKRN Nausea and vomiting in 06/18/2020 04/21/2021 Overview: 06/18/2020atient is complaining of nausea and occasional vomiting in . Dietary considerations discussed . Patient has been taking the Vitamin B6 recommended and states she gets little relief. See phone note dated June 18. Advised patient to call/come in if she is unable to keep any food or fluids down in a 24-hour period. Graciela Dixon RN Positive GBS test 09/10/2014 06/08/2020 Overview: Swelling in face with pcn, will most likely need vanc in labor- JV Supervision of high-risk 02/27/2014 06/08/2020 Overview: 08/18/14 - Sterilization consult - Title 19 signed, filed in chartroom. Cheyanne Skinner RN Medication exposure during first trimester of pr egnancy 02/27/2014 10/06/2020 Overview: 02/27/14 - patient has used xanax, vicodin, adderall & imitrex in the , will stop all those meds except the vicodin which she was encouraged to use sparingly to avoid addiction - KJ History of cervical LEEP bio psy affecting care of mother, antepartum 02/27/2014 04/21/2021 Overview: 06/18/2020.Pt has a history of Leep done in 2004. She states she did not have any labor with her prior pregnancies. Discussed increased risk of labor and importance of reporting any symptoms should they develop.Signs and symptoms of PTL discussed. TKRN Tobacco use complicating 02/27/2014 10/06/2020 Overview: 07/10/14: smoking 5 cig per day. Danisha Miller CNP 02/27/14 - discussed risks & encouraged cessation - KJ Controlled substance agreement signed 12/02/2013 06/08/2020 Overview: Urine pain panel and tox screen deviation. We will no longer prescribe controlled substances for her. See phone note 10/28/2015. Lumbago 02/13/2013 04/21/2021 Sciatica 09/14/2012 04/21/2021 Routine general medical exam ination at a health care facility 06/08/2009 11/23/2011 Overview: 06/08/2009, from Dr. Smith Routine gynecological examination 06/08/2009 11/23/2011 Restless legs syndrome 06/08/2009 6 Overview: Requip -- with good response most nights Pain in limb 11/12/2008 06/08/2009 Nontraumatic rupture of other tendons of foot an d ankle 11/12/2008 10/13/2011 Onychia and paronychia of toe 06/06/2005 documented as of this encounter (statuses as of 10/03/2022) [facility]08-11-2021 History of Past illness Narrative* Problem Noted Date Resolved Date Supervision of high risk in third trim genie 11/25/2020 04/21/2021 Depression during 11/11/202008/2021 Antepartum multigravida of advanced maternal age 0306/18/2020 04/21/2021 Overview: 06/18/2020atient is 35 years old. Advanced Maternal age discussed. Pt refused information on Genetic Amniocentesis and [facility]. Patient desires nuchal ultrasound and testing. 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 She is currently on Suboxone and is treated by Dr. Parkinson at [facility]. She states she has been sober for over 2 years. She states she has had custody of both of her children for the past year. I have advised patient that we may do random drug screens during and when she presents to the hospital in labor and delivery. I have also discussed with her the risks of using drugs during . She states that her has relapsed recently and is currently in intensive outpatient treatment at [facility]. She states that he does not think that this is his baby. She desires paternity testing at .TKRN Patient request for diagnostic testing 04/21/2021 Overview: 06/18/2020 Patient requests paternity testing at . TKRN Quit smoking 06/18/2020 04/21/2021 Overview: 06/18/2020t recently quit smoking May 17. She stopped vaping when she found out she was . Discussed risks of smoking during and advised pt to continue not smoking. TKRN Nausea and vomiting in 06/18/2020 04/21/2021 Overview: 06/18/2020atient is complaining of nausea and occasional vomiting in . Dietary considerations discussed . Patient has been taking the Vitamin B6 recommended and states she gets little relief. See phone note dated June 18. Advised patient to call/come in if she is unable to keep any food or fluids down in a 24-hour period. Graciela Dixon RN Positive GBS test 09/10/2014 06/08/2020 Overview: Swelling in face with pcn, will most likely need vanc in labor- JV Supervision of high-risk 02/27/2014 06/08/2020 Overview: 08/18/14 - Sterilization consult - Title 19 signed, filed in chartroom. Cheyanne Skinner RN Medication exposure during first trimester of pr egnancy 02/27/2014 10/06/2020 Overview: 02/27/14 - patient has used xanax, vicodin, adderall & imitrex in the , will stop all those meds except the vicodin which she was encouraged to use sparingly to avoid addiction - KJ History of cervical LEEP bio psy affecting care of mother, antepartum 02/27/2014 04/21/2021 Overview: 06/18/2020.Pt has a history of Leep done in 2004. She states she did not have any labor with her prior pregnancies. Discussed increased risk of labor and importance of reporting any symptoms should they develop.Signs and symptoms of PTL discussed. TKRN Tobacco use complicating 02/27/2014 10/06/2020 Overview: 07/10/14: smoking 5 cig per day. Danisha Miller CNP 02/27/14 - discussed risks & encouraged cessation - KJ Controlled substance agreement signed 12/02/2013 06/08/2020 Overview: Urine pain panel and tox screen deviation. We will no longer prescribe controlled substances for her. See phone note 10/28/2015. Lumbago 02/13/2013 04/21/2021 Sciatica 09/14/2012 04/21/2021 Routine general medical exam ination at a health care facility 06/08/2009 11/23/2011 Overview: 06/08/2009, from Dr. Smith Routine gynecological examination 06/08/2009 11/23/2011 Restless legs syndrome 06/08/2009 07/13/201 6 Overview: Requip -- with good response most nights Pain in limb 11/12/2008 06/08/2009 Nontraumatic rupture of other tendons of foot an d ankle 11/12/2008 10/13/2011 Onychia and paronychia of toe 06/06/2005 documented as of this encounter (statuses as of 10/21/2022) [facility]08-11-[facility]21 History of Past illness Narrative* Problem Noted Date Diagnosed Date Resolved Date Supervision of high risk pre gnancy in third trimester 11/25/2020 04/21/2021 Depression during 11/11/2020 04/21/2021 Antepartum multigravida of a dvanced maternal age 0306/18/2020 04/21/2021 Overview: 06/18/2020atient is 35 years old. Advanced Maternal age discussed. Pt refused information on Genetic Amniocentesis and [facility]. Patient desires nuchal ultrasound and [id number] testing. 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 She is currently on Suboxone and is treated by Dr. Parkinson at [facility]. She states she has been sober for over 2 years. She states she has had custody of both of her children for the past year. I have advised patient that we may do random drug screens during and when she presents to the hospital in labor and delivery. I have also discussed with her the risks of using drugs during . She states that her has relapsed recently and is currently in intensive outpatient treatment at [facility]. She states that he does not think that this is his baby. She desires paternity testing at .TKRN Patient request for diagnostic testing 06/18/2020 04/21/2021 Overview: 06/18/2020 Patient requests paternity testing at . RN Quit smoking 06/18/2020 04/21/2021 Overview: 06/18/2020t recently quit smoking May 17. She stopped vaping when she found out she was . Discussed risks of smoking during and advised pt to continue not smoking. TKRN Nausea and vomiting in 06/18/2020 04/21/2021 Overview: 06/18/2020atient is complaining of nausea and occasional vomiting in . Dietary considerations discussed . Patient has been taking the Vitamin B6 recommended and states she gets little relief. See phone note dated June 18. Advised patient to call/come in if she is unable to keep any food or fluids down in a 24-hour period. Graciela Dixon RN Positive GBS test 09/10/2014 06/08/2020 Overview: Swelling in face with pcn, will most likely need vanc in labor- JV Supervision of high-risk 02/27/2014 06/08/2020 Overview: 08/18/14 - Sterilization consult - Title 19 signed, filed in chartroom. Cheyanne Skinner RN Medication exposure during f irst trimester of 02/27/2014 10/06/2020 Overview: 02/27/14 - patient has used xanax, vicodin, adderall & imitrex in the , will stop all those meds except the vicodin which she was encouraged to use sparingly to avoid addiction - KJ History of cervical LEEP bio psy affecting care of mother, antepartum 02/27/2014 04/21/2021 Overview: 06/18/2020.Pt has a history of Leep done in 2003. She states she did not have any labor with her prior pregnancies. Discussed increased risk of labor and importance of reporting any symptoms should they develop.Signs and symptoms of PTL discussed. TKRN Tobacco use complicating 02/27/2014 10/06/2020 Overview: 07/10/14: smoking 5 cig per day. Danisha Miller CNP 02/27/14 - discussed risks & encouraged cessation - KJ Controlled substance agreement signed 12/02/2013 06/08/2020 Overview: Urine pain panel and tox screen deviation. We will no longer prescribe controlled substances for her. See phone note 10/28/2015. Lumbago 02/13/2013 04/21/2021 Sciatica 09/14/2012 04/21/2021 Routine general medical exam ination at a health care facility 06/08/2009 11/23/2011 Overview: 06/08/2009, from Dr. Smith Routine gynecological examination 06/08/2009 11/23/2011 Restless legs syndrome 06/08/200910/27 Overview: Requip -- with good response most nights Pain in limb 11/12/2008 06/08/2009 Nontraumatic rupture of othe r tendons of foot and ankle 11/12/2008 10/13/2011 Onychia and paronychia of toe 06/06/2005 06/08/2009 documented as of this encounter (statuses as of 10/25/2022) [facility]08-11-2021 History of Past illness Narrative* Problem Noted Date Diagnosed Date Resolved Date Supervision of high risk pre gnancy in third trimester 11/25/2020 04/21/2021 Depression during 11/11/2020 04/21/2021 Antepartum multigravida of a dvanced maternal age 0306/18/2020 04/21/2021 Overview: 06/18/2020atient is 35 years old. Advanced Maternal age discussed. Pt refused information on Genetic Amniocentesis and [facility]. Patient desires nuchal ultrasound and [id number] testing. 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 She is currently on Suboxone and is treated by Dr. Parkinsno at [facility]. She states she has been sober for over 2 years. She states she has had custody of both of her children for the past year. I have advised patient that we may do random drug screens during and when she presents to the hospital in labor and delivery. I have also discussed with her the risks of using drugs during . She states that her has relapsed recently and is currently in intensive outpatient treatment at [facility]. She states that he does not think that this is his baby. She desires paternity testing at .TKRN Patient request for diagnostic testing 06/18/2020 04/21/2021 Overview: 06/18/2020 Patient requests paternity testing at . TKRN Quit smoking 06/18/2020 04/21/2021 Overview: 06/18/2020t recently quit smoking May 17. She stopped vaping when she found out she was . Discussed risks of smoking during and advised pt to continue not smoking. TKRN Nausea and vomiting in 06/18/2020 04/21/2021 Overview: 06/18/2020atient is complaining of nausea and occasional vomiting in . Dietary considerations discussed . Patient has been taking the Vitamin B6 recommended and states she gets little relief. See phone note dated June 18. Advised patient to call/come in if she is unable to keep any food or fluids down in a 24-hour period. Graciela Dixon RN Positive GBS test 09/10/2014 06/08/2020 Overview: Swelling in face with pcn, will most likely need vanc in labor- JV Supervision of high-risk 02/27/2014 06/08/2020 Overview: 08/18/14 - Sterilization consult - Title 19 signed, filed in chartroom. Cheyanne Skinner RN Medication exposure during f irst trimester of 02/27/2014 10/06/2020 Overview: 02/27/14 - patient has used xanax, vicodin, adderall & imitrex in the , will stop all those meds except the vicodin which she was encouraged to use sparingly to avoid addiction - KJ History of cervical LEEP bio psy affecting care of mother, antepartum 02/27/2014 04/21/2021 Overview: 06/18/2020.Pt has a history of Leep done in 2004. She states she did not have any labor with her prior pregnancies. Discussed increased risk of labor and importance of reporting any symptoms should they develop.Signs and symptoms of PTL discussed. TKRN Tobacco use complicating 02/27/2014 10/06/2020 Overview: 07/10/14: smoking 5 cig per day. Danisha Miller CNP 02/27/14 - discussed risks & encouraged cessation - KJ Controlled substance agreement signed 12/02/2013 06/08/2020 Overview: Urine pain panel and tox screen deviation. We will no longer prescribe controlled substances for her. See phone note 10/28/2015. Lumbago 02/13/2013 04/21/2021 Sciatica 09/14/2012 04/21/2021 Routine general medical exam ination at a health care facility 06/08/2009 11/23/2011 Overview: 06/08/2009, from Dr. Smith Routine gynecological examination 06/08/2009 11/23/2011 Restless legs syndrome 06/08/200910/27 Overview: Requip -- with good response most nights Pain in limb 11/12/2008 06/08/2009 Nontraumatic rupture of othe r tendons of foot and ankle 11/12/2008 10/13/2011 Onychia and paronychia of toe 06/06/2005 06/08/2009 documented as of this encounter (statuses as of 11/24/2022) [facility] History of Past illness Narrative* Problem Noted Date Diagnosed Date Resolved Date Supervision of high risk pre gnancy in third trimester 11/25/2020 04/21/2021 Depression during 11/11/2020 04/21/2021 Antepartum multigravida of a dvanced maternal age 0306/18/2020 04/21/2021 Overview: 03/04/2021Patient is 35 years old. Advanced Maternal age discussed. Pt refused information on Genetic Amniocentesis and [facility]. Patient desires nuchal ultrasound and [id number] testing. 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 She is currently on Suboxone and is treated by Dr. Parkinson at [facility]. She states she has been sober for over 2 years. She states she has had custody of both of her children for the past year. I have advised patient that we may do random drug screens during and when she presents to the hospital in labor and delivery. I have also discussed with her the risks of using drugs during . She states that her has relapsed recently and is currently in intensive outpatient treatment at [facility]. She states that he does not think that this is his baby. She desires paternity testing at .TKRN Patient request for diagnostic testing 06/18/2020 04/21/2021 Overview: 06/18/2020 Patient requests paternity testing at . TKRN Quit smoking 06/18/2020 04/21/2021 Overview: 06/18/2020t recently quit smoking May 17. She stopped vaping when she found out she was . Discussed risks of smoking during and advised pt to continue not smoking. TKRN Nausea and vomiting in 06/18/2020 04/21/2021 Overview: 06/18/2020atient is complaining of nausea and occasional vomiting in . Dietary considerations discussed . Patient has been taking the Vitamin B6 recommended and states she gets little relief. See phone note dated June 18. Advised patient to call/come in if she is unable to keep any food or fluids down in a 24-hour period. Graciela Dixon RN Positive GBS test 09/10/2014 06/08/2020 Overview: Swelling in face with pcn, will most likely need vanc in labor- JV Supervision of high-risk 02/27/2014 06/08/2020 Overview: 08/18/14 - Sterilization consult - Title 19 signed, filed in chartroom. Cheyanne Skinner confidential investigator exposure during f irst trimester of 02/27/2014 10/06/2020 Overview: 02/27/14 - patient has used xanax, vicodin, adderall & imitrex in the , will stop all those meds except the vicodin which she was encouraged to use sparingly to avoid addiction - KJ History of cervical LEEP bio psy affecting care of mother, antepartum 02/27/2014 04/21/2021 Overview: 06/18/2020.Pt has a history of Leep done in 2003. She states she did not have any labor with her prior pregnancies. Discussed increased risk of labor and importance of reporting any symptoms should they develop.Signs and symptoms of PTL discussed. TKRN Tobacco use complicating 02/27/2014 10/06/2020 Overview: 07/10/14: smoking 5 cig per day. Danisha Miller CNP 02/27/14 - discussed risks & encouraged cessation - KJ Controlled substance agreement signed 12/02/2013 06/08/2020 Overview: Urine pain panel and tox screen deviation. We will no longer prescribe controlled substances for her. See phone note 10/28/2015. Lumbago 02/13/2013 04/21/2021 Sciatica 09/14/2012 04/21/2021 Routine general medical exam ination at a health care facility 06/08/2009 11/23/2011 Overview: 06/08/2009, from Dr. Smith Routine gynecological examination 06/08/2009 11/23/2011 Restless legs syndrome 06/08/200910/27 Overview: Requip -- with good response most nights Pain in limb 11/12/2008 06/08/2009 Nontraumatic rupture of othe r tendons of foot and ankle 11/12/2008 10/13/2011 Onychia and paronychia of toe 06/06/2005 06/08/2009 documented as of this encounter (statuses as of 12/20/2022) [facility] History of Past illness Narrative* Problem Noted Date Diagnosed Date Resolved Date Supervision of high risk pre gnancy in third trimester 11/25/2020 04/21/2021 Depression during 11/11/2020 04/21/2021 Antepartum multigravida of a dvanced maternal age 0306/18/2020 04/21/2021 Overview: 06/18/2020atient is 35 years old. Advanced Maternal age discussed. Pt refused information on Genetic Amniocentesis and [facility]. Patient desires nuchal ultrasound and [id number] testing. 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 She is currently on Suboxone and is treated by Dr. Parkinson at [facility]. She states she has been sober for over 2 years. She states she has had custody of both of her children for the past year. I have advised patient that we may do random drug screens during and when she presents to the hospital in labor and delivery. I have also discussed with her the risks of using drugs during . She states that her has relapsed recently and is currently in intensive outpatient treatment at [facility]. She states that he does not think that this is his baby. She desires paternity testing at .TKRN Patient request for diagnostic testing 06/18/2020 04/21/2021 Overview: 06/18/2020 Patient requests paternity testing at . TKRN Quit smoking 06/18/2020 04/21/2021 Overview: 06/18/2020t recently quit smoking May 17. She stopped vaping when she found out she was . Discussed risks of smoking during and advised pt to continue not smoking. TKRN Nausea and vomiting in 06/18/2020 04/21/2021 Overview: 06/18/2020atient is complaining of nausea and occasional vomiting in . Dietary considerations discussed . Patient has been taking the Vitamin B6 recommended and states she gets little relief. See phone note dated June 18. Advised patient to call/come in if she is unable to keep any food or fluids down in a 24-hour period. Graciela Dixon RN Positive GBS test 09/10/2014 06/08/2020 Overview: Swelling in face with pcn, will most likely need vanc in labor- JV Supervision of high-risk 02/27/2014 06/08/2020 Overview: 08/18/14 - Sterilization consult - Title 19 signed, filed in chartroom. Cheyanne Skinner RN Medication exposure during f irst trimester of 02/27/2014 10/06/2020 Overview: 02/27/14 - patient has used xanax, vicodin, adderall & imitrex in the , will stop all those meds except the vicodin which she was encouraged to use sparingly to avoid addiction - KJ History of cervical LEEP bio psy affecting care of mother, antepartum 02/27/2014 04/21/2021 Overview: 06/18/2020.Pt has a history of Leep done in 2004. She states she did not have any labor with her prior pregnancies. Discussed increased risk of labor and importance of reporting any symptoms should they develop.Signs and symptoms of PTL discussed. TKRN Tobacco use complicating 02/27/2014 10/06/2020 Overview: 07/10/14: smoking 5 cig per day. Danisha Miller CNP 02/27/14 - discussed risks & encouraged cessation - KJ Controlled substance agreement signed 12/02/2013 06/08/2020 Overview: Urine pain panel and tox screen deviation. We will no longer prescribe controlled substances for her. See phone note 10/28/2015. Lumbago 02/13/2013 04/21/2021 Sciatica 09/14/2012 04/21/2021 Routine general medical exam ination at a health care facility 06/08/2009 11/23/2011 Overview: 06/08/2009, from Dr. Smith Routine gynecological examination 06/08/2009 11/23/2011 Restless legs syndrome 06/08/200910/27 Overview: Requip -- with good response most nights Pain in limb 11/12/2008 06/08/2009 Nontraumatic rupture of othe r tendons of foot and ankle 11/12/2008 10/13/2011 Onychia and paronychia of toe 06/06/2005 06/08/2009 documented as of this encounter (statuses as of 02/14/2023) [facility] History of Past illness Narrative* Problem Noted Date Diagnosed Date Resolved Date Supervision of high risk pre gnancy in third trimester 11/25/2020 04/21/2021 Depression during 11/11/2020 04/21/2021 Antepartum multigravida of a dvanced maternal age 0306/18/2020 04/21/2021 Overview: 06/18/2020atient is 35 years old. Advanced Maternal age discussed. Pt refused information on Genetic Amniocentesis and [facility]. Patient desires nuchal ultrasound and [id number] testing. 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 She is currently on Suboxone and is treated by Dr. Parkinson at [facility]. She states she has been sober for over 2 years. She states she has had custody of both of her children for the past year. I have advised patient that we may do random drug screens during and when she presents to the hospital in labor and delivery. I have also discussed with her the risks of using drugs during . She states that her has relapsed recently and is currently in intensive outpatient treatment at [facility]. She states that he does not think that this is his baby. She desires paternity testing at .TKRN Patient request for diagnostic testing 06/18/2020 04/21/2021 Overview: 06/18/2020 Patient requests paternity testing at . TKRN Quit smoking 06/18/2020 04/21/2021 Overview: 06/18/2020t recently quit smoking May 17. She stopped vaping when she found out she was . Discussed risks of smoking during and advised pt to continue not smoking. TKRN Nausea and vomiting in 06/18/2020 04/21/2021 Overview: 06/18/2020atient is complaining of nausea and occasional vomiting in . Dietary considerations discussed . Patient has been taking the Vitamin B6 recommended and states she gets little relief. See phone note dated June 18. Advised patient to call/come in if she is unable to keep any food or fluids down in a 24-hour period. Graciela Dixon RN Positive GBS test 09/10/2014 06/08/2020 Overview: Swelling in face with pcn, will most likely need vanc in labor- JV Supervision of high-risk 02/27/2014 06/08/2020 Overview: 08/18/14 - Sterilization consult - Title 19 signed, filed in chartroom. Cheyanne Skinner RN Medication exposure during f irst trimester of 02/27/2014 10/06/2020 Overview: 02/27/14 - patient has used xanax, vicodin, adderall & imitrex in the , will stop all those meds except the vicodin which she was encouraged to use sparingly to avoid addiction - KJ History of cervical LEEP bio psy affecting care of mother, antepartum 02/27/2014 04/21/2021 Overview: 06/18/2020.Pt has a history of Leep done in 2003. She states she did not have any labor with her prior pregnancies. Discussed increased risk of labor and importance of reporting any symptoms should they develop.Signs and symptoms of PTL discussed. TKRN Tobacco use complicating 02/27/2014 10/06/2020 Overview: 07/10/14: smoking 5 cig per day. Danisha Miller CNP 02/27/14 - discussed risks & encouraged cessation - KJ Controlled substance agreement signed 12/02/2013 06/08/2020 Overview: Urine pain panel and tox screen deviation. We will no longer prescribe controlled substances for her. See phone note 10/28/2015. Lumbago 02/13/2013 04/21/2021 Sciatica 09/14/2012 04/21/2021 Routine general medical exam ination at a health care facility 06/08/2009 11/23/2011 Overview: 06/08/2009, from Dr. Smith Routine gynecological examination 06/08/2009 11/23/2011 Restless legs syndrome 06/08/200910/27 Overview: Requip -- with good response most nights Pain in limb 11/12/2008 06/08/2009 Nontraumatic rupture of othe r tendons of foot and ankle 11/12/2008 10/13/2011 Onychia and paronychia of toe 06/06/2005 06/08/2009 documented as of this encounter (statuses as of 02/23/2023) [facility] History of Past illness Narrative* Problem Noted Date Diagnosed Date Resolved Date Supervision of high risk pre gnancy in third trimester 11/25/2020 04/21/2021 Depression during 11/11/2020 04/21/2021 Antepartum multigravida of a dvanced maternal age 0306/18/2020 04/21/2021 Overview: 06/18/2020atient is 35 years old. Advanced Maternal age discussed. Pt refused information on Genetic Amniocentesis and [facility]. Patient desires nuchal ultrasound and testing. 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 She is currently on Suboxone and is treated by Dr. Parkinson at [facility]. She states she has been sober for over 2 years. She states she has had custody of both of her children for the past year. I have advised patient that we may do random drug screens during and when she presents to the hospital in labor and delivery. I have also discussed with her the risks of using drugs during . She states that her has relapsed recently and is currently in intensive outpatient treatment at [facility]. She states that he does not think that this is his baby. She desires paternity testing at .TKRN Patient request for diagnostic testing 06/18/2020 04/21/2021 Overview: 06/18/2020 Patient requests paternity testing at . TKRN Quit smoking 06/18/2020 04/21/2021 Overview: 06/18/2020t recently quit smoking May 17. She stopped vaping when she found out she was . Discussed risks of smoking during and advised pt to continue not smoking. TKRN Nausea and vomiting in 06/18/2020 04/21/2021 Overview: 06/18/2020atient is complaining of nausea and occasional vomiting in . Dietary considerations discussed . Patient has been taking the Vitamin B6 recommended and states she gets little relief. See phone note dated June 18. Advised patient to call/come in if she is unable to keep any food or fluids down in a 24-hour period. Graciela Dixon RN Positive GBS test 09/10/2014 06/08/2020 Overview: Swelling in face with pcn, will most likely need vanc in labor- JV Supervision of high-risk 02/27/2014 06/08/2020 Overview: 08/18/14 - Sterilization consult - Title 19 signed, filed in chartroom. Cheyanne Skinner RN Medication exposure during f irst trimester of 02/27/2014 10/06/2020 Overview: 02/27/14 - patient has used xanax, vicodin, adderall & imitrex in the , will stop all those meds except the vicodin which she was encouraged to use sparingly to avoid addiction - KJ History of cervical LEEP bio psy affecting care of mother, antepartum 02/27/2014 04/21/2021 Overview: 06/18/2020.Pt has a history of Leep done in 2003. She states she did not have any labor with her prior pregnancies. Discussed increased risk of labor and importance of reporting any symptoms should they develop.Signs and symptoms of PTL discussed. TKRN Tobacco use complicating 02/27/2014 10/06/2020 Overview: 07/10/14: smoking 5 cig per day. Danisha Miller CNP 02/27/14 - discussed risks & encouraged cessation - KJ Controlled substance agreement signed 12/02/2013 06/08/2020 Overview: Urine pain panel and tox screen deviation. We will no longer prescribe controlled substances for her. See phone note 10/28/2015. Lumbago 02/13/2013 04/21/2021 Sciatica 09/14/2012 04/21/2021 Routine general medical exam ination at a health care facility 06/08/2009 11/23/2011 Overview: 06/08/2009, from Dr. Smith Routine gynecological examination 06/08/2009 11/23/2011 Restless legs syndrome 06/08/200910/27 Overview: Requip -- with good response most nights Pain in limb 11/12/2008 06/08/2009 Nontraumatic rupture of othe r tendons of foot and ankle 11/12/2008 10/13/2011 Onychia and paronychia of toe 06/06/2005 06/08/2009 documented as of this encounter (statuses as of 04/06/2023) [facility] Anxiety with depression- Primary Hypothyroidism, acquired Unspecified hypothyroidism Attention deficit disorder (ADD) without hyperactivity Vitamin D deficiency Unspecified vitamin D deficiency Concentration deficit Attention or concentration deficit 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, in remission documented in this encounter [facility] note* Diagnosis Dental decay Unspecified dental caries documented in this encounter [facility] note* Diagnosis Moderate persistent asthma, uncomplicated Unspecified asthma [facility]* Diagnosis Encounter for immunization- Primary Need for other specified prophylactic vaccination against single bacterial disease documented in this encounter [facility] note* Diagnosis Vitamin D deficiency- Primary Unspecified vitamin D deficiency documented in this encounter [facility] note* Diagnosis Chronic gastritis without bleeding, unspecified gastritis type- Primary Moderate persistent asthma, uncomplicated Unspecified asthma Chronic constipation Unspecified constipation [facility]* Diagnosis Cutaneous abscess of face- Primary Cellulitis and abscess of face Asthma with chronic obstructive pulmonary disease (COPD) ([facility]) Chronic obstructive asthma, unspecified Chronic gastritis without bleeding, unspecified gastritis type Hypothyroidism, acquired Unspecified hypothyroidism Anxiety with depression [facility]* Diagnosis Moderate persistent asthma, uncomplicated Unspecified asthma documented in this encounter [facility] note* Diagnosis Encounter for immunization- Primary Need for other specified prophylactic vaccination against single bacterial disease documented in this encounter [facility] note* Diagnosis Moderate persistent asthma, uncomplicated Unspecified asthma Vitamin D deficiency Unspecified vitamin D deficiency documented in this encounter [facility] note* Diagnosis APPOINTMENT CANCELLED- Primary documented in this encounter [facility] note* Diagnosis RLS (restless legs syndrome) Restless legs syndrome (RLS) COVID documented in this encounter [facility] note* Diagnosis Chronic gastritis without bleeding, unspecified gastritis type [facility]* Diagnosis Persistent cough- Primary Cough Sore throat Acute pharyngitis Ear pain, bilateral documented in this encounter [facility] note* Diagnosis Moderate persistent asthma, uncomplicated Unspecified asthma [facility]* Diagnosis Sore throat- Primary Acute pharyngitis Persistent cough Cough Wheezing Myalgia Mylagia and myositis, unspecified documented in this encounter [facility] note* Diagnosis Chronic gastritis without bleeding, unspecified gastritis type Vitamin D deficiency Unspecified vitamin D deficiency Anxiety with depression RLS (restless legs syndrome) Restless legs syndrome (RLS) documented in this encounter [facility] note* Diagnosis Vulvar irritation- Primary Other specified noninflammatory disorder of vulva and perineum documented in this encounter [facility] note* Diagnosis RLS (restless legs syndrome) Restless legs syndrome (RLS) documented in this encounter [facility] note* Diagnosis Vitamin D deficiency Unspecified vitamin D deficiency documented in this encounter [facility] note* Diagnosis Chronic gastritis without bleeding, unspecified gastritis type documented in this encounter [facility] note* Diagnosis Vitamin D deficiency- Primary Unspecified vitamin D deficiency Chronic gastritis without bleeding, unspecified gastritis type Hypothyroidism, acquired Unspecified hypothyroidism documented in this encounter [facility] note* Diagnosis Chronic gastritis without bleeding, unspecified gastritis type Hypothyroidism, acquired Unspecified hypothyroidism documented in this encounter [facility] note* Diagnosis Vitamin D deficiency Unspecified vitamin D deficiency Asthma with chronic obstructive pulmonary disease (COPD) (HCC) Chronic obstructive asthma, unspecified documented in this encounter [facility] note* Diagnosis RLS (restless legs syndrome) Restless legs syndrome (RLS) Chronic gastritis without bleeding, unspecified gastritis type Hypothyroidism, acquired Unspecified hypothyroidism documented in this encounter [facility] note* Diagnosis Hypothyroidism, acquired Unspecified hypothyroidism Chronic gastritis without bleeding, unspecified gastritis type documented in this encounter [facility] note* Diagnosis RLS (restless legs syndrome) Restless legs syndrome (RLS) Chronic gastritis without bleeding, unspecified gastritis type Hypothyroidism, acquired Unspecified hypothyroidism Anxiety with depression Vitamin D deficiency Unspecified vitamin D deficiency documented in this encounter [facility] note* Diagnosis Moderate persistent asthma, uncomplicated Unspecified asthma documented in this encounter [facility] note* Diagnosis Viral URI with cough- Primary Acute upper respiratory infections of unspecified site documented in this encounter [facility] Reason for Referral Specialty Diagnoses / Procedures Referred By Bell whitfield Referred To Contact Diagnoses Moderate persistent asthma, uncomplicated Frank Marques, ORDER MANAGER.[employer] HEAD OPERATOR [address] [place] [address] Referral ID Status Reason Start Date Expiration Date Visits Re quested Visits Authorized [id number] Closed 1 1 Summary Purpose Family History No Family History Records Found Advance Directives No Advanced Directives Records Found Additional Source Comments Source Comments (unrecognize d section and content) In the event this informatio n is protected by the Federal Confidentiality of Alcohol and Drug Abuse Patient Records regulations: The Federal rules restrict any use of the information to criminally investigate or prosecute any alcohol or drug abuse patient.[facility] the event this information is protected by the Federal Confidentiality of Alcohol and Drug Abuse Patient Records regulations: The Federal rules restrict any use of the information to criminally investigate or prosecute any alcohol or drug abuse patient.[facility] the event this information is protected by the Federal Confidentiality of Alcohol and Drug Abuse Patient Records regulations: The Federal rules restrict any use of the information to criminally investigate or prosecute any alcohol or drug abuse patient.[facility] the event this information is protected by the Federal Confidentiality of Alcohol and Drug Abuse Patient Records regulations: The Federal rules restrict any use of the information to criminally investigate or prosecute any alcohol or drug abuse patient.[facility] the event this information is protected by the Federal Confidentiality of Alcohol and Drug Abuse Patient Records regulations: The Federal rules restrict any use of the information to criminally investigate or prosecute any alcohol or drug abuse patient.[facility] the event this information is protected by the Federal Confidentiality of Alcohol and Drug Abuse Patient Records regulations: The Federal rules restrict any use of the information to criminally investigate or prosecute any alcohol or drug abuse patient.[facility] the event this information is protected by the Federal Confidentiality of Alcohol and Drug Abuse Patient Records regulations: The Federal rules restrict any use of the information to criminally investigate or prosecute any alcohol or drug abuse patient.[facility] the event this information is protected by the Federal Confidentiality of Alcohol and Drug Abuse Patient Records regulations: The Federal rules restrict any use of the information to criminally investigate or prosecute any alcohol or drug abuse patient.[facility] HospitalIn the event this information is protected by the Federal Confidentiality of Alcohol and Drug Abuse Patient Records regulations: The Federal rules restrict any use of the information to criminally investigate or prosecute any alcohol or drug abuse patient.[facility] HospitalIn the event this information is protected by the Federal Confidentiality of Alcohol and Drug Abuse Patient Records regulations: The Federal rules restrict any use of the information to criminally investigate or prosecute any alcohol or drug abuse patient.[facility]In the event this information is protected by the Federal Confidentiality of Alcohol and Drug Abuse Patient Records regulations: The Federal rules restrict any use of the information to criminally investigate or prosecute any alcohol or drug abuse patient.[facility] HospitalIn the event this information is protected by the Federal Confidentiality of Alcohol and Drug Abuse Patient Records regulations: The Federal rules restrict any use of the information to criminally investigate or prosecute any alcohol or drug abuse patient.[facility]In the event this information is protected by the Federal Confidentiality of Alcohol and Drug Abuse Patient Records regulations: The Federal rules restrict any use of the information to criminally investigate or prosecute any alcohol or drug abuse patient.[facility] HospitalIn the event this information is protected by the Federal Confidentiality of Alcohol and Drug Abuse Patient Records regulations: The Federal rules restrict any use of the information to criminally investigate or prosecute any alcohol or drug abuse patient.[facility] HospitalIn the event this information is protected by the Federal Confidentiality of Alcohol and Drug Abuse Patient Records regulations: The Federal rules restrict any use of the information to criminally investigate or prosecute any alcohol or drug abuse patient.[facility] HospitalIn the event this information is protected by the Federal Confidentiality of Alcohol and Drug Abuse Patient Records regulations: The Federal rules restrict any use of the information to criminally investigate or prosecute any alcohol or drug abuse patient.[facility] the event this information is protected by the Federal Confidentiality of Alcohol and Drug Abuse Patient Records regulations: The Federal rules restrict any use of the information to criminally investigate or prosecute any alcohol or drug abuse patient.[facility] HospitalIn the event this information is protected by the Federal Confidentiality of Alcohol and Drug Abuse Patient Records regulations: The Federal rules restrict any use of the information to criminally investigate or prosecute any alcohol or drug abuse patient.[facility] HospitalIn the event this information is protected by the Federal Confidentiality of Alcohol and Drug Abuse Patient Records regulations: The Federal rules restrict any use of the information to criminally investigate or prosecute any alcohol or drug abuse patient.[facility] the event this information is protected by the Federal Confidentiality of Alcohol and Drug Abuse Patient Records regulations: The Federal rules restrict any use of the information to criminally investigate or prosecute any alcohol or drug abuse patient.[facility] HospitalIn the event this information is protected by the Federal Confidentiality of Alcohol and Drug Abuse Patient Records regulations: The Federal rules restrict any use of the information to criminally investigate or prosecute any alcohol or drug abuse patient.[facility] HospitalIn the event this information is protected by the Federal Confidentiality of Alcohol and Drug Abuse Patient Records regulations: The Federal rules restrict any use of the information to criminally investigate or prosecute any alcohol or drug abuse patient.[facility] HospitalIn the event this information is protected by the Federal Confidentiality of Alcohol and Drug Abuse Patient Records regulations: The Federal rules restrict any use of the information to criminally investigate or prosecute any alcohol or drug abuse patient.[facility] HospitalIn the event this information is protected by the Federal Confidentiality of Alcohol and Drug Abuse Patient Records regulations: The Federal rules restrict any use of the information to criminally investigate or prosecute any alcohol or drug abuse patient.[facility] HospitalIn the event this information is protected by the Federal Confidentiality of Alcohol and Drug Abuse Patient Records regulations: The Federal rules restrict any use of the information to criminally investigate or prosecute any alcohol or drug abuse patient.[facility] HospitalIn the event this information is protected by the Federal Confidentiality of Alcohol and Drug Abuse Patient Records regulations: The Federal rules restrict any use of the information to criminally investigate or prosecute any alcohol or drug abuse patient.[facility] HospitalIn the event this information is protected by the Federal Confidentiality of Alcohol and Drug Abuse Patient Records regulations: The Federal rules restrict any use of the information to criminally investigate or prosecute any alcohol or drug abuse patient.[facility] HospitalIn the event this information is protected by the Federal Confidentiality of Alcohol and Drug Abuse Patient Records regulations: The Federal rules restrict any use of the information to criminally investigate or prosecute any alcohol or drug abuse patient.[facility] HospitalIn the event this information is protected by the Federal Confidentiality of Alcohol and Drug Abuse Patient Records regulations: The Federal rules restrict any use of the information to criminally investigate or prosecute any alcohol or drug abuse patient.[facility] HospitalIn the event this information is protected by the Federal Confidentiality of Alcohol and Drug Abuse Patient Records regulations: The Federal rules restrict any use of the information to criminally investigate or prosecute any alcohol or drug abuse patient.[facility] HospitalIn the event this information is protected by the Federal Confidentiality of Alcohol and Drug Abuse Patient Records regulations: The Federal rules restrict any use of the information to criminally investigate or prosecute any alcohol or drug abuse patient.[facility] HospitalIn the event this information is protected by the Federal Confidentiality of Alcohol and Drug Abuse Patient Records regulations: The Federal rules restrict any use of the information to criminally investigate or prosecute any alcohol or drug abuse patient.[facility] HospitalIn the event this information is protected by the Federal Confidentiality of Alcohol and Drug Abuse Patient Records regulations: The Federal rules restrict any use of the information to criminally investigate or prosecute any alcohol or drug abuse patient.[facility] HospitalIn the event this information is protected by the Federal Confidentiality of Alcohol and Drug Abuse Patient Records regulations: The Federal rules restrict any use of the information to criminally investigate or prosecute any alcohol or drug abuse patient.[facility] HospitalIn the event this information is protected by the Federal Confidentiality of Alcohol and Drug Abuse Patient Records regulations: The Federal rules restrict any use of the information to criminally investigate or prosecute any alcohol or drug abuse patient.[facility] HospitalIn the event this information is protected by the Federal Confidentiality of Alcohol and Drug Abuse Patient Records regulations: The Federal rules restrict any use of the information to criminally investigate or prosecute any alcohol or drug abuse patient.[facility] HospitalIn the event this information is protected by the Federal Confidentiality of Alcohol and Drug Abuse Patient Records regulations: The Federal rules restrict any use of the information to criminally investigate or prosecute any alcohol or drug abuse patient.[facility] HospitalIn the event this information is protected by the Federal Confidentiality of Alcohol and Drug Abuse Patient Records regulations: The Federal rules restrict any use of the information to criminally investigate or prosecute any alcohol or drug abuse patient.[facility] HospitalIn the event this information is protected by the Federal Confidentiality of Alcohol and Drug Abuse Patient Records regulations: The Federal rules restrict any use of the information to criminally investigate or prosecute any alcohol or drug abuse patient.[facility] Reason for Visit (unrecogniz ed section and content) Reason Comments Follow Up Reason Onset Date Comments Refill Request 08/09/2021 Reason Comments Imm/Inj 1st covid vaccine Reason Comments Refill Request Reason Comments ER [facility] ER follow up dx: gastritis Refill Request dulera and carafate Reason Comments Follow Up 2 months Reason Onset Date Comments Refill Request 10/26/2021 Reason Onset Date Comments Refill Request 12/06/2021 Reason Comments Refill Request Medication Problem Reason Onset Date Comments Refill Request 01/21/2022 Reason Onset Date Comments Refill Request 02/18/2022 Reason Comments Cough Reason Onset Date Comments Refill Request 03/04/2022 Reason Comments Cough Sore Throat Reason Onset Date Comments Refill Request 03/21/2022 Reason Comments Acute Visit Vaginal irritation x 1 week; recently changed soaps Reason Onset Date Comments Refill Request 06/09/2022 Reason Onset Date Comments Refill Request 07/08/2022 Reason Onset Date Comments Refill Request 08/04/2022 Reason Onset Date Comments Refill Request 09/28/2022 Reason Onset Date Comments Refill Request 10/20/2022 Reason Onset Date Comments Refill Request 10/25/2022 Reason Onset Date Comments Refill Request 11/22/2022 Reason Onset Date Comments Refill Request 12/20/2022 Reason Onset Date Comments Refill Request 02/10/2023 Reason Onset Date Comments Refill Request 02/17/2023 Care Teams (unrecognized sec tion and content) Screen Machine Operator Relationship Specialty Start Date End Date Rui Magaña DO [address] [place] [address] PCP - General Family Practice 06/14/12 Screen Machine Operator Relationship Specialty Start Date End Date Rui Magaña DO [address] [place] [address] PCP - General Family Practice 06/14/12 Screen Machine Operator Relationship Specialty Start Date End Date Rui Magaña, DO [address] [place] [address] PCP - General Family Practice 06/14/12 Screen Machine Operator Relationship Specialty Start Date End Date Rui Magaña, DO [address] [place] [address] PCP - General Family Practice 06/14/12 Screen Machine Operator Relationship Specialty Start Date End Date Rui Magaña, DO [address] [place] [address] PCP - General Family Practice 06/14/12 Screen Machine Operator Relationship Specialty Start Date End Date uRi Magaña, DO [address] [place] [address] PCP - General Family Practice 06/14/12 Screen Machine Operator Relationship Specialty Start Date End Date Rui Magaña, DO [address] [place] [address] PCP - General Family Practice 06/14/12 Screen Machine Operator Relationship Specialty Start Date End Date Rui Magaña, DO [address] [place] [address] PCP - General Family Practice 06/14/12 Screen Machine Operator Relationship Specialty Start Date End Date Rui Magaña, DO [address] [place] [address] PCP - General Family Practice 06/14/12 Screen Machine Operator Relationship Specialty Start Date End Date Rui Magaña, DO [address] [place] [address] PCP - General Family Practice 06/14/12 Screen Machine Operator Relationship Specialty Start Date End Date Rui Magaña, DO [address] [place] [address] PCP - General Family Practice 06/14/12 Screen Machine Operator Relationship Specialty Start Date End Date Rui Magaña, DO [address] [place] [address] PCP - General Family Practice 06/14/12 Screen Machine Operator Relationship Specialty Start Date End Date Rui Magaña, DO [address] [place] [address] PCP - General Family Medicine 06/14/12 Screen Machine Operator Relationship Specialty Start Date End Date Rui Magaña, DO [address] [place] [address] PCP - General Family Medicine 06/14/12 Screen Machine Operator Relationship Specialty Start Date End Date Rui Magaña, DO [address] [place] [address] PCP - General Family Medicine 06/14/12 Screen Machine Operator Relationship Specialty Start Date End Date Rui Magaña, DO [address] [place] [address] PCP - General Family Medicine 06/14/12 Screen Machine Operator Relationship Specialty Start Date End Date Rui Magaña, DO [address] [place] [address] PCP - General Family Medicine 06/14/12 Screen Machine Operator Relationship Specialty Start Date End Date Rui Magaña, DO [address] [place] [address] PCP - General Family Medicine 06/14/12 Screen Machine Operator Relationship Specialty Start Date End Date Rui Magaña, DO [address] [place] [address] PCP - General Family Medicine 06/14/12 Screen Machine Operator Relationship Specialty Start Date End Date Rui Magaña, DO [address] [facility] [place] [address] PCP - General Family Medicine 06/14/12 Screen Machine Operator Relationship Specialty Start Date End Date Rui Magaña DO [address] [facility] [place] [address] PCP - General Family Medicine 06/14/12 Screen Machine Operator Relationship Specialty Start Date End Date Rui Magaña DO [address] [facility] [place] [address] PCP - General Family Medicine 06/14/12 Screen Machine Operator Relationship Specialty Start Date End Date Rui Magaña DO [address] [facility] [place] [address] PCP - General Family Medicine 06/14/12 Screen Machine Operator Relationship Specialty Start Date End Date Rui Magaña DO [address] [facility] [place] [address] PCP - General Family Medicine 06/14/12 Screen Machine Operator Relationship Specialty Start Date End Date Rui Magaña DO [address] [facility] [place] [address] PCP - General Family Medicine 06/14/12 Screen Machine Operator Relationship Specialty Start Date End Date Rui Magaña DO [address] [facility] [place] [address] PCP - General Family Medicine 06/14/12 Screen Machine Operator Relationship Specialty Start Date End Date Rui Magaña DO [address] [facility] [place] [address] PCP - General Family Medicine 2/28/13 Screen Machine Operator Relationship Specialty Start Date End Date Rui Magaña DO [address] [place] [address] PCP - General Family Medicine 06/14/12 INFORMATION SOURCE (unrecogn ized section and content) FOR RECORDS PERTAINING TO PATIENTS WHO ARE OR HAVE BEEN ENROLLED IN A CHEMICAL DEPENDENCY/SUBSTANCEABUSE PROGRAM, SOME INFORMATION MAY BE OMITTED. This clinical summary was aggregated from multiple sources. Caution should be exercised in using it in the provision of clinical care. This summary normalizes information from multiple sources, and as a consequence, information in this document may materially change the coding, format and clinical context of patient data. In addition, data may be omitted in some cases. CLINICAL DECISIONS SHOULD BE BASED ON THE PRIMARY CLINICAL RECORDS. [employer] [facility]. provides no warranty or guarantee of the accuracy or completeness of information in this document.
--- NOTE | 2023-04-24 20:39 | EDS_ITS ---
HPI <CARROLL Pennington - Last Filed: 04/24/23 20:44> History of Present Illness Chief Complaint: Dental Narrative Narrative: Patient is a 38-year-old female with history of depression, anxiety, upper thyroidism who presents to the emergency department with complaints of bilateral lower jaw pain. Patient does have multiple broken teeth, states that she thinks that she needs antibiotics. She is allergic to penicillin. She currently is looking to find a dentist. She denies any fever chills nausea or vomiting. PFSH <CARROLL Pennington - Last Filed: 04/24/23 20:44> [facility] Medical History ADD (attention deficit disorder) Adjustment disorder with mixed anxiety and depressed mood AMA (advanced maternal age) multigravida 35+ Anxiety Asthma Chlamydia Chronic low back pain Depression Dysthymia Fatigue History of gonorrhea History of methamphetamine abuse Insomnia Migraine Opioid use disorder, moderate, dependence PCOS (polycystic ovarian syndrome) complicated by subutex maintenance, antepartum Restless leg syndrome Sciatica (spontaneous vaginal delivery) Thyroid disorder Home Medications albuterol sulfate 90 mcg/actuation aerosol inhaler (Ventolin HFA) 2 puff inhalation Q6H PRN PRN Bronchodialation 01/24/13 [History Last Taken 01/29/21 03:00 2 puffs] buprenorphine HCl 8 mg sublingual tablet 12 mg sublingual DAILY Check with primary doctor 01/29/21 [History Last Taken 01/29/21 07:30] pantoprazole 40 mg tablet,delayed release (Protonix) 40 mg PO DAILY 30 days #30 tabs 03/29/21 [Rx Last Taken Unknown] sucralfate 1 gram tablet (Carafate) 1 g PO TID #15 tabs 08/30/21 [Rx Last Taken Unknown] clindamycin HCl 150 mg capsule 300 mg (2 x 150 mg) PO 4X/DAY #80 CAPSULES 11/07/21 [Rx Last Taken Unknown] fluconazole 150 mg tablet 150 mg PO .once #1 TAB 11/07/21 [Rx Last Taken Unknown] nitrofurantoin monohydrate/macrocrystals 100 mg capsule (Macrobid) 100 mg PO Q12H 5 days #10 caps 12/27/21 [Rx Last Taken Unknown] prednisone 20 mg tablet 40 mg (2 x 20 mg) PO DAILY #14 tabs 12/31/21 [Rx Last Taken Unknown] clindamycin HCl 150 mg capsule (Cleocin HCl) 300 mg (2 x 150 mg) PO TID 10 days #60 caps 04/24/23 [Rx Last Taken Unknown] ibuprofen 600 mg tablet 600 mg PO Q6H PRN PRN pain #20 TABLETS 04/24/23 [Rx Last Taken Unknown] Allergy/AdvReac Type Severity Reaction Status Date / Time Penicillins [PCN] Allergy Swelling Verified 04/24/23 18:41 tramadol HCl [From Ultram] AdvReac Other Verified 04/24/23 18:41 Surgical History H/O Achilles tendon repair H/O carpal tunnel repair H/O LEEP History of abdominal surgery Social History household members: family Smoking Status: Current some day smoker tobacco type: e-cigarettes ROS <CARROLL Pennington - Last Filed: 04/24/23 20:44> ROS ED ROS Narrative Constitutional: Negative for fever, chills, weight loss, weakness Eyes: Negative for vision loss, vision change, double vision ENT: Negative for any sore throat, ear pain, congestion. Positive For generalized mouth pain, tooth pain Cardiovascular: Negative for any chest pain, tightness, palpitations Respiratory: Negative for any cough, sputum production, hemoptysis, dyspnea, dyspnea on exertion, orthopnea Gastrointestinal: Negative for any abdominal pain, nausea, vomiting, diarrhea, constipation, blood in stool, blood in vomit : Negative for any urinary frequency, dysuria, retention, blood in urine Muscle skeletal: Negative for any myalgias, arthralgias, neck pain, back pain Neurological: Negative for any headache, syncope, paresthesias, dizziness Skin: Negative for any rashes, lumps, itching, abrasions, lacerations Psychiatric: Negative for any depression, anxiety, stress, suicidal ideation, homicidal ideation Hematologic: Negative for any easy bruising, excessive bruising, easy bleeding Allergies: Negative for any eczema, hives, rash EXAM <CARROLL Pennington - Last Filed: 04/24/23 20:44> Physical Exam Narrative Exam Narrative: Vital signs reviewed. HEET: Head normocephalic atraumatic, TMs clear bilaterally. Posterior pharynx is clear, moist mucous membranes. Nares clear bilaterally. Patient has poor dentition, multiple broken teeth, dental caries. No abscess formation, no fluctuance. Upper and lower palate are soft. Neck: Supple with no lymphadenopathy or tenderness. No signs of meningismus. Cardiac: Regular rate and rhythm no murmurs gallops or rubs, equal peripheral pulses bilaterally. Respiratory: Lungs clear to auscultation bilaterally. No chest tenderness. Abdomen: Soft, nontender, nondistended. No abdominal bruit or pulsatile masses. No hepatosplenomegaly Extremities: No peripheral edema, no signs of gross trauma or deformity. Active full range of motion of all extremities. Neuro: Cranial nerves II through XII intact, no focal neurological deficits. Skin: Clean dry and intact with no rash, purpura, petechiae, vesicles or pustules. Backs/flank: No CVA tenderness, no midline spinal tenderness, no deformity. Psych: Normal mood and affect. No SI, HI or acute psychosis. Const Vital Signs: 04/24/23 18:41 Temperature 96 F L Temperature Source Temporal Pulse Rate 92 Respiratory Rate 18 Blood Pressure 130/90 H Blood Pressure Mean 103 Pulse Ox 100 <Dr. Louie Cavanaugh DO - Last Filed: 04/24/23 21:32> Physical Exam Const Vital Signs: 04/24/23 18:41 Temperature 96 F L Temperature Source Temporal Pulse Rate 92 Respiratory Rate 18 Blood Pressure 130/90 H Blood Pressure Mean 103 Pulse Ox 100 [facility] <CARROLL Pennington - Last Filed: 04/24/23 20:44> [facility] Treatment and Re-Evaluation :: Patient appears generally well, patient appears nontoxic, vital signs are stable. Presenting to the emergency department complaints of dental caries, broken teeth. Physical examination is consistent with dental caries, there are some fractured teeth. Patient does have poor dentition. She needs to follow-up with a dentist. She will be given a dental referral list. She will be given a prescription for clindamycin as well as ibuprofen. All questions answered, she instructed return for any worsening symptoms <Dr. Louie Cavanaugh DO - Last Filed: 04/24/23 21:32> [facility] Treatment and Re-Evaluation :: Patient appears generally well, patient appears nontoxic, vital signs are stable. Presenting to the emergency department complaints of dental caries, broken teeth. Physical examination is consistent with dental caries, there are some fractured teeth. Patient does have poor dentition. She needs to follow-up with a dentist. She will be given a dental referral list. She will be given a prescription for clindamycin as well as ibuprofen. All questions answered, she instructed return for any worsening symptoms I have personally performed a face to face assessment of the patient and have reviewed the YOEL Note. I performed a substantive portion of the visit including all aspects of the following. My leigh findings include: History is 38-year-old female presenting to the emergency department with dental pain. Patient is also here with her son who has facial swelling and fever. Patient notes that she has poor dentition. Exam is widespread dental decay. No obvious focal abscess. Medical Decison Making patient needs to see dentistry. She would like to try some clindamycin and anti-inflammatories. Discharge Plan Triage Chief Complaint: Dental ED Midlevel Provider: Matt Hernandez ED Provider: Louie Cavanaugh Dx/Rx/DC Orders Clinical Impression: Dental caries Instructions: Understanding Tooth Decay, ED Dental Cavity Prescriptions: New clindamycin HCl [Cleocin HCl] 150 mg capsule 300 mg PO TID 10 Days Qty: 60 0RF ibuprofen 600 mg tablet 600 mg PO Q6H PRN PRN (Reason: pain) Qty: 20 0RF No Action albuterol sulfate [Ventolin HFA] 1 INHALER inhaler 2 puff inhalation Q6H PRN PRN (Reason: Bronchodialation) buprenorphine HCl 8 mg Tablet, Sublingual 12 mg SUBLINGUAL DAILY pantoprazole [Protonix] 40 mg tablet,delayed release (DR/EC) 40 mg PO DAILY 30 Days Qty: 30 0RF sucralfate [Carafate] 1 gram tablet 1 g PO TID Qty: 15 0RF clindamycin HCl 150 MG capsule 300 mg PO 4X/DAY Qty: 80 0RF fluconazole 150 mg tablet 150 mg PO .once Qty: 1 0RF nitrofurantoin monohyd/m-cryst [Macrobid] 100 mg capsule 100 mg PO Q12H 5 Days Qty: 10 0RF Rx Instructions: must administer with a meal/food prednisone 20 mg tablet 40 mg PO DAILY Qty: 14 0RF Primary Care Provider: Rui Garner Referrals: Rui Garner DO [Primary Care Provider] - Disposition Disposition: Home, Self Care
== END 2023-04-24 22:00 | disposition home or self-care (01) ==
PROVIDERS: Emergency Provider Emergency Medicine; PCP Student in an Organized Health Care Education/Training Program; Visit Provider Emergency Medicine
DX: K02.9 Dental caries, unspecified (principal); S02.5XXA Fracture of tooth (traumatic), initial encounter for closed fracture; R68.84 Jaw pain; F41.9 Anxiety disorder, unspecified; F32.A Depression, unspecified; Z88.0 Allergy status to penicillin; F17.290 Nicotine dependence, other tobacco product, uncomplicated; Z79.899 Other long term (current) drug therapy
CPT/HCPCS: 99282; J7040; A4216

== ENCOUNTER 2023-05-31 23:41 | Emergency (ER) | payer MEDICAID, SELFPAY ==
[2023-05-31 23:42] VITALS: BP 142/107; PULSE 97; RESP 20; TEMP 35.9; O2SAT 100; BMI 24.8
--- NOTE | 2023-06-01 00:04 | CT_ITS ---
STUDY: CT BRAIN WITHOUT CONTRAST REASON FOR EXAM: Female, 38 years old. Post traumatic headache RADIATION DOSAGE (If Supplied By Facility): CTDIvol = ( 44.99 ) mGy, DLP = ( 745.49 ) mGycm TECHNIQUE: Transaxial CT imaging of the brain was performed without administration of intravenous contrast material. Individualized dose optimization techniques were used for this CT. COMPARISON: No relevant priors. FINDINGS: Normal soft tissue structures. Normal calvarium. Normal size ventricles and extra-axial spaces for the patient''s age. Normal white matter tracts of the cerebral hemispheres. Normal basal ganglia and thalami. Normal brainstem. Normal cerebellum. There is no intracranial hemorrhage. There are no findings of an acute ischemic infarction. Normal visualized paranasal sinuses. CT/Brain/Head without Contrast IMPRESSION: Normal unenhanced CT scan of the brain. Electronically Signed: Froy Fraire MD at 0:54 EST ,
--- OUTSIDE RECORDS SUMMARY | 2023-06-01 00:15 | XMS RPT_ITS | CCD ---
Author Name Unknown Address [address] [place] [address] Organization [facility] Care Team Providers Care Surgical Elastic Knitter Name Role Phone Rui Magaña DO Primary Care Provider [phone] RUI MAGAÑA Primary Care Unavailable RUI MAGAÑA [...] reactions to drug 200 5 Swelling, Itching [facility] Work Phone: (20 sources) traMADol; Translations: [TRAMADOL HCL] Drug Allergy 6 [facility] Work Phone: (20 sources) Penicillins Propensity to adverse reactions to drug 200 5 Swelling, Itching [facility] Work Phone: Medications Current Medications Medication [...] Drug Class(es) Dates Sig (Normalized) Sig (Original) [id number] 200 actuat albuterol 0.09 mg/actuat metered dose [...] Date Time Vital Sign Value Performing Clinician Faci lity 05-13-2022 13:41-0500 Diastolic blood pressure 82 mm[Hg] Samira Boudreaux APRN.STEAM PRESS OPERATOR Work Phone: [facility] 05-13-2022 13:41-0500 Heart rate 93 /min Samira Boudreaux TRIMMER MEAT.STEAM PRESS OPERATOR Work Phone: [facility] 05-13-2022 13:41-0500 Respiratory rate 18 /min Samira Boudreaux APRN.STEAM PRESS OPERATOR Work Phone: [facility] 05-13-2022 13:41-0500 SaO2% (BldA) [Mass fraction] 99 % Samira Boudreaux TRIMMER MEAT.STEAM PRESS OPERATOR Work Phone: [facility] 05-13-2022 13:41-0500 Systolic blood pressure 124 mm[Hg] Samira Boudreaux TRIMMER MEAT.STEAM PRESS OPERATOR Work Phone: [facility] 03-04-2022 14:46-0500 Body temperature 97.9 [degF] Andressa Bautista TRIMMER MEAT.STEAM PRESS OPERATOR Work Phone: [facility] 03-04-2022 14:46-0500 Diastolic blood pressure 64 mm[Hg] Andressa Bautista TRIMMER MEAT.STEAM PRESS OPERATOR Work Phone: [facility] 03-04-2022 14:46-0500 Heart rate 110 /min Andressa Michele TRIMMER MEAT.STEAM PRESS OPERATOR Work Phone: [facility] 03-04-2022 14:46-0500 SaO2% (BldA) [Mass fraction] 97 % Andressa Michele TRIMMER MEAT.STEAM PRESS OPERATOR Work Phone: [facility] 03-04-2022 14:46-0500 Systolic blood pressure 100 mm[Hg] Andressa Michele TRIMMER MEAT.STEAM PRESS OPERATOR Work Phone: [facility] 10-19-2021 10:25-0400 Body temperature 97.7 [degF] Rui Magaña DO Work Phone: [facility] 10-19-2021 10:25-0400 Body weight 72.58 kg Rui Magaña DO Work Phone: [facility] 10-19-2021 10:25-0400 Diastolic blood pressure 56 mm[Hg] Rui Magaña DO Work Phone: [facility] 10-19-2021 10:25-0400 Heart rate 76 /min Rui Magaña DO Work Phone: [facility] 10-19-2021 10:25-0400 Respiratory rate 16 /min Rui Magaña DO Work Phone: [facility] 10-19-2021 10:25-0400 Systolic blood pressure 96 mm[Hg] Rui Magaña DO Work Phone: [facility] 10-01-2021 10:17-0400 Body weight 70.31 kg Samira Haagen TRIMMER MEAT.STEAM PRESS OPERATOR Work Phone: [facility] 10-01-2021 10:17-0400 Diastolic blood pressure 82 mm[Hg] Samira Haagen TRIMMER MEAT.STEAM PRESS OPERATOR Work Phone: [facility] 10-01-2021 10:17-0400 Heart rate 93 /min Samira Haagen TRIMMER MEAT.STEAM PRESS OPERATOR Work Phone: [facility] 10-01-2021 10:17-0400 Respiratory rate 18 /min Samira Haagen TRIMMER MEAT.STEAM PRESS OPERATOR Work Phone: [facility] 10-01-2021 10:17-0400 SaO2% (BldA) [Mass fraction] 98 % Samira Boudreaux TRIMMER MEAT.STEAM PRESS OPERATOR Work Phone: [facility] 10-01-2021 10:17-0400 Systolic blood pressure 110 mm[Hg] Samira Boudreaux TRIMMER MEAT.STEAM PRESS OPERATOR Work Phone: [facility] 08-02-2021 10:35-0400 Body temperature 99 [degF] Rui Magaña DO Work Phone: [facility] 08-02-2021 10:35-0400 Body weight 70.76 kg Rui Magaña DO Work Phone: [facility] 08-02-2021 10:35-0400 Diastolic blood pressure 60 mm[Hg] Rui Magaña DO Work Phone: [facility] 08-02-2021 10:35-0400 Heart rate 64 /min Rui Magaña DO Work Phone: [facility] 08-02-2021 10:35-0400 Respiratory rate 16 /min Rui Magaña DO Work Phone: [facility] 08-02-2021 10:35-0400 Systolic blood pressure 100 mm[Hg] Rui Magaña DO Work Phone: [facility] Encounters Encounter Date Encounter Type Care Provider Facility Start: 04-14-2023 ambulatory RUI L MAGAÑA Facil ity:[facility] Start: 04-05-2023 End: 04-05-2023 ambulatory RUI L MAGAÑA Facility:[facility] Start: 04-05-2023 End: 04-05-2023 ambulatory Jolie Avery TRIMMER MEAT.STEAM PRESS OPERATOR Work Phone: Telemedicine Procedures Date Procedure Procedure Detail Performing Clinician Start: 03-04-2022 STREP A MOLECULAR (POC) Andressa Bautista TRIMMER MEAT.STEAM PRESS OPERATOR Work Phone: Start: 11-17-2021 [employer] COVI D-19 VACCINE, AGE 12+ YR (SUÁREZ TOP) Jessica Bernardo MD Work Phone: Start: 08-24-2021 [employer] COVI D-19 VACCINE, AGE 12+ YR (SUÁREZ TOP) Jessica Bernardo MD Work Phone: Plan of Treatment Date Care Activity Detail Author Start: 12-09-2030 Urine microalbumin profile [facility] Start: 06-08-2025 HPV TESTING HPV TESTING [facility] Start: 06-08-2025 PAP TESTING PAP TESTING [facility] Start: 06-08-2025 Screening for malign ant neoplasm of cervix [facility] Start: 05-13-2023 ANNUAL PCP TEAM PIANO MOVER NELIA DISEASE VISIT ANNUAL PCP TEAM CHRONIC DISEASE VISIT [facility] Start: 03-04-2023 ANNUAL PCP TEAM PIANO MOVER NELIA DISEASE VISIT ANNUAL PCP TEAM CHRONIC DISEASE VISIT [facility] Start: 01-12-2023 ANNUAL PCP TEAM PIANO MOVER NELIA DISEASE VISIT ANNUAL PCP TEAM CHRONIC DISEASE VISIT [facility] Start: 12-20-2022 End: 09-15-2023 Basic metabolic 2000 panel - Serum or Plasma BASIC METABOLIC PNL Lab Routine Hypothyroidism, acquired Expected: 12/20/2022 (Approximate), Expires: 09/15/2023 [facility] Work Phone: Immunizations Immunization Date Immunization Notes Care Provider Shaquille nash 11-17-2021 COVID-19 vaccine, ag e 12+ yr ([employer] - SUÁREZ TOP) Nurse [facility] 08-24-2021 COVID-19 vaccine, ag e 12+ yr ([employer] - SUÁREZ TOP) Nurse [facility] 12-09-2020 tetanus toxoid, redu moreno diphtheria toxoid, and acellular pertussis vaccine, adsorbed Frank Zurawick TRIMMER MEAT.STEAM PRESS OPERATOR Work Phone: [facility] Work Phone: 09-29-2019 tetanus toxoid, redu moreno diphtheria toxoid, and acellular pertussis vaccine, adsorbed Frank Zurawick TRIMMER MEAT.STEAM PRESS OPERATOR Work Phone: [facility] Work Phone: 07-10-2014 tetanus toxoid, redu moreno diphtheria toxoid, and acellular pertussis vaccine, adsorbed Frank Zurawick TRIMMER MEAT.STEAM PRESS OPERATOR Work Phone: [facility] Work Phone: 02-27-2006 influenza virus vaccine, unspecified formulation Frank Gregoryelza TRIMMER MEAT.STEAM PRESS OPERATOR Work Phone: [facility] Work Phone: 08-28-2005 tetanus and diphther ia toxoids, adsorbed, preservative free, for adult use (2 Lf of tetanus toxoid and 2 Lf of diphtheria toxoid) Frank Marques TRIMMER MEAT.STEAM PRESS OPERATOR Work Phone: [facility] Work Phone: Payers Date Payer Category Payer Medicaid [id number] 2007 Medicaid [employer] [facility] MEDICAID [id number] 2007-Present [phone] [address] [place] [address] Medicaid [id number] 2007 Medicaid [id number] 2007 Medicaid [id number] Social History Date Type Detail Facility Start: 09-08-2020 End: 03-04-2022 Tobacco smoking status NHIS Ex-smoker [facility] History of tobacco use Cigarette Smoker [facility] Start: 09-08-2020 End: 03-04-2022 Tobacco use and exposure Smokeless tobacco non-user [facility] Start: 04-27-2021 End: 05-13-2022 Alcohol intake Ex-drinker (finding) [facility] Start: 01-20-2020 End: 01-11-2022 History SDOH Alcohol Frequency 1 [facility] Start: 06-18-2020 History SDOH Alcohol Comment quit drinking 5 years ago [facility] Start: 01-20-2020 End: 02-03-2020 History SDOH Social Connections Phone 5 [facility] Start: 01-20-2020 End: 02-03-2020 History SDOH Social Connections [facility] 3 [facility] Start: 02-03-2020 End: 01-11-2022 History SDOH Social Connections Meetings 2 [facility] Start: 02-03-2020 History SDOH Physica l Activity DPW 4 [facility] Start: 01-20-2020 Education 10 [facility] Start: 06-18-2020 End: 03-04-2022 Tobacco Comment vaping with Nicotine [facility] Start: 1985 Sex Assigned At Female [facility] Start: 06-14-2021 End: 03-04-2022 Exposure to SARS-CoV-2 (event) Not sure [facility] History of tobacco use Current smoker [facility] Start: 01-01-2022 End: 01-11-2022 Exposure to SARS-CoV-2 (event) Unable to assess [facility] Work Phone: Start: 05-13-2022 End: 03-30-2023 History of Social function [facility] Start: 05-13-2022 End: 03-30-2023 Tobacco use panel [facility] Adult Depression Screening Assessment 6 [facility] In the past 12 month s, was there a time when you were not able to pay the mortgage or rent on time? No [facility] The thought of shiv alejandra myself has occurred to me Never [facility] Work Phone: Start: 08-12-2018 Gender identity Identifies as female gender (finding) [facility] Start: 06-11-2020 Sexual orientation Heterosexual (jose valdivia) [facility] How many standard drinks containing alcohol do you have on a typical day? 1 or 2 [facility] How hard is it for y ou to pay for the very basics like food, housing, medical care, and heating Somewhat hard [facility] Work Phone: Do you feel stress - tense, restless, nervous, or anxious, or unable to sleep at night because your mind is troubled all the time - these days [OSQ] Very much [facility] (I/We) worried lukas er (my/our) food would run out before (I/we) got money to buy more. Often true [facility] Work Phone: The food that (I/we) bought just didn't last, and (I/we) didn't have money to get more. Sometimes true [facility] Work Phone: Clinical Notes 11-25-2020 to 04-05-2023 Patient InstructionsJolie Avery APRN.STEAM PRESS OPERATOR - 04/05/2023 12:18 PM ESTTelephone Encounter - Monet Wilkins LPN - 02/23/2023 9:53 AM ESTTelephone Encounter - Monet Wilkins LPN - 02/22/2023 7:05 PM EST Note Date & Type Note Facility 04-05-2023 Note HNO ID: [id number] Author: Jolie Avery APRN.SARAI Service: ? Author Type: Nurse Practitioner Type: Progress Notes Filed: 04/05/2023 12:29 PM Note Text: Telemedicine Visit - Distance Health Virtual Visit Note Patient seen on [employer] Video Visit platform. Location of patient: [place] I have communicated my name and active licensure. The patient's identity and physical location were verified at the time of this visit. Either the patient or their legal telephone services sales representative has been informed of the risks [...] RELIEF) 50 mcg/actuation nasal spray Use 1 Chambers in each nostril once daily. benzocaine-menthol (CEPACOL) [...] JENCYCLA 0.35 mg (more content not included)... [facility] 04-05-2023 Instructions Jolie Avery APRN.[facility] - 04/05/2023 12:29 PM EST I [...] days. Most often you should use the [id number] symptomatic treatment/s that your health care provider [...] the actual influenza. documented in this encounter [facility] 04-05-2023 History of Present illness Narrative Telemedicine Visit - Distance Health Virtual Visit Note Patient seen on [employer] Video Visit platform. Location of patient: [place] I have communicated my name and active licensure. The patient's identity and physical location were verified at the time of this visit. Either the patient or their legal telephone services sales representative has been informed of the risks [...] RELIEF) 50 mcg/actuation nasal spray Use 1 Chambers in each nostril once daily. benzocaine-menthol (CEPACOL) [...] (IMITREX) 20 mg/actuation nasal spray Use 1 Chambers in the nose once daily as needed [...] cough and to thin out mucus -http://www.choosingwisely.org/pa khai-resources/antibiotics/. This link shares information about when antibiotics may help and when they may not. - Red flags discussed for need for in person care - All questions answered Jolie Avery APRN.STEAM PRESS OPERATOR If you let us know who [...] would like to continue care with a [facility] Virtual Primary Care physician, please ask your provider to place a Establish Primary Care order. Use Simple [employer] to manage your care, wherever you are, 07/11, on your mobile device or computer. Simple [employer] connects you to [employer] so you can access all your health information in one place and also schedule and request virtual appointments with primary care providers. documented in this encounter [facility] 03-14-2023 Note HNO ID: [id number] Author: Mahsa Mcwilliams APRN.SARAI Service: ? Author Type: Nurse Practitioner Type: Progress Notes Filed: 03/14/2023 1:30 PM Note Text: Telemedicine Evaluation for COVID-19 Infection [employer] was used for evaluation of this patient. Location of patient: [place] I have communicated my name and active licensure. The patient's identity and physical location were verified at the time of this visit. Either the patient or their legal telephone services sales representative has been informed of the risks [...] BENZOCAINE 15 MG-MENTHOL 3.6 MG LOZENGES - [id number] M 2 MG-30 MG-10 MG/5 ML ORAL SYRUP - IPRATROPIUM 0.5 MG-ALBUTEROL 3 MG (2.5 MG BASE)/3 ML NEBULIZATION SOLN - ALBUTEROL SULFATE HFA 90 MCG/ACTUATION AEROSOL INHALER 2. Acute cough - ICD9: 786.2, ICD10: R05.1 - BENZONATATE 100 MG CAPSULE - IPRATROPIUM BROMIDE 42 MCG (0.06 %) NASAL SPRAY - BENZOCAINE 15 MG-MENTHOL 3.6 MG LOZENGES - [id number] M 2 MG-30 MG-10 MG/5 ML ORAL [...] selects option: 1-2 (more content not included)... [facility] 02-23-2023 Miscellaneous Notes Letter sent to [...] patient. Ale Morin documented in this encounter [facility] 02-10-2023 Miscellaneous Notes VENKATA 05/13/22 NOV [...] patient. Angelica Parnell documented in this encounter [facility] 12-20-2022 Miscellaneous Notes The following approved [...] Lorenza Doan LPN documented in this encounter [facility] 11-23-2022 Miscellaneous Notes Venkata--05/13/22 Nov--nothing scheduled Last refill--levothyroxin- 10/20/22 30 with 0 refills Omeprazole--10/20/22 60 with 0 refills Ropinirole--08/31/22 90 with 2 refills Last labs--08/02/21 [facility] called and is requesting medications for [...] Last Labs: 08/02/2021 documented in this encounter [facility] 10-25-2022 Miscellaneous Notes The following approved [...] Lorenza Doan LPN documented in this encounter [facility] 10-20-2022 Miscellaneous Notes Patient last visit [...] Dipesh Thompson RN documented in this encounter [facility] 10-03-2022 Miscellaneous Notes Notified pt of [...] Provider: RUI MAGAÑA Ordering User: ANDRESSA BAUTISTA APRN.STEAM PRESS OPERATOR Patient has been identified by name [...] Mile Salas RN documented in this encounter [facility] 08-04-2022 Miscellaneous Notes Patient has been [...] Dipesh Thompson RN documented in this encounter [facility] 07-08-2022 Miscellaneous Notes Patient has been [...] Inna Potter RN documented in this encounter [facility] 06-09-2022 Miscellaneous Notes Patient has been [...] Dipesh Thompson RN documented in this encounter [facility] 05-13-2022 Note HNO ID: [id number] Author: Samira Boudreaux APRN.STEAM PRESS OPERATOR Service: ? Author Type: Nurse Practitioner [...] (IMITREX) 20 mg/actuation nasal spray Use 1 Chambers in the nose once daily as needed [...] acute distress, well-hydrat (more content not included)... [facility] 05-13-2022 Instructions Samira Boudreaux APRN.SARAI - 05/13/2022 2:00 PM EST Go back to the sensitive products. Hydrocortisone as needed. documented in this encounter [facility] 05-13-2022 History of Present illness Narrative [...] (IMITREX) 20 mg/actuation nasal spray Use 1 Chambers in the nose once daily as needed [...] plan. This note was partially generated using [employer] voice recognition system. Note was reviewed for accuracy. There may be minor misspellings or grammar miscues with [employer] voice recognition. documented in this encounter [facility] 03-21-2022 Miscellaneous Notes Last Office Visit: [...] of Last Labs: documented in this encounter [facility] 03-04-2022 History of Present illness Narrative [...] (IMITREX) 20 mg/actuation nasal spray Use 1 Chambers in the nose once daily as needed [...] Andressa Bautista APRN.CNP documented in this encounter [facility] 03-04-2022 History of Present illness Narrative VIRTUAL VISIT PROGRESS NOTE This is a virtual visit using [employer] video visit. It required patient-provider interaction for [...] (IMITREX) 20 mg/actuation nasal spray Use 1 Chambers in the nose once daily as needed [...] Andressa Bautista APRN.SARAI documented in this encounter [facility] 03-04-2022 Miscellaneous Notes Patient phones requesting refills as follows: Requested Prescriptions Pending Prescriptions Disp Refills ipratropium-albuterol (DUONEB) 0.5 mg-3 mg(2.5 mg base)/3 mL nebu 60 mL 0 Sig: Inhale 3 mL as instructed every 6 hours as needed (dyspnea or wheezing). [facility] 01/12/22 NOV 04/26/2022 Please review and advise. STEPH Acevedo documented in this encounter [facility] 02-18-2022 Miscellaneous Notes Patient has been [...] Lorenza Doan LPN documented in this encounter [facility] 01-21-2022 Miscellaneous Notes Patient has been [...] Savannah Lutz LPN documented in this encounter [facility] 01-18-2022 Miscellaneous Notes Left message for patient to return phone call.Patient delivered 02/03/2021. Was not seen for visit. Previous refills of this medication it was requested patient make appointment for annual. documented in this encounter [facility] 01-12-2022 Miscellaneous Notes The following approved [...] Ordering User: ANDRESSA BAUTISTA APRN.CNP Tata from [facility] called and was asking if we could get the Ropinirole for 90 tables to equal a 30 day supply. She also reports they are not able to fill the Paxlovid order. Called Pt and she would like Paxlovid sent to [facility]. Patient has been identified by name and [...] Janice Hermosillo RN documented in this encounter [facility] 01-12-2022 Miscellaneous Notes Seen in the office this morning by myself. 01/12/2022. Andressa Bautista APRN.CNP Patient has an appointment 01/12/22 at 9am documented in this encounter [facility] 01-12-2022 Miscellaneous Notes Looks like pt [...] Romina Armstrong Ma documented in this encounter [facility] 12-27-2021 History of Present illness Narrative Patient presented to express care for evaluation of ongoing stomach gurgling and pain. Prefers to be seen by PCP but no appointment available until 12/29. Discussed her options for care today which include Express Care, ER, or primary care appointment available at 2:20 pm. She elects the 2:20 appointment. Gale Olivares APRN.SARAI documented in this encounter [facility] 12-06-2021 Miscellaneous Notes RX INSTRUCTIONS: Patient aware RX will be sent to pharmacy. No need to notify patient. Last OV: 10/19/21 with PCP Last refill: Vit D 10/27/21 With 4 and 3 refills Dulera 10/27/21 With 8.8g and 0 refills Follow up: 12/24/21- 2 month F/U with RS Capri Lomas MA documented in this encounter [facility] 10-27-2021 Miscellaneous Notes This was addressed at recent visit with Dr. Magaña on 10/19/21. Closing this encounter. Frank Marques APRN.SARAI documented in this encounter [facility] 10-26-2021 Miscellaneous Notes Last office visit: 12/24/21 F/u scheduled: 10/19/21 Patient Comment: Inhaler that they gave me only came with 65 puffs but it says take two puffs twice a day so I need another one of these as well Romina Armstrong Ma documented in this encounter [facility] 10-26-2021 Miscellaneous Notes Patient delivered 02/03/21 and did not follow up for PP visit. Food Reporter message sent to patient. Pending Prescriptions Disp Refills NORETHINDRONE (CONTRACEPTIVE) 0.35 MG TABLET 28 tablet 1 Sig: Take 1 tablet by mouth once daily. KARIME: No RX INSTRUCTIONS: Mychart request. Akilah Galindo RN documented in this encounter [facility] 10-19-2021 History of Present illness Narrative [...] (IMITREX) 20 mg/actuation nasal spray Use 1 Chambers in the nose once daily as needed [...] BM occurs. Use 1-2 times a month. [id number] acid ( 19) 29 mg iron- 1 [...] agreed with the plan. Rui Magaña DO [address] [place] [address] documented in this encounter [facility] 10-01-2021 Instructions Samira Boudreaux APRN.CNP - 10/01/2021 10:40 AM EDT 1. Continue the same medications. (prilosec in the morning; pepcid at bedtime. You can use the carafate up to 4 times daily as needed). 2. Follow-up with Dr. Anglin, as scheduled. 3. Scheduled with pulmonology. 4. Keep follow-up appt with Dr. Magaña. documented in this encounter [facility] 10-01-2021 History of Present illness Narrative This is a 36 year old female who presents today with: Patient presents with: ER F/U: [facility] ER follow up dx: gastritis Refill Request: dulera and carafate HISTORY OF PRESENT ILLNESS: Bijal Johnston is a 36 year old female. Patient presents with: ER F/U: [facility] ER follow up dx: gastritis Refill Request: [...] IV fluids. She did have dose of [place] and Ativan at the emergency room. Gets [...] (IMITREX) 20 mg/actuation nasal spray Use 1 Chambers in the nose once daily as needed [...] AND ONE-HALF TABLET UNDER THE TONGUE DAILY [id number] acid ( 19) 29 mg iron- 1 [...] as needed for worsening/no improvement. Samira Boudreaux APRN.STEAM PRESS OPERATOR This note was partially generated using [employer] voice recognition system. Note was reviewed for accuracy. There may be minor misspellings or grammar miscues with [employer] voice recognition. documented in this encounter [facility] 09-27-2021 Miscellaneous Notes Patient phones requesting refills as follows: Pending Prescriptions Disp Refills FAMOTIDINE 20 MG TABLET 30 tablet 0 Sig: take 1 tablet by mouth once daily if needed KARIME: Yes VENKATA-08/02/21 Labs-08/02/21 NOV-10/19/21 med filled 09/15/21 ends 10/15/21 Please review and advise. Kat Flores LPN documented in this encounter [facility] 09-02-2021 Miscellaneous Notes Patient has been identified by name and date of : Yes Pending Prescriptions Disp Refills OMEPRAZOLE 20 MG CAPSULE,DELAYED RELEASE 90 capsule 0 Sig: take 2 capsules by mouth once daily , 1/2 HOUR BEFORE BREAKFAST KARIME: Yes Prilosec 07/19/2021 qty 90 no r/f Last OV 08/02/2021 Next OV 10/19/2021 RX INSTRUCTIONS: Shae Brooke LPN documented in this encounter [facility] 08-25-2021 Miscellaneous Notes Noted. Thank you. Frank Marques APRN.CNP See pt message. Jewell Navarrete Ma Please see mychart message documented in this encounter [facility] 08-09-2021 Miscellaneous Notes The following approved medication requests have been transmitted electronically. Pending Prescriptions Disp Refills ALBUTEROL SULFATE 2.5 MG/3 ML (0.083 %) SOLUTION FOR NEBULIZATION 3 mL 11 Sig: Use 3 mL via nebulizer every 4 hours as needed for wheezing/shortness of breath. Use over 5-15minutes. KARIME: No Frank Marques APRN.CNP documented in this encounter [facility] 08-09-2021 Miscellaneous Notes Message sent via [...] Refusal: A Refill not appropriate Frank Marques APRN.STEAM PRESS OPERATOR venkata-- 08/02/21 Last refill 06/01/21 40 with 0 refills Last labs--08/06/21 documented in this encounter [facility] 08-04-2021 History of Present illness Narrative [...] from her . She is working at [employer] at this time and enjoying it. No [...] was born. 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 Use 1-2 times a month. [id number] acid ( 19) 29 mg iron- 1 [...] stressors as a parent and working at [employer]. - FLUOXETINE 20 MG CAPSULE - FLUOXETINE [...] See patient instructions. Rui Magaña DO [address] [place] [address] documented in this encounter [facility] 07-19-2021 Miscellaneous Notes The following approved [...] Keyanna Brooke LPN documented in this encounter [facility] documented as of this encounter (statuses as of 07/19/2021) [facility]08[facility]21 History of Past illness Narrative* Problem Noted Date Resolved Date Supervision of high risk in [facility] 11/25/2020 04/21/2021 Depression during 11/11/202008/2021 Antepartum multigravida of advanced maternal age 0306/18/2020 04/21/2021 Overview: 06/18/2020atient is 35 years old. Advanced Maternal age discussed. Pt refused information on Genetic Amniocentesis and CVS. Patient desires nuchal ultrasound and [id number] testing. 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 She is currently on Suboxone and is treated by Dr. Parkinson at [facility]. She states she has been sober for [...] is currently in intensive outpatient treatment at [facility]. She states that he does not think [...] 19 signed, filed in chartroom. Cheyanne Skinner color depositing machine tender exposure during first trimester of pr egnancy [...] Overview: 07/10/14: smoking 5 cig per day. Danisah Miller CNP 02/27/14 - discussed risks & [...] of this encounter (statuses as of 08/04/2021) [facility]08-[facility]21 History of Past illness Narrative* Problem Noted Date Resolved Date Supervision of high risk in [facility] 11/25/2020 04/21/2021 Depression during 11/11/202008/2021 Antepartum multigravida of advanced maternal age 0306/18/2020 04/21/2021 Overview: 06/18/2020atient is 35 years old. Advanced Maternal age discussed. Pt refused information on Genetic Amniocentesis and CVS. Patient desires nuchal ultrasound and [id number] testing. 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 She is currently on Suboxone and is treated by Dr. Parkinson at [facility]. She states she has been sober for [...] is currently in intensive outpatient treatment at [facility]. She states that he does not think that this is his baby. She desires paternity testing at [facility] Patient request for diagnostic testing 04/21/2021 Overview: [...] of this encounter (statuses as of 08/09/2021) [facility] History of Past illness Narrative* Problem Noted Date Resolved Date Supervision of high risk in third [facility] 11/25/2020 04/21/2021 Depression during 11/11/202008/2021 Antepartum multigravida of advanced maternal age 0306/18/2020 04/21/2021 Overview: 06/18/2020atient is 35 years old. Advanced Maternal age discussed. Pt refused information on Genetic Amniocentesis and CVS. Patient desires nuchal ultrasound and [id number] testing. 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 She is currently on Suboxone and is treated by Dr. Parkinson at [facility]. She states she has been sober for [...] is currently in intensive outpatient treatment at [facility]. She states that he does not think [...] of this encounter (statuses as of 08/09/2021) [facility] History of Past illness Narrative* Problem Noted Date Resolved Date Supervision of high risk in [facility] 11/25/2020 04/21/2021 Depression during 11/11/2020/08/2021 Antepartum multigravida of advanced maternal age 0306/18/2020 04/21/2021 Overview: 06/18/2020atient is 35 years old. Advanced Maternal age discussed. Pt refused information on Genetic Amniocentesis and CVS. Patient desires nuchal ultrasound and [id number] testing. 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 She is currently on Suboxone and is treated by Dr. Parkinson at [facility]. She states she has been sober for [...] is currently in intensive outpatient treatment at [facility]. She states that he does not think [...] 19 signed, filed in chartroom. Cheyanne Skinner color depositing machine tender exposure during first trimester of pr egnancy [...] of this encounter (statuses as of 08/09/2021) [facility] History of Past illness Narrative* Problem Noted Date Resolved Date Supervision of high risk in [facility] 11/25/2020 04/21/2021 Depression during 11/11/202008/2021 Antepartum multigravida of advanced maternal age 0306/18/2020 04/21/2021 Overview: 06/18/2020atient is 35 years old. Advanced Maternal age discussed. Pt refused information on Genetic Amniocentesis and CVS. Patient desires nuchal ultrasound and [id number] testing. 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 She is currently on Suboxone and is treated by Dr. Parkinson at [facility]. She states she has been sober for [...] is currently in intensive outpatient treatment at [facility]. She states that he does not think [...] of this encounter (statuses as of 08/24/2021) [facility] History of Past illness Narrative* Problem [...] and is treated by Dr. Parkinson at [facility]. She states she has been sober for [...] is currently in intensive outpatient treatment at [facility]. She states that he does not think [...] of this encounter (statuses as of 08/25/2021) [facility] History of Past illness Narrative* Problem Noted Date Resolved Date Supervision of high risk in [facility] 11/25/2020 04/21/2021 Depression during 11/11/202008/2021 Antepartum multigravida of advanced maternal age 0306/18/2020 04/21/2021 Overview: 06/18/2020atient is 35 years old. Advanced Maternal age discussed. Pt refused information on Genetic Amniocentesis and CVS. Patient desires nuchal ultrasound and [id number] testing. 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 She is currently on Suboxone and is treated by Dr. Parkinson at [facility]. She states she has been sober for [...] is currently in intensive outpatient treatment at [facility]. She states that he does not think [...] 19 signed, filed in chartroom. Cheyanne Skinner color depositing machine tender exposure during first trimester of pr egnancy [...] of this encounter (statuses as of 09/03/2021) [facility] History of Past illness Narrative* Problem Noted Date Resolved Date Supervision of high risk in [facility] 11/25/2020 04/21/2021 Depression during 11/11/202008/2021 Antepartum multigravida of advanced maternal age 0306/18/2020 04/21/2021 Overview: 06/18/2020atient is 35 years old. Advanced Maternal age discussed. Pt refused information on Genetic Amniocentesis and CVS. Patient desires nuchal ultrasound and [id number] testing. 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 She is currently on Suboxone and is treated by Dr. Parkinson at [facility]. She states she has been sober for [...] is currently in intensive outpatient treatment at [facility]. She states that he does not think [...] 19 signed, filed in chartroom. Cheyanne Skinner color depositing machine tender exposure during first trimester of pr egnancy [...] of this encounter (statuses as of 09/27/2021) [facility] History of Past illness Narrative* Problem Noted Date Resolved Date Supervision of high risk in third [facility] 11/25/2020 04/21/2021 Depression during 11/11/202008/2021 Antepartum multigravida of advanced maternal age 0306/18/2020 04/21/2021 Overview: 06/18/2020atient is 35 years old. Advanced Maternal age discussed. Pt refused information on Genetic Amniocentesis and CVS. Patient desires nuchal ultrasound and [id number] testing. 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 She is currently on Suboxone and is treated by Dr. Parkinson at [facility]. She states she has been sober for [...] is currently in intensive outpatient treatment at [facility]. She states that he does not think that this is his baby. She desires paternity testing at [facility] Patient request for diagnostic testing 04/21/2021 Overview: [...] of this encounter (statuses as of 10/01/2021) [facility] History of Past illness Narrative* Problem Noted Date Resolved Date Supervision of high risk in [facility] 11/25/2020 04/21/2021 Depression during 11/11/202008/2021 Antepartum multigravida of advanced maternal age 0306/18/2020 04/21/2021 Overview: 06/18/2020atient is 35 years old. Advanced Maternal age discussed. Pt refused information on Genetic Amniocentesis and CVS. Patient desires nuchal ultrasound and [id number] testing. 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 She is currently on Suboxone and is treated by Dr. Parkinson at [facility]. She states she has been sober for [...] is currently in intensive outpatient treatment at [facility]. She states that he does not think [...] of this encounter (statuses as of 10/26/2021) [facility] History of Past illness Narrative* Problem Noted Date Resolved Date Supervision of high risk in [facility] 11/25/2020 04/21/2021 Depression during 11/11/2020/08/2021 Antepartum multigravida of advanced maternal age 0306/18/2020 04/21/2021 Overview: 06/18/2020atient is 35 years old. Advanced Maternal age discussed. Pt refused information on Genetic Amniocentesis and CVS. Patient desires nuchal ultrasound and [id number] testing. 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 She is currently on Suboxone and is treated by Dr. Parkinson at [facility]. She states she has been sober for [...] is currently in intensive outpatient treatment at [facility]. She states that he does not think [...] 19 signed, filed in chartroom. Cheyanne Skinner color depositing machine tender exposure during first trimester of pr egnancy [...] of this encounter (statuses as of 10/27/2021) [facility] History of Past illness Narrative* Problem Noted Date Resolved Date Supervision of high risk in [facility] 11/25/2020 04/21/2021 Depression during 11/11/202008/2021 Antepartum multigravida of advanced maternal age 0306/18/2020 04/21/2021 Overview: 06/18/2020atient is 35 years old. Advanced Maternal age discussed. Pt refused information on Genetic Amniocentesis and CVS. Patient desires nuchal ultrasound and [id number] testing. 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 She is currently on Suboxone and is treated by Dr. Parkinson at [facility]. She states she has been sober for [...] is currently in intensive outpatient treatment at [facility]. She states that he does not think that this is his baby. She desires paternity testing at .[facility] Patient request for diagnostic testing 04/21/2021 Overview: 06/18/2020 Patient requests paternity testing at . [facility] Quit smoking 06/18/2020 04/21/2021 Overview: 06/18/2020t recently [...] of this encounter (statuses as of 10/27/2021) [facility] History of Past illness Narrative* Problem Noted Date Resolved Date Supervision of high risk in third [facility] 11/25/2020 04/21/2021 Depression during 11/11/202008/2021 Antepartum multigravida of advanced maternal age 0306/18/2020 04/21/2021 Overview: 06/18/2020atient is 35 years old. Advanced Maternal age discussed. Pt refused information on Genetic Amniocentesis and CVS. Patient desires nuchal ultrasound and [id number] testing. 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 She is currently on Suboxone and is treated by Dr. Parkinson at [facility]. She states she has been sober for [...] is currently in intensive outpatient treatment at [facility]. She states that he does not think [...] of this encounter (statuses as of 10/27/2021) [facility] History of Past illness Narrative* Problem Noted Date Resolved Date Supervision of high risk in [facility] 11/25/2020 04/21/2021 Depression during 11/11/2020/08/2021 Antepartum multigravida of advanced maternal age 0306/18/2020 04/21/2021 Overview: 06/18/2020atient is 35 years old. Advanced Maternal age discussed. Pt refused information on Genetic Amniocentesis and CVS. Patient desires nuchal ultrasound and [id number] testing. 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 She is currently on Suboxone and is treated by Dr. Parkinson at [facility]. She states she has been sober for [...] is currently in intensive outpatient treatment at [facility]. She states that he does not think [...] 19 signed, filed in chartroom. Cheyanne Skinner color depositing machine tender exposure during first trimester of pr egnancy [...] of this encounter (statuses as of 11/17/2021) [facility] History of Past illness Narrative* Problem [...] and is treated by Dr. Parkinson at [facility]. She states she has been sober for [...] is currently in intensive outpatient treatment at [facility]. She states that he does not think [...] of this encounter (statuses as of 12/08/2021) [facility] History of Past illness Narrative* Problem Noted Date Resolved Date Supervision of high risk in third [facility] 11/25/2020 04/21/2021 Depression during 11/11/2020/08/2021 Antepartum multigravida of advanced maternal age 0306/18/2020 04/21/2021 Overview: 06/18/2020atient is 35 years old. Advanced Maternal age discussed. Pt refused information on Genetic Amniocentesis and CVS. Patient desires nuchal ultrasound and [id number] testing. 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 She is currently on Suboxone and is treated by Dr. Parkinson at [facility]. She states she has been sober for [...] is currently in intensive outpatient treatment at [facility]. She states that he does not think [...] of this encounter (statuses as of 12/27/2021) [facility] History of Past illness Narrative* Problem Noted Date Resolved Date Supervision of high risk in [facility] 11/25/2020 04/21/2021 Depression during 11/11/202008/2021 Antepartum multigravida of advanced maternal age 0306/18/2020 04/21/2021 Overview: 06/18/2020atient is 35 years old. Advanced Maternal age discussed. Pt refused information on Genetic Amniocentesis and CVS. Patient desires nuchal ultrasound and [id number] testing. 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 She is currently on Suboxone and is treated by Dr. Parkinson at [facility]. She states she has been sober for [...] is currently in intensive outpatient treatment at [facility]. She states that he does not think [...] 19 signed, filed in chartroom. Cheyanne Skinner color depositing machine tender exposure during first trimester of pr egnancy [...] of this encounter (statuses as of 01/12/2022) [facility] History of Past illness Narrative* Problem Noted Date Resolved Date Supervision of high risk in third [facility] 11/25/2020 04/21/2021 Depression during 11/11/202008/2021 Antepartum multigravida of advanced maternal age 0306/18/2020 04/21/2021 Overview: 06/18/2020atient is 35 years old. Advanced Maternal age discussed. Pt refused information on Genetic Amniocentesis and CVS. Patient desires nuchal ultrasound and [id number] testing. 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 She is currently on Suboxone and is treated by Dr. Parkinson at [facility]. She states she has been sober for [...] is currently in intensive outpatient treatment at [facility]. She states that he does not think [...] of this encounter (statuses as of 01/12/2022) [facility] History of Past illness Narrative* Problem Noted Date Resolved Date Supervision of high risk in third [facility] 11/25/2020 04/21/2021 Depression during 11/11/202008/2021 Antepartum multigravida of advanced maternal age 0306/18/2020 04/21/2021 Overview: 06/18/2020atient is 35 years old. Advanced Maternal age discussed. Pt refused information on Genetic Amniocentesis and CVS. Patient desires nuchal ultrasound and [id number] testing. 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 She is currently on Suboxone and is treated by Dr. Parkinson at [facility]. She states she has been sober for [...] is currently in intensive outpatient treatment at [facility]. She states that he does not think that this is his baby. She [facility] Patient request for diagnostic testing 04/21/2021 Overview: [...] of this encounter (statuses as of 01/18/2022) [facility] History of Past illness Narrative* Problem Noted Date Resolved Date Supervision of high risk in third [facility] 11/25/2020 04/21/2021 Depression during 11/11/202008/2021 Antepartum multigravida of advanced maternal age 0306/18/2020 04/21/2021 Overview: 06/18/2020atient is 35 years old. Advanced Maternal age discussed. Pt refused information on Genetic Amniocentesis and CVS. Patient desires nuchal ultrasound and [id number] testing. 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 She is currently on Suboxone and is treated by Dr. Parkinson at [facility]. She states she has been sober for [...] is currently in intensive outpatient treatment at [facility]. She states that he does not think [...] of this encounter (statuses as of 01/26/2022) [facility] History of Past illness Narrative* Problem Noted Date Resolved Date Supervision of high risk in third [facility] 11/25/2020 04/21/2021 Depression during 11/11/202008/2021 Antepartum multigravida of advanced maternal age 0306/18/2020 04/21/2021 Overview: 06/18/2020atient is 35 years old. Advanced Maternal age discussed. Pt refused information on Genetic Amniocentesis and CVS. Patient desires nuchal ultrasound and [id number] testing. 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 She is currently on Suboxone and is treated by Dr. Parkinson at [facility]. She states she has been sober for [...] is currently in intensive outpatient treatment at [facility]. She states that he does not think [...] of this encounter (statuses as of 02/18/2022) [facility] History of Past illness Narrative* Problem Noted Date Resolved Date Supervision of high risk in third [facility] 11/25/2020 04/21/2021 Depression during 11/11/202008/2021 Antepartum multigravida of advanced maternal age 0306/18/2020 04/21/2021 Overview: 06/18/2020atient is 35 years old. Advanced Maternal age discussed. Pt refused information on Genetic Amniocentesis and CVS. Patient desires nuchal ultrasound and [id number] testing. 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 She is currently on Suboxone and is treated by Dr. Parkinson at [facility]. She states she has been sober for [...] is currently in intensive outpatient treatment at [facility]. She states that he does not think that this is his baby. She desires paternity testing at .[facility] Patient request for diagnostic testing 04/21/2021 Overview: 06/18/2020 Patient requests paternity testing at . [facility] Quit smoking 06/18/2020 04/21/2021 Overview: 06/18/2020t recently [...] of this encounter (statuses as of 03/04/2022) [facility] History of Past illness Narrative* Problem Noted Date Resolved Date Supervision of high risk in third [facility] 11/25/2020 04/21/2021 Depression during 11/11/202008/2021 Antepartum multigravida of advanced maternal age 0306/18/2020 04/21/2021 Overview: 06/18/2020atient is 35 years old. Advanced Maternal age discussed. Pt refused information on Genetic Amniocentesis and CVS. Patient desires nuchal ultrasound and [id number] testing. 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 She is currently on Suboxone and is treated by Dr. Parkinson at [facility]. She states she has been sober for [...] is currently in intensive outpatient treatment at [facility]. She states that he does not think [...] of this encounter (statuses as of 03/04/2022) [facility] History of Past illness Narrative* Problem Noted Date Resolved Date Supervision of high risk in third [facility] 11/25/2020 04/21/2021 Depression during 11/11/202008/2021 Antepartum multigravida of advanced maternal age 0306/18/2020 04/21/2021 Overview: 03/04/2021Patient is 35 years old. Advanced Maternal age discussed. Pt refused information on Genetic Amniocentesis and CVS. Patient desires nuchal ultrasound and [id number] testing. 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 She is currently on Suboxone and is treated by Dr. Parkinson at [facility]. She states she has been sober for [...] is currently in intensive outpatient treatment at [facility]. She states that he does not think [...] 19 signed, filed in chartroom. Cheyanne Skinner color depositing machine tender exposure during first trimester of pr egnancy [...] of this encounter (statuses as of 03/04/2022) [facility]08-11-2021 History of Past illness Narrative* Problem Noted Date Resolved Date Supervision of high risk in [facility] 11/25/2020 04/21/2021 Depression during 11/11/202008/2021 Antepartum multigravida of advanced maternal age 0306/18/2020 04/21/2021 Overview: 06/18/2020atient is 35 years old. Advanced Maternal age discussed. Pt refused information on Genetic Amniocentesis and CVS. Patient desires nuchal ultrasound and [id number] testing. 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 She is currently on Suboxone and is treated by Dr. Parkinson at [facility]. She states she has been sober for [...] is currently in intensive outpatient treatment at [facility]. She states that he does not think [...] of this encounter (statuses as of 03/24/2022) [facility]08-11-2021 History of Past illness Narrative* Problem Noted Date Resolved Date Supervision of high risk in third [facility] 11/25/2020 04/21/2021 Depression during 11/11/202008/2021 Antepartum multigravida of advanced maternal age 0306/18/2020 04/21/2021 Overview: 06/18/2020atient is 35 years old. Advanced Maternal age discussed. Pt refused information on Genetic Amniocentesis and CVS. Patient desires nuchal ultrasound and [id number] testing. 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 She is currently on Suboxone and is treated by Dr. Parkinson at [facility]. She states she has been sober for [...] is currently in intensive outpatient treatment at [facility]. She states that he does not think [...] of this encounter (statuses as of 05/13/2022) [facility]08-11-2021 History of Past illness Narrative* Problem Noted Date Resolved Date Supervision of high risk in third [facility] 11/25/2020 04/21/2021 Depression during 11/11/2020/08/2021 Antepartum multigravida of advanced maternal age 0306/18/2020 04/21/2021 Overview: 06/18/2020atient is 35 years old. Advanced Maternal age discussed. Pt refused information on Genetic Amniocentesis and CVS. Patient desires nuchal ultrasound and [id number] testing. 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 She is currently on Suboxone and is treated by Dr. Parkinson at [facility]. She states she has been sober for [...] is currently in intensive outpatient treatment at [facility]. She states that he does not think [...] Title 19 signed, filed in chartroom. Cheyanne Blough color depositing machine tender exposure during first trimester of pr egnancy [...] of this encounter (statuses as of 06/10/2022) [facility]08-[facility]21 History of Past illness Narrative* Problem Noted Date Resolved Date Supervision of high risk in third [facility] 11/25/2020 04/21/2021 Depression during 11/11/202008/2021 Antepartum multigravida of advanced maternal age 0306/18/2020 04/21/2021 Overview: 06/18/2020atient is 35 years old. Advanced Maternal age discussed. Pt refused information on Genetic Amniocentesis and CVS. Patient desires nuchal ultrasound and [id number] testing. 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 She is currently on Suboxone and is treated by Dr. Parkinson at [facility]. She states she has been sober for [...] is currently in intensive outpatient treatment at [facility]. She states that he does not think [...] of this encounter (statuses as of 07/08/2022) [facility]08-11-[facility]21 History of Past illness Narrative* Problem Noted Date Resolved Date Supervision of high risk in third [facility] 11/25/2020 04/21/2021 Depression during 11/11/202008/2021 Antepartum multigravida of advanced maternal age 0306/18/2020 04/21/2021 Overview: 06/18/2020atient is 35 years old. Advanced Maternal age discussed. Pt refused information on Genetic Amniocentesis and CVS. Patient desires nuchal ultrasound and [id number] testing. 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 She is currently on Suboxone and is treated by Dr. Parkinson at [facility]. She states she has been sober for [...] is currently in intensive outpatient treatment at [facility]. She states that he does not think that this is his baby. She desires paternity testing at [facility] Patient request for diagnostic testing 04/21/2021 Overview: [...] of this encounter (statuses as of 08/05/2022) [facility]08-11-2021 History of Past illness Narrative* Problem Noted Date Resolved Date Supervision of high risk in third [facility] 11/25/2020 04/21/2021 Depression during 11/11/2020/08/2021 Antepartum multigravida of advanced maternal age 0306/18/2020 04/21/2021 Overview: 06/18/2020atient is 35 years old. Advanced Maternal age discussed. Pt refused information on Genetic Amniocentesis and CVS. Patient desires nuchal ultrasound and [id number] testing. 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 She is currently on Suboxone and is treated by Dr. Parkinson at [facility]. She states she has been sober for [...] is currently in intensive outpatient treatment at [facility]. She states that he does not think [...] of this encounter (statuses as of 10/03/2022) [facility]08-11-2021 History of Past illness Narrative* Problem Noted Date Resolved Date Supervision of high risk in third [facility] 11/25/2020 04/21/2021 Depression during 11/11/202008/2021 Antepartum multigravida of advanced maternal age 0306/18/2020 04/21/2021 Overview: 06/18/2020atient is 35 years old. Advanced Maternal age discussed. Pt refused information on Genetic Amniocentesis and CVS. Patient desires nuchal ultrasound and [id number] testing. 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 She is currently on Suboxone and is treated by Dr. Parkinson at [facility]. She states she has been sober for [...] is currently in intensive outpatient treatment at [facility]. She states that he does not think [...] 19 signed, filed in chartroom. Cheyanne Skinner color depositing machine tender exposure during first trimester of pr egnancy [...] of this encounter (statuses as of 10/21/2022) [facility]08-11-2021 History of Past illness Narrative* Problem Noted Date Diagnosed Date Resolved Date Supervision of high risk pre gnancy in third trimester 11/25/2020 04/21/2021 Depression during 11/11/2020 04/21/2021 Antepartum multigravida of a dvanced maternal age 0306/18/2020 04/21/2021 Overview: 06/18/2020atient is 35 years old. Advanced Maternal age discussed. Pt refused information on Genetic Amniocentesis and CVS. Patient desires nuchal ultrasound and [id number] testing. 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 She is currently on Suboxone and is treated by Dr. Parkinson at [facility]. She states she has been sober for [...] is currently in intensive outpatient treatment at [facility]. She states that he does not think that this is his baby. She desires paternity testing at [facility] Patient request for diagnostic testing 06/18/2020 04/21/2021 [...] of this encounter (statuses as of 10/25/2022) [facility]08-11-2021 History of Past illness Narrative* Problem Noted Date Diagnosed Date Resolved Date Supervision of high risk pre gnancy in third trimester 11/25/2020 04/21/2021 Depression during 11/11/2020 04/21/2021 Antepartum multigravida of a dvanced maternal age 0306/18/2020 04/21/2021 Overview: 06/18/2020atient is 35 years old. Advanced Maternal age discussed. Pt refused information on Genetic Amniocentesis and CVS. Patient desires nuchal ultrasound and [id number] testing. 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 She is currently on Suboxone and is treated by Dr. Parkinson at [facility]. She states she has been sober for [...] is currently in intensive outpatient treatment at [facility]. She states that he does not think [...] of this encounter (statuses as of 11/24/2022) [facility]08-11-2021 History of Past illness Narrative* Problem Noted Date Diagnosed Date Resolved Date Supervision of high risk pre gnancy in third trimester 11/25/2020 04/21/2021 Depression during 11/11/2020 04/21/2021 Antepartum multigravida of a dvanced maternal age 0306/18/2020 04/21/2021 Overview: 06/18/2020atient is 35 years old. Advanced Maternal age discussed. Pt refused information on Genetic Amniocentesis and CVS. Patient desires nuchal ultrasound and [id number] testing. 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 She is currently on Suboxone and is treated by Dr. Parkinson at [facility]. She states she has been sober for [...] is currently in intensive outpatient treatment at [facility]. She states that he does not think [...] 19 signed, filed in chartroom. Cheyanne Skinner color depositing machine tender exposure during f irst trimester of 02/27/2014 [...] of this encounter (statuses as of 12/20/2022) [facility]08-11-2021 History of Past illness Narrative* Problem Noted Date Diagnosed Date Resolved Date Supervision of high risk pre gnancy in third trimester 11/25/2020 04/21/2021 Depression during 11/11/2020 04/21/2021 Antepartum multigravida of a dvanced maternal age 0306/18/2020 04/21/2021 Overview: 06/18/2020atient is 35 years old. Advanced Maternal age discussed. Pt refused information on Genetic Amniocentesis and CVS. Patient desires nuchal ultrasound and [id number] testing. 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 She is currently on Suboxone and is treated by Dr. Parkinson at [facility]. She states she has been sober for [...] is currently in intensive outpatient treatment at [facility]. She states that he does not think [...] of this encounter (statuses as of 02/14/2023) [facility]08-11-2021 History of Past illness Narrative* Problem Noted Date Diagnosed Date Resolved Date Supervision of high risk pre gnancy in third trimester 11/25/2020 04/21/2021 Depression during 11/11/2020 04/21/2021 Antepartum multigravida of a dvanced maternal age 0306/18/2020 04/21/2021 Overview: 06/18/2020atient is 35 years old. Advanced Maternal age discussed. Pt refused information on Genetic Amniocentesis and CVS. Patient desires nuchal ultrasound and [id number] testing. 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 She is currently on Suboxone and is treated by Dr. Parkinson at [facility]. She states she has been sober for [...] is currently in intensive outpatient treatment at [facility]. She states that he does not think [...] of this encounter (statuses as of 02/23/2023) [facility]08-11-2021 History of Past illness Narrative* Problem Noted Date Diagnosed Date Resolved Date Supervision of high risk pre gnancy in third trimester 11/25/2020 04/21/2021 Depression during 11/11/2020 04/21/2021 Antepartum multigravida of a dvanced maternal age 0306/18/2020 04/21/2021 Overview: 06/18/2020atient is 35 years old. Advanced Maternal age discussed. Pt refused information on Genetic Amniocentesis and CVS. Patient desires nuchal ultrasound and [id number] testing. 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 She is currently on Suboxone and is treated by Dr. Parkinson at [facility]. She states she has been sober for [...] is currently in intensive outpatient treatment at [facility]. 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, in remission documented in this encounter [facility] note* Diagnosis Dental decay Unspecified dental caries documented in this encounter [facility] note* Diagnosis Moderate persistent asthma, uncomplicated Unspecified asthma documented in this encounter [facility] note* Diagnosis Encounter for immunization- Primary Need for other specified prophylactic vaccination against single bacterial disease documented in this encounter [facility] note* Diagnosis Vitamin D deficiency- Primary Unspecified vitamin D deficiency documented in this encounter [facility] note* Diagnosis Chronic gastritis without bleeding, unspecified gastritis type- Primary Moderate persistent asthma, uncomplicated Unspecified asthma Chronic constipation Unspecified constipation [facility] Diagnosis Cutaneous abscess of face- Primary Cellulitis and abscess of face Asthma with chronic obstructive pulmonary disease (COPD) ([facility]) Chronic obstructive asthma, unspecified Chronic gastritis without bleeding, unspecified gastritis type Hypothyroidism, acquired Unspecified hypothyroidism Anxiety with depression [facility]* Diagnosis Moderate persistent asthma, uncomplicated Unspecified asthma documented in this encounter [facility] note* Diagnosis Encounter for immunization- Primary Need for other specified prophylactic vaccination against single bacterial disease documented in this encounter [facility] note* Diagnosis Moderate persistent asthma, uncomplicated Unspecified asthma Vitamin D deficiency Unspecified vitamin D deficiency documented in this encounter [facility] note* Diagnosis APPOINTMENT CANCELLED- Primary documented in this encounter [facility] note* Diagnosis RLS (restless legs syndrome) Restless legs syndrome (RLS) COVID documented in this encounter [facility] note* Diagnosis Chronic gastritis without bleeding, unspecified gastritis type documented in this encounter [facility] note* Diagnosis Persistent cough- Primary Cough Sore throat Acute pharyngitis Ear pain, bilateral documented in this encounter [facility] note* Diagnosis Moderate persistent asthma, uncomplicated Unspecified asthma documented in this encounter [facility] note* Diagnosis Sore throat- Primary Acute pharyngitis Persistent cough Cough Wheezing Myalgia Mylagia and myositis, unspecified documented in this encounter [facility] note* Diagnosis Chronic gastritis without bleeding, unspecified gastritis type Vitamin D deficiency Unspecified vitamin D deficiency Anxiety with depression RLS (restless legs syndrome) Restless legs syndrome (RLS) documented in this encounter [facility] note* Diagnosis Vulvar irritation- Primary Other specified noninflammatory disorder of vulva and perineum documented in this encounter [facility] note* Diagnosis RLS (restless legs syndrome) Restless legs syndrome (RLS) documented in this encounter [facility] note* Diagnosis Vitamin D deficiency Unspecified vitamin D deficiency documented in this encounter [facility] note* Diagnosis Chronic gastritis without bleeding, unspecified gastritis type documented in this encounter [facility] note* Diagnosis Vitamin D deficiency- Primary Unspecified vitamin D deficiency Chronic gastritis without bleeding, unspecified gastritis type Hypothyroidism, acquired Unspecified hypothyroidism documented in this encounter [facility] note* Diagnosis Chronic gastritis without bleeding, unspecified gastritis type Hypothyroidism, acquired Unspecified hypothyroidism documented in this encounter [facility] note* Diagnosis Vitamin D deficiency Unspecified vitamin D deficiency Asthma with chronic obstructive pulmonary disease (COPD) (HCC) Chronic obstructive asthma, unspecified documented in this encounter [facility] note* Diagnosis RLS (restless legs syndrome) Restless legs syndrome (RLS) Chronic gastritis without bleeding, unspecified gastritis type Hypothyroidism, acquired Unspecified hypothyroidism documented in this encounter [facility] note* Diagnosis Hypothyroidism, acquired Unspecified hypothyroidism Chronic gastritis without bleeding, unspecified gastritis type documented in this encounter [facility] note* Diagnosis RLS (restless legs syndrome) Restless legs syndrome (RLS) Chronic gastritis without bleeding, unspecified gastritis type Hypothyroidism, acquired Unspecified hypothyroidism Anxiety with depression Vitamin D deficiency Unspecified vitamin D deficiency documented in this encounter [facility] note* Diagnosis Moderate persistent asthma, uncomplicated Unspecified asthma documented in this encounter [facility] note* Diagnosis Viral URI with cough- Primary Acute upper respiratory infections of unspecified site documented in this encounter [facility] Reason for Referral Specialty Diagnoses / Procedures Referred By Bell whitfield Referred To Contact Diagnoses Moderate persistent asthma, uncomplicated Frank Marques, [employer] OPER[employer] [address] [place] [address] Referral ID Status Reason Start Date Expiration Date Visits Re quested Visits Authorized [id number] Closed 1 1 Summary Purpose Family History [...] or prosecute any alcohol or drug abuse patient.[facility] the event this information is protected by the Federal Confidentiality of Alcohol and Drug Abuse Patient Records regulations: The Federal rules restrict any use of the information to criminally investigate or prosecute any alcohol or drug abuse patient.[facility] the event this information is protected by the Federal Confidentiality of Alcohol and Drug Abuse Patient Records regulations: The Federal rules restrict any use of the information to criminally investigate or prosecute any alcohol or drug abuse patient.[facility] the event this information is protected by the Federal Confidentiality of Alcohol and Drug Abuse Patient Records regulations: The Federal rules restrict any use of the information to criminally investigate or prosecute any alcohol or drug abuse patient.[facility] the event this information is protected by the Federal Confidentiality of Alcohol and Drug Abuse Patient Records regulations: The Federal rules restrict any use of the information to criminally investigate or prosecute any alcohol or drug abuse patient.[facility] the event this information is protected by the Federal Confidentiality of Alcohol and Drug Abuse Patient Records regulations: The Federal rules restrict any use of the information to criminally investigate or prosecute any alcohol or drug abuse patient.[facility] the event this information is protected by the Federal Confidentiality of Alcohol and Drug Abuse Patient Records regulations: The Federal rules restrict any use of the information to criminally investigate or prosecute any alcohol or drug abuse patient.[facility] the event this information is protected by the Federal Confidentiality of Alcohol and Drug Abuse Patient Records regulations: The Federal rules restrict any use of the information to criminally investigate or prosecute any alcohol or drug abuse patient.[facility] the event this information is protected by the Federal Confidentiality of Alcohol and Drug Abuse Patient Records regulations: The Federal rules restrict any use of the information to criminally investigate or prosecute any alcohol or drug abuse patient.[facility] the event this information is protected by the Federal Confidentiality of Alcohol and Drug Abuse Patient Records regulations: The Federal rules restrict any use of the information to criminally investigate or prosecute any alcohol or drug abuse patient.[facility] the event this information is protected by the Federal Confidentiality of Alcohol and Drug Abuse Patient Records regulations: The Federal rules restrict any use of the information to criminally investigate or prosecute any alcohol or drug abuse patient.[facility] the event this information is protected by the Federal Confidentiality of Alcohol and Drug Abuse Patient Records regulations: The Federal rules restrict any use of the information to criminally investigate or prosecute any alcohol or drug abuse patient.[facility] the event this information is protected by the Federal Confidentiality of Alcohol and Drug Abuse Patient Records regulations: The Federal rules restrict any use of the information to criminally investigate or prosecute any alcohol or drug abuse patient.[facility] the event this information is protected by the Federal Confidentiality of Alcohol and Drug Abuse Patient Records regulations: The Federal rules restrict any use of the information to criminally investigate or prosecute any alcohol or drug abuse patient.[facility] the event this information is protected by the Federal Confidentiality of Alcohol and Drug Abuse Patient Records regulations: The Federal rules restrict any use of the information to criminally investigate or prosecute any alcohol or drug abuse patient.[facility] the event this information is protected by the Federal Confidentiality of Alcohol and Drug Abuse Patient Records regulations: The Federal rules restrict any use of the information to criminally investigate or prosecute any alcohol or drug abuse patient.[facility] the event this information is protected by the Federal Confidentiality of Alcohol and Drug Abuse Patient Records regulations: The Federal rules restrict any use of the information to criminally investigate or prosecute any alcohol or drug abuse patient.[facility] the event this information is protected by the Federal Confidentiality of Alcohol and Drug Abuse Patient Records regulations: The Federal rules restrict any use of the information to criminally investigate or prosecute any alcohol or drug abuse patient.[facility] HospitalIn the event this information is protected [...] or prosecute any alcohol or drug abuse patient.[facility] HospitalIn the event this information is protected by the Federal Confidentiality of Alcohol and Drug Abuse Patient Records regulations: The Federal rules restrict any use of the information to criminally investigate or prosecute any alcohol or drug abuse patient.[facility] HospitalIn the event this information is protected by the Federal Confidentiality of Alcohol and Drug Abuse Patient Records regulations: The Federal rules restrict any use of the information to criminally investigate or prosecute any alcohol or drug abuse patient.[facility] HospitalIn the event this information is protected by the Federal Confidentiality of Alcohol and Drug Abuse Patient Records regulations: The Federal rules restrict any use of the information to criminally investigate or prosecute any alcohol or drug abuse patient.[facility] HospitalIn the event this information is protected by the Federal Confidentiality of Alcohol and Drug Abuse Patient Records regulations: The Federal rules restrict any use of the information to criminally investigate or prosecute any alcohol or drug abuse patient.[facility] HospitalIn the event this information is protected by the Federal Confidentiality of Alcohol and Drug Abuse Patient Records regulations: The Federal rules restrict any use of the information to criminally investigate or prosecute any alcohol or drug abuse patient.[facility] HospitalIn the event this information is protected by the Federal Confidentiality of Alcohol and Drug Abuse Patient Records regulations: The Federal rules restrict any use of the information to criminally investigate or prosecute any alcohol or drug abuse patient.[facility] HospitalIn the event this information is protected by the Federal Confidentiality of Alcohol and Drug Abuse Patient Records regulations: The Federal rules restrict any use of the information to criminally investigate or prosecute any alcohol or drug abuse patient.[facility] HospitalIn the event this information is protected by the Federal Confidentiality of Alcohol and Drug Abuse Patient Records regulations: The Federal rules restrict any use of the information to criminally investigate or prosecute any alcohol or drug abuse patient.[facility] HospitalIn the event this information is protected by the Federal Confidentiality of Alcohol and Drug Abuse Patient Records regulations: The Federal rules restrict any use of the information to criminally investigate or prosecute any alcohol or drug abuse patient.[facility] HospitalIn the event this information is protected by the Federal Confidentiality of Alcohol and Drug Abuse Patient Records regulations: The Federal rules restrict any use of the information to criminally investigate or prosecute any alcohol or drug abuse patient.[facility] HospitalIn the event this information is protected by the Federal Confidentiality of Alcohol and Drug Abuse Patient Records regulations: The Federal rules restrict any use of the information to criminally investigate or prosecute any alcohol or drug abuse patient.[facility] HospitalIn the event this information is protected by the Federal Confidentiality of Alcohol and Drug Abuse Patient Records regulations: The Federal rules restrict any use of the information to criminally investigate or prosecute any alcohol or drug abuse patient.[facility] HospitalIn the event this information is protected by the Federal Confidentiality of Alcohol and Drug Abuse Patient Records regulations: The Federal rules restrict any use of the information to criminally investigate or prosecute any alcohol or drug abuse patient.[facility] HospitalIn the event this information is protected by the Federal Confidentiality of Alcohol and Drug Abuse Patient Records regulations: The Federal rules restrict any use of the information to criminally investigate or prosecute any alcohol or drug abuse patient.[facility] HospitalIn the event this information is protected by the Federal Confidentiality of Alcohol and Drug Abuse Patient Records regulations: The Federal rules restrict any use of the information to criminally investigate or prosecute any alcohol or drug abuse patient.[facility] HospitalIn the event this information is protected by the Federal Confidentiality of Alcohol and Drug Abuse Patient Records regulations: The Federal rules restrict any use of the information to criminally investigate or prosecute any alcohol or drug abuse patient.[facility] HospitalIn the event this information is protected by the Federal Confidentiality of Alcohol and Drug Abuse Patient Records regulations: The Federal rules restrict any use of the information to criminally investigate or prosecute any alcohol or drug abuse patient.[facility] HospitalIn the event this information is protected by the Federal Confidentiality of Alcohol and Drug Abuse Patient Records regulations: The Federal rules restrict any use of the information to criminally investigate or prosecute any alcohol or drug abuse patient.[facility] HospitalIn the event this information is protected by the Federal Confidentiality of Alcohol and Drug Abuse Patient Records regulations: The Federal rules restrict any use of the information to criminally investigate or prosecute any alcohol or drug abuse patient.[facility] Reason for Visit (unrecogniz ed section and content) Reason Comments Follow Up Reason Onset Date Comments Refill Request 08/09/2021 Reason Comments Imm/Inj 1st covid vaccine Reason Comments Refill Request Reason Comments ER F/U [facility] ER follow up dx: gastritis Refill Request [...] Care Teams (unrecognized sec tion and content) Surgical Elastic Knitter Relationship Specialty Start Date End Date Rui Magaña DO [address] [place] [address] PCP - General Family Practice 06/14/12 Surgical Elastic Knitter Relationship Specialty Start Date End Date Magaña, Rui L, DO [address] [place] [address] PCP - General Family Practice 06/14/12 Surgical Elastic Knitter Relationship Specialty Start Date End Date Rui Magaña, DO [address] [place] [address] PCP - General Family Practice 06/14/12 Surgical Elastic Knitter Relationship Specialty Start Date End Date Rui Magaña, DO [address] [place] [address] PCP - General Family Practice 06/14/12 Surgical Elastic Knitter Relationship Specialty Start Date End Date Rui Magaña, DO [address] [place] [address] PCP - General Family Practice 06/14/12 Surgical Elastic Knitter Relationship Specialty Start Date End Date Rui Magaña, DO [address] [place] [address] PCP - General Family Practice 06/14/12 Surgical Elastic Knitter Relationship Specialty Start Date End Date Rui Magaña, DO [address] [place] [address] PCP - General Family Practice 06/14/12 Surgical Elastic Knitter Relationship Specialty Start Date End Date Rui Magaña, DO [address] [place] [address] PCP - General Family Practice 06/14/12 Surgical Elastic Knitter Relationship Specialty Start Date End Date Rui Magaña, DO [address] [place] [address] PCP - General Family Practice 06/14/12 Surgical Elastic Knitter Relationship Specialty Start Date End Date Rui Magaña, DO [address] [place] [address] PCP - General Family Practice 06/14/12 Surgical Elastic Knitter Relationship Specialty Start Date End Date Rui Magaña, DO [address] [place] [address] PCP - General Family Practice 06/14/12 Surgical Elastic Knitter Relationship Specialty Start Date End Date Rui Magaña, DO [address] [place] [address] PCP - General Family Practice 06/14/12 Surgical Elastic Knitter Relationship Specialty Start Date End Date Rui Magaña, DO [address] [place] [address] PCP - General Family Medicine 06/14/12 Surgical Elastic Knitter Relationship Specialty Start Date End Date Rui Magaña, DO [address] [place] [address] PCP - General Family Medicine 06/14/12 Surgical Elastic Knitter Relationship Specialty Start Date End Date Rui Magaña, DO [address] [place] [address] PCP - General Family Medicine 06/14/12 Surgical Elastic Knitter Relationship Specialty Start Date End Date Rui Magaña, DO [address] [place] [address] PCP - General Family Medicine 06/14/12 Surgical Elastic Knitter Relationship Specialty Start Date End Date Rui Magaña, DO [address] [place] [address] PCP - General Family Medicine 06/14/12 Surgical Elastic Knitter Relationship Specialty Start Date End Date Rui Magaña, DO [address] [place] [address] PCP - General Family Medicine 06/14/12 Surgical Elastic Knitter Relationship Specialty Start Date End Date Rui Magaña, DO [address] [place] [address] PCP - General Family Medicine 06/14/12 Surgical Elastic Knitter Relationship Specialty Start Date End Date Rui Magaña, DO [address] [place] [address] PCP - General Family Medicine 06/14/12 Surgical Elastic Knitter Relationship Specialty Start Date End Date Rui Magaña DO [address] [place] [address] PCP - General Family Medicine 06/14/12 Surgical Elastic Knitter Relationship Specialty Start Date End Date Rui Magaña DO [address] [place] [address] PCP - General Family Medicine 06/14/12 Surgical Elastic Knitter Relationship Specialty Start Date End Date Rui Magaña DO [address] [place] [address] PCP - General Family Medicine 06/14/12 Surgical Elastic Knitter Relationship Specialty Start Date End Date Rui Magaña DO [address] [place] [address] PCP - General Family Medicine 06/14/12 Surgical Elastic Knitter Relationship Specialty Start Date End Date Rui Magaña DO [address] [place] [address] PCP - General Family Medicine 06/14/12 Surgical Elastic Knitter Relationship Specialty Start Date End Date Rui Magaña DO [address] [place] [address] PCP - General Family Medicine 06/14/12 Surgical Elastic Knitter Relationship Specialty Start Date End Date Rui Magaña DO [address] [place] [address] PCP - General Family Medicine 06/14/12 Surgical Elastic Knitter Relationship Specialty Start Date End Date Rui Magaña Garcia [address] [place] [address] PCP - General Family Medicine 06/14/12 INFORMATION [...] BE BASED ON THE PRIMARY CLINICAL RECORDS. [facility]. provides no warranty or guarantee of the accuracy or completeness of information in this document.
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
[2023-06-01] MEDS: Smz/Tmp Ds Tablet 1 TABLET PO (01:36)
[2023-06-01 01:51] VITALS: BP 142/107; PULSE 93; RESP 20; TEMP 36.2; O2SAT 100
== END 2023-06-01 01:52 | disposition home or self-care (01) ==
PROVIDERS: Emergency Provider Emergency Medicine; PCP Student in an Organized Health Care Education/Training Program; Visit Provider Emergency Medicine
DX: S01.81XA Laceration without foreign body of other part of head, initial encounter (principal); S93.401A Sprain of unspecified ligament of right ankle, initial encounter; V86.56XA Driver of dirt bike or motor/cross bike injured in nontraffic accident, initial encounter; F17.290 Nicotine dependence, other tobacco product, uncomplicated
CPT/HCPCS: 12013; 70450; 73610; 99283

== ENCOUNTER 2024-04-05 13:21 | Emergency (ER) | payer MEDICAID, SELFPAY ==
[2024-04-05 13:21] VITALS: BP 130/105; PULSE 89; RESP 14; TEMP 36.3; O2SAT 100; BMI 25.6
--- NOTE | 2024-04-05 13:45 | RAD_ITS ---
STUDY: X-RAY - RIGHT SHOULDER REASON FOR EXAM: Female, 39 years old. Pain following a fall. TECHNIQUE: 4 view(s) of the shoulder. COMPARISON: None. FINDINGS: Normal glenohumeral articulation. Normal acromioclavicular joint. Normal acromion. Normal humeral head and visualized proximal humerus. The soft tissue structures are unremarkable. Normal visualized pulmonary apex. RAD/Shoulder min 2 Views IMPRESSION: Normal x-ray examination of the shoulder. Electronically Signed: Samm Russo MD at 13:54 EST ,
--- NOTE | 2024-04-05 13:53 | EX.ED.UPPERE ---
HPI History of Present Illness Chief Complaint: Upper Extremity Injury Narrative Narrative: Patient is a 39-year-old female with a past medical history of ADD, PCOS, thyroid disorder, anxiety, depression, opioid use disorder who presents to the emergency department with a chief complaint of right shoulder pain and dental infection. Patient states that approximately 3 weeks ago she fell down a set of stairs and when she attempted to catch herself she got her right arm caught in the railing. States that she has had persistent pain since then and was not improving therefore she came here for further evaluation management. States that she was not evaluated after the fall. Patient also is complaining of a broken tooth in the back left top of her mouth and concern for infection. States that she called her dentist for antibiotic she states that usually clindamycin works for her and they noted that they would not provide her antibiotics and they would not see her until antibiotics were completed. They advised her to go to an urgent care or the emergency department therefore she came here for further evaluation management. [facility] Medical History (spontaneous vaginal delivery) History of gonorrhea Dysthymia Adjustment disorder with mixed anxiety and depressed mood Restless leg syndrome Fatigue Chronic low back pain complicated by subutex maintenance, antepartum History of methamphetamine abuse Chlamydia Sciatica Migraine Insomnia Asthma PCOS (polycystic ovarian syndrome) ADD (attention deficit disorder) Thyroid disorder Anxiety Depression AMA (advanced maternal age) multigravida 35+ Opioid use disorder, moderate, dependence Home Medications ?Medication ?Instructions ?Recorded ?Last Taken ?Type albuterol sulfate 90 mcg/actuation 2 puff inhalation Q6H PRN PRN 01/24/13 01/29/21 03:00 History aerosol inhaler (Ventolin HFA) Bronchodialation 2 puffs buprenorphine HCl 8 mg sublingual 12 mg sublingual DAILY Check with 01/29/21 01/29/21 07:30 History tablet primary doctor pantoprazole 40 mg tablet,delayed 40 mg PO DAILY 30 days #30 tabs 03/29/21 Unknown Rx release (Protonix) sucralfate 1 gram tablet (Carafate) 1 g PO TID #15 tabs 08/30/21 Unknown Rx clindamycin HCl 150 mg capsule 300 mg (2 x 150 mg) PO 4X/DAY #80 11/07/21 Unknown Rx CAPSULES fluconazole 150 mg tablet 150 mg PO .once #1 TAB 11/07/21 Unknown Rx nitrofurantoin 100 mg PO Q12H 5 days #10 caps 12/27/21 Unknown Rx monohydrate/macrocrystals 100 mg capsule (Macrobid) prednisone 20 mg tablet 40 mg (2 x 20 mg) PO DAILY #14 tabs 12/31/21 Unknown Rx clindamycin HCl 150 mg capsule 300 mg (2 x 150 mg) PO TID 10 days 04/24/23 Unknown Rx (Cleocin HCl) #60 caps ibuprofen 600 mg tablet 600 mg PO Q6H PRN PRN pain #20 04/24/23 Unknown Rx TABLETS sulfamethoxazole 800 1 tab PO BID 7 days #14 tabs 06/01/23 Unknown Rx mg-trimethoprim 160 mg tablet (Bactrim DS) clindamycin HCl 300 mg capsule 300 mg PO TID 7 days #21 caps 04/05/24 Unknown Rx Allergy/AdvReac Type Severity Reaction Status Date / Time Penicillins (PCN) Allergy Swelling Verified 04/05/24 13:22 tramadol HCl (From [facility]) AdvReac Other Verified 04/05/24 13:22 Surgical History History of abdominal surgery H/O carpal tunnel repair H/O Achilles tendon repair H/O LEEP Social History household members: family Smoking Status: Current some day smoker tobacco type: e-cigarettes ROS ROS ED ROS Narrative Constitutional: Denies any fevers, chills, headaches, lightness, dizziness Eyes, ears, nose, throat: Complains of dental pain as noted above denies any difficulty swallowing Cardiovascular: Denies chest pain or palpitations Respiratory: Denies shortness of breath Abdomen: Denies nausea vomit diarrhea Neurological: Denies any numbness, wheeze, tingling Musculoskeletal: Complains of right shoulder pain as noted above Skin: Denies any rashes or lesions EXAM Physical Exam Narrative Exam Narrative: General: Patient lying in bed rest comfortably did not appear to be in acute distress Head: Atraumatic, normocephalic Eyes, ears, nose, throat: Patient has poor dentition noted, the top left back tooth does have some pain to palpation no evidence of periapical abscess, no sublingual swelling Neck: Soft, supple, trachea midline, no concern for Larry's angina Cardiovascular: Regular rate and rhythm no murmurs gallops rubs noted Respiratory: Clear to auscultation bilaterally Abdomen: Soft, nondistended, nontender to palpation Musculoskeletal: Patient has pain with attempted range of motion of the right shoulder, all of the bony prominences and joints taken through full range of motion no pain elicited Extremities: +5/5 strength noted in the bilateral lower extremities in the left upper extremity, +4/5 strength in the right upper extremity secondary to pain, radial pulses +2/4 in the bilateral upper extremities, cap refill less than 2 seconds Neurological: Patient following commands knew that she was at [facility] years 2023. Patient has sensation grossly intact in the median, ulnar and radial nerve distributions bilaterally as well as her axillary nerve bilaterally Skin: Warm, dry, intact, no rashes or lesions noted Const Vital Signs: 04/05/24 13:21 Temperature 97.3 F L Temperature Source Temporal Pulse Rate 89 Respiratory Rate 14 Blood Pressure 130/105 H Blood Pressure Mean 113 Pulse Ox 100 Oxygen Delivery Method Room Air MDM MDM MDM Narrative Medical decision making narrative: Patient is a 39-year-old female who presented to the emerged part with chief complaint of right shoulder pain patient will have a workup performed here on the differential diagnosis includes but not limited to rotator cuff tear, proximal humerus fracture, midshaft humerus fracture. Once workup is obtained reviewed she will be reevaluated. Patient's x-ray of her shoulder reviewed by myself and by radiology showed no acute findings of the shoulder. Did discuss results with the patient. She would like a sling for comfort which was given to her. Prescription for clindamycin was ordered and sent to her pharmacy. She is advised to follow-up with her dentist in outpatient setting. She was encouraged to return with worsening symptoms or other concerns. Patient was advised to follow-up with orthopedics in the outpatient setting for which she was referred. She is agreeable this plan all questions were answered answered she was discharged home in stable condition. Discharge Plan Triage Chief Complaint: Upper Extremity Injury ED Provider: Misael Sutton Dx/Rx/DC Orders Clinical Impression: Pain in right shoulder, Dental infection Prescriptions: New clindamycin HCl 300 mg capsule 300 mg PO TID 7 Days Qty: 21 0RF No Action albuterol sulfate [Ventolin HFA] 1 INHALER inhaler 2 puff inhalation Q6H PRN PRN (Reason: Bronchodialation) buprenorphine HCl 8 mg Tablet, Sublingual 12 mg SUBLINGUAL DAILY pantoprazole [Protonix] 40 mg tablet,delayed release (DR/EC) 40 mg PO DAILY 30 Days Qty: 30 0RF sucralfate [Carafate] 1 gram tablet 1 g PO TID Qty: 15 0RF clindamycin HCl 150 MG capsule 300 mg PO 4X/DAY Qty: 80 0RF fluconazole 150 mg tablet 150 mg PO .once Qty: 1 0RF nitrofurantoin monohyd/m-cryst [Macrobid] 100 mg capsule 100 mg PO Q12H 5 Days Qty: 10 0RF Rx Instructions: must administer with a meal/food prednisone 20 mg tablet 40 mg PO DAILY Qty: 14 0RF sulfamethoxazole-trimethoprim [Bactrim DS] 800-160 mg tablet 1 tab PO BID 7 Days Qty: 14 0RF clindamycin HCl [Cleocin HCl] 150 mg capsule 300 mg PO TID 10 Days Qty: 60 0RF ibuprofen 600 mg tablet 600 mg PO Q6H PRN PRN (Reason: pain) Qty: 20 0RF Primary Care Provider: Rui Garner Referrals: Rui Garner DO [Primary Care Provider] - Edwardo Ness MD [Med Staff - Active Staff] - Activity Restrictions/Additional Instructions: Follow-up with your doctor in the outpatient setting. Follow-up with your dentist. Return with worsening symptoms or any concerns. Take antibiotics as prescribed. Follow-up with the bone doctor that you referred to as well. Print Language: Panamanian Disposition Disposition: Home, Self Care
== END 2024-04-05 14:32 | disposition home or self-care (01) ==
PROVIDERS: Emergency Provider Emergency Medicine; PCP Student in an Organized Health Care Education/Training Program; Visit Provider Emergency Medicine
DX: M25.511 Pain in right shoulder (principal); W10.9XXA Fall (on) (from) unspecified stairs and steps, initial encounter; K04.7 Periapical abscess without sinus; F17.290 Nicotine dependence, other tobacco product, uncomplicated
CPT/HCPCS: 73030; 99282